=== PATIENT | female | born 1945 | race Caucasian/White ===

== ENCOUNTER → 2018-03-28 | Outpatient (CLI) | payer MEDICARE, OTHER | LOC: CARD 09:56 | PROVIDERS: ATTEND Internal Medicine Interventional Cardiology | DX: I48.91 Unspecified atrial fibrillation (principal); I10 Essential (primary) hypertension; R42 Dizziness and giddiness; R55 Syncope and collapse; E66.9 Obesity, unspecified | CPT/HCPCS: 93225; 93226 ==

== ENCOUNTER 2018-04-26 10:15 | Inpatient (IN) | payer MEDICARE, OTHER ==
[~2018-04-26] VITALS: Ht 160 cm; Wt 87.1 kg
[~2018-04-26 10:15] MED LIST: CITA40TA11; CITA40TA11 PO; DILT240C PO; DILT240C53; LOSA1TAB20; LOSA1TAB20 PO; MAGN400T39 PO; METO-333 PO; METO100T12; METO100T12 PO; NITR100C PO; OMEP20CA12; OMEP20CA12 PO; WARF-47; WARF-47 PO
[2018-04-26 10:30] VITALS: BP 158/79
--- NOTE | 2018-04-26 11:41 | Physical Therapy Evaluation ---
PT Evaluation-General Medical Diagnosis Admission Date Apr 26, 2018 at 10:15 Medical Diagnosis: Closed left bimalleolar fx Onset Date: Apr 23, 2018 Therapy Diagnosis Therapy Diagnosis: weakness; abn gait Height/Weight Height (Feet): 5 Height (Inches): 3.00 Weight (Pounds): 192 Weight (Ounces): 0.6 Precautions Precautions/Isolations: Contact Isolation (EBSL uring) Weight Bear Status Right Lower Extremity: Right Full Weight Bearing Left Lower Extremity: Left Touch Toe Bearing CAM boot on the left Referral Physician: Joe Reason for Referral: Evaluation/Treatment Medical History Pertinent Medical History: Atrial Fib, HTN Additional Medical History Right ankle fx in 2010; repaired with hardware. Current History Pt reports she had a syncopal episode on 04/23/18 in which caused her to fall. She sustained a left ankle fracture. It has been repaired with an ORIF on . She is currently also reporting right ankle pain, but X Rays taken today are (-). Reviewed History: Yes Social History Home: Apartment (level entry and elevator) Current Living Status: Alone (family nearby) Entry Into Home: Elevator, Level Entry Prior/Core FIM Prior Level of Function Functional [place] Measure 0=Not Assessed/NA 4=Minimal Assistance 1=Total Assistance 5=Supervision or Setup 2=Maximal Assistance 6=Modified [place] 3=Moderate Assistance 7=Complete [place] Bed Mobility: 7 Transfers (B,C,W/C) (FIM): 7 Gait: 7 INdep with ADL"s, drives, ambulates in the community. Reports she has an "insufficient ACL" on the R, therefore stairs are hard for her. She reports she has to have assist to go up/down steps. PT Evaluation-Current Subjective Agrees to PT. Reports her limiting factor today is R ankle pain with WB activity. Pain Numeric Pain Scale: 5-Moderate Pain Location: Right Location Body Site: Ankle Comment: "hurts" with WB activity Pt/Family Goals Her goal is to return home at a mod indep level. Objective Patient Orientation: Person, Place, Time, Situation Problem Solving: Good ROM/Strength ROM Lower Extremities WNL except left ankle NT Strenght Lower Extremities Her gross B LE strength is 4-/5 functional weakness noted. Integumentary/Posture Integumentary Refer to nursing notes. Bowel Incontinence: No Bladder Incontinence: Yes (stress or urgency related) Posture normal and symmetrical Neuromuscular (Tone, Coordination, Reflexes) Intact and functional Sensory Vision: Wears Glasses Hearing: Functional Hand Dominance: Right Sensation Right Lower Extremit: Intact Sensation Left Lower Extremity: Intact Transfers Functional [place] Measure 0=Not Assessed/NA 4=Minimal Assistance 1=Total Assistance 5=Supervision or Setup 2=Maximal Assistance 6=Modified [place] 3=Moderate Assistance 7=Complete IndependenceIRFPAI Quality Coding Scale 6 Independent with activity with or without an assistive device 5 Patient requires set up or clean up by helper. Patient completes activity by themselves 4 Supervision or touching assist (CGA). [place] provide cues , steadying assist 3 The helper provides less than half the effort to complete the activity 2 The helper provides more than half the effort to complete the activity 1 Dependent. The helper does all the effort to complete an activity 7 Patient refused to complete or attempt activity 9 The patient did not perform the activity before the current illness or injury 88 Not attempted due to Medical conditions or safety concerns Transfers (B, C, W/C) (FIM): 3 Scootin Rollin Roll Left to Right (QC): 5 Supine to/from Sit: 4 (assist with left LE) Sit to/from Stand: 3 (mod assist from standard chair with skilled cues for sequencing) bed t/f WC(FIM only if WC use): 4 (CGA and takes extra time. ) Sit to Lying (QC): 4 Lying to Sitting/Side of Bed(Q: 4 Sit to Stand (QC): 3 Chair/Wup-ve-Hhnhv Xfer(QC): 4 Car Transfer (QC): 3 In general her transfers are at a min assist level; due to left LE being "heavy " and TTWB Gait Does the Patient Walk?: No and Walking Goal IS indicated Mode of Locomotion: Both Anticipated Mode of Locomotion: Both Gait (FIM): 0 (unable at this time. ) Distance (FIM): 0=does not occure Walk 10 feet (QC): 88 Walk 50 ft with 2 Turns(QC): 88 Walk 150 ft (QC): 88 Walking 10ft/uneven surface-QC: 88 Gait Assistive Device: FWW Comments/Gait Description TTWB left; unable to hop/walk at this time. Wheelchair Training Does the Pt Use a Wheelchair?: Yes Wheelchair (FIM): 4 Wheelchair Distance (FIM): 3=150 ft Distance: 150 ft Wheelchair Level of Assist: 4 (occas assist with turning) Wheel 50 ft with 2 turns (QC): 4 Wheel 150 ft (QC): 4 Type of Wheelchair: Manual Stairs Stairs (FIM): 0 (unable to effectively hop due to U/LE weakness and TTWB on the left) 1 Step (curb) (QC): 88 4 Steps (QC): 88 12 Steps (QC): 88 If not tested on admit;explain TTWB; unable to effectively or safely attempt to hop; pt currently unable to ambulate Balance Sitting Static: Good Sitting Dynamic: Good Standing Static: Fair Standing Dynamic: Fair Picking up an Object (QC): 88 (unsafe to attempt) Treatment Bed mobility and transfer training with focus on sequencing and safety. SPT x 3 performed with FWW with min to CGa. Assessment/Needs Pt presents post left ankle fracture and is TTWB due to this. She is also experiencing right ankle pain that is limiting her ability to stand to transfer. She has gross LE weakness which impairs bed mobility and transfers. She will benefit from skilled PT intervention to address bed mobility, transfers and gait (as able.) Will also benefit from wheelchair training. Will continue to assess best method of transferring (slide board vs SPT) as well as best method of mobility (WC, hopping and/or knee scooter) Rehab Potential: Good (motivated and high PLOF) PT Short Term Goals Short Term Goals Time Frame: May 03, 2018 Transfers (B,C,W/C) (FIM): 5 Gait (FIM): 2 Distance (FIM): 1=up to 49 ft Gait Assistive Device: FWW Wheelchair (FIM): 6 Wheelchair distance (FIM): 3=150 ft PT Fdc Goals Ux Ui Designer Goals PT Fdc Goals Time Frame: May 13, 2018 Transfers (B,C,W/C) (FIM): 6 Sit to Lying (QC): 6 Lying-Sitting on Side/Bed(QC): 6 Sit to Stand (QC): 6 Roll Left to Right (QC): 6 Chair/Npd-jq-Dxmkn Xfer(QC): 6 Car Transfer (QC): 6 Does the Patient Walk: No and Walking Goal IS indicated Gait (FIM): 5 (household exception) Gait distance (FIM): 6=667-18 ft Walk 10 feet (QC): 6 Walk 10ft-Uneven Surface(QC): 6 Walk 50ft with 2 Turns (QC): 6 Walk 150 ft (QC): 9 Gait Assistive Device: FWW Does the Pt use WC or Scooter?: Yes Wheelchair (FIM): 6 Wheelchair distance (FIM): 3=150 ft Wheel 50 feet with 2 turns (QC: 6 Stairs (FIM): 2 # of Steps: 1 1 Step (curb) (QC): 4 4 Steps (QC): 9 12 Steps (QC): 9 Stairs Level Of Assist: 4 Picking up an Object (QC): 88 Goal is for patient to be at mod indep level with transfers and bed mobility as well as forward mobilty using a walker, wc or knee scooter PT Plan Problem List Problem List: Activity Tolerance, Functional Strength, Safety, Balance, Gait, Transfer, Bed Mobility Treatment/Plan Treatment Plan: Continue Plan of Care Treatment Plan: Bed Mobility, Education, Functional Activity [place], Functional Strength, Group Therapy, Gait, Safety, Therapeutic Exercise, Transfers Treatment Duration: May 13, 2018 Frequency: At least 5 of 7 days/Wk (IRF) Estimated Hrs Per Day: 1.5 hours per day Patient and/or Family Agrees t: Yes Safety Risks/Education Patient Education: Transfer Techniques, Safety Issues Teaching Recipient: Patient Teaching Methods: Discussion Response to Teaching: Reinforcement Needed Discharge Recommendations Therapy D/C Recommendations: Physical Therapy Home Care Time/GCodes Time In: 1000 Time Out: 1100 Total Billed Treatment Time: 60 Total Billed Treatment visit EVM 20 FA 40 DORIS HERNANDEZ PT Apr 26, 2018 11:41
[2018-04-26] MEDS ORDERED: BISACODYL 10 MG SUPP (DULCOLAX) PR PRN (11:45)
[2018-04-26] MEDS ORDERED: MILK OF MAGNESIA 400 MG/5 ML 30 ML UDC PO PRN (11:45)
[2018-04-26] MEDS ORDERED: ANTACID SUSP 30 ML UDC (MYLANTA) PO PRN (11:45)
[2018-04-26] MEDS: HYDROcodone/APAP 10 MG/325 MG (LORTAB) TAB PO PRN ×3 (12:26→21:03)
[2018-04-26] MEDS ORDERED: METO100T12 PO (12:51)
[2018-04-26] MEDS ORDERED: DILT240C53 PO (12:51)
[2018-04-26] MEDS ORDERED: LOSA1TAB20 PO (12:51)
[2018-04-26] MEDS ORDERED: OMEP20CA12 PO (12:56)
--- NOTE | 2018-04-26 13:10 | HISTORY AND PHYSICAL ---
DATE OF SERVICE: ADMISSION HISTORY AND PHYSICAL CHIEF COMPLAINT: Difficulty with walking. HISTORY OF PRESENT ILLNESS: The patient is a 72-year-old female, who had a syncopal episode at home in her apartment in [place], [place], with a resulting left ankle fracture. She was admitted to [facility] [place] and underwent ORIF on 04/24/2018. She is toe touch weightbearing left lower limb. Therapies were begun and she was felt to be appropriate for inpatient rehabilitation. She has had difficulty with syncope due to orthostasis and she has been followed by cardiology as well as hospitalist service and her diltiazem has been discontinued and her Toprol decreased. Her blood pressure is being allowed to be a bit elevated so as to avoid orthostasis. Currently, she reports stress incontinence, but this is controlled with pad. She has continence of bowel. She is alert and oriented. She had been independent prior to this. She is mod assist for transfers, unable to maintain her toe touch weightbearing for ambulation. She is min assist for wheelchair propulsion. She is modified independent for eating, set up for grooming, min assist for upper body dressing, mod assist for lower body dressing and toileting. PAST MEDICAL HISTORY: Atrial fibrillation and hypertension. PAST SURGICAL HISTORY: Right ankle fracture 2011 repaired with hardware. She has a Cam boot on the left currently. She also has contact precautions due to ESBL in the urine. ALLERGIES: No known medication allergies. FAMILY HISTORY: Noncontributory. SOCIAL HISTORY: As per above. REVIEW OF SYSTEMS: A 10-point review of systems mild pain in ankle and a syncopal episode, not repeated. MEDICATIONS: Coumadin 4 mg on Wednesday, Wednesday, Wednesday alternating with 3 mg the other day, Celexa 40 mg p.o. daily, mag ox 400 mg p.o. daily, Colace 100 mg p.o. b.i.d., MiraLax 17 grams p.o. at bedtime, metoprolol 25 mg p.o. b.i.d., Benadryl 25 mg p.o. at bedtime p.r.n. insomnia, hydrocodone APAP 10 one tablet p.o. q.4 hours p.r.n. moderate pain, Tylenol 650 mg p.o. q.4 hours p.r.n. mild pain or fever. PHYSICAL EXAMINATION: GENERAL: Significant for a pleasant female appearing her stated age, alert and oriented, no acute distress, sitting in chair. VITAL SIGNS: She is afebrile, pulse is 72, respirations 20, blood pressure 158/79 and O2 sat 97% on room air. HEENT: Vision, speech, hearing grossly intact. No oral lesion is noted. NECK: Supple without mass. HEART: Regular rhythm. CHEST: Clear. ABDOMEN: Soft, nontender and bowel sounds present. EXTREMITIES: The patient has a boot on the left leg. No lower leg edema, no calf tenderness on the right. MUSCULOSKELETAL: She has functional active range of motion both upper limbs and right lower limb. NEUROLOGIC: Cognition grossly intact. Sensation is intact to touch. She has functional strength both upper limbs-groosly 4/5. Strength in the lower extremities is 4-5 grossly other than the ankle IMPRESSION: 1. Ambulatory dysfunction secondary to syncopal episode resulting in left ankle fracture status post ORIF 04/24/2018, toe touch weightbearing left lower extremity. 2. Atrial fibrillation, controlled with medication. 3. Hypertension, controlled with medication. 4. Orthostatic hypotension, resolved with adjustment in medications. 5. ESBL in the urine, has contact precautions. 6. Chronic anticoagulation which may may also be used for DVT Prophylaxis PLAN: The patient is admitted for a comprehensive program of inpatient orthopedic rehabilitation with goal of returning home modified independent to supervision for ADLs and mobility skills at the wheelchair level of function due to toe touch weightbearing left lower extremity. The patient will have PT and OT 90 minutes per day each discipline 5 days a week, 90 minutes per day each session. Please see post-admission physician evaluation for details of plan of care and goals as per above. Speech therapy to do cognitive assessment and treat as indicated. Rehabilitation nursing to assist with bowel, bladder, skin, wound care, medication administration and pain management. food services coordinator to assist with discharge planning, community reentry. Follow up with orthopedics and hospitalist service and cardiology as per their schedule. ESTIMATED LENGTH OF STAY: 10 to 14 days. PROGNOSIS: Rehab prognosis appears good for goal of discharging to home with home health care and family, modified independent to supervision for ADLs and mobility skills at the wheelchair level of function due to toe touch weightbearing left lower extremity. DIET: Regular. CODE STATUS: Full code. Job ID: [id number] DocumentID: [id number] Dictated Date: 04/26/2018 12:27:02 Leaf Fat Scraper Date: 04/26/2018 13:09:21 Dictated By: DEDE PEREZ MD MTDD
--- NOTE | 2018-04-26 13:53 | Occupational Therapy Eval ---
OT Evaluation-General/PLF Medical Diagnosis Admission Date Apr 26, 2018 at 10:15 Medical Diagnosis: Closed left bimalleolar fx Onset Date: Apr 23, 2018 Therapy Diagnosis Therapy Diagnosis: decr funct mobility, decr self care, weakness Height/Weight Height (Feet): 5 Height (Inches): 3.00 Weight (Pounds): 192 Weight (Ounces): 0.6 Precautions Precautions/Isolations: Contact Isolation, Fall Prevention Weight Bear Status Weight Bearing Restriction: Touch Toe Bearing Location Restriction: L LE Referral Physician: Joe Referral Reason: Evaluation/Treatment Medical History Pertinent Medical History: Atrial Fib, HTN Additional Medical History Hx R ankle fx Current History Syncopal episode and collapse, L tib/fib fx. Orif on 04-24-18 Reviewed History: Yes Social History Home: Apartment (level entry and elevator) Current Living Status: Alone (family nearby) Entry Into Home: Elevator, Level Entry ADL-Prior Level of Function ADL PLOF Comments Pt reported that she was previously able to manage all of her basic self care needs. She does her own laundry, dishes, cooking but has help twice a month to clean her apartment. 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 She coordinates many of the social activities in her [place] apartment building. DME/Equipment: Grab Bars, Shower (with door), Tall Toilet DME/Equipment Comments She will shower in her aunt's apartment in the same building and it has a roll- in shower. OT Current Status Subjective Pt seen in room, up in w/c, agreeable to OT. pt reported pain R LE when she transfers Appearance Alert, cooperative. Current Glasses/Contacts: Yes Hearing Aids: No Dentures/Partials: No Hand Dominance: Right Upper Extremity ROM Grossly WFL bilat Upper Extremity Sensation No problems per pt report Upper Extremity Strength grossly 4/5 bilat ADL-Treatment ADL-Current She propelled w/c to bathroom and had a little assistance positioning chair at sink. pt educ to lock brakes. She brushed teeth, combed hair, washed face and hands with setup at sink. pt educ transfers from w/c to [facility] over toilet and back , using grab bars, but she did not attempt transfer. She reported that she had a shower yesterday and did not want to do so again until tomorrow when she will have clean clothes here. Functional [place] Measure 0=Not Assessed/NA 4=Minimal Assistance 1=Total Assistance 5=Supervision or Setup 2=Maximal Assistance 6=Modified [place] 3=Moderate Assistance 7=Complete IndependenceIRFPAI Quality Coding Scale 6 Independent with activity with or without an assistive device 5 Patient requires set up or clean up by helper. Patient completes activity by themselves 4 Supervision or touching assist (CGA). [place] provide cues , steadying assist 3 The helper provides less than half the effort to complete the activity 2 The helper provides more than half the effort to complete the activity 1 Dependent. The helper does all the effort to complete an activity 7 Patient refused to complete or attempt activity 9 The patient did not perform the activity before the current illness or injury 88 Not attempted due to Medical conditions or safety concerns Eating (FIM): 7 (Able to feed herself, open packages, cut up food, get a drink. No dentures) Eating (QC): 6 Grooming (FIM): 5 (setup at sink) Oral Hygiene (QC): 5 (setup) Other Treatments Pt propelled w/c to gym. She did 12 minutes bilat UE exercise on arm bike set at 1115W resistance, taking one brief recovery break midway. She also did 10 reps bilat UE ex with 2# weight, working on shoulders, elbows, forearms and wrists. All to strengthen arms to help with transfers and ADLs. Pt propelled w/ c back to room, using UEs, then transferred into bed with mod assist to get up from w/c, then min/CGA to turn to sit EOB. Able to get legs into bed herself. Pillow under legs and ice pack for R knee, per pt request. pt was provided with narrower w/c and arm rests were turned around (from desk arms) so that she would have a good surface to help with transfers. Pt left up in bed, all needs met. Education OT Patient Education: Exercise program, Modified ADL techniques, Purpose of tx/ functional activities, Rehab process, Safety issues, Transfer techniques Teaching Recipient: Patient Teaching Methods: Demonstration, Discussion Response to Teaching: Verbalize Understanding, Return Demonstration, Reinforcement Needed OT Short Term Goals Short Term Goals Time Frame: May 03, 2018 Toilet/Commode Transfer(FIM): 5 1=Demonstrate adherence to instructed precautions during ADL tasks. 2=Patient will verbalize/demonstrate understanding of assistive devices/ modifications for ADL. 3=Patient will improve strength/tolerance for activity to enable patient to perform ADL's. OT Senior Care Goals Senior Care Goals Time Frame: May 13, 2018 Eating (FIM): 7 Eating (QC): 6 Groomin Oral Hygiene (QC): 6 Bathing(FIM): 6 Shower/Bathe Self (QC): 6 Upper Body Dressing(FIM): 6 Upper Body Dressing (QC): 6 Lower Body Dressing(FIM): 6 Lower Body Dressing (QC): 6 On/Off Footwear (QC): 6 Toileting(FIM): 6 Toileting Hygiene (QC): 6 Toilet/Commode Transfer(FIM): 6 Toilet/Commode Transfer (QC): 6 Shower Transfer(FIM): 6 Additional Goals: 1-Demonstrate ADL Tasks, 3-ImproveStrength/[place] 1=Demonstrate adherence to instructed precautions during ADL tasks. 2=Patient will verbalize/demonstrate understanding of assistive devices/ modifications for ADL. 3=Patient will improve strength/tolerance for activity to enable patient to perform ADL's. OT Education/Plan Problem List/Assessment Assessment: Decreased Activ Tolerance, Decreased UE Strength, Dependent Transfers, Impaired Funct Balance, Impaired Self-Care Skills Pt would benefit from skilled OT to increase her independence in basic self care Discharge Recommendations Plan/Recommendations: Continue POC Treatment Plan/Plan of Care Treatment,Training & Education: Yes Patient would benefit from OT for education, treatment and training to promote independence in ADL's, mobility, safety and/or upper extremity function for ADL' s. Plan of Care: ADL Retraining, Functional Mobility, Group Exercise/Act as Ind ( education, exercise, activity tolerance, functional activities, funct mobility) , UE Funct Exercise/Act, UE Neuromus Re-Ed/Coord, W/C Management Training Treatment Duration: May 13, 2018 Frequency: At least 5 of 7 days/Wk (IRF) Estimated Hrs Per Day: 1.5 hours per day Agreement: Yes Rehab Potential: Good (motivated and high PLOF) Time/GCodes Start Time: 11:00 Stop Time: 12:15 Total Time Billed (hr/min): 75 Billed Treatment Time visit, 15 minutes evaluation moderate intensity, 15 minutes ADL, 45 minutes exercise KENDELL SETHI OT Apr 26, 2018 13:53
--- NOTE | 2018-04-26 14:15 | Physical Therapy Daily Note ---
PT Daily Note-Current Subjective Patient reports extreme fatigue but agrees to PT. Pain Numeric Pain Scale: 5-Moderate Pain Location: Left Location Body Site: Ankle Pain Description: Acute Mental Status Patient Orientation: Normal For Age Transfers Functional [place] Measure 0=Not Assessed/NA 4=Minimal Assistance 1=Total Assistance 5=Supervision or Setup 2=Maximal Assistance 6=Modified [place] 3=Moderate Assistance 7=Complete IndependenceIRFPAI Quality Coding Scale 6 Independent with activity with or without an assistive device 5 Patient requires set up or clean up by helper. Patient completes activity by themselves 4 Supervision or touching assist (CGA). [place] provide cues , steadying assist 3 The helper provides less than half the effort to complete the activity 2 The helper provides more than half the effort to complete the activity 1 Dependent. The helper does all the effort to complete an activity 7 Patient refused to complete or attempt activity 9 The patient did not perform the activity before the current illness or injury 88 Not attempted due to Medical conditions or safety concerns Transfers (B, C, W/C) (FIM): 4 Scootin Rollin Roll Left to Right (QC): 5 Supine to/from Sit: 5 Sit to/from Stand: 4 Sit to Lying (QC): 5 Sit to Stand (QC): 4 Chair/Etw-dx-Xmgif Xfer(QC): 4 Bed to/from Chair: 4 sit to dispensing lead parallel bars x 4 sets with left LE standing exercises Weight Bearing Right Lower Extremity: Right Full Weight Bearing Left Lower Extremity: Left Touch Toe Bearing CAM boot on the left Wheelchair Training Does the Pt Use a Wheelchair?: Yes Wheelchair (FIM): 4 Wheelchair Distance: 3=150 ft Distance: 150' x 2 Wheelchair Level of Assist: 4 Wheel 50 ft with 2 turns (QC): 4 Wheel 150 ft (QC): 4 Type of Wheelchair: Manual Exercises Standin way Ex=Flex, Abd, Ext (left LE only AROM) Assessment Patient tolerated treatment well and returned to bed with needs met. Patient will continue to benefit from skilled PT to address goals. PT Short Term Goals Short Term Goals Time Frame: May 03, 2018 Transfers (B,C,W/C) (FIM): 5 Gait (FIM): 2 Distance (FIM): 1=up to 49 ft Gait Assistive Device: FWW Wheelchair (FIM): 6 Wheelchair distance (FIM): 3=150 ft Wheelchair Distance: 150 ft PT Senior Living Goals Senior Living Goals PT Senior Living Goals Time Frame: May 13, 2018 Transfers (B,C,W/C) (FIM): 6 Sit to Lying (QC): 6 Lying-Sitting on Side/Bed(QC): 6 Sit to Stand (QC): 6 Rollin Roll Left to Right (QC): 6 Chair/Xpu-ht-Eoyrw Xfer(QC): 6 Car Transfer (QC): 6 Does the Patient Walk: No and Walking Goal IS indicated Gait (FIM): 5 (household exception) Gait distance (FIM): 2=693-10 ft Walk 10 feet (QC): 6 Walk 10ft-Uneven Surface(QC): 6 Walk 50ft with 2 Turns (QC): 6 Walk 150 ft (QC): 9 Gait Assistive Device: FWW Does the Pt use WC or Scooter?: Yes Wheelchair (FIM): 6 Wheelchair distance (FIM): 3=150 ft Wheel 50 feet with 2 turns (QC: 6 Stairs (FIM): 2 # of Steps: 1 1 Step (curb) (QC): 4 4 Steps (QC): 9 12 Steps (QC): 9 Stairs Level Of Assist: 4 Picking up an Object (QC): 88 PT Plan Treatment/Plan Treatment Plan: Continue Plan of Care Treatment Plan: Bed Mobility, Education, Functional Activity [place], Functional Strength, Group Therapy, Gait, Safety, Therapeutic Exercise, Transfers Treatment Duration: May 13, 2018 Frequency: At least 5 of 7 days/Wk (IRF) Estimated Hrs Per Day: 1.5 hours per day Patient and/or Family Agrees t: Yes Time/GCodes Time In: 1340 Time Out: 1410 Total Billed Treatment Time: 30 Total Billed Treatment 1 visit FA 17 min EX 13 min FATMATA MARIN PT Apr 26, 2018 14:15
--- NOTE | 2018-04-26 15:48 | Occupational Ther Daily Note ---
OT Current Status-Daily Note Subjective Pt seen in room, up in bed, agreeable to OT. Reported she had pain meds and R ankle feels much better. Appearance Alert, cooperative Mental Status/Objective Functional [place] Measure 0=Not Assessed/NA 4=Minimal Assistance 1=Total Assistance 5=Supervision or Setup 2=Maximal Assistance 6=Modified [place] 3=Moderate Assistance 7=Complete [place] ADL-Treatment Functional [place] Measure 0=Not Assessed/NA 4=Minimal Assistance 1=Total Assistance 5=Supervision or Setup 2=Maximal Assistance 6=Modified [place] 3=Moderate Assistance 7=Complete IndependenceIRFPAI Quality Coding Scale 6 Independent with activity with or without an assistive device 5 Patient requires set up or clean up by helper. Patient completes activity by themselves 4 Supervision or touching assist (CGA). [place] provide cues , steadying assist 3 The helper provides less than half the effort to complete the activity 2 The helper provides more than half the effort to complete the activity 1 Dependent. The helper does all the effort to complete an activity 7 Patient refused to complete or attempt activity 9 The patient did not perform the activity before the current illness or injury 88 Not attempted due to Medical conditions or safety concerns Other Treatment Pt educ on 5 different bilat UE exercise with red theraband (medium resistance) , with occasional physical cues to do exercise correctly. She did 12 reps each ex, to strengthen arms to help with transfers. Pt left up in bed, all needs met. Education OT Patient Education: Exercise program, Purpose of tx/functional activities OT Short Term Goals Short Term Goals Time Frame: May 03, 2018 Toilet/Commode Transfer(FIM): 5 1=Demonstrate adherence to instructed precautions during ADL tasks. 2=Patient will verbalize/demonstrate understanding of assistive devices/ modifications for ADL. 3=Patient will improve strength/tolerance for activity to enable patient to perform ADL's. OT Evs Manager Goals Evs Manager Goals Time Frame: May 13, 2018 Eating (FIM): 7 Eating (QC): 6 Groomin Oral Hygiene (QC): 6 Bathing(FIM): 6 Shower/Bathe Self (QC): 6 Upper Body Dressing(FIM): 6 Upper Body Dressing (QC): 6 Lower Body Dressing(FIM): 6 Lower Body Dressing (QC): 6 On/Off Footwear (QC): 6 Toileting(FIM): 6 Toileting Hygiene (QC): 6 Toilet/Commode Transfer(FIM): 6 Toilet/Commode Transfer (QC): 6 Shower Transfer(FIM): 6 Additional Goals: 1-Demonstrate ADL Tasks, 3-ImproveStrength/[place] 1=Demonstrate adherence to instructed precautions during ADL tasks. 2=Patient will verbalize/demonstrate understanding of assistive devices/ modifications for ADL. 3=Patient will improve strength/tolerance for activity to enable patient to perform ADL's. OT Education/Plan Problem List/Assessment Pt would benefit from skilled OT to increase her independence in basic self care Discharge Recommendations Plan/Recommendations: Continue POC Treatment Plan/Plan of Care Patient would benefit from OT for education, treatment and training to promote independence in ADL's, mobility, safety and/or upper extremity function for ADL' s. Plan of Care: ADL Retraining, Functional Mobility, Group Exercise/Act as Ind ( education, exercise, activity tolerance, functional activities, funct mobility) , UE Funct Exercise/Act, UE Neuromus Re-Ed/Coord, W/C Management Training Treatment Duration: May 13, 2018 Frequency: At least 5 of 7 days/Wk (IRF) Estimated Hrs Per Day: 1.5 hours per day Agreement: Yes Rehab Potential: Good (motivated and high PLOF) Time/GCodes Start Time: 14:15 Stop Time: 14:30 Total Time Billed (hr/min): 15 Billed Treatment Time visit, 15 minutes exercise KENDELL SETHI OT Apr 26, 2018 15:48
[2018-04-26] MEDS: warFARin 3 MG (COUMADIN) TAB PO SCH (17:36)
[2018-04-26 17:55] VITALS: BP 151/75
--- NOTE | 2018-04-26 20:06 | PM&R Post Admission Assessment ---
Post Admission Physician Asses Date seen by provider: Apr 26, 2018 Time seen by provider: 13:00 The preadmission screen agrees with the post admission assessment that the patient is a good candidate for inpatient rehabilitation. The patient will have a comprehensive program of inpatient rehabilitation with a goal of maximizing level of functional independence prior to discharge home with family and HHC. The patient will have PT/OT ninety minutes per day, each discipline, five days a week for 14 days for gait, strengthening, conditioning, balance, ADLs, any patient/family/caregiver training as necessary. Speech therapy to do cognitive assessment and treat as indicated. Rehabilitation nursing to assist with bowel, bladder, skin, wound care, medication administration, pain management. Furniture Upholsterer Apprentice to assist with discharge planning, community reentry. Coumadin for DVT prophylaxis. She appears to be well motivated to participate in three hours of therapy a day. She should be able to tolerate three hours of therapy a day from a medical and surgical standpoint. She should benefit from the three hours of therapy a day. She has a reasonable discharge plan, reasonable discharge rehabilitation goals and a supportive family. She has various comorbidities that need to be closely monitored with medications and treatments adjusted on a daily basis as needed. These include: A FIB Chronic anticoagulation HTN Syncope secondary to orthostasis meds adjusted by cardiology Barriers to discharge for this patient who had been independent prior to this are for her to be modified independent to supervision for ADLs and mobility skills at the w/c level of function prior to discharge home with family and HHC , so as to lessen the burden of the caregivers. Risks for this patient include: 1. Fall 2. Fracture 3. DVT 4. Pulmonary embolism 5. Wound infection 6. Skin breakdown 7. Contractures 8. Poorly controlled pain 9. Urinary retention 10. UTI 11. Respiratory infection 12. Aspiration 13. Poorly controlled HTN 14.Recurrent A FIB 15. Recurrent orthostasis 16. Recurrent syncope 17. Sub or supratherapeutic INR Estimated Length of Stay: 14 days Prognosis: Rehab prognosis appears good for goal of discharge home with family and HHC modified independent to supervision for ADLs and mobility skills at the w/c level of function due to TTWB LLE. General: Alert, Oriented X3, Cooperative, No Acute Distress HEENT: Atraumatic, PERRLA, EOMI, Mucous Memb Moist/[place] Neck: Supple, No JVD Lungs: Clear to Auscultation Heart: Regular Rate Abdomen: Normal Bowel Sounds, Soft, No Tenderness Extremities: Other (CAM boot left ankle) Neuro: Normal Speech, Sensation Intact, Other (Strength 4/5 UES and 4-/5 BLES except for left foot in cam boot) DEDE PEREZ MD Apr 26, 2018 20:06
[2018-04-26] MEDS: DOCUSATE SODIUM 100 MG (COLACE) CAP PO SCH (21:03)
[2018-04-26] MEDS: POLYETHYLENE GLYCOL 17 GM (MIRALAX) PACK PO SCH (21:03)
[2018-04-26] MEDS: meTOprolol TARTRATE 25 MG (LOPRESSOR) TABLET PO SCH (21:07)
[2018-04-26] MEDS: diphenhydrAMINE 25 MG TAB (BENADRYL) PO PRN (21:12)
[2018-04-27] MEDS: HYDROcodone/APAP 10 MG/325 MG (LORTAB) TAB PO PRN ×5 (00:39→22:00)
[2018-04-27 05:47] VITALS: BP 138/81
--- NOTE | 2018-04-27 08:48 | Cardiology Progress Note ---
Subjective Date Seen by Provider: Apr 27, 2018 Time Seen by Provider: 08:47 Subjective/Events-last exam Patient is with physical therapy. No new complaints. Denies any dizziness or lightheadedness. Objective-Cardiology Exam Last Set of Vital Signs Vital Signs 04/27/18 05:47 Temp 97.0 Pulse 66 Resp 16 B/P (MAP) 138/81 (100) Pulse Ox 98 O2 Delivery Room Air Capillary Refill : Less Than 3 SecondsLess Than 3 Seconds I&O Intake and Output 04/27/18 00:00 Intake Total 400 ml Balance 400 ml Intake Oral 400 ml # Voids 1 Daily Weight Change No General: Alert, Oriented X3, Cooperative, No Acute Distress HEENT: Atraumatic, PERRLA, EOMI, Mucous Memb Moist/[place] Neck: Supple, No JVD Lungs: Clear to Auscultation Heart: Regular Rate Abdomen: Normal Bowel Sounds, Soft, No Tenderness Extremities: Other (CAM boot left ankle) Neuro: Normal Speech, Sensation Intact, Other (Strength 4/5 UES and 4-/5 BLES except for left foot in cam boot) A/P-Cardiology Admission Diagnosis Syncope Labile hypertension PAF Anemia Assessment/Plan Syncope, labile blood pressure, orthostatic hypotension. Cardizem was discontinued, continue on beta blockers and monitor her tolerance and response, she will need to have compression stocking Labile hypertension, mildly elevated blood pressure today. Continue to monitor , recommend accepting a higher blood pressure reading to avoid orthostatic hypotension and syncope Paroxysmal atrial fibrillation, back in sinus rhythm. No further episodes were reported. Being monitored by Dr. Cohen Anemia, monitor H&H closely Tibia and fibula fracture, status post surgical repair. Recovering slowly, receiving physical therapy Clinical Quality Measures DVT/VTE Risk/Contraindication: Risk Factor Score Per Nursin RFS Level Per Nursing on Admit: 4+=Very High OLU GATES Apr 27, 2018 08:48
--- NOTE | 2018-04-27 09:06 | PM & R (SOAP) Progress Note ---
Subjective This was a face to face visit with the patient. Date Seen by Provider: Apr 27, 2018 Time Seen by Provider: 08:20 Subjective/Events-last exam Patient was seen in her room this AM Adjusting well to unit Discussed case with RN Patient on Treatment for ESBL UTI and has contact precautions-see orders.Patient is mod assist for transfers Review of Systems Musculoskeletal: leg pain Objective Physician Exam Last Set of Vital Signs Vital Signs Date Time Temp Pulse Resp B/P (MAP) Pulse Ox O2 Delivery O2 Flow Rate FiO2 04/27/18 05:47 97.0 66 16 138/81 (100) 98 Room Air Capillary Refill : Less Than 3 SecondsLess Than 3 Seconds I&O Intake and Output 04/27/18 00:00 Intake Total 400 ml Balance 400 ml Intake Oral 400 ml # Voids 1 Daily Weight Change No General: Alert, Oriented X3, Cooperative, No Acute Distress HEENT: Atraumatic, PERRLA, EOMI, Mucous Memb Moist/[place] Neck: Supple, No JVD Lungs: Clear to Auscultation Heart: Regular Rate Abdomen: Normal Bowel Sounds, Soft, No Tenderness Extremities: Other (CAM boot left ankle) Neuro: Normal Speech, Sensation Intact, Other (Strength 4/5 UES and 4-/5 BLES except for left foot in cam boot) Assessment/Plan Assessment and Plan Syncopal episode resulting in left ankle fracture s/p ORIF 04-24-18 TTWB LLE A FIB controlled with med HTN controlled with med Orthostatic Hypotension resolved with adjustment in meds ESBL on ciprop with contact precautions Plan Continue PT/OT and current meds Monitor for any further orthostasis Team Conference later today --see report for full functional update and POC and ELOS Co-Morbidities that are continuing to impact the rehab process: (include details ) DEDE PEREZ MD Apr 27, 2018 09:06
[2018-04-27] MEDS: DOCUSATE SODIUM 100 MG (COLACE) CAP PO SCH ×2 (09:14→20:31)
[2018-04-27] MEDS: CIPROFLOXACIN 500 MG (CIPRO) TABLET PO SCH ×2 (09:14→20:31)
[2018-04-27] MEDS: MAGNESIUM OXIDE (MAG-OX)400 MG TAB PO SCH (09:14)
[2018-04-27] MEDS: meTOprolol TARTRATE 25 MG (LOPRESSOR) TABLET PO SCH ×2 (09:14→20:31)
--- NOTE | 2018-04-27 11:00 | Physical Therapy Daily Note ---
PT Daily Note-Current Subjective Agreeable toPT. Reports she did sleep well last night. Pain Numeric Pain Scale: 4 Location: Right Location Body Site: Ankle Comment: painful with WB and transfer Mental Status Patient Orientation: Person, Place, Time, Situation Transfers Functional [place] Measure 0=Not Assessed/NA 4=Minimal Assistance 1=Total Assistance 5=Supervision or Setup 2=Maximal Assistance 6=Modified [place] 3=Moderate Assistance 7=Complete IndependenceIRFPAI Quality Coding Scale 6 Independent with activity with or without an assistive device 5 Patient requires set up or clean up by helper. Patient completes activity by themselves 4 Supervision or touching assist (CGA). [place] provide cues , steadying assist 3 The helper provides less than half the effort to complete the activity 2 The helper provides more than half the effort to complete the activity 1 Dependent. The helper does all the effort to complete an activity 7 Patient refused to complete or attempt activity 9 The patient did not perform the activity before the current illness or injury 88 Not attempted due to Medical conditions or safety concerns Transfers (B, C, W/C) (FIM): 3 Roll Left to Right (QC): 5 Supine to/from Sit: 5 Sit to/from Stand: 3 (mod assist to stand from standard surfaces) Sit to Stand (QC): 3 Chair/Dbv-xz-Imvmi Xfer(QC): 4 (SPT x 3 with fWW with CGA TTWB on the left.) Weight Bearing Right Lower Extremity: Right Full Weight Bearing Left Lower Extremity: Left Touch Toe Bearing CAM boot on the left Wheelchair Training Does the Pt Use a Wheelchair?: Yes Wheelchair (FIM): 5 Wheelchair Distance: 3=150 ft Distance: 200 ft x 2 Type of Wheelchair: Manual Exercises Supine Ex: Bridging, Ankle pumps, Quad Set, Glut sets, Heel Slides, Short Arc Quads, Hip abd/add Supine Reps: 15 (to increase LE strength for transfer improvemeht) Seated Therapy Exercises: Ankle pumps, Long arc quads, Hip flexion, Hamstring Curls Seated Reps: 15 Assessment Current Status: Good Progress Pt's bed mobility is improved. Still having difficulty with sit to stand due to hip ext and quad weakness. PT Short Term Goals Short Term Goals Time Frame: May 03, 2018 Gait (FIM): 2 Distance (FIM): 1=up to 49 ft Gait Assistive Device: FWW Wheelchair (FIM): 6 Wheelchair distance (FIM): 3=150 ft Wheelchair Distance: 150' x 2 PT Longterm Goals Senior Information Security Consultant Goals PT Longterm Goals Time Frame: May 13, 2018 Transfers (B,C,W/C) (FIM): 6 Sit to Lying (QC): 6 Lying-Sitting on Side/Bed(QC): 6 Sit to Stand (QC): 6 Rollin Roll Left to Right (QC): 6 Chair/Tld-xk-Nnvpw Xfer(QC): 6 Car Transfer (QC): 6 Does the Patient Walk: No and Walking Goal IS indicated Gait (FIM): 5 (household exception) Gait distance (FIM): 4=044-88 ft Walk 10 feet (QC): 6 Walk 10ft-Uneven Surface(QC): 6 Walk 50ft with 2 Turns (QC): 6 Walk 150 ft (QC): 9 Gait Assistive Device: FWW Does the Pt use WC or Scooter?: Yes Wheelchair (FIM): 6 Wheelchair distance (FIM): 3=150 ft Wheel 50 feet with 2 turns (QC: 6 Stairs (FIM): 2 # of Steps: 1 1 Step (curb) (QC): 4 4 Steps (QC): 9 12 Steps (QC): 9 Stairs Level Of Assist: 4 Picking up an Object (QC): 88 PT Plan Problem List Problem List: Activity Tolerance, Functional Strength, Safety, Balance, Gait, Transfer, Bed Mobility Treatment/Plan Treatment Plan: Continue Plan of Care Treatment Plan: Bed Mobility, Education, Functional Activity [place], Functional Strength, Group Therapy, Gait, Safety, Therapeutic Exercise, Transfers Treatment Duration: May 13, 2018 Frequency: At least 5 of 7 days/Wk (IRF) Estimated Hrs Per Day: 1.5 hours per day Patient and/or Family Agrees t: Yes Safety Risks/Education Patient Education: Transfer Techniques, Safety Issues Teaching Recipient: Patient Teaching Methods: Demonstration, Discussion Response to Teaching: Reinforcement Needed Time/GCodes Time In: 900 Time Out: 1000 Total Billed Treatment Time: 60 Total Billed Treatment visit WC 15 FA 15 EX 30 DORIS HERNANDEZ PT Apr 27, 2018 11:00
--- NOTE | 2018-04-27 11:11 | Cardiology Progress Note ---
Subjective Date Seen by Provider: Apr 27, 2018 Time Seen by Provider: 11:10 Subjective/Events-last exam Patient is feeling better, complaining of pain in her right leg due to the fact that she is using most of her weight on the right leg at this time Review of Systems General: No Chills, No Night Sweats, No Fatigue, No Malaise, No Appetite, No Other HEENT: No Head Aches, No Visual Changes, No Eye Pain, No Ear Pain, No Dysphasia , No Sinus Congestion, No Post Nasal Drip, No Sore Throat, No Other Pulmonary: No Dyspnea, No Cough, No Pleuritic Chest Pain, No Other Cardiovascular: No: Chest Pain, Palpitations, Orthopnea, Paroxysmal Noc. Dyspnea, Edema, Lt Headedness, Other Objective-Cardiology Exam Last Set of Vital Signs Vital Signs 04/27/18 04/27/18 05:47 09:00 Temp 97.0 Pulse 66 Resp 16 B/P (MAP) 138/81 (100) Pulse Ox 98 O2 Delivery Room Air Capillary Refill : Less Than 3 SecondsLess Than 3 Seconds I&O Intake and Output 04/27/18 00:00 Intake Total 400 ml Balance 400 ml Intake Oral 400 ml # Voids 1 Daily Weight Change No General: Alert, Oriented X3, Cooperative, No Acute Distress HEENT: Atraumatic, PERRLA, EOMI, Mucous Memb Moist/[place] Neck: Supple, No JVD Lungs: Clear to Auscultation Heart: Regular Rate, Normal S1, Normal S2 Abdomen: Normal Bowel Sounds, Soft, No Tenderness Extremities: No Clubbing, Other (CAM boot left ankle) Skin: No Rashes Neuro: Normal Speech, Sensation Intact, Other (Strength 4/5 UES and 4-/5 BLES except for left foot in cam boot) A/P-Cardiology Admission Diagnosis Syncope Labile hypertension PAF Anemia Assessment/Plan Syncope, labile blood pressure, orthostatic hypotension. Cardizem was discontinued, continue on beta blockers, continue on current medication monitor Labile hypertension, mildly elevated blood pressure today. Continue to monitor , recommend accepting a higher blood pressure reading to avoid orthostatic hypotension and syncope Paroxysmal atrial fibrillation, back in sinus rhythm. No further episodes were reported. Being monitored by Dr. Cohen Anemia, monitor H&H closely Tibia and fibula fracture, status post surgical repair. Recovering slowly, receiving physical therapy Clinical Quality Measures DVT/VTE Risk/Contraindication: Risk Factor Score Per Nursin RFS Level Per Nursing on Admit: 4+=Very High SHANTELLE GEE MD Apr 27, 2018 11:11
--- NOTE | 2018-04-27 12:13 | Occupational Ther Daily Note ---
OT Current Status-Daily Note Subjective Pt seen in room, up in bed, agreeable to OT. No pain mentioned but pt anticipates pain with transfers Appearance Alert, cooperative Mental Status/Objective Functional [place] Measure 0=Not Assessed/NA 4=Minimal Assistance 1=Total Assistance 5=Supervision or Setup 2=Maximal Assistance 6=Modified [place] 3=Moderate Assistance 7=Complete [place] ADL-Treatment She got up to EOB without help other than removing pillow under legs. She got up from bed and transferred to w/c with min assist, FWW. She propelled w/c to bathroom and groomed at sink with setup. She positioned chair for shower transfer with help. She transferred into shower and on/off shower bench with mod assist, with pt educ and help with problem-solving transfer. CAM boot removed once she was on shower bench and lower leg wrapped in plastic. She washed and dried all parts except drying bottom and washing/drying lower leg, which she was able to do with long handled sponge. CAM boot reapplied. She was able to take shirt off and on with setup but needed help getting pants over her feet, standing, pulling pants up over hips, help with slipper sock. She transferred back into bed with min assist FWW and was left up in bed, all needs met. Functional [place] Measure 0=Not Assessed/NA 4=Minimal Assistance 1=Total Assistance 5=Supervision or Setup 2=Maximal Assistance 6=Modified [place] 3=Moderate Assistance 7=Complete IndependenceIRFPAI Quality Coding Scale 6 Independent with activity with or without an assistive device 5 Patient requires set up or clean up by helper. Patient completes activity by themselves 4 Supervision or touching assist (CGA). [place] provide cues , steadying assist 3 The helper provides less than half the effort to complete the activity 2 The helper provides more than half the effort to complete the activity 1 Dependent. The helper does all the effort to complete an activity 7 Patient refused to complete or attempt activity 9 The patient did not perform the activity before the current illness or injury 88 Not attempted due to Medical conditions or safety concerns Grooming (FIM): 5 (w/c) Bathing (FIM): 4 (Help R lower leg, long handled sponge. Dry botom. 77%) Bathing Location: L Arm, R Arm, L Upper Leg, R Upper Leg, R Lower Leg ( including foot), Chest, Abdomen, Perineal Area Shower/Bathe Self (QC): 3 Upper Body (FIM): 5 (setup) Upper Body Dressing (QC): 5 Lower Body Dressing (FIM): 2 (Help getting pants down and up, help getting pants over feet. FWW) Lower Body Dressing (QC): 2 On/Off Footwear (QC): 1 Toileting (FIM): 1 (per nursing. help with pants up and down) Toileting Hygiene (QC): 1 Toilet/Commode Transfer (FIM): 1 (per nursing, to [facility] [place], two person) Toilet Transfer (QC): 1 Shower Transfer(FIM): 3 (In/out of shower, on and off bench) Education OT Patient Education: Modified ADL techniques, Progress toward Goal/Update tx plan, Purpose of tx/functional activities, Safety issues, Transfer techniques, Use of adapted equipment Teaching Recipient: Patient Teaching Methods: Demonstration, Discussion Response to Teaching: Verbalize Understanding, Return Demonstration, Reinforcement Needed OT Short Term Goals Short Term Goals Time Frame: May 03, 2018 Toilet/Commode Transfer(FIM): 5 1=Demonstrate adherence to instructed precautions during ADL tasks. 2=Patient will verbalize/demonstrate understanding of assistive devices/ modifications for ADL. 3=Patient will improve strength/tolerance for activity to enable patient to perform ADL's. OT Filter Tank Tender Helper Goals Senior Care Goals Time Frame: May 13, 2018 Eating (FIM): 7 Eating (QC): 6 Groomin Oral Hygiene (QC): 6 Bathing(FIM): 6 Shower/Bathe Self (QC): 6 Upper Body Dressing(FIM): 6 Upper Body Dressing (QC): 6 Lower Body Dressing(FIM): 6 Lower Body Dressing (QC): 6 On/Off Footwear (QC): 6 Toileting(FIM): 6 Toileting Hygiene (QC): 6 Toilet/Commode Transfer(FIM): 6 Toilet/Commode Transfer (QC): 6 Shower Transfer(FIM): 6 Additional Goals: 1-Demonstrate ADL Tasks, 3-ImproveStrength/[place] 1=Demonstrate adherence to instructed precautions during ADL tasks. 2=Patient will verbalize/demonstrate understanding of assistive devices/ modifications for ADL. 3=Patient will improve strength/tolerance for activity to enable patient to perform ADL's. OT Education/Plan Problem List/Assessment Pt would benefit from skilled OT to increase her independence in basic self care Discharge Recommendations Plan/Recommendations: Continue POC Treatment Plan/Plan of Care Patient would benefit from OT for education, treatment and training to promote independence in ADL's, mobility, safety and/or upper extremity function for ADL' s. Plan of Care: ADL Retraining, Functional Mobility, Group Exercise/Act as Ind ( education, exercise, activity tolerance, functional activities, funct mobility) , UE Funct Exercise/Act, UE Neuromus Re-Ed/Coord, W/C Management Training Treatment Duration: May 13, 2018 Frequency: At least 5 of 7 days/Wk (IRF) Estimated Hrs Per Day: 1.5 hours per day Agreement: Yes Rehab Potential: Good (motivated and high PLOF) Time/GCodes Start Time: 10:30 Stop Time: 11:30 Total Time Billed (hr/min): 60 Billed Treatment Time visit, 60 minutes ADL KENDELL SETHI OT Apr 27, 2018 12:13
--- NOTE | 2018-04-27 14:42 | Therapy Group Daily Note ---
Therapy Daily Group Note Patient Education Topic Fall Prevention, Other List Below (rehab process) Other/Notes Pt was an active participant in OT/PT group. She introduced herself appropriately and shared an event memory. She participated in fall prevention quiz and contributed to education/discussion on fall prevention, sharing her experiences. She took herself back to her room per w/c, all needs met. Start Time: 13:00 Stop Time: 14:15 Total Billed Treatment Time: 75 Total Billed Treatment visit, group 75 minutes KENDELL SETHI OT Apr 27, 2018 14:42
--- NOTE | 2018-04-27 15:38 | ST Cognitive Linguistic Eval ---
Speech Evaluation-General Medical Diagnosis Closed left bimalleolar fx Onset Date: Apr 23, 2018 Therapy Diagnosis Therapy Diagnosis: Cognition Precautions Precautions/Isolations: Fall Prevention, Standard Precautions Referral Referring Physician: Dr. Diaz Medical History Pertinent Medical History: Atrial Fib, HTN Reviewed History: Yes Social History Current Living Status: Alone (family nearby) Speech PLF-Current Status Prior Level of Function to return home Subjective pleasant Pain Numeric Pain Scale: 0-No Pain Language Eval: Auditory Comprehends Simple Yes/No Ques: Functional Follows 1-Step Commands: Functional Follows Complex Directions: Functional Follows General Conversations: Functional Language Eval: Verbal Language Completes Spontaneous Greeting: Functional Produces Auto, Serial Info: Functional Word Finding: Functional Requests Basic Needs: Functional States Basic Personal Info: Functional Expresses Complex Ideas: Functional Objective Cognitive Domain Attention: WNL Memory: WNL Problem Solving: Functional Objective Results The [facility] was administered to assess cognitive linguist functions. Memory 3 word recall immediate, delayed and remote delay were all 3/3. Sequencing was 4/4 correct Problem Solving was 9/10 correct. Speech/language WNL Oral Motor/Speech Production WNL Impression Functional cognitive-linguistic skills. Communication/Social Cognition Comprehension: 7 Expression: 7 Social Interaction: 7 Problem Solvin Memory: 7 Speech Patient Assess Expression of Ideas/Wants: Expression (4) Understanding Verbal Content: Understands (4) Brief Interview-Mental Status: Yes Repetition of Three Words: Three (3) Temporal Orientation: Year: Correct (3) Temporal Orientation: Month: Accurate within 5 days(2) Temporal Orientation: Day: Correct (1) Recall : Wear to say "Sock": Yes, no cue required (2) Recall : Color: Yes, no cue required (2) Recall : Bed: Yes, no cue required (2) Speech-Plan Patient/Family Goals Patient/Family Goals: to return to home Treatment Plan Speech Therapy Treatment Plan: Discontinue ST skilled ST not indicated. Frequency: Modified Program (IRF) (0) Estimated Hrs Per Day: Other (0) Rehab Potential: Good Pt/Family Agrees to Plan: Yes Safety Risks/Education Teaching Recipient: Patient Teaching Methods: Discussion Response to Teaching: Verbalize Understanding Time Speech Therapy Time In: 15:00 Speech Therapy Time Out: 15:10 Total Billed Time: 10 Billed Treatment Time 1, SPSNDCOMP BRENDA Phelps Apr 27, 2018 15:38
[2018-04-27] MEDS: warFARin 2 MG (COUMADIN) TAB PO SCH (17:07)
[2018-04-27 18:04] VITALS: BP 123/67
[2018-04-27] MEDS: POLYETHYLENE GLYCOL 17 GM (MIRALAX) PACK PO SCH (20:32)
[2018-04-27] MEDS: diphenhydrAMINE 25 MG TAB (BENADRYL) PO PRN (22:00)
[2018-04-28 05:45] VITALS: BP 156/80
[2018-04-28] MEDS: HYDROcodone/APAP 10 MG/325 MG (LORTAB) TAB PO PRN (08:34)
[2018-04-28] MEDS: DOCUSATE SODIUM 100 MG (COLACE) CAP PO SCH ×2 (08:34→20:39)
[2018-04-28] MEDS: CIPROFLOXACIN 500 MG (CIPRO) TABLET PO SCH ×2 (08:34→20:49)
[2018-04-28] MEDS: meTOprolol TARTRATE 25 MG (LOPRESSOR) TABLET PO SCH ×2 (08:34→20:49)
[2018-04-28] MEDS: MAGNESIUM OXIDE (MAG-OX)400 MG TAB PO SCH (08:35)
--- NOTE | 2018-04-28 08:59 | PM & R (SOAP) Progress Note ---
Subjective This was a face to face visit with the patient. Date Seen by Provider: Apr 28, 2018 Time Seen by Provider: 08:00 Subjective/Events-last exam Patient was seen in her room this AM Patient min assist for transfers Continues with contact precautions for ESBL and on Cipro Review of Systems Musculoskeletal: leg pain Objective Physician Exam Last Set of Vital Signs Vital Signs Date Time Temp Pulse Resp B/P (MAP) Pulse Ox O2 Delivery O2 Flow Rate FiO2 04/28/18 05:45 97.2 64 18 156/80 (105) 96 Room Air Capillary Refill : Less Than 3 SecondsLess Than 3 Seconds I&O Intake and Output 04/27/18 23:59 Intake Total 1200 ml Balance 1200 ml Intake Oral 1200 ml # Voids 7 # Bowel Movements 1 General: Alert, Oriented X3, Cooperative, No Acute Distress HEENT: Atraumatic, PERRLA, EOMI, Mucous Memb Moist/[place] Neck: Supple, No JVD Lungs: Clear to Auscultation Heart: Regular Rate, Normal S1, Normal S2 Abdomen: Normal Bowel Sounds, Soft, No Tenderness Extremities: No Clubbing, Other (CAM boot left ankle) Skin: No Rashes Neuro: Normal Speech, Sensation Intact, Other (Strength 4/5 UES and 4-/5 BLES except for left foot in cam boot) Assessment/Plan Assessment and Plan Syncopal episode resulting in left ankle fracture s/p orif 04-23-18 TTWB LLE A FIB controlled with med HTN controlled Orthostatic Hypotension resolved with adjustment in meds by cardiology ESBL on cipro with contact precautions Plan Continue PT/OT Team Conference held yesterday-See report for full functional update and POC and ELOS Co-Morbidities that are continuing to impact the rehab process: (include details ) DEDE PEREZ MD Apr 28, 2018 08:59
--- NOTE | 2018-04-28 09:07 | Individualized Plan of Care ---
Individualized Plan of Care Rehab Nursing IPOC Order Admission Date Apr 26, 2018 at 10:15 Current Orders Orders Pt Evaluate/Treat Request (04/26/18 08:15) Request Ot Evaluate & Treat (04/26/18 08:15) Request For Cognitive Services (04/26/18 08:15) Admission Arrival Bed Request (04/26/18 10:15) Ambulate TID (04/26/18 11:02) Sequential Compression Device 08,20 (04/26/18 11:02) Dvt/Vte Risk - Notifiy Physici 08 (04/26/18 11:02) General/Regular (04/26/18 Lunch) Admission Order(Inpt,Obs,Sdc) (04/26/18 11:27) Vital Signs: Routine (Order) 08,16,00 (04/26/18 11:27) Lumber Loader-Inpt Rehab Con (04/26/18 11:27) Rehab Nursing Orders-Ipoc (04/26/18 11:27) Turn And Reposition Q2HR (04/26/18 11:27) Intake & Output 06,14,22 (04/26/18 11:27) Weight Bearing Status (04/26/18 11:27) Precautions (Aru) (04/26/18 11:27) Weekly Weight (Lbs) WEEK (04/26/18 11:27) Initiate Admission Nursing Pro .admission (04/26/18 11:27) Code/Resuscitation (04/26/18 11:32) Sequential Compression Device 08,20 (04/26/18 11:32) General/Regular (04/26/18 Dinner) Diphenhydramine Tablet (Benadryl Tablet) (04/26/18 11:45) Citalopram Tablet (Celexa Tablet) (04/27/18 09:00) Docusate Sodium Capsule (Colace Capsule) (04/26/18 21:00) Bisacodyl Suppository (Dulcolax Supposit (04/26/18 11:45) Hydrocodone/Apap 10/325 Tablet (Lortab 1 (04/26/18 11:45) Magnesium Hydroxide Oral Susp (Mom Oral (04/26/18 11:45) Antacid Suspension (Mylanta Suspension (04/26/18 11:45) Polyethylene Glycol Powder Pkt (Miralax (04/26/18 21:00) Acetaminophen Tablet/Caplet (Tylenol T (04/26/18 11:45) Warfarin Tablet (Coumadin Tablet) (04/27/18 18:00) Consult Cardiology (04/26/18 11:32) Pharmacy Communication (Pharmacy Communi (04/26/18 11:45) Consult Physician (04/26/18 11:44) Warfarin Tablet (Coumadin Tablet) (04/26/18 18:00) Metoprolol Succinate (Xl) Tab (Toprol Xl (04/26/18 21:00) Magnesium Oxide Tablet (Mag Ox Tablet) (04/27/18 09:00) Isolation Central Supply Req (04/26/18 12:51) Metoprolol Tartrate (Ir) Tab (Lopressor (04/26/18 21:00) Patient Visit (04/26/18 ) Pt Eval Moderate Complexity (04/26/18 ) Functional Activities, Ea 15 (04/26/18 ) Patient Visit (04/26/18 ) Exercise Therap, Ea 15 Min (04/26/18 ) Functional Activities, Ea 15 (04/26/18 ) Ciprofloxacin Tablet (Cipro Tablet) (04/27/18 09:00) Patient Visit (04/27/18 ) Wheelchair Mgmt/Propulsn 15min (04/27/18 ) Functional Activities, Ea 15 (04/27/18 ) Exercise Therap, Ea 15 Min (04/27/18 ) Patient Visit (04/27/18 ) Patient Visit (04/27/18 ) Speech Sound Lang Comp (04/27/18 ) Protime With Inr (04/28/18 08:32) Rehab Nursing Orders: Ongoing Assess. of Cognitive Status, Ongoing Assess. of Function Status, Disease Management & Educaiton, DVT Prophylaxis, Fall Prevention, Fluid/Electrolyte/Nutrition Mgmt, Infection Prevention, Medication Management & Education, Management of Risks & Complications, Management of Skin Intergrity, Nutrition Management, Pain Management, Patient/Family Support, Safety Management PT IPOC Problem List: Activity Tolerance, Functional Strength, Safety, Balance, Gait, Transfer, Bed Mobility Treatment Plan: Continue Plan of Care Bed Mobility, Education, Functional Activity [place], Functional Strength, Group Therapy, Gait, Safety, Therapeutic Exercise, Transfers Treatment Duration: May 13, 2018 Frequency: At least 5 of 7 days/Wk (IRF) Estimated Hrs Per Day: 1.5 hours per day OT IPOC Problems: Decreased Activ Tolerance, Decreased UE Strength, Dependent Transfers , Impaired Funct Balance, Impaired Self-Care Skills OT Treatment, Training and Edu: Yes OT Problems Pt would benefit from skilled OT to increase her independence in basic self care Plan of Care: ADL Retraining, Functional Mobility, Group Exercise/Act as Ind ( education, exercise, activity tolerance, functional activities, funct mobility) , UE Funct Exercise/Act, UE Neuromus Re-Ed/Coord, W/C Management Training Treatment Duration: May 13, 2018 Frequency: At least 5 of 7 days/Wk (IRF) Estimated Hrs Per Day: 1.[address] IPOC Speech Therapy Treatment Plan: Discontinue ST Treatment Duration: Apr 28, 2018 Frequency: Modified Program (IRF) Estimated Hrs Per Day: Other Lumber Loader/Case Mgmt Lumber Loader/Case Managemen: Discharge Planning, Patient/Family Counseling Dietitian/Distribution Sales Manager Dietitian/Distribution Sales Manager to monitor nutritional status and make changes and/or recommendations as needed and work with speech pathology on dietary upgrades as the occur. Physician IPOC Medical Issues being managed closely and that require the 24 hour availability of a physician: UTI A FIB HTN Orthostasis [facility] code 08.9 Etiologic DX Fracture shaft of Left TIB/FIB Medical Issues: DVT Prophylaxis, Falls Precautions, Infection Protection, Pain Management, Weight Bearing Precautions, Wound Care, Other (List) (as per above) Brief Synthesis of Preadmission Screen, Post-Admission Evaluation, and Therapy Evaluations: 72 yo female who fell and sustained a fracture of the left ankle now s/p orif and TTWB LLE postop Had been Independent prior to this and living at home Meds adjusted by Cardiology for orthostatic hypotension na dthis has improved.Currently has contact precautions due to treatment for ESBL UTI on cipro Medical Prognosis: Good Anticipated Length of Stay: 05-13-18 Modified Independent for adls and mobility at the w/c level of function Anticipated d/c Destination: Home with family and [facility] DEDE PEREZ MD Apr 28, 2018 09:07
[2018-04-28 09:25] LABS: INR 1.3 (0.8-1.4); PROTHROMBIN TIME PATIENT 15.8 SEC (12.2-14.7)
--- NOTE | 2018-04-28 10:50 | Physical Therapy Daily Note ---
PT Daily Note-Current Subjective Agrees to PT. Pain Numeric Pain Scale: 5-Moderate Pain Location: Right Location Body Site: Foot Pain Description: Ache Comment: with WB; notified physician Mental Status Patient Orientation: Person, Place, Time, Situation Transfers Functional [place] Measure 0=Not Assessed/NA 4=Minimal Assistance 1=Total Assistance 5=Supervision or Setup 2=Maximal Assistance 6=Modified [place] 3=Moderate Assistance 7=Complete IndependenceIRFPAI Quality Coding Scale 6 Independent with activity with or without an assistive device 5 Patient requires set up or clean up by helper. Patient completes activity by themselves 4 Supervision or touching assist (CGA). [place] provide cues , steadying assist 3 The helper provides less than half the effort to complete the activity 2 The helper provides more than half the effort to complete the activity 1 Dependent. The helper does all the effort to complete an activity 7 Patient refused to complete or attempt activity 9 The patient did not perform the activity before the current illness or injury 88 Not attempted due to Medical conditions or safety concerns Transfers (B, C, W/C) (FIM): 4 Supine to/from Sit: 5 Sit to/from Stand: 4 (CGA with occas min assist) Sit to Lying (QC): 5 Sit to Stand (QC): 4 Chair/Omk-jy-Xjmov Xfer(QC): 4 (fWW with CGA) Pt wore shoe today to transfer and this seemed to help; added tape to the sole of her shoe so she could pivot with more ease. Weight Bearing Right Lower Extremity: Right Full Weight Bearing Left Lower Extremity: Left Touch Toe Bearing CAM boot on the left Wheelchair Training Does the Pt Use a Wheelchair?: Yes Wheelchair (FIM): 5 Wheelchair Distance: 3=150 ft Distance: 500 ft total Type of Wheelchair: Manual Exercises Supine Ex: Bridging, Ankle pumps, Quad Set, Glut sets, Heel Slides, Short Arc Quads, Straight leg raise, Hip abd/add Supine Reps: 15 (Increase LE strength for improved transfers. ) Seated Therapy Exercises: Ankle pumps, Long arc quads, Hip flexion, Hamstring Curls Seated Reps: 15 (yellow t band) Assessment Current Status: Good Progress Pt transferred better today with her shoes on. She tends to pivot on her toes; providing a slicker surface on the sole of her shoe was beneficial. PT Short Term Goals Short Term Goals Time Frame: May 03, 2018 Gait (FIM): 2 Distance (FIM): 1=up to 49 ft Gait Assistive Device: FWW Wheelchair (FIM): 6 Wheelchair distance (FIM): 3=150 ft Wheelchair Distance: 200 ft x 2 PT Intermediate Goals Sales And Marketing Director Goals PT Intermediate Goals Time Frame: May 13, 2018 Transfers (B,C,W/C) (FIM): 6 Sit to Lying (QC): 6 Lying-Sitting on Side/Bed(QC): 6 Sit to Stand (QC): 6 Rollin Roll Left to Right (QC): 6 Chair/Kxk-ax-Ujccb Xfer(QC): 6 Car Transfer (QC): 6 Does the Patient Walk: No and Walking Goal IS indicated Gait (FIM): 5 (household exception) Gait distance (FIM): 6=433-72 ft Walk 10 feet (QC): 6 Walk 10ft-Uneven Surface(QC): 6 Walk 50ft with 2 Turns (QC): 6 Walk 150 ft (QC): 9 Gait Assistive Device: FWW Does the Pt use WC or Scooter?: Yes Wheelchair (FIM): 6 Wheelchair distance (FIM): 3=150 ft Wheel 50 feet with 2 turns (QC: 6 Stairs (FIM): 2 # of Steps: 1 1 Step (curb) (QC): 4 4 Steps (QC): 9 12 Steps (QC): 9 Stairs Level Of Assist: 4 Picking up an Object (QC): 88 PT Plan Problem List Problem List: Activity Tolerance, Functional Strength, Safety, Balance, Transfer, Bed Mobility Treatment/Plan Treatment Plan: Continue Plan of Care Treatment Plan: Bed Mobility, Education, Functional Activity [place], Functional Strength, Group Therapy, Gait, Safety, Therapeutic Exercise, Transfers Treatment Duration: May 13, 2018 Frequency: At least 5 of 7 days/Wk (IRF) Estimated Hrs Per Day: 1.5 hours per day Patient and/or Family Agrees t: Yes Safety Risks/Education Patient Education: Transfer Techniques Teaching Recipient: Patient Teaching Methods: Demonstration, Discussion Response to Teaching: Return Demonstration, Reinforcement Needed Time/GCodes Time In: 900 Time Out: 1000 Total Billed Treatment Time: 60 Total Billed Treatment visit FA 15 WC 15 EX 30 DORIS HERNANDEZ PT Apr 28, 2018 10:50
--- NOTE | 2018-04-28 11:55 | Occupational Ther Daily Note ---
OT Current Status-Daily Note Subjective Pt seen in room, up in bed, agreeable to OT. No pain mentioned but pt winces in anticipation of transferring. Appearance Alert, cooperative Mental Status/Objective Functional [place] Measure 0=Not Assessed/NA 4=Minimal Assistance 1=Total Assistance 5=Supervision or Setup 2=Maximal Assistance 6=Modified [place] 3=Moderate Assistance 7=Complete [place] ADL-Treatment Pt transferred from bed to w/c with min assist, FWW, cues for hand placement. She propelled herself to bathroom to brush teeth and hair (declined other ADLs) , with cue to lock breaks on chair. Functional [place] Measure 0=Not Assessed/NA 4=Minimal Assistance 1=Total Assistance 5=Supervision or Setup 2=Maximal Assistance 6=Modified [place] 3=Moderate Assistance 7=Complete IndependenceIRFPAI Quality Coding Scale 6 Independent with activity with or without an assistive device 5 Patient requires set up or clean up by helper. Patient completes activity by themselves 4 Supervision or touching assist (CGA). [place] provide cues , steadying assist 3 The helper provides less than half the effort to complete the activity 2 The helper provides more than half the effort to complete the activity 1 Dependent. The helper does all the effort to complete an activity 7 Patient refused to complete or attempt activity 9 The patient did not perform the activity before the current illness or injury 88 Not attempted due to Medical conditions or safety concerns Grooming (FIM): 6 (brushed teeth and hair at sink, w/c level, extra time. Cue to lock break) Other Treatment Pt propelled herself to gym. She did 12 minutes bilat UE exercise on arm bike set at 20W resistance, taking one brief recovery break. She also did arc activity x 2 sets and nuts/bolts activity, both with 1# weight on each arm. These are to strengthen her arms to help with transfers and ADLs. Pt took herself back to room and transferred to bed with min assist, FWW and pt educ for w/c position for transfers. Pt left up in bed, all needs met. Education OT Patient Education: Exercise program, Progress toward Goal/Update tx plan, Purpose of tx/functional activities, Safety issues, Transfer techniques Teaching Recipient: Patient Teaching Methods: Demonstration, Discussion Response to Teaching: Verbalize Understanding, Return Demonstration, Reinforcement Needed OT Short Term Goals Short Term Goals Time Frame: May 03, 2018 Toilet/Commode Transfer(FIM): 5 1=Demonstrate adherence to instructed precautions during ADL tasks. 2=Patient will verbalize/demonstrate understanding of assistive devices/ modifications for ADL. 3=Patient will improve strength/tolerance for activity to enable patient to perform ADL's. OT Detention Goals Motorcycle Sales Associate Goals Time Frame: May 13, 2018 Eating (FIM): 7 Eating (QC): 6 Groomin Oral Hygiene (QC): 6 Bathing(FIM): 6 Shower/Bathe Self (QC): 6 Upper Body Dressing(FIM): 6 Upper Body Dressing (QC): 6 Lower Body Dressing(FIM): 6 Lower Body Dressing (QC): 6 On/Off Footwear (QC): 6 Toileting(FIM): 6 Toileting Hygiene (QC): 6 Toilet/Commode Transfer(FIM): 6 Toilet/Commode Transfer (QC): 6 Shower Transfer(FIM): 6 Additional Goals: 1-Demonstrate ADL Tasks, 3-ImproveStrength/[place] 1=Demonstrate adherence to instructed precautions during ADL tasks. 2=Patient will verbalize/demonstrate understanding of assistive devices/ modifications for ADL. 3=Patient will improve strength/tolerance for activity to enable patient to perform ADL's. OT Education/Plan Problem List/Assessment Pt would benefit from skilled OT to increase her independence in basic self care Discharge Recommendations Plan/Recommendations: Continue POC Treatment Plan/Plan of Care Patient would benefit from OT for education, treatment and training to promote independence in ADL's, mobility, safety and/or upper extremity function for ADL' s. Plan of Care: ADL Retraining, Functional Mobility, Group Exercise/Act as Ind ( education, exercise, activity tolerance, functional activities, funct mobility) , UE Funct Exercise/Act, UE Neuromus Re-Ed/Coord, W/C Management Training Treatment Duration: May 13, 2018 Frequency: At least 5 of 7 days/Wk (IRF) Estimated Hrs Per Day: 1.5 hours per day Agreement: Yes Rehab Potential: Good (motivated and high PLOF) Time/GCodes Start Time: 10:30 Stop Time: 11:30 Total Time Billed (hr/min): 60 Billed Treatment Time visit, 10 minutes ADL, 50 minutes exercise KENDELL SETHI OT Apr 28, 2018 11:55
--- NOTE | 2018-04-28 14:51 | Therapy Group Daily Note ---
Therapy Daily Group Note Patient Education Topic Other List Below (memory) Exercises LE Seated Exercise, Sit to/from Stand, UE Exercise Other/Notes Pt maneuvered w/c to OT/PT group. Group consisted of introductions (name, place , icebreaker game), socialization, seated UE/LE exercises, education on memory and memory activities. Pt worked on sit to stand while introducing self then rolled large dice to choose introduction question. Pt actively listened to peers introduce them selves. Pt tolerated UE/LE seated exercises. Pt was able to find matches with memory activity. Pt able to remember two of 8 items using visual memory. After therapy, pt lying in bed with call light/phone in reach. All needs met. Start Time: 13:00 Stop Time: 14:20 Total Billed Treatment Time: 80 Total Billed Treatment 1-GRP DORIS ROBB Apr 28, 2018 14:51
--- NOTE | 2018-04-28 16:23 | Cardiology Progress Note ---
Cardiology SOAP Progress Note Subjective: No cardiac complaints. Objective: I&O/Vital Signs 04/29/18 04/29/18 09:03 18:09 Temp 97.7 Pulse 68 Resp 16 B/P (MAP) 199/83 (121) Pulse Ox 95 O2 Delivery Room Air Room Air 04/28/18 23:59 Intake Total 750 ml Balance 750 ml Weight (Pounds): 192 Weight (Ounces): 0.6 Weight (Calculated Kilograms): 87.770382 Constitutional: No appears stated age; AAO x 3; No apparent distress; PERRL; No well-developed, No well-nourished, No other Respiratory: No accessory muscle use, No respiratory distress, No chest tender , No chest expansion is symmetric; chest is bilaterally symmetric; No lungs clear to percussion; lungs clear to auscultation; No crackles, No rhonchi, No rales, No stridor, No wheezing, No pleural rub, No other Cardiovascular: regular rate-rhythm; No irregularly irregular, No extra beats, No parasternal heave is noted, No JVD, No edema, No bradycardia, No tachycardia , No point of maximal impulse, No cardiac thrills are palpable; S1 and S2; No gallop/S3, No gallop/S4, No diastolic murmur, No systolic murmur, No friction rub, No click, No other Extremities: No non-tender, No normal inspection, No pedal edema, No calf tenderness, No normal capillary refill, No pelvis stable, No calf tenderness, No inflammation, No pedal edema, No slow capillary refill, No swelling, No other (Fracture noted.), No abrasion, No clubbing, No cyanosis, No ecchymosis, No laceration, No no lower extremity edema bilateral, No significant edema, No tenderness, No wound Neurologic/Psychiatric: no motor/sensory deficits, alert, normal mood/affect, oriented x 3 Results/Procedures: Labs A/P: Assessment/Dx: Admission Diagnosis Syncope Labile hypertension PAF Anemia Plan: Assessment/Plan Syncope, labile blood pressure, orthostatic hypotension. Cardizem was discontinued, continue on beta blockers, continue on current medication monitor Labile hypertension, mildly elevated blood pressure today. Continue to monitor , recommend accepting a higher blood pressure reading to avoid orthostatic hypotension and syncope Paroxysmal atrial fibrillation, back in sinus rhythm. No further episodes were reported. Anemia, monitor H&H closely Tibia and fibula fracture, status post surgical repair. Recovering slowly, receiving physical therapy Thank you for your consultation. Please call me if you have any questions. Edgard Cohen MD, FACP, FACC, FSCAI, FHRS, CCDS Interventional Cardiology Cardiac Electrophysiology Vascular Medicine and Endovascular Interventions Becki COHEN MD Apr 28, 2018 4:23 pm
[2018-04-28] MEDS: warFARin 3 MG (COUMADIN) TAB PO SCH (17:11)
[2018-04-28 18:40] VITALS: BP 181/83
[2018-04-28] MEDS: POLYETHYLENE GLYCOL 17 GM (MIRALAX) PACK PO SCH (20:39)
[2018-04-28 20:45] VITALS: BP 189/84
[2018-04-28] MEDS: diphenhydrAMINE 25 MG TAB (BENADRYL) PO PRN (21:51)
[2018-04-29] MEDS: HYDROcodone/APAP 10 MG/325 MG (LORTAB) TAB PO PRN ×2 (01:50→22:27)
[2018-04-29 05:40] VITALS: BP 174/88
--- NOTE | 2018-04-29 08:29 | PM & R (SOAP) Progress Note ---
Subjective This was a face to face visit with the patient. Date Seen by Provider: Apr 29, 2018 Time Seen by Provider: 07:50 Subjective/Events-last exam Patient was seen in her room this AM Patient min assist for transfers Objective Physician Exam Last Set of Vital Signs Vital Signs Date Time Temp Pulse Resp B/P (MAP) Pulse Ox O2 Delivery O2 Flow Rate FiO2 04/29/18 05:40 99.5 75 18 174/88 (116) 96 Room Air Capillary Refill : Less Than 3 SecondsLess Than 3 Seconds I&O Intake and Output 04/29/18 00:00 Intake Total 1150 ml Balance 1150 ml Intake Oral 1150 ml # Voids 7 # Bowel Movements 6 General: Alert, Oriented X3, Cooperative, No Acute Distress HEENT: Atraumatic, PERRLA, EOMI, Mucous Memb Moist/[place] Neck: Supple, No JVD Lungs: Clear to Auscultation Heart: Regular Rate, Normal S1, Normal S2 Abdomen: Normal Bowel Sounds, Soft, No Tenderness Extremities: No Clubbing, Other (CAM boot left ankle) Skin: No Rashes Neuro: Normal Speech, Sensation Intact, Other (Strength 4/5 UES and 4-/5 BLES except for left foot in cam boot) Results Lab Data Laboratory Tests 04/28/18 08:55: Prothrombin Time 15.8H, INR Comment 1.3 Assessment/Plan Assessment and Plan Trimalleolar fracture rt ankle s/p ORIF PSI NWB RLE DM control improving Intolerance to ultram Mild hyponatremia HTN controlled GERD DVT Prophylaxis on Lovenox subcut Plan Continue PT/OT Team Conference held 04-27-18-see report for full functional update and POC and ELOS Co-Morbidities that are continuing to impact the rehab process: (include details ) DEDE PEREZ MD Apr 29, 2018 08:29
--- NOTE | 2018-04-29 08:51 | Physical Therapy Daily Note ---
PT Daily Note-Current Subjective Pt agreeable to PT. Mental Status Patient Orientation: Person, Place, Time, Situation Transfers Functional [place] Measure 0=Not Assessed/NA 4=Minimal Assistance 1=Total Assistance 5=Supervision or Setup 2=Maximal Assistance 6=Modified [place] 3=Moderate Assistance 7=Complete IndependenceIRFPAI Quality Coding Scale 6 Independent with activity with or without an assistive device 5 Patient requires set up or clean up by helper. Patient completes activity by themselves 4 Supervision or touching assist (CGA). [place] provide cues , steadying assist 3 The helper provides less than half the effort to complete the activity 2 The helper provides more than half the effort to complete the activity 1 Dependent. The helper does all the effort to complete an activity 7 Patient refused to complete or attempt activity 9 The patient did not perform the activity before the current illness or injury 88 Not attempted due to Medical conditions or safety concerns Transfers (B, C, W/C) (FIM): 4 Supine to/from Sit: 5 Sit to/from Stand: 4 (Min assist to come to a stand from lower/standard surface heights. ) Pt has difficulty initiating stand, once up she is able to SPT with FWW, TTWB L with CGA. Pt performed SPT x 4 reps this visit. Weight Bearing Right Lower Extremity: Right Full Weight Bearing Left Lower Extremity: Left Touch Toe Bearing CAM boot on the left Wheelchair Training Does the Pt Use a Wheelchair?: Yes Wheelchair (FIM): 5 Wheelchair Distance: 3=150 ft Distance: 150 ft x 2 Type of Wheelchair: Manual Exercises Seated Therapy Exercises: Ankle pumps, Long arc quads, Hip flexion, Hamstring Curls Seated Reps: 12 (yellow theraband) NuStep Minutes: 15 (Left foot off to the side due to TTWB status) Assessment Current Status: Good Progress Pt seems tired today and expresses she feels tired but I feel her strength is progressing and she is making progress. PT Short Term Goals Short Term Goals Time Frame: May 03, 2018 Gait (FIM): 2 Distance (FIM): 1=up to 49 ft Gait Assistive Device: FWW Wheelchair (FIM): 6 Wheelchair distance (FIM): 3=150 ft Wheelchair Distance: 500 ft total PT [facility] Goals Ion Implant Machine Operator Goals PT Ion Implant Machine Operator Goals Time Frame: May 13, 2018 Transfers (B,C,W/C) (FIM): 6 Sit to Lying (QC): 6 Lying-Sitting on Side/Bed(QC): 6 Sit to Stand (QC): 6 Rollin Roll Left to Right (QC): 6 Chair/Wkp-qx-Fwmar Xfer(QC): 6 Car Transfer (QC): 6 Does the Patient Walk: No and Walking Goal IS indicated Gait (FIM): 5 (household exception) Gait distance (FIM): 3=892-64 ft Walk 10 feet (QC): 6 Walk 10ft-Uneven Surface(QC): 6 Walk 50ft with 2 Turns (QC): 6 Walk 150 ft (QC): 9 Gait Assistive Device: FWW Does the Pt use WC or Scooter?: Yes Wheelchair (FIM): 6 Wheelchair distance (FIM): 3=150 ft Wheel 50 feet with 2 turns (QC: 6 Stairs (FIM): 2 # of Steps: 1 1 Step (curb) (QC): 4 4 Steps (QC): 9 12 Steps (QC): 9 Stairs Level Of Assist: 4 Picking up an Object (QC): 88 PT Plan Problem List Problem List: Activity Tolerance, Functional Strength, Safety, Balance, Gait, Transfer, Bed Mobility Treatment/Plan Treatment Plan: Continue Plan of Care Treatment Plan: Bed Mobility, Education, Functional Activity [place], Functional Strength, Group Therapy, Gait, Safety, Therapeutic Exercise, Transfers Treatment Duration: May 13, 2018 Frequency: At least 5 of 7 days/Wk (IRF) Estimated Hrs Per Day: 1.5 hours per day Patient and/or Family Agrees t: Yes Safety Risks/Education Patient Education: Transfer Techniques, Safety Issues Teaching Recipient: Patient Teaching Methods: Discussion Response to Teaching: Reinforcement Needed Time/GCodes Time In: 750 Time Out: 850 Total Billed Treatment Time: 60 Total Billed Treatment visit FA 30 EX 30 DORIS HERNANDEZ PT Apr 29, 2018 08:51
[2018-04-29] MEDS: DOCUSATE SODIUM 100 MG (COLACE) CAP PO SCH ×3 (08:55→20:27)
[2018-04-29] MEDS: CIPROFLOXACIN 500 MG (CIPRO) TABLET PO SCH ×2 (08:55→20:28)
[2018-04-29] MEDS: MAGNESIUM OXIDE (MAG-OX)400 MG TAB PO SCH (08:55)
[2018-04-29] MEDS: meTOprolol TARTRATE 25 MG (LOPRESSOR) TABLET PO SCH (08:55)
--- NOTE | 2018-04-29 11:07 | Occupational Ther Daily Note ---
OT Current Status-Daily Note Subjective Pt seen in room, up in w/c, agreeable to OT. Pt anticipating R ankle to hurt. Appearance Alert, cooperative Mental Status/Objective Functional [place] Measure 0=Not Assessed/NA 4=Minimal Assistance 1=Total Assistance 5=Supervision or Setup 2=Maximal Assistance 6=Modified [place] 3=Moderate Assistance 7=Complete [place] ADL-Treatment Pt propelled w/c to bathroom where she transferred min assist to BSC over toilet and back to w/c, SPT. Propelled w/c to shower and transferred min assist to shower bench,using grab bars. CAM removed after transfer and L lower leg covered in plastic. She washed and dried all parts except CGA when standing to dry bottom, using shower bench, grab bar, hand held shower. dressed on bench with setup and help to get pants on L foot. Stood min assist and transferred to w/c, using grab bars. She propelled w/c to sink and brushed teeth, dried hair independently. Functional [place] Measure 0=Not Assessed/NA 4=Minimal Assistance 1=Total Assistance 5=Supervision or Setup 2=Maximal Assistance 6=Modified [place] 3=Moderate Assistance 7=Complete IndependenceIRFPAI Quality Coding Scale 6 Independent with activity with or without an assistive device 5 Patient requires set up or clean up by helper. Patient completes activity by themselves 4 Supervision or touching assist (CGA). [place] provide cues , steadying assist 3 The helper provides less than half the effort to complete the activity 2 The helper provides more than half the effort to complete the activity 1 Dependent. The helper does all the effort to complete an activity 7 Patient refused to complete or attempt activity 9 The patient did not perform the activity before the current illness or injury 88 Not attempted due to Medical conditions or safety concerns Grooming (FIM): 7 (Brushed teeth, dried hair. Washed and dried face and hands in shower. w/c level) Bathing (FIM): 4 (CGA when standing to dry bottom. Shower bench, grab bar, hand held shower, long handled sponge. Washed and dried all parts. ) Upper Body (FIM): 5 (setup for bra and shirt) Lower Body Dressing (FIM): 4 (Help to get pants on over L foot. CGA when standing to pull them up. grab bar) Toileting (FIM): 4 (CGA clothing management. Managed hygiene. BSC over toilet, grab bar, w/c) Toilet/Commode Transfer (FIM): 4 (CGA w/c to BSc and back, grab bar) Shower Transfer(FIM): 4 (CGA, gettiing in and out/ on and off shower, from w/c) Other Treatment Pt completed 15 reps bilat UE exercise with red theraband, recalling most if the exercises with just verbal instructions. To strengthen arms to help with transfers. Pt transferred back into bed with CGA, FWW, and pleased that she was able to do all ADLs faster. Up in bed, all needs met. Education OT Patient Education: Modified ADL techniques, Progress toward Goal/Update tx plan, Purpose of tx/functional activities, Safety issues, Transfer techniques Teaching Recipient: Patient Teaching Methods: Discussion Response to Teaching: Verbalize Understanding, Return Demonstration OT Short Term Goals Short Term Goals Time Frame: May 03, 2018 Toilet/Commode Transfer(FIM): 5 1=Demonstrate adherence to instructed precautions during ADL tasks. 2=Patient will verbalize/demonstrate understanding of assistive devices/ modifications for ADL. 3=Patient will improve strength/tolerance for activity to enable patient to perform ADL's. OT Catastrophe Claims Supervisor Goals Halfway Goals Time Frame: May 13, 2018 Eating (FIM): 7 Eating (QC): 6 Groomin Oral Hygiene (QC): 6 Bathing(FIM): 6 Shower/Bathe Self (QC): 6 Upper Body Dressing(FIM): 6 Upper Body Dressing (QC): 6 Lower Body Dressing(FIM): 6 Lower Body Dressing (QC): 6 On/Off Footwear (QC): 6 Toileting(FIM): 6 Toileting Hygiene (QC): 6 Toilet/Commode Transfer(FIM): 6 Toilet/Commode Transfer (QC): 6 Shower Transfer(FIM): 6 Additional Goals: 1-Demonstrate ADL Tasks, 3-ImproveStrength/[place] 1=Demonstrate adherence to instructed precautions during ADL tasks. 2=Patient will verbalize/demonstrate understanding of assistive devices/ modifications for ADL. 3=Patient will improve strength/tolerance for activity to enable patient to perform ADL's. OT Education/Plan Problem List/Assessment Pt would benefit from skilled OT to increase her independence in basic self care Discharge Recommendations Plan/Recommendations: Continue POC Treatment Plan/Plan of Care Patient would benefit from OT for education, treatment and training to promote independence in ADL's, mobility, safety and/or upper extremity function for ADL' s. Plan of Care: ADL Retraining, Functional Mobility, Group Exercise/Act as Ind ( education, exercise, activity tolerance, functional activities, funct mobility) , UE Funct Exercise/Act, UE Neuromus Re-Ed/Coord, W/C Management Training Treatment Duration: May 13, 2018 Frequency: At least 5 of 7 days/Wk (IRF) Estimated Hrs Per Day: 1.5 hours per day Agreement: Yes Rehab Potential: Good (motivated and high PLOF) Time/GCodes Start Time: 09:00 Stop Time: 10:00 Total Time Billed (hr/min): 60 Billed Treatment Time visit, ADL 50 minutes, exercise 10 minutes KENDELL SETHI OT Apr 29, 2018 11:07
--- NOTE | 2018-04-29 14:03 | Consultation-Hospitalist ---
HPI History of Present Illness: HPI/Chief Complaint Pt is known to me from recent inpatient admission for left tib/fib fracture. She was admitted to IRU for further intensive therapy. She states she is doing well and her only concern is that her right ankle is sore as well from her fall. She has it wrapped in molly bandage. She had XR done prior to DC form inpatient status that were negative for fracture. She otherwise has no complaints and is doing well with therapy. Date Seen 04/29/18 Attending Physician Joey Diaz MD PCP SelfTobi MD Referring Physician Date of Admission Apr 26, 2018 at 10:15 am Home Medications & Allergies Home Medications Reviewed patient Home Medication Reconciliation performed by pharmacy medication reconciliations process controls technician and/or nursing. Patients Allergies have been reviewed. Allergies Allergies Coded Allergies No Known Drug Allergies (Unverified04/23/18) Past Xskaoix-Tdxffa-Fnprcx Hx Past Med/Social Hx: Reviewed Nursing Past Med/Soc Hx Patient Social History Smoking Status: Never a Smoker Recent Foreign Travel: No Contact w/other who traveled: No Recent Hopitalizations: Yes (CARDIOCONVERTED IN SEPTEMBER FOR AFIB) Recent Infectious Disease Expo: No Immunizations Up To Date Date of Pneumonia Vaccine: Sep 06, 2017 Seasonal Allergies Seasonal Allergies: No Past Medical History Surgeries: Adenoidectomy, Appendectomy, Hysterectomy, Orthopedic, Tonsillectomy Cardiac: Atrial Fibrillation, Hypertension : No Musculoskeletal: Fractures Family History Abdominal aortic aneurysm Alzheimer's disease 19 MOTHER Cardiovascular disease 19 MOTHER Diabetes mellitus 19 MOTHER G8 SISTER G8 SISTER Review of Systems Constitutional: No chills, No fever EENTM: No blurred vision, No double vision, No nose congestion, No throat pain Respiratory: No cough, No dyspnea on exertion, No short of breath Cardiovascular: No chest pain, No edema, No palpitations Gastrointestinal: No abdominal pain, No constipation, No diarrhea, No nausea, No vomiting Genitourinary: No dysuria, No frequency Musculoskeletal: joint pain (ankle); No muscle pain Skin: No lesions, No rash Psychiatric/Neurological: Denies Headache, Denies Numbness, Denies Tingling Physical Exam Physical Exam Vital Signs Vital Signs - First Documented 04/26/18 10:30 Temp 97.4 Pulse 72 Resp 20 B/P (MAP) 158/79 (105) Pulse Ox 97 O2 Delivery Room Air Capillary Refill : Less Than 3 SecondsLess Than 3 Seconds Height, Weight, BMI Height: 5'3.00" Weight: 192lbs. 0.6oz. 87.145199iv; 34.0 BMI Method:Stated General Appearance: No Apparent Distress, WD/WN HEENT: PERRL/EOMI, Moist Mucous Membranes Neck: Non Tender, Supple Respiratory: Lungs Clear, No Respiratory Distress Cardiovascular: Regular Rate, Rhythm, No Murmur Gastrointestinal: Normal Bowel Sounds, Non Tender, Soft Extremity: No Calf Tenderness, Other (left ankle in boot, right ankle wrapped in molly bandgae- small amount of posterior bruising and edema) Neurologic/Psychiatric: Alert, Oriented x3, Normal Mood/Affect Skin: Normal Color, Warm/Dry Results Results/Procedures Labs Patient resulted labs reviewed. Assessment/Plan Assessment and Plan Assess & Plan/Chief Complaint Left tib/fib fracture Diagnosis/Problems Diagnosis/Problems (1) Ankle fracture, left Assessment & Plan: Management per Dr Wall Continue PT/OT Qualifiers: Encounter type: subsequent encounter Fracture type: closed Fracture healing: with routine healing Qualified Codes: S82.892D - Other fracture of left lower leg, subsequent encounter for closed fracture with routine healing (2) Essential (primary) hypertension Status: Chronic Assessment & Plan: BP elevated slightly Will trend Has orthostasis with additional antihypertensives so will trend before intensifying therapy (3) Atrial fibrillation Status: Chronic Assessment & Plan: Continue current regimen Management per Dr Cohen INR subtherapeutic still Will recheck in AM Qualifiers: Atrial fibrillation type: paroxysmal Qualified Codes: I48.0 - Paroxysmal atrial fibrillation Clinical Quality Measures DVT/VTE Risk/Contraindication: Risk Factor Score Per Nursin RFS Level Per Nursing on Admit: 4+=Very High YANA AGUIRRE MD Apr 29, 2018 2:03 pm
--- NOTE | 2018-04-29 14:39 | Therapy Group Daily Note ---
Therapy Daily Group Note Patient Education Topic Fall Prevention, Other List Below ([employer] [facility]) Exercises UE Exercise Other/Notes Pt. participated in group PT OT session this date. Pt. came and went via w/c with assist for TRFs. Pts. introduced selves and were social sharing name, city they live in and "what they wanted to be when they grew up". Pt.s played "hot potato" pass off game to music with person left with potato as music ended having the honor of demonstrating and leading an upper body exercise. Pts. also played Adomos with black out goal and safety of all types were discussed. Fall prevention and management was discussed fiona considering being in public and having a fall incident etc. Pt. to room after group, campos at hand Start Time: 13:00 Stop Time: 14:15 Total Billed Treatment Time: 75 Total Billed Treatment 1,GRP NICHOLAS VIDAL NEONATOLOGIST Apr 29, 2018 14:39
[2018-04-29 18:09] VITALS: BP 199/83
[2018-04-29] MEDS: warFARin 2 MG (COUMADIN) TAB PO SCH (18:29)
--- NOTE | 2018-04-29 18:29 | Cardiology Progress Note ---
Cardiology SOAP Progress Note Subjective: No cardiac complaints. Objective: I&O/Vital Signs 04/29/18 04/29/18 09:03 18:09 Temp 97.7 Pulse 68 Resp 16 B/P (MAP) 199/83 (121) Pulse Ox 95 O2 Delivery Room Air Room Air 04/28/18 23:59 Intake Total 750 ml Balance 750 ml Weight (Pounds): 192 Weight (Ounces): 0.6 Weight (Calculated Kilograms): 87.573655 Constitutional: No appears stated age; AAO x 3; No apparent distress; PERRL; No well-developed, No well-nourished, No other Respiratory: No accessory muscle use, No respiratory distress, No chest tender , No chest expansion is symmetric; chest is bilaterally symmetric; No lungs clear to percussion; lungs clear to auscultation; No crackles, No rhonchi, No rales, No stridor, No wheezing, No pleural rub, No other Cardiovascular: regular rate-rhythm; No irregularly irregular, No extra beats, No parasternal heave is noted, No JVD, No edema, No bradycardia, No tachycardia , No point of maximal impulse, No cardiac thrills are palpable; S1 and S2; No gallop/S3, No gallop/S4, No diastolic murmur, No systolic murmur, No friction rub, No click, No other Extremities: No non-tender, No normal inspection, No pedal edema, No calf tenderness, No normal capillary refill, No pelvis stable, No calf tenderness, No inflammation, No pedal edema, No slow capillary refill, No swelling, No other (Fracture noted.), No abrasion, No clubbing, No cyanosis, No ecchymosis, No laceration, No no lower extremity edema bilateral, No significant edema, No tenderness, No wound Neurologic/Psychiatric: no motor/sensory deficits, alert, normal mood/affect, oriented x 3 A/P: Assessment/Dx: Admission Diagnosis Syncope Labile hypertension PAF Anemia Plan: Assessment/Plan Syncope, labile blood pressure, orthostatic hypotension. Cardizem was discontinued, continue on beta blockers, continue on current medication monitor Labile hypertension, mildly elevated blood pressure today. Continue to monitor, Paroxysmal atrial fibrillation, back in sinus rhythm. No further episodes were reported. Anemia, monitor H&H closely Tibia and fibula fracture, status post surgical repair. Recovering slowly, receiving physical therapy Thank you for your consultation. Please call me if you have any questions. Edgard Cohen MD, FACP, FACC, FSCAI, FHRS, CCDS Interventional Cardiology Cardiac Electrophysiology Vascular Medicine and Endovascular Interventions Becki COHEN MD Apr 29, 2018 6:29 pm
[2018-04-29] MEDS ORDERED: amLODIPine 10 MG (NORVASC) TAB PO ONE (18:45)
[2018-04-29] MEDS ORDERED: amLODIPine 10 MG (NORVASC) TAB ONE (18:45)
[2018-04-29 20:17] VITALS: BP 181/82
[2018-04-29] MEDS: POLYETHYLENE GLYCOL 17 GM (MIRALAX) PACK PO SCH (20:27)
[2018-04-29] MEDS: meTOprolol TARTRATE 50 MG (LOPRESSOR) TAB PO SCH (20:27)
[2018-04-29] MEDS: diphenhydrAMINE 25 MG TAB (BENADRYL) PO PRN (22:27)
[2018-04-29 23:47] VITALS: BP 154/71
[2018-04-30 04:18] VITALS: BP 166/78
[2018-04-30 07:11] LABS: INR 1.5 (0.8-1.4); PROTHROMBIN TIME PATIENT 17.8 SEC (12.2-14.7)
--- NOTE | 2018-04-30 07:59 | PM & R (SOAP) Progress Note ---
Subjective This was a face to face visit with the patient. Date Seen by Provider: Apr 30, 2018 Time Seen by Provider: 07:15 Subjective/Events-last exam Patient was seen in her roomthis AM Patient concerned about Elevated Blood pressure last evening Informed her that meds have been adjusted Patient reassured.HTNbetter controlled this AM Discussed case with RN last evening and Medical management contacted for orders Appreciate their orders,Patient min assist for transfers Review of Systems denies any headache or dizziness Objective Physician Exam Last Set of Vital Signs Vital Signs Date Time Temp Pulse Resp B/P (MAP) Pulse Ox O2 Delivery O2 Flow Rate FiO2 04/30/18 04:18 96.9 58 18 166/78 (107) 94 Room Air Capillary Refill : Less Than 3 SecondsLess Than 3 Seconds I&O Intake and Output 04/30/18 00:00 Intake Total 1130 ml Balance 1130 ml Intake Oral 1130 ml # Voids 8 # Bowel Movements 3 General: Alert, Oriented X3, Cooperative, No Acute Distress HEENT: Atraumatic, PERRLA, EOMI, Mucous Memb Moist/[place] Neck: Supple, No JVD Lungs: Clear to Auscultation Heart: Regular Rate, Normal S1, Normal S2 Abdomen: Normal Bowel Sounds, Soft, No Tenderness Extremities: No Clubbing, Other (CAM boot left ankle) Skin: No Rashes Neuro: Normal Speech, Sensation Intact, Other (Strength 4/5 UES and 4-/5 BLES except for left foot in cam boot) Results Lab Data Laboratory Tests 04/28/18 08:55: Prothrombin Time 15.8H, INR Comment 1.3 04/30/18 06:50: Prothrombin Time 17.8H, INR Comment 1.5H Assessment/Plan Assessment and Plan Syncopal episode resulting in fall with left ankle fracture s/p orif 04-23-18 TTWB LLe A FIB controlled with meds poorly controlled HTN meds adjusted with improvement Orhostatis hypotension resolved with adjustment in meds ESBL on cipro with contact precautions Plan Continue PT/OT F/U with Medical service re further adjustment in meds for HTN as needed Team Conference 05-04-18 Co-Morbidities that are continuing to impact the rehab process: (include details ) DEDE PEREZ MD Apr 30, 2018 07:59
[2018-04-30] MEDS: amLODIPine 5 MG (NORVASC) TAB PO SCH (08:27)
[2018-04-30] MEDS: MAGNESIUM OXIDE (MAG-OX)400 MG TAB PO SCH (08:27)
[2018-04-30] MEDS: CIPROFLOXACIN 500 MG (CIPRO) TABLET PO SCH ×2 (08:28→20:58)
[2018-04-30] MEDS: meTOprolol TARTRATE 50 MG (LOPRESSOR) TAB PO SCH ×2 (08:28→20:58)
[2018-04-30] MEDS: DOCUSATE SODIUM 100 MG (COLACE) CAP PO SCH ×2 (08:28→21:06)
--- NOTE | 2018-04-30 10:26 | Physical Therapy Daily Note ---
PT Daily Note-Current Subjective Pt. states she is having more pain in her RLE than her left and this makes it difficult to move well. Agrees to w/c and TRF training, requests [facility] Pain Numeric Pain Scale: 3 Location: Right Location Body Site: Foot Pain Description: Ache Mental Status Patient Orientation: Person, Place, Time, Situation Attachments: Other-See Comments (cast boot) Transfers Functional [place] Measure 0=Not Assessed/NA 4=Minimal Assistance 1=Total Assistance 5=Supervision or Setup 2=Maximal Assistance 6=Modified [place] 3=Moderate Assistance 7=Complete IndependenceIRFPAI Quality Coding Scale 6 Independent with activity with or without an assistive device 5 Patient requires set up or clean up by helper. Patient completes activity by themselves 4 Supervision or touching assist (CGA). [place] provide cues , steadying assist 3 The helper provides less than half the effort to complete the activity 2 The helper provides more than half the effort to complete the activity 1 Dependent. The helper does all the effort to complete an activity 7 Patient refused to complete or attempt activity 9 The patient did not perform the activity before the current illness or injury 88 Not attempted due to Medical conditions or safety concerns Transfers (B, C, W/C) (FIM): 3 Scootin Rollin Supine to/from Sit: 6 Sit to/from Stand: 3 Weight Bearing Right Lower Extremity: Right Full Weight Bearing Left Lower Extremity: Left Touch Toe Bearing CAM boot on the left Wheelchair Training Does the Pt Use a Wheelchair?: Yes Wheelchair (FIM): 5 Wheelchair Distance: 3=150 ft Type of Wheelchair: Manual instructed in leg rest swing in out, leg rest removal etc. Exercises Supine Ex: Straight leg raise, Hip abd/add Supine Reps: 12 Seated Therapy Exercises: Long arc quads, Hip flexion Seated Reps: 15 Assessment Current Status: Good Progress PT Short Term Goals Short Term Goals Time Frame: May 03, 2018 Gait (FIM): 2 Distance (FIM): 1=up to 49 ft Gait Assistive Device: FWW Wheelchair (FIM): 6 Wheelchair distance (FIM): 3=150 ft Wheelchair Distance: 150 ft x 2 PT Ict Teacher Goals Detention Goals PT Detention Goals Time Frame: May 13, 2018 Transfers (B,C,W/C) (FIM): 6 Sit to Lying (QC): 6 Lying-Sitting on Side/Bed(QC): 6 Sit to Stand (QC): 6 Rollin Roll Left to Right (QC): 6 Chair/Cot-up-Btrnb Xfer(QC): 6 Car Transfer (QC): 6 Does the Patient Walk: No and Walking Goal IS indicated Gait (FIM): 5 (household exception) Gait distance (FIM): 6=352-25 ft Walk 10 feet (QC): 6 Walk 10ft-Uneven Surface(QC): 6 Walk 50ft with 2 Turns (QC): 6 Walk 150 ft (QC): 9 Gait Assistive Device: FWW Does the Pt use WC or Scooter?: Yes Wheelchair (FIM): 6 Wheelchair distance (FIM): 3=150 ft Wheel 50 feet with 2 turns (QC: 6 Stairs (FIM): 2 # of Steps: 1 1 Step (curb) (QC): 4 4 Steps (QC): 9 12 Steps (QC): 9 Stairs Level Of Assist: 4 Picking up an Object (QC): 88 PT Plan Treatment/Plan Treatment Plan: Continue Plan of Care Treatment Plan: Bed Mobility, Education, Functional Activity [place], Functional Strength, Group Therapy, Gait, Safety, Therapeutic Exercise, Transfers Treatment Duration: May 13, 2018 Frequency: At least 5 of 7 days/Wk (IRF) Estimated Hrs Per Day: 1.5 hours per day Patient and/or Family Agrees t: Yes Safety Risks/Education Patient Education: Transfer Techniques, Correct Positioning, W/C Management, Safety Issues Teaching Recipient: Patient Teaching Methods: Demonstration, Discussion Response to Teaching: Verbalize Understanding, Return Demonstration, Reinforcement Needed Time/GCodes Time In: 950 Time Out: 1025 Total Billed Treatment Time: 35 Total Billed Treatment 1,FA20m,WC15m G Codes Necessary: No NICHOLAS VIDAL REGIONAL CLINICAL DIRECTOR Apr 30, 2018 10:26
[2018-04-30] MEDS: warFARin 3 MG (COUMADIN) TAB PO SCH (17:10)
--- NOTE | 2018-04-30 17:33 | Progress Note-Cardiology ---
Cardiology SOAP Progress Note Subjective: No cp or palp or syncope or shortness of breath She is worried over bp that is persistently high in the recent past Objective: I&O/Vital Signs 04/30/18 09:00 O2 Delivery Room Air 04/30/18 00:00 Intake Total 780 ml Balance 780 ml Weight (Pounds): 192 Weight (Ounces): 0.6 Weight (Calculated Kilograms): 87.951997 Constitutional: AAO x 3, PERRL, well-developed, well-nourished Respiratory: chest is bilaterally symmetric, lungs clear to auscultation Cardiovascular: regular rate-rhythm, S1 and S2, systolic murmur (soft BÁRBARA at card base) Gastrointestional: No tender; soft; No guarding, No rebound; audible bowel sounds Extremities: No clubbing, No cyanosis, No significant edema Neurologic/Psychiatric: oriented x 3, grossly intact, power is 5/5 both on sides Skin: No rash on exposed areas, No ulcerations on exposed areas Results/Procedures: Labs Laboratory Tests 04/30/18 06:50: Prothrombin Time 17.8H, INR Comment 1.5H A/P: Assessment: Syncope, labile blood pressure, orthostatic hypotension, but bp has recently been markedly elevated Paroxysmal atrial fibrillation, back in sinus rhythm. No further episodes were reported. Anemia, monitor H&H closely Tibia and fibula fracture, status post surgical repair Plan: * Carefully increase bp meds and monitor closely * Advised slow and deliberate posture changed * Continue OAC * Monitor labs BARBARA WARD MD FACP FAC CCDS Apr 30, 2018 17:33
[2018-04-30 17:39] VITALS: BP 101/75
[2018-04-30] MEDS: ACETAMINOPHEN 325 MG TABLET PO PRN (21:05)
[2018-04-30] MEDS: POLYETHYLENE GLYCOL 17 GM (MIRALAX) PACK PO SCH (21:06)
[2018-04-30] MEDS: diphenhydrAMINE 25 MG TAB (BENADRYL) PO PRN (22:10)
[2018-05-01 04:57] VITALS: BP 134/75
[2018-05-01 08:45] VITALS: BP_SYST 134; BP_SYST 155; BP_SYST 159; BP_DIAS 63; BP_DIAS 84; BP_DIAS 89
[2018-05-01] MEDS: CIPROFLOXACIN 500 MG (CIPRO) TABLET PO SCH ×2 (09:05→21:20)
[2018-05-01] MEDS: meTOprolol TARTRATE 50 MG (LOPRESSOR) TAB PO SCH ×2 (09:05→21:23)
[2018-05-01] MEDS: HYDROcodone/APAP 10 MG/325 MG (LORTAB) TAB PO PRN ×2 (09:05→23:08)
[2018-05-01] MEDS: amLODIPine 5 MG (NORVASC) TAB PO SCH (09:05)
[2018-05-01] MEDS: DOCUSATE SODIUM 100 MG (COLACE) CAP PO SCH ×2 (09:05→21:00)
[2018-05-01] MEDS: MAGNESIUM OXIDE (MAG-OX)400 MG TAB PO SCH (09:05)
[2018-05-01] MEDS: warFARin 3 MG (COUMADIN) TAB PO SCH (17:44)
[2018-05-01 18:11] VITALS: BP 153/73
--- NOTE | 2018-05-01 18:56 | Progress Note-Cardiology ---
Cardiology SOAP Progress Note Subjective: No cp or palp or syncope or shortness of breath Objective: I&O/Vital Signs 05/01/18 05/01/18 05/01/18 08:45 08:45 18:11 Temp 97.9 Pulse 69 71 Resp 16 B/P (MAP) 155/89 (111) 153/73 (99) 159/84 (109) 134/63 (86) Pulse Ox 96 O2 Delivery Room Air Room Air 05/01/18 00:00 Intake Total 450 ml Balance 450 ml Weight (Pounds): 192 Weight (Ounces): 0.6 Weight (Calculated Kilograms): 87.578292 Constitutional: AAO x 3, PERRL, well-developed, well-nourished Respiratory: chest is bilaterally symmetric, lungs clear to auscultation Cardiovascular: regular rate-rhythm, S1 and S2, systolic murmur (soft BÁRBARA at card base) Gastrointestional: No tender; soft; No guarding, No rebound; audible bowel sounds Extremities: No clubbing, No cyanosis, No significant edema Neurologic/Psychiatric: oriented x 3, grossly intact, power is 5/5 both on sides Skin: No rash on exposed areas, No ulcerations on exposed areas A/P: Assessment: Syncope, labile blood pressure, orthostatic hypotension, but bp has recently been markedly elevated (now improved after med changes) Paroxysmal atrial fibrillation, back in sinus rhythm. No further episodes were reported. Anemia, monitor H&H closely Tibia and fibula fracture, status post surgical repair Plan: * Continue to carefully monitor bp and bp meds * Advised slow and deliberate posture changed * Continue OAC * Monitor labs BARBARA WARD MD FACP FAC CCDS May 01, 2018 18:56
[2018-05-01] MEDS: ACETAMINOPHEN 325 MG TABLET PO PRN (19:22)
[2018-05-01] MEDS: POLYETHYLENE GLYCOL 17 GM (MIRALAX) PACK PO SCH (21:19)
[2018-05-01] MEDS: diphenhydrAMINE 25 MG TAB (BENADRYL) PO PRN (23:08)
[2018-05-02 05:59] LABS: INR 1.5 (0.8-1.4); PROTHROMBIN TIME PATIENT 17.9 SEC (12.2-14.7)
[2018-05-02 06:25] VITALS: BP 170/80
[2018-05-02] MEDS: amLODIPine 5 MG (NORVASC) TAB PO SCH (08:48)
[2018-05-02] MEDS: HYDROcodone/APAP 10 MG/325 MG (LORTAB) TAB PO PRN ×2 (08:48→16:43)
[2018-05-02] MEDS: meTOprolol TARTRATE 50 MG (LOPRESSOR) TAB PO SCH ×2 (08:48→21:16)
[2018-05-02] MEDS: CIPROFLOXACIN 500 MG (CIPRO) TABLET PO SCH (08:48)
[2018-05-02] MEDS: DOCUSATE SODIUM 100 MG (COLACE) CAP PO SCH ×2 (08:48→21:16)
[2018-05-02] MEDS: MAGNESIUM OXIDE (MAG-OX)400 MG TAB PO SCH (08:48)
--- NOTE | 2018-05-02 08:50 | Physical Therapy Daily Note ---
PT Daily Note-Current Subjective Pt. agrees to rx. Pain Numeric Pain Scale: 3 Location: Right Location Body Site: Foot Pain Description: Ache Comment: right foot pain with weight bearing Mental Status Patient Orientation: Normal For Age Attachments: Other-See Comments (boot RLE) Transfers Functional [place] Measure 0=Not Assessed/NA 4=Minimal Assistance 1=Total Assistance 5=Supervision or Setup 2=Maximal Assistance 6=Modified [place] 3=Moderate Assistance 7=Complete IndependenceIRFPAI Quality Coding Scale 6 Independent with activity with or without an assistive device 5 Patient requires set up or clean up by helper. Patient completes activity by themselves 4 Supervision or touching assist (CGA). [place] provide cues , steadying assist 3 The helper provides less than half the effort to complete the activity 2 The helper provides more than half the effort to complete the activity 1 Dependent. The helper does all the effort to complete an activity 7 Patient refused to complete or attempt activity 9 The patient did not perform the activity before the current illness or injury 88 Not attempted due to Medical conditions or safety concerns Transfers (B, C, W/C) (FIM): 5 Scootin Rollin Supine to/from Sit: 6 Sit to/from Stand: 5 Bed to/from Chair: 5 Weight Bearing Right Lower Extremity: Right Full Weight Bearing Left Lower Extremity: Left Touch Toe Bearing CAM boot on the left Gait Training Does the Patient Walk?: Yes Gait (FIM): 1 Distance (FIM): 1=up to 49 ft (5ftx3) Gait Level of Assist: 4 Gait Persons Needed: 1 Gait Assistive Device: FWW pt. c/o increased pain RLE with gait limiting dist Wheelchair Training Does the Pt Use a Wheelchair?: Yes Wheelchair (FIM): 5 Wheelchair Distance: 3=150 ft (200x4) Wheelchair Level of Assist: 5 Type of Wheelchair: Manual up down ramp forward and back , good control Exercises Supine Ex: Bridging, Ankle pumps, Quad Set, Rolling, Heel Slides, Short Arc Quads, Scooting, Straight leg raise, Hip abd/add Supine Reps: 15 Assessment Current Status: Good Progress limited gait secondary to c/o pain in RLE with wt bearing PT Short Term Goals Short Term Goals Time Frame: May 03, 2018 Gait (FIM): 2 Distance (FIM): 1=up to 49 ft Gait Assistive Device: FWW Wheelchair (FIM): 6 Wheelchair distance (FIM): 3=150 ft Wheelchair Distance: 150 ft x 2 PT Fci Goals Fci Goals PT Fci Goals Time Frame: May 13, 2018 Transfers (B,C,W/C) (FIM): 6 Sit to Lying (QC): 6 Lying-Sitting on Side/Bed(QC): 6 Sit to Stand (QC): 6 Rollin Roll Left to Right (QC): 6 Chair/Mcc-td-Kuwdn Xfer(QC): 6 Car Transfer (QC): 6 Does the Patient Walk: No and Walking Goal IS indicated Gait (FIM): 5 (household exception) Gait distance (FIM): 7=318-21 ft Walk 10 feet (QC): 6 Walk 10ft-Uneven Surface(QC): 6 Walk 50ft with 2 Turns (QC): 6 Walk 150 ft (QC): 9 Gait Assistive Device: FWW Does the Pt use WC or Scooter?: Yes Wheelchair (FIM): 6 Wheelchair distance (FIM): 3=150 ft Wheel 50 feet with 2 turns (QC: 6 Stairs (FIM): 2 # of Steps: 1 1 Step (curb) (QC): 4 4 Steps (QC): 9 12 Steps (QC): 9 Stairs Level Of Assist: 4 Picking up an Object (QC): 88 PT Plan Treatment/Plan Treatment Plan: Continue Plan of Care Treatment Plan: Bed Mobility, Education, Functional Activity [place], Functional Strength, Group Therapy, Gait, Safety, Therapeutic Exercise, Transfers Treatment Duration: May 13, 2018 Frequency: At least 5 of 7 days/Wk (IRF) Estimated Hrs Per Day: 1.5 hours per day Patient and/or Family Agrees t: Yes Safety Risks/Education Patient Education: Gait Training, Transfer Techniques, Correct Positioning, W/ C Management, Disease Process, Safety Issues Teaching Recipient: Patient Teaching Methods: Demonstration, Discussion Response to Teaching: Verbalize Understanding, Return Demonstration, Reinforcement Needed Time/GCodes Time In: 800 Time Out: 845 Total Billed Treatment Time: 45 Total Billed Treatment 1,FA15m,EX15m,WC15m G Codes Necessary: NICHOLAS Mays PAPER REELER May 02, 2018 08:50
--- NOTE | 2018-05-02 12:50 | Occupational Ther Daily Note ---
OT Current Status-Daily Note Subjective Pt seen in room, up in w/c, agreeable to OT. No pain mentioned. Pt reported that she took herself to the bathroom yesterday. Appearance Alert, cooperative Mental Status/Objective Functional [place] Measure 0=Not Assessed/NA 4=Minimal Assistance 1=Total Assistance 5=Supervision or Setup 2=Maximal Assistance 6=Modified [place] 3=Moderate Assistance 7=Complete [place] ADL-Treatment Pt transferred from w/c to shower bench with SBA, using grab bar, CAM boot in place. Help to take boot off, she was able to manage clothing. Foot covered for shower. She turned water on/off and washed/dried all parts without help. Able top get bra, short, pants on and pull pants up with SBA, setup. Transferred back to w/c SBA and dried hair at sink mod I. While in gym, pt encouraged to call for help for transfers, for safety as well as for problem-solving for home. She reported that her sister checked her bathroom and she should be able to get w/c through bathroom door but does not think she can position for safe transfers. Also concerned about getting on/out of bed and referred to PT for recommendations for bed cane. Functional [place] Measure 0=Not Assessed/NA 4=Minimal Assistance 1=Total Assistance 5=Supervision or Setup 2=Maximal Assistance 6=Modified [place] 3=Moderate Assistance 7=Complete IndependenceIRFPAI Quality Coding Scale 6 Independent with activity with or without an assistive device 5 Patient requires set up or clean up by helper. Patient completes activity by themselves 4 Supervision or touching assist (CGA). [place] provide cues , steadying assist 3 The helper provides less than half the effort to complete the activity 2 The helper provides more than half the effort to complete the activity 1 Dependent. The helper does all the effort to complete an activity 7 Patient refused to complete or attempt activity 9 The patient did not perform the activity before the current illness or injury 88 Not attempted due to Medical conditions or safety concerns Grooming (FIM): 6 Bathing (FIM): 5 Upper Body (FIM): 5 Lower Body Dressing (FIM): 5 Shower Transfer(FIM): 5 Other Treatment Pt propelled w/c to gym herself. Completed 15 minutes bilat UE exercise with arm bike set at 15-20W resistance, taking one brief recovery break, to strengthen arms to help with transfers. Pt propelled herself back to her room and transferred to bed with SBA, FWW. Pt left up in bed, all meeds met. Education OT Patient Education: Purpose of tx/functional activities, Safety issues, Transfer techniques Teaching Recipient: Patient Teaching Methods: Discussion Response to Teaching: Verbalize Understanding, Reinforcement Needed OT Short Term Goals Short Term Goals Time Frame: May 03, 2018 Toilet/Commode Transfer(FIM): 5 1=Demonstrate adherence to instructed precautions during ADL tasks. 2=Patient will verbalize/demonstrate understanding of assistive devices/ modifications for ADL. 3=Patient will improve strength/tolerance for activity to enable patient to perform ADL's. OT Instrument Man Goals Skilled Nursing Goals Time Frame: May 13, 2018 Eating (FIM): 7 Eating (QC): 6 Groomin Oral Hygiene (QC): 6 Bathing(FIM): 6 Shower/Bathe Self (QC): 6 Upper Body Dressing(FIM): 6 Upper Body Dressing (QC): 6 Lower Body Dressing(FIM): 6 Lower Body Dressing (QC): 6 On/Off Footwear (QC): 6 Toileting(FIM): 6 Toileting Hygiene (QC): 6 Toilet/Commode Transfer(FIM): 6 Toilet/Commode Transfer (QC): 6 Shower Transfer(FIM): 6 Additional Goals: 1-Demonstrate ADL Tasks, 3-ImproveStrength/[place] 1=Demonstrate adherence to instructed precautions during ADL tasks. 2=Patient will verbalize/demonstrate understanding of assistive devices/ modifications for ADL. 3=Patient will improve strength/tolerance for activity to enable patient to perform ADL's. OT Education/Plan Problem List/Assessment Pt would benefit from skilled OT to increase her independence in basic self care Discharge Recommendations Plan/Recommendations: Continue POC Treatment Plan/Plan of Care Patient would benefit from OT for education, treatment and training to promote independence in ADL's, mobility, safety and/or upper extremity function for ADL' s. Plan of Care: ADL Retraining, Functional Mobility, Group Exercise/Act as Ind ( education, exercise, activity tolerance, functional activities, funct mobility) , UE Funct Exercise/Act, UE Neuromus Re-Ed/Coord, W/C Management Training Treatment Duration: May 13, 2018 Frequency: At least 5 of 7 days/Wk (IRF) Estimated Hrs Per Day: 1.5 hours per day Agreement: Yes Rehab Potential: Good (motivated and high PLOF) Time/GCodes Start Time: 08:45 Stop Time: 09:45 Total Time Billed (hr/min): 60 Billed Treatment Time visit, 35 minutes ADL, 25 minutes exercise KENDELL SETHI OT May 02, 2018 12:50
--- NOTE | 2018-05-02 14:50 | Therapy Group Daily Note ---
Therapy Daily Group Note Patient Education Topic Other List Below (benefits of exercise) Exercises LE Seated Exercise, UE Exercise, Other (core) Other/Notes Pt. utilized w/c to/from PT gym for PT OT group session. Pt. participated well and was very social with others. Pts introduced selves and shared what they were most proud of in their lives. Pts discussed what activity level they had enjoyed most of their lives and the value of exercise now in their life. Pts participated in U&L extremity seated exercise demonstrated on screen with 2 levels of exercise to choose from. Pt. to room after with assist. Pt. expressed that she really enjoyed this exercise program and wanted to obtain this for home use. In bed with campos at hand Start Time: 13:00 Stop Time: 14:20 Total Billed Treatment Time: 80 Total Billed Treatment 1,GRP NICHOLAS VIDAL INCENDIARY POWDER MIXER May 02, 2018 14:50
[2018-05-02] MEDS: warFARin 2 MG (COUMADIN) TAB PO SCH (14:52)
--- NOTE | 2018-05-02 14:57 | Cardiology Progress Note ---
Cardiology SOAP Progress Note Subjective: No cardiac symptoms. Objective: I&O/Vital Signs 05/02/18 06:25 Temp 97.7 Pulse 62 Resp 16 B/P (MAP) 170/80 (110) Pulse Ox 96 O2 Delivery Room Air 05/02/18 00:00 Intake Total 440 ml Balance 440 ml Weight (Pounds): 192 Weight (Ounces): 0.6 Weight (Calculated Kilograms): 87.146436 Constitutional: AAO x 3, PERRL, well-developed, well-nourished Respiratory: chest is bilaterally symmetric, lungs clear to auscultation Cardiovascular: regular rate-rhythm, S1 and S2, systolic murmur (soft BÁRBARA at card base) Gastrointestional: No tender; soft; No guarding, No rebound; audible bowel sounds Extremities: No clubbing, No cyanosis, No significant edema Neurologic/Psychiatric: oriented x 3, grossly intact, power is 5/5 both on sides Skin: No rash on exposed areas, No ulcerations on exposed areas Results/Procedures: Labs Laboratory Tests 05/02/18 05:20: Prothrombin Time 17.9H, INR Comment 1.5H A/P: Assessment/Dx: Admission Diagnosis Syncope Labile hypertension PAF Anemia Plan: Syncope, labile blood pressure, orthostatic hypotension. Syncope very likely due to orthostatic hypotension. However the patient requires antihypertensive therapy due to severe hypertension. For now we will tolerate slightly high blood pressure and gradually increase medications. Labile hypertension, mildly elevated blood pressure today. Continue to monitor, Paroxysmal atrial fibrillation, currently in sinus rhythm. We will start telemetry to rule out bradycardia as a contributory factor. INR 1.5 today. Give coumadin 5mg tonight. Anemia, monitor H&H closely Tibia and fibula fracture, status post surgical repair. Recovering slowly, receiving physical therapy Thank you for your consultation. Please call me if you have any questions. Edgard Cohen MD, FACP, FACC, FSCAI, FHRS, CCDS Interventional Cardiology Cardiac Electrophysiology Vascular Medicine and Endovascular Interventions Becki COHEN MD May 02, 2018 2:57 pm
[2018-05-02 16:30] VITALS: BP 149/74
[2018-05-02] MEDS ORDERED: warFARin 5 MG (COUMADIN) TAB PO NR (18:00)
--- NOTE | 2018-05-02 20:02 | PM & R (SOAP) Progress Note ---
Subjective This was a face to face visit with the patient. Date Seen by Provider: May 02, 2018 Time Seen by Provider: 19:30 Subjective/Events-last exam Patient was seen in her room this AM.Blood pressure meds being adjusted by cardiology Patient SBA for transfers. Review of Systems denies any headache or dizziness Objective Physician Exam Last Set of Vital Signs Vital Signs Date Time Temp Pulse Resp B/P (MAP) Pulse Ox O2 Delivery O2 Flow Rate FiO2 05/02/18 16:30 97.6 65 18 149/74 (99) 98 Room Air Capillary Refill : Less Than 3 SecondsLess Than 3 Seconds I&O Intake and Output 05/02/18 00:00 Intake Total 1040 ml Balance 1040 ml Intake Oral 1040 ml # Voids 7 # Bowel Movements 1 General: Alert, Oriented X3, Cooperative, No Acute Distress HEENT: Atraumatic, PERRLA, EOMI, Mucous Memb Moist/[place] Neck: Supple, No JVD Lungs: Clear to Auscultation Heart: Regular Rate, Normal S1, Normal S2 Abdomen: Normal Bowel Sounds, Soft, No Tenderness Extremities: No Clubbing, Other (CAM boot left ankle) Skin: No Rashes Neuro: Normal Speech, Sensation Intact, Other (Strength 4/5 UES and 4-/5 BLES except for left foot in cam boot) Results Lab Data Laboratory Tests 04/30/18 06:50: Prothrombin Time 17.8H, INR Comment 1.5H 05/02/18 05:20: Prothrombin Time 17.9H, INR Comment 1.5H Assessment/Plan Assessment and Plan Syncopal episode resulting in fall with left ankle fracture s/p ORIF 04-23-18 TTWB LLe A FIB controlled withj med HTN meds being adjusted Orthostatic Hypotension resolved with adjustment in meds ESBL comleted course of cipro Plan Continue PT/OT F/Iu with hospitalist and cardiology service Next Team Conference 05-04-18 Co-Morbidities that are continuing to impact the rehab process: (include details ) DEDE PEREZ MD May 02, 2018 20:02
[2018-05-02 20:40] VITALS: BP 127/73
[2018-05-02] MEDS: POLYETHYLENE GLYCOL 17 GM (MIRALAX) PACK PO SCH (21:16)
[2018-05-02] MEDS: diphenhydrAMINE 25 MG TAB (BENADRYL) PO PRN (21:59)
[2018-05-03 00:21] VITALS: BP 146/75
[2018-05-03 04:00] VITALS: BP 150/73
[2018-05-03 06:08] LABS: INR 1.5 (0.8-1.4); PROTHROMBIN TIME PATIENT 18.1 SEC (12.2-14.7)
--- NOTE | 2018-05-03 07:53 | PM & R (SOAP) Progress Note ---
Subjective This was a face to face visit with the patient. Date Seen by Provider: May 03, 2018 Time Seen by Provider: 07:15 Subjective/Events-last exam Patient was seen in her room this AM Patient SBA for transfers .Patient c/o pressure sore under splint on upper ocol RN confirms quarter size pressure sore Will consult wound care see orders Review of Systems denies any headache or dizziness Objective Physician Exam Last Set of Vital Signs Vital Signs Date Time Temp Pulse Resp B/P (MAP) Pulse Ox O2 Delivery O2 Flow Rate FiO2 05/03/18 04:00 98.3 65 16 150/73 (98) 96 Room Air Capillary Refill : Less Than 3 SecondsLess Than 3 Seconds I&O Intake and Output 05/03/18 00:00 Intake Total 1390 ml Balance 1390 ml Intake Oral 1390 ml # Voids 6 # Bowel Movements 1 General: Alert, Oriented X3, Cooperative, No Acute Distress HEENT: Atraumatic, PERRLA, EOMI, Mucous Memb Moist/[place] Neck: Supple, No JVD Lungs: Clear to Auscultation Heart: Regular Rate, Normal S1, Normal S2 Abdomen: Normal Bowel Sounds, Soft, No Tenderness Extremities: No Clubbing, Other (CAM boot left ankle) Skin: No Rashes, Other (pressure sore as per above) Neuro: Normal Speech, Sensation Intact, Other (Strength 4/5 UES and 4-/5 BLES except for left foot in cam boot) Results Lab Data Laboratory Tests 05/02/18 05:20: Prothrombin Time 17.9H, INR Comment 1.5H 05/03/18 05:35: Prothrombin Time 18.1H, INR Comment 1.5H Assessment/Plan Assessment and Plan Syncopal episode resulting in fall with left ankle fracture resulting s/p ORIF TTWB LLE A FIB controlled Pressure sore Left cool HTN better controlled Orthostatic hypotension resolved with adjustment in meds ESBL treated Plan Continue PT/OT Consult Wound care Team Conference tomorrow F/U with Cardiology and Hospitalist service as per their schedule Co-Morbidities that are continuing to impact the rehab process: (include details ) DEDE PEREZ MD May 03, 2018 07:53
[2018-05-03] MEDS: MAGNESIUM OXIDE (MAG-OX)400 MG TAB PO SCH (08:03)
[2018-05-03] MEDS: meTOprolol TARTRATE 50 MG (LOPRESSOR) TAB PO SCH ×2 (08:03→22:18)
[2018-05-03] MEDS: DOCUSATE SODIUM 100 MG (COLACE) CAP PO SCH ×2 (08:04→22:18)
[2018-05-03] MEDS: amLODIPine 5 MG (NORVASC) TAB PO SCH (08:04)
--- NOTE | 2018-05-03 10:59 | Physical Therapy Daily Note ---
PT Daily Note-Current Subjective Pt sitting up in bed upon arrival. Pt agrees to PT. Pt advises wanting to check with Road Roller Engineer for [facility] [place] Per family after checking pt's apartment, pt will not be able to get W[facility] or FWW into restroom. Pain Numeric Pain Scale: 4 Location: Right Location Body Site: Knee Pain Description: Ache, Tightness Mental Status Patient Orientation: Person, Place, Time, Situation Attachments: Other-See Comments (Boot on LLE) Transfers Functional [place] Measure 0=Not Assessed/NA 4=Minimal Assistance 1=Total Assistance 5=Supervision or Setup 2=Maximal Assistance 6=Modified [place] 3=Moderate Assistance 7=Complete IndependenceIRFPAI Quality Coding Scale 6 Independent with activity with or without an assistive device 5 Patient requires set up or clean up by helper. Patient completes activity by themselves 4 Supervision or touching assist (CGA). [place] provide cues , steadying assist 3 The helper provides less than half the effort to complete the activity 2 The helper provides more than half the effort to complete the activity 1 Dependent. The helper does all the effort to complete an activity 7 Patient refused to complete or attempt activity 9 The patient did not perform the activity before the current illness or injury 88 Not attempted due to Medical conditions or safety concerns Scootin Rollin Supine to/from Sit: 5 Sit to/from Stand: 4 Sit to Lying (QC): 5 Sit to Stand (QC): 4 Weight Bearing Right Lower Extremity: Right Full Weight Bearing Left Lower Extremity: Left Touch Toe Bearing CAM boot on the left Wheelchair Training Does the Pt Use a Wheelchair?: Yes Wheelchair Distance: 3=150 ft Distance: 150' Wheelchair Level of Assist: 5 Wheel 50 ft with 2 turns (QC): 5 Wheel 150 ft (QC): 5 Type of Wheelchair: Manual Exercises Supine Ex: Ankle pumps, Quad Set, Heel Slides, Straight leg raise, Hip abd/add Supine Reps: 20 Treatments Pt completed Supine Ex in bed with a couple short rest breaks. Pt practices transfers from EOB to H and back. Pt fatigues easy and is anxious about transfers and BLE giving out. Pt also works on [facility] mobility since not walking distances yet. Pt is resting in [facility] for OT at end of tx. Pt has all needs met. Assessment Current Status: Fair Progress Pt is still anxious about transfers and discharge that could happen over the next week. PT Short Term Goals Short Term Goals Time Frame: May 03, 2018 Gait (FIM): 2 Distance (FIM): 1=up to 49 ft Gait Assistive Device: FWW Wheelchair (FIM): 6 Wheelchair distance (FIM): 3=150 ft Wheelchair Distance: 150 ft x 2 PT Mcc Goals Structural Draftsman Goals PT Mcc Goals Time Frame: May 13, 2018 Transfers (B,C,W/C) (FIM): 6 Sit to Lying (QC): 6 Lying-Sitting on Side/Bed(QC): 6 Sit to Stand (QC): 6 Rollin Roll Left to Right (QC): 6 Chair/Wqg-zh-Whhwm Xfer(QC): 6 Car Transfer (QC): 6 Does the Patient Walk: No and Walking Goal IS indicated Gait (FIM): 5 (household exception) Gait distance (FIM): 9=157-24 ft Walk 10 feet (QC): 6 Walk 10ft-Uneven Surface(QC): 6 Walk 50ft with 2 Turns (QC): 6 Walk 150 ft (QC): 9 Gait Assistive Device: FWW Does the Pt use WC or Scooter?: Yes Wheelchair (FIM): 6 Wheelchair distance (FIM): 3=150 ft Wheel 50 feet with 2 turns (QC: 6 Stairs (FIM): 2 # of Steps: 1 1 Step (curb) (QC): 4 4 Steps (QC): 9 12 Steps (QC): 9 Stairs Level Of Assist: 4 Picking up an Object (QC): 88 PT Plan Problem List Problem List: Activity Tolerance, Functional Strength, Safety, Balance, Gait, Transfer Treatment/Plan Treatment Plan: Continue Plan of Care Treatment Plan: Bed Mobility, Education, Functional Activity [place], Functional Strength, Group Therapy, Gait, Safety, Therapeutic Exercise, Transfers Treatment Duration: May 13, 2018 Frequency: At least 5 of 7 days/Wk (IRF) Estimated Hrs Per Day: 1.5 hours per day Patient and/or Family Agrees t: Yes Safety Risks/Education Patient Education: Transfer Techniques, Correct Positioning, W/C Management, Safety Issues Teaching Recipient: Patient Teaching Methods: Discussion Response to Teaching: Verbalize Understanding Time/GCodes Time In: 800 Time Out: 845 Total Billed Treatment Time: 45 Total Billed Treatment 1, FA x2 (30m) & Ex (15m) G Codes Necessary: NILSON Romo DATA CENTER TECHNICIAN May 03, 2018 10:59
--- NOTE | 2018-05-03 11:11 | Occupational Ther Daily Note ---
OT Current Status-Daily Note Subjective Pt seen in room, up in w/c, agreeable to OT. No pain mentioned. Appearance Alert, cooperative Mental Status/Objective Functional [place] Measure 0=Not Assessed/NA 4=Minimal Assistance 1=Total Assistance 5=Supervision or Setup 2=Maximal Assistance 6=Modified [place] 3=Moderate Assistance 7=Complete [place] ADL-Treatment Functional [place] Measure 0=Not Assessed/NA 4=Minimal Assistance 1=Total Assistance 5=Supervision or Setup 2=Maximal Assistance 6=Modified [place] 3=Moderate Assistance 7=Complete IndependenceIRFPAI Quality Coding Scale 6 Independent with activity with or without an assistive device 5 Patient requires set up or clean up by helper. Patient completes activity by themselves 4 Supervision or touching assist (CGA). [place] provide cues , steadying assist 3 The helper provides less than half the effort to complete the activity 2 The helper provides more than half the effort to complete the activity 1 Dependent. The helper does all the effort to complete an activity 7 Patient refused to complete or attempt activity 9 The patient did not perform the activity before the current illness or injury 88 Not attempted due to Medical conditions or safety concerns Other Treatment Pt propelled w/c to gym and completed bilat UE activities to strengthen arms to help with transfers, including 15 minutes arm bike set at 25W resistance ( increased resistance), graded clothespins and nuts/bolts, both with 1# weight on each arm. While she was working, discussed need for BSC for her apartment. Even if w/c could get through the bathroom door, she would not be able to position it for transferring on/off toilet. After tx, she propelled w/c back to room and transferred into bed without physical assistance, using FWW and locking brakes appropriately. Pt left up in bed, all needs met. Education OT Patient Education: Exercise program, Progress toward Goal/Update tx plan, Purpose of tx/functional activities, Transfer techniques, Use of adapted equipment Teaching Recipient: Patient Teaching Methods: Discussion Response to Teaching: Verbalize Understanding, Return Demonstration OT Short Term Goals Short Term Goals Time Frame: May 03, 2018 Toilet/Commode Transfer(FIM): 5 1=Demonstrate adherence to instructed precautions during ADL tasks. 2=Patient will verbalize/demonstrate understanding of assistive devices/ modifications for ADL. 3=Patient will improve strength/tolerance for activity to enable patient to perform ADL's. OT Senior Firewall Engineer Goals Senior Firewall Engineer Goals Time Frame: May 13, 2018 Eating (FIM): 7 Eating (QC): 6 Groomin Oral Hygiene (QC): 6 Bathing(FIM): 6 Shower/Bathe Self (QC): 6 Upper Body Dressing(FIM): 6 Upper Body Dressing (QC): 6 Lower Body Dressing(FIM): 6 Lower Body Dressing (QC): 6 On/Off Footwear (QC): 6 Toileting(FIM): 6 Toileting Hygiene (QC): 6 Toilet/Commode Transfer(FIM): 6 Toilet/Commode Transfer (QC): 6 Shower Transfer(FIM): 6 Additional Goals: 1-Demonstrate ADL Tasks, 3-ImproveStrength/[place] 1=Demonstrate adherence to instructed precautions during ADL tasks. 2=Patient will verbalize/demonstrate understanding of assistive devices/ modifications for ADL. 3=Patient will improve strength/tolerance for activity to enable patient to perform ADL's. OT Education/Plan Problem List/Assessment Pt would benefit from skilled OT to increase her independence in basic self care Discharge Recommendations Plan/Recommendations: Continue POC Treatment Plan/Plan of Care Patient would benefit from OT for education, treatment and training to promote independence in ADL's, mobility, safety and/or upper extremity function for ADL' s. Plan of Care: ADL Retraining, Functional Mobility, Group Exercise/Act as Ind ( education, exercise, activity tolerance, functional activities, funct mobility) , UE Funct Exercise/Act, UE Neuromus Re-Ed/Coord, W/C Management Training Treatment Duration: May 13, 2018 Frequency: At least 5 of 7 days/Wk (IRF) Estimated Hrs Per Day: 1.5 hours per day Agreement: Yes Rehab Potential: Good (motivated and high PLOF) Time/GCodes Start Time: 08:45 Stop Time: 09:50 Total Time Billed (hr/min): 65 Billed Treatment Time VISIT, 65 minutes exercise KENDELL SETHI OT May 03, 2018 11:11
[2018-05-03 12:00] VITALS: BP 135/76
--- NOTE | 2018-05-03 13:03 | Cardiology Progress Note ---
Cardiology SOAP Progress Note Subjective: No cardiac complaints. Objective: I&O/Vital Signs 05/03/18 05/03/18 04:00 07:00 Temp 98.3 Pulse 65 76 Resp 16 B/P (MAP) 150/73 (98) Pulse Ox 96 O2 Delivery Room Air 05/03/18 00:00 Intake Total 940 ml Balance 940 ml Weight (Pounds): 192 Weight (Ounces): 0.6 Weight (Calculated Kilograms): 87.628233 Constitutional: AAO x 3, PERRL, well-developed, well-nourished Respiratory: chest is bilaterally symmetric, lungs clear to auscultation Cardiovascular: regular rate-rhythm, S1 and S2, systolic murmur (soft BÁRBARA at card base) Gastrointestional: No tender; soft; No guarding, No rebound; audible bowel sounds Extremities: No clubbing, No cyanosis, No significant edema Neurologic/Psychiatric: oriented x 3, grossly intact, power is 5/5 both on sides Skin: No rash on exposed areas, No ulcerations on exposed areas Results/Procedures: Labs Laboratory Tests 05/03/18 05:35: Prothrombin Time 18.1H, INR Comment 1.5H A/P: Assessment/Dx: Admission Diagnosis Syncope Labile hypertension PAF Anemia Plan: Syncope, labile blood pressure, orthostatic hypotension. Syncope very likely due to orthostatic hypotension. However the patient requires antihypertensive therapy due to severe hypertension. For now we will tolerate slightly high blood pressure and gradually increase medications. Labile hypertension, mildly elevated blood pressure today. Continue to monitor, Paroxysmal atrial fibrillation, currently in sinus rhythm. We will start telemetry to rule out bradycardia as a contributory factor. INR 1.5 today. Give coumadin 5mg tonight. Anemia, monitor H&H closely Tibia and fibula fracture, status post surgical repair. Recovering slowly, receiving physical therapy Thank you for your consultation. Please call me if you have any questions. dEgard Cohen MD, FACP, FACC, FSCAI, FHRS, CCDS Interventional Cardiology Cardiac Electrophysiology Vascular Medicine and Endovascular Interventions Becki COHEN MD May 03, 2018 1:03 pm
--- NOTE | 2018-05-03 14:14 | Occupational Ther Daily Note ---
OT Current Status-Daily Note Subjective Pt seen in room, up in bed , agreeable to OT. No pain mentioned. Appearance Alert, cooperative Mental Status/Objective Functional [place] Measure 0=Not Assessed/NA 4=Minimal Assistance 1=Total Assistance 5=Supervision or Setup 2=Maximal Assistance 6=Modified [place] 3=Moderate Assistance 7=Complete [place] ADL-Treatment She was able to fasten upper three straps on CAM boot but not lower two straps over foot. Tried alternate positioning of foot on w/c but it did not help enough. Pt educ on use of sliding board and she transferred with min assist from bed to w/c. Will practice again getting back into bed with PT. She demonstrated several different bilat UE exercises with red theraband with no cues, to be able to do these as HEP. Also discussed potential discharge dates. Her [place] family will be out of town and she would like family wiht her for a few days when she returns home. Also recommend home health OT for ADLs. Pt left up in w/ for PT, all needs met. Functional [place] Measure 0=Not Assessed/NA 4=Minimal Assistance 1=Total Assistance 5=Supervision or Setup 2=Maximal Assistance 6=Modified [place] 3=Moderate Assistance 7=Complete IndependenceIRFPAI Quality Coding Scale 6 Independent with activity with or without an assistive device 5 Patient requires set up or clean up by helper. Patient completes activity by themselves 4 Supervision or touching assist (CGA). [place] provide cues , steadying assist 3 The helper provides less than half the effort to complete the activity 2 The helper provides more than half the effort to complete the activity 1 Dependent. The helper does all the effort to complete an activity 7 Patient refused to complete or attempt activity 9 The patient did not perform the activity before the current illness or injury 88 Not attempted due to Medical conditions or safety concerns Education OT Patient Education: Home exercise program, Modified ADL techniques, Purpose of tx/functional activities, Transfer techniques, Use of adapted equipment Teaching Recipient: Patient Teaching Methods: Discussion Response to Teaching: Return Demonstration OT Short Term Goals Short Term Goals Time Frame: May 03, 2018 Toilet/Commode Transfer(FIM): 5 1=Demonstrate adherence to instructed precautions during ADL tasks. 2=Patient will verbalize/demonstrate understanding of assistive devices/ modifications for ADL. 3=Patient will improve strength/tolerance for activity to enable patient to perform ADL's. OT Usp Goals Usp Goals Time Frame: May 13, 2018 Eating (FIM): 7 Eating (QC): 6 Groomin Oral Hygiene (QC): 6 Bathing(FIM): 6 Shower/Bathe Self (QC): 6 Upper Body Dressing(FIM): 6 Upper Body Dressing (QC): 6 Lower Body Dressing(FIM): 6 Lower Body Dressing (QC): 6 On/Off Footwear (QC): 6 Toileting(FIM): 6 Toileting Hygiene (QC): 6 Toilet/Commode Transfer(FIM): 6 Toilet/Commode Transfer (QC): 6 Shower Transfer(FIM): 6 Additional Goals: 1-Demonstrate ADL Tasks, 3-ImproveStrength/[place] 1=Demonstrate adherence to instructed precautions during ADL tasks. 2=Patient will verbalize/demonstrate understanding of assistive devices/ modifications for ADL. 3=Patient will improve strength/tolerance for activity to enable patient to perform ADL's. OT Education/Plan Problem List/Assessment Pt would benefit from skilled OT to increase her independence in basic self care Discharge Recommendations Plan/Recommendations: Continue POC Treatment Plan/Plan of Care Patient would benefit from OT for education, treatment and training to promote independence in ADL's, mobility, safety and/or upper extremity function for ADL' s. Plan of Care: ADL Retraining, Functional Mobility, Group Exercise/Act as Ind ( education, exercise, activity tolerance, functional activities, funct mobility) , UE Funct Exercise/Act, UE Neuromus Re-Ed/Coord, W/C Management Training Treatment Duration: May 13, 2018 Frequency: At least 5 of 7 days/Wk (IRF) Estimated Hrs Per Day: 1.5 hours per day Agreement: Yes Rehab Potential: Good (motivated and high PLOF) Time/GCodes Start Time: 13:05 Stop Time: 13:30 Total Time Billed (hr/min): 25 Billed Treatment Time visit, 15 minutes functional activity, 10 minutes exercise KENDELL SETHI OT May 03, 2018 14:14
--- NOTE | 2018-05-03 14:19 | Physical Therapy Daily Note ---
PT Daily Note-Current Subjective Pt sitting in [facility] in room upon arrival. Pt agrees to PT. Pain Location: No Pain Reported Mental Status Patient Orientation: Person, Place, Time, Situation Attachments: Other-See Comments (Boot on LLE) Transfers Functional [place] Measure 0=Not Assessed/NA 4=Minimal Assistance 1=Total Assistance 5=Supervision or Setup 2=Maximal Assistance 6=Modified [place] 3=Moderate Assistance 7=Complete IndependenceIRFPAI Quality Coding Scale 6 Independent with activity with or without an assistive device 5 Patient requires set up or clean up by helper. Patient completes activity by themselves 4 Supervision or touching assist (CGA). [place] provide cues , steadying assist 3 The helper provides less than half the effort to complete the activity 2 The helper provides more than half the effort to complete the activity 1 Dependent. The helper does all the effort to complete an activity 7 Patient refused to complete or attempt activity 9 The patient did not perform the activity before the current illness or injury 88 Not attempted due to Medical conditions or safety concerns Scootin Sit to/from Stand: 5 Sit to Stand (QC): 5 Weight Bearing Right Lower Extremity: Right Full Weight Bearing Left Lower Extremity: Left Touch Toe Bearing CAM boot on the left Wheelchair Training Does the Pt Use a Wheelchair?: Yes Wheelchair Distance: 3=150 ft Distance: 150' Wheelchair Level of Assist: 5 Wheel 50 ft with 2 turns (QC): 5 Wheel 150 ft (QC): 5 Type of Wheelchair: Manual Exercises NuStep Minutes: 10 NuStep Workload: 4 Treatments Pt propels self through hallway and [facility]. Pt uses NuStep for 10m at [facility] 4. Pt completes Seated Ex in [facility] before propelling back to room. Pt completes Slide Board transfer at [facility]. EDI SPECIALIST notified Top Lift Cutter that pt is wanting to get [facility], [facility], Slide Board & for assistance with bandage dressing changes at home. Pt is resting at EOB at end of tx. with all needs met. Assessment Current Status: Good Progress Pt is improving with strength and independence/safety of tasks. PT Short Term Goals Short Term Goals Time Frame: May 03, 2018 Gait (FIM): 2 Distance (FIM): 1=up to 49 ft Gait Assistive Device: FWW Wheelchair (FIM): 6 Wheelchair distance (FIM): 3=150 ft Wheelchair Distance: 150 ft x 2 PT Senior Living Goals Homicide Squad Commanding Officer Goals PT Senior Living Goals Time Frame: May 13, 2018 Transfers (B,C,W/C) (FIM): 6 Sit to Lying (QC): 6 Lying-Sitting on Side/Bed(QC): 6 Sit to Stand (QC): 6 Rollin Roll Left to Right (QC): 6 Chair/Kvw-rx-Omejh Xfer(QC): 6 Car Transfer (QC): 6 Does the Patient Walk: No and Walking Goal IS indicated Gait (FIM): 5 (household exception) Gait distance (FIM): 9=135-48 ft Walk 10 feet (QC): 6 Walk 10ft-Uneven Surface(QC): 6 Walk 50ft with 2 Turns (QC): 6 Walk 150 ft (QC): 9 Gait Assistive Device: FWW Does the Pt use WC or Scooter?: Yes Wheelchair (FIM): 6 Wheelchair distance (FIM): 3=150 ft Wheel 50 feet with 2 turns (QC: 6 Stairs (FIM): 2 # of Steps: 1 1 Step (curb) (QC): 4 4 Steps (QC): 9 12 Steps (QC): 9 Stairs Level Of Assist: 4 Picking up an Object (QC): 88 PT Plan Problem List Problem List: Activity Tolerance, Functional Strength, Gait Treatment/Plan Treatment Plan: Continue Plan of Care Treatment Plan: Bed Mobility, Education, Functional Activity [place], Functional Strength, Group Therapy, Gait, Safety, Therapeutic Exercise, Transfers Treatment Duration: May 13, 2018 Frequency: At least 5 of 7 days/Wk (IRF) Estimated Hrs Per Day: 1.5 hours per day Patient and/or Family Agrees t: Yes Safety Risks/Education Patient Education: Transfer Techniques, Correct Positioning, W/C Management, Safety Issues Teaching Recipient: Patient Teaching Methods: Discussion Response to Teaching: Verbalize Understanding Time/GCodes Time In: 1330 Time Out: 1415 Total Billed Treatment Time: 45 Total Billed Treatment 1, WCH (15m), EX (20m) & FA (10m) G Codes Necessary: NILSON Romo EDI SPECIALIST May 03, 2018 14:19
--- NOTE | 2018-05-03 16:12 | Wound Care Assessment ---
Wound Care Assessment Date Seen by Provider: May 03, 2018 Time Seen by Provider: 16:05 Chief Complaint Ulcer L ankle. HPI The patient is a 72 year old female with a pressure ulcer, present on admission , L anterior ankle from splint to stabilize repair of L ankle fracture. The patient has anterior and a lateral L ankle incisions, which are intact, moderate fracture bruising and edema, and a Stage 2 pressure ulcer just lateral to the anterior surgical incision. The patient lives in [facility], and would prefer to follow-up at the [facility] in [facility] after discharge. Past Medical History: Admits Heart Disease (Atrial fibrillation.) Hypertension. Smoking Status: Never a Smoker Review of Systems Pulmonary: No Dyspnea Cardiovascular: No: Chest Pain Exam Vital Signs Date Time Temp Pulse Resp B/P (MAP) Pulse Ox O2 Delivery O2 Flow Rate FiO2 05/03/18 13:00 72 05/03/18 12:00 97.8 18 135/76 (95) 96 Room Air Capillary Refill : Less Than 3 SecondsLess Than 3 Seconds General Appearance: WD/WN Respiratory: no respiratory distress Skin: other (L anterior ankle -- 2.8 x 2.8 x 0.2 cm, base 100 % slough, mod. s.s. drainage.) Results Laboratory Tests 05/03/18 05:35: Prothrombin Time 18.1H, INR Comment 1.5H Assessment/Plan/Dx 1. Stage 2 pressure ulcer, L anterior ankle. 2. Recent fracture of L ankle, s/p ORIF, with CAM walker protection. Plan: We will protect wounded area with Xeroform and ABD's. Minimize use of CAM walker. JOHNNA GOTTI MD May 03, 2018 16:12
[2018-05-03 16:35] VITALS: BP 168/74
[2018-05-03] MEDS: warFARin 3 MG (COUMADIN) TAB PO SCH (17:13)
[2018-05-03 20:07] VITALS: BP 147/70
[2018-05-03] MEDS: HYDROcodone/APAP 10 MG/325 MG (LORTAB) TAB PO PRN (22:18)
[2018-05-03] MEDS: diphenhydrAMINE 25 MG TAB (BENADRYL) PO PRN (22:18)
[2018-05-03] MEDS: POLYETHYLENE GLYCOL 17 GM (MIRALAX) PACK PO SCH (22:19)
[2018-05-03 23:09] VITALS: BP 150/81
[2018-05-04 04:00] VITALS: BP 147/76
[2018-05-04 04:44] LABS: INR 1.4 (0.8-1.4); PROTHROMBIN TIME PATIENT 17.4 SEC (12.2-14.7)
[2018-05-04 08:00] VITALS: BP 131/68
[2018-05-04] MEDS: amLODIPine 5 MG (NORVASC) TAB PO SCH (08:45)
[2018-05-04] MEDS: MAGNESIUM OXIDE (MAG-OX)400 MG TAB PO SCH (08:46)
[2018-05-04] MEDS: meTOprolol TARTRATE 50 MG (LOPRESSOR) TAB PO SCH ×2 (08:46→20:29)
[2018-05-04] MEDS: DOCUSATE SODIUM 100 MG (COLACE) CAP PO SCH ×2 (08:46→20:30)
--- NOTE | 2018-05-04 09:11 | PM & R (SOAP) Progress Note ---
Subjective This was a face to face visit with the patient. Date Seen by Provider: May 04, 2018 Time Seen by Provider: 08:00 Subjective/Events-last exam Patient was seen in her room this AM Pleased with Wound care assessment.Appreciate DR Coles note Discussed case with him.Patient SBA for transfers Review of Systems denies any headache or dizziness Objective Physician Exam Last Set of Vital Signs Vital Signs Date Time Temp Pulse Resp B/P (MAP) Pulse Ox O2 Delivery O2 Flow Rate FiO2 05/04/18 08:00 96.8 61 18 131/68 (89) 98 Room Air Capillary Refill : Less Than 3 SecondsLess Than 3 Seconds I&O Intake and Output 05/04/18 00:00 Intake Total 1160 ml Balance 1160 ml Intake Oral 1160 ml # Voids 5 General: Alert, Oriented X3, Cooperative, No Acute Distress HEENT: Atraumatic, PERRLA, EOMI, Mucous Memb Moist/[place] Neck: Supple, No JVD Lungs: Clear to Auscultation Heart: Regular Rate, Normal S1, Normal S2 Abdomen: Normal Bowel Sounds, Soft, No Tenderness Extremities: No Clubbing, Other (CAM boot left ankle) Skin: No Rashes, Other (Stage 2 pressure sore left anteriorankle) Neuro: Normal Speech, Sensation Intact, Other (Strength 4/5 UES and 4-/5 BLES except for left foot in cam boot) Results Lab Data Laboratory Tests 05/02/18 05:20: Prothrombin Time 17.9H, INR Comment 1.5H 05/03/18 05:35: Prothrombin Time 18.1H, INR Comment 1.5H 05/04/18 04:23: Prothrombin Time 17.4H, INR Comment 1.4 Assessment/Plan Assessment and Plan Syncopal episode resulting in fall with left ankle fracture resulting s/p ORIF TTWB LLE A FIB controlled Stage 2 pressure sore left anterior ankle HTN better controlled Orthostatic hypotension resolved ESBL treated Plan Continue PT/OT/wound care Team Conference later today-See report for full functional update and POC and ELOS F/U with DR Schaefer and cardiology prn Co-Morbidities that are continuing to impact the rehab process: (include details ) DEDE PEREZ MD May 04, 2018 09:11
--- NOTE | 2018-05-04 11:06 | Physical Therapy Daily Note ---
PT Daily Note-Current Subjective Pt sitting at EOB upon arrival. Pt agrees to work with PT for transfer training w/slide board & [facility] mobility. Pain Numeric Pain Scale: 3 Location: Right, Left Location Body Site: Ankle Pain Description: Ache Comment: Pt's L ankle/leg has discomfort from blister rubbing & R ankle from overuse Mental Status Patient Orientation: Place, Time, Situation Attachments: Other-See Comments (Boot for LLE) Transfers Functional [place] Measure 0=Not Assessed/NA 4=Minimal Assistance 1=Total Assistance 5=Supervision or Setup 2=Maximal Assistance 6=Modified [place] 3=Moderate Assistance 7=Complete IndependenceIRFPAI Quality Coding Scale 6 Independent with activity with or without an assistive device 5 Patient requires set up or clean up by helper. Patient completes activity by themselves 4 Supervision or touching assist (CGA). [place] provide cues , steadying assist 3 The helper provides less than half the effort to complete the activity 2 The helper provides more than half the effort to complete the activity 1 Dependent. The helper does all the effort to complete an activity 7 Patient refused to complete or attempt activity 9 The patient did not perform the activity before the current illness or injury 88 Not attempted due to Medical conditions or safety concerns Scootin Sit to/from Stand: 5 Sit to Stand (QC): 5 Chair/Fqg-xs-[place] Xfer(QC): 5 Bed to/from Chair: 5 Weight Bearing Right Lower Extremity: Right Full Weight Bearing Left Lower Extremity: Left Touch Toe Bearing CAM boot on the left Gait Training Does the Patient Walk?: No and Walking Goal NOT indicated (Boot for LLE) Wheelchair Training Does the Pt Use a Wheelchair?: Yes Wheelchair Distance: 3=150 ft Distance: 200' Wheelchair Level of Assist: 6 Wheel 50 ft with 2 turns (QC): 6 Type of Wheelchair: Manual Exercises Seated Therapy Exercises: Ankle pumps, Long arc quads, Hip flexion, Kicking activity, Hip abd/add NuStep Minutes: 10 Treatments Pt transfers from [facility] to bed and back practicing transfers using slide board. Pt propels [facility] in hallway and to Therapy Gym. Pt uses NuStep for 10m at [facility] 4. Pt then completes Seated Ex in [facility] before returning to room to use restroom. Pt resting in bed at end of tx with all needs met. Assessment Current Status: Good Progress Pt continues to make improves with strength and transfers. PT Short Term Goals Short Term Goals Time Frame: May 03, 2018 Gait (FIM): 2 Distance (FIM): 1=up to 49 ft Gait Assistive Device: FWW Wheelchair (FIM): 6 Wheelchair distance (FIM): 3=150 ft Wheelchair Distance: 150' PT Senior Firmware Engineer Goals Group Home Goals PT Group Home Goals Time Frame: May 13, 2018 Transfers (B,C,W/C) (FIM): 6 Sit to Lying (QC): 6 Lying-Sitting on Side/Bed(QC): 6 Sit to Stand (QC): 6 Rollin Roll Left to Right (QC): 6 Chair/Uxf-pl-Rfmzy Xfer(QC): 6 Car Transfer (QC): 6 Does the Patient Walk: No and Walking Goal IS indicated Gait (FIM): 5 (household exception) Gait distance (FIM): 2=158-75 ft Walk 10 feet (QC): 6 Walk 10ft-Uneven Surface(QC): 6 Walk 50ft with 2 Turns (QC): 6 Walk 150 ft (QC): 9 Gait Assistive Device: FWW Does the Pt use WC or Scooter?: Yes Wheelchair (FIM): 6 Wheelchair distance (FIM): 3=150 ft Wheel 50 feet with 2 turns (QC: 6 Stairs (FIM): 2 # of Steps: 1 1 Step (curb) (QC): 4 4 Steps (QC): 9 12 Steps (QC): 9 Stairs Level Of Assist: 4 Picking up an Object (QC): 88 PT Plan Problem List Problem List: Activity Tolerance, Functional Strength, Gait Treatment/Plan Treatment Plan: Continue Plan of Care Treatment Plan: Bed Mobility, Education, Functional Activity [place], Functional Strength, Group Therapy, Gait, Safety, Therapeutic Exercise, Transfers Treatment Duration: May 13, 2018 Frequency: At least 5 of 7 days/Wk (IRF) Estimated Hrs Per Day: 1.5 hours per day Patient and/or Family Agrees t: Yes Safety Risks/Education Patient Education: Transfer Techniques, Correct Positioning, W/C Management, Safety Issues Teaching Recipient: Patient Teaching Methods: Discussion Response to Teaching: Verbalize Understanding Time/GCodes Time In: 945 Time Out: 1045 Total Billed Treatment Time: 60 Total Billed Treatment 1, WCH (15m), EX x2 (30m) & FA (15m) G Codes Necessary: NILSON Romo DIET SUPERVISOR May 04, 2018 11:06
--- NOTE | 2018-05-04 11:39 | Progress Note-Hospitalist ---
MARLEN WRIGHT MEDICAL STUDENT 05/04/18 1139: Subjective HPI/CC On Admission Date Seen by Provider: May 04, 2018 Time Seen by Provider: 10:45 Pt is known to me from recent inpatient admission for left tib/fib fracture. She was admitted to IRU for further intensive therapy. She states she is doing well and her only concern is that her right ankle is sore as well from her fall. She has it wrapped in molly bandage. She had XR done prior to DC form inpatient status that were negative for fracture. She otherwise has no complaints and is doing well with therapy. Subjective/Events-last exam Rosa is doing well in rehab with no acute events overnight. has a blister on her foot causing pain and her right leg is also causing pain, though her left fractured leg is not. She is having regular BMS and is currently toe- bearing, but not walking yet. Review of Systems Musculoskeletal: leg pain Focused Exam Respiratory: Lungs Clear, Normal Breath Sounds Cardiovascular: Regular Rate, Rhythm, No Gallop, No Murmur Skin: normal color, warm/dry Objective Exam Vital Signs Vital Signs Date Time Temp Pulse Resp B/P (MAP) Pulse Ox O2 Delivery O2 Flow Rate FiO2 05/04/18 09:00 Room Air 05/04/18 08:00 96.8 61 18 131/68 (89) 98 Capillary Refill : Less Than 3 SecondsLess Than 3 Seconds General Appearance: No Apparent Distress Results/Procedures Lab Patient resulted labs reviewed. Assessment/Plan Assessment and Plan Assess & Plan/Chief Complaint 72 year old female recovering well from left tib-fib fracture. 1. Continue inpatient rehab stay 2. Discontinue telemetry Clinical Quality Measures DVT/VTE Risk/Contraindication: Risk Factor Score Per Nursin RFS Level Per Nursing on Admit: 4+=Very High PENELOPE MARROQUIN DO 05/04/18 1250: Subjective Subjective/Events-last exam Patient feels ok otherwise Will DC Tely since Cardiology evaluated her to be without concerns BM+ Review of Systems General: Malaise Musculoskeletal: foot pain Objective Exam General Appearance: No Apparent Distress, WD/WN, Chronically ill, Obese Neck: Full Range of Motion, Normal Inspection, Non Tender, Supple, Carotid Bruit Respiratory: Chest Non Tender, Lungs Clear, Normal Breath Sounds, No Accessory Muscle Use, No Respiratory Distress Cardiovascular: No Edema, No Gallop, No JVD, No Murmur, Normal Peripheral Pulses, Irregularly Irregular Neurologic/Psychiatric: Alert, Oriented x3, No Motor/Sensory Deficits, Normal Mood/Affect Assessment/Plan Assessment and Plan Assess & Plan/Chief Complaint DC Kapil Diagnosis/Problems Diagnosis/Problems (1) Ankle fracture, left Status: Resolved Qualifiers: Encounter type: subsequent encounter Fracture type: closed Fracture healing: with routine healing Qualified Codes: S82.892D - Other fracture of left lower leg, subsequent encounter for closed fracture with routine healing (2) Essential (primary) hypertension Status: Chronic (3) Atrial fibrillation Status: Chronic Qualifiers: Atrial fibrillation type: paroxysmal Qualified Codes: I48.0 - Paroxysmal atrial fibrillation MARLEN WRIGHT MEDICAL STUDENT May 04, 2018 11:39 PENELOPE MARROQUIN DO May 04, 2018 12:50
[2018-05-04 12:00] VITALS: BP 129/63
--- NOTE | 2018-05-04 12:15 | Occupational Ther Daily Note ---
OT Current Status-Daily Note Subjective Pt seen in room, up in w/c, agreeable to OT. Wants to shower Appearance Alert, cooperative Mental Status/Objective Functional [place] Measure 0=Not Assessed/NA 4=Minimal Assistance 1=Total Assistance 5=Supervision or Setup 2=Maximal Assistance 6=Modified [place] 3=Moderate Assistance 7=Complete [place] ADL-Treatment Pt propelled w/c to bathroom. Transferred on/off BSC over toilet using FWW since she will need to use BSC at home. Managed clothing SBA, FWW. propelled w/ c to shower and transferred SBA into shower and out, on/off shower bench, using grab bars. Also used long handled sponge and hand held shower. Washed and dried all parts, with SBA when standing to dry bottom. IV site and l foot covered with plastic for shower. She dressed upper body with setup and lower body with SBA. Can almost get CAM boot on. Brushed teeth and dried hair indep at sink, w/ c level. Would like to go home early next week because family out of town and she lives alone. pt left up in w/c, all needs met. Functional [place] Measure 0=Not Assessed/NA 4=Minimal Assistance 1=Total Assistance 5=Supervision or Setup 2=Maximal Assistance 6=Modified [place] 3=Moderate Assistance 7=Complete IndependenceIRFPAI Quality Coding Scale 6 Independent with activity with or without an assistive device 5 Patient requires set up or clean up by helper. Patient completes activity by themselves 4 Supervision or touching assist (CGA). [place] provide cues , steadying assist 3 The helper provides less than half the effort to complete the activity 2 The helper provides more than half the effort to complete the activity 1 Dependent. The helper does all the effort to complete an activity 7 Patient refused to complete or attempt activity 9 The patient did not perform the activity before the current illness or injury 88 Not attempted due to Medical conditions or safety concerns Grooming (FIM): 7 (Brushed teeth, dried hair at sink, w/c level. normal amount of time) Bathing (FIM): 5 (Washed and dried all aprts in shower, on shower bench, using grab bar, hand held shower, long handled sponge. SBA to stand to dry bottom. Turned water on and off and retrieved towel) Upper Body (FIM): 5 (Donned clothing with setup, including bra) Lower Body Dressing (FIM): 5 (SBA standing to pull pants up and down, using grab bar. help to completely fasten CAM boot. ) Toileting (FIM): 5 (Managed clothing and hygiene, using BSc over toilet, FWW, SBA. practiced without grab bar since she won't have one at home. ) Toilet/Commode Transfer (FIM): 5 (SBA getting on and off BSc ovr toilet, with FWW, w/c) Education OT Patient Education: Modified ADL techniques, Progress toward Goal/Update tx plan, Purpose of tx/functional activities, Safety issues, Transfer techniques Teaching Recipient: Patient Teaching Methods: Discussion Response to Teaching: Verbalize Understanding, Return Demonstration OT Short Term Goals Short Term Goals Time Frame: May 03, 2018 Toilet/Commode Transfer(FIM): 5 1=Demonstrate adherence to instructed precautions during ADL tasks. 2=Patient will verbalize/demonstrate understanding of assistive devices/ modifications for ADL. 3=Patient will improve strength/tolerance for activity to enable patient to perform ADL's. OT Skilled Nursing Goals Hydraulic Modeling Engineer Goals Time Frame: May 13, 2018 Eating (FIM): 7 Eating (QC): 6 Groomin Oral Hygiene (QC): 6 Bathing(FIM): 6 Shower/Bathe Self (QC): 6 Upper Body Dressing(FIM): 6 Upper Body Dressing (QC): 6 Lower Body Dressing(FIM): 6 Lower Body Dressing (QC): 6 On/Off Footwear (QC): 6 Toileting(FIM): 6 Toileting Hygiene (QC): 6 Toilet/Commode Transfer(FIM): 6 Toilet/Commode Transfer (QC): 6 Shower Transfer(FIM): 6 Additional Goals: 1-Demonstrate ADL Tasks, 3-ImproveStrength/[place] 1=Demonstrate adherence to instructed precautions during ADL tasks. 2=Patient will verbalize/demonstrate understanding of assistive devices/ modifications for ADL. 3=Patient will improve strength/tolerance for activity to enable patient to perform ADL's. OT Education/Plan Problem List/Assessment Pt would benefit from skilled OT to increase her independence in basic self care Discharge Recommendations Plan/Recommendations: Continue POC Treatment Plan/Plan of Care Patient would benefit from OT for education, treatment and training to promote independence in ADL's, mobility, safety and/or upper extremity function for ADL' s. Plan of Care: ADL Retraining, Functional Mobility, Group Exercise/Act as Ind ( education, exercise, activity tolerance, functional activities, funct mobility) , UE Funct Exercise/Act, UE Neuromus Re-Ed/Coord, W/C Management Training Treatment Duration: May 13, 2018 Frequency: At least 5 of 7 days/Wk (IRF) Estimated Hrs Per Day: 1.5 hours per day Agreement: Yes Rehab Potential: Good Time/GCodes Start Time: 08:45 Stop Time: 09:45 Total Time Billed (hr/min): 60 Billed Treatment Time visit, 60 minutes ADL KENDELL SETHI OT May 04, 2018 12:15
--- NOTE | 2018-05-04 14:07 | Cardiology Progress Note ---
Cardiology SOAP Progress Note Subjective: No cardiac complaints. Objective: I&O/Vital Signs 05/04/18 05/04/18 05/04/18 05/04/18 04:00 07:00 08:00 09:00 Temp 97.3 96.8 Pulse 56 51 61 Resp 16 18 B/P (MAP) 147/76 (99) 131/68 (89) Pulse Ox 96 98 O2 Delivery Room Air Room Air Room Air 05/04/18 12:00 Temp 96.0 Pulse 63 Resp 16 B/P (MAP) 129/63 (85) Pulse Ox 96 O2 Delivery Room Air 05/04/18 00:00 Intake Total 720 ml Balance 720 ml Weight (Pounds): 192 Weight (Ounces): 0.6 Weight (Calculated Kilograms): 87.705200 Constitutional: AAO x 3, PERRL, well-developed, well-nourished Respiratory: chest is bilaterally symmetric, lungs clear to auscultation Cardiovascular: regular rate-rhythm, S1 and S2, systolic murmur (soft BÁRBARA at card base) Gastrointestional: No tender; soft; No guarding, No rebound; audible bowel sounds Extremities: No clubbing, No cyanosis, No significant edema Neurologic/Psychiatric: oriented x 3, grossly intact, power is 5/5 both on sides Skin: normal color, warm/dry Results/Procedures: Labs Laboratory Tests 05/04/18 04:23: Prothrombin Time 17.4H, INR Comment 1.4 A/P: Assessment/Dx: Admission Diagnosis Syncope Labile hypertension PAF Anemia Plan: Syncope, labile blood pressure, orthostatic hypotension. Syncope very likely due to orthostatic hypotension. However the patient requires antihypertensive therapy due to severe hypertension. For now we will tolerate slightly high blood pressure and gradually increase medications. Labile hypertension, mildly elevated blood pressure today. Continue to monitor, Paroxysmal atrial fibrillation, currently in sinus rhythm. We will start telemetry to rule out bradycardia as a contributory factor. INR 1.4 today. Give coumadin 10mg tonight. INR tomorrow. Anemia, monitor H&H closely Tibia and fibula fracture, status post surgical repair. Recovering slowly, receiving physical therapy Thank you for your consultation. Please call me if you have any questions. Edgard Cohen MD, FACP, FACC, FSCAI, FHRS, CCDS Interventional Cardiology Cardiac Electrophysiology Vascular Medicine and Endovascular Interventions Becki COHEN MD May 04, 2018 2:07 pm
--- NOTE | 2018-05-04 14:43 | Occupational Ther Daily Note ---
OT Current Status-Daily Note Subjective Pt seen in room, up in bed, agreeable to OT. No pain mentioned except R ankle this afternoon. Not rated Appearance Alert, cooperative Mental Status/Objective Functional [place] Measure 0=Not Assessed/NA 4=Minimal Assistance 1=Total Assistance 5=Supervision or Setup 2=Maximal Assistance 6=Modified [place] 3=Moderate Assistance 7=Complete [place] ADL-Treatment Pt was able to move L leg to OB and sit edge of bed. Able to put CAM boot on and buckle top three straps but unable to fasten lower ones herself. Offered pt transfer to w/c with sliding board or with stand pivot transfer. Stood with min assist getting up off bed, with cues for hand placement. Once up, she was able to turn to sit in chair with CONCHIS BERMAN. Said her R ankle was weaker as the day went on. She was able to put legrest on chair and manage locks. She propelled herself to gym and did 15 minutes bilat UE exercise on arm bike set at 25-30W resistance, taking one brief recovery break. To strengthen arms to help with transfers and ADLs. Care transferred to PT. Functional [place] Measure 0=Not Assessed/NA 4=Minimal Assistance 1=Total Assistance 5=Supervision or Setup 2=Maximal Assistance 6=Modified [place] 3=Moderate Assistance 7=Complete IndependenceIRFPAI Quality Coding Scale 6 Independent with activity with or without an assistive device 5 Patient requires set up or clean up by helper. Patient completes activity by themselves 4 Supervision or touching assist (CGA). Carmen provide cues , steadying assist 3 The helper provides less than half the effort to complete the activity 2 The helper provides more than half the effort to complete the activity 1 Dependent. The helper does all the effort to complete an activity 7 Patient refused to complete or attempt activity 9 The patient did not perform the activity before the current illness or injury 88 Not attempted due to Medical conditions or safety concerns Education OT Patient Education: Progress toward Goal/Update tx plan, Purpose of tx/ functional activities, Transfer techniques Teaching Recipient: Patient Teaching Methods: Discussion Response to Teaching: Verbalize Understanding, Return Demonstration, Reinforcement Needed OT Short Term Goals Short Term Goals Time Frame: May 03, 2018 Toilet/Commode Transfer(FIM): 5 1=Demonstrate adherence to instructed precautions during ADL tasks. 2=Patient will verbalize/demonstrate understanding of assistive devices/ modifications for ADL. 3=Patient will improve strength/tolerance for activity to enable patient to perform ADL's. OT Retirement Goals Retirement Goals Time Frame: May 13, 2018 Eating (FIM): 7 Eating (QC): 6 Groomin Oral Hygiene (QC): 6 Bathing(FIM): 6 Shower/Bathe Self (QC): 6 Upper Body Dressing(FIM): 6 Upper Body Dressing (QC): 6 Lower Body Dressing(FIM): 6 Lower Body Dressing (QC): 6 On/Off Footwear (QC): 6 Toileting(FIM): 6 Toileting Hygiene (QC): 6 Toilet/Commode Transfer(FIM): 6 Toilet/Commode Transfer (QC): 6 Shower Transfer(FIM): 6 Additional Goals: 1-Demonstrate ADL Tasks, 3-ImproveStrength/[place] 1=Demonstrate adherence to instructed precautions during ADL tasks. 2=Patient will verbalize/demonstrate understanding of assistive devices/ modifications for ADL. 3=Patient will improve strength/tolerance for activity to enable patient to perform ADL's. OT Education/Plan Problem List/Assessment Pt would benefit from skilled OT to increase her independence in basic self care Discharge Recommendations Plan/Recommendations: Continue POC Treatment Plan/Plan of Care Patient would benefit from OT for education, treatment and training to promote independence in ADL's, mobility, safety and/or upper extremity function for ADL' s. Plan of Care: ADL Retraining, Functional Mobility, Group Exercise/Act as Ind ( education, exercise, activity tolerance, functional activities, funct mobility) , UE Funct Exercise/Act, UE Neuromus Re-Ed/Coord, W/C Management Training Treatment Duration: May 13, 2018 Frequency: At least 5 of 7 days/Wk (IRF) Estimated Hrs Per Day: 1.5 hours per day Agreement: Yes Rehab Potential: Good Time/GCodes Start Time: 13:00 Stop Time: 13:30 Total Time Billed (hr/min): 30 Billed Treatment Time visit, 10 minutes functional activity, 20 minutes exercise KENDELL SETHI OT May 04, 2018 14:43
--- NOTE | 2018-05-04 15:13 | Physical Therapy Daily Note ---
PT Daily Note-Current Subjective Pt sitting in [facility] in room upon arrival. Pt agrees to PT. Pain Numeric Pain Scale: 3 Location: Right, Left Location Body Site: Ankle Pain Description: Ache Mental Status Patient Orientation: Person, Place, Time, Situation Attachments: Other-See Comments (Boot for LLE) Transfers Functional [place] Measure 0=Not Assessed/NA 4=Minimal Assistance 1=Total Assistance 5=Supervision or Setup 2=Maximal Assistance 6=Modified [place] 3=Moderate Assistance 7=Complete IndependenceIRFPAI Quality Coding Scale 6 Independent with activity with or without an assistive device 5 Patient requires set up or clean up by helper. Patient completes activity by themselves 4 Supervision or touching assist (CGA). [place] provide cues , steadying assist 3 The helper provides less than half the effort to complete the activity 2 The helper provides more than half the effort to complete the activity 1 Dependent. The helper does all the effort to complete an activity 7 Patient refused to complete or attempt activity 9 The patient did not perform the activity before the current illness or injury 88 Not attempted due to Medical conditions or safety concerns Weight Bearing Right Lower Extremity: Right Full Weight Bearing Left Lower Extremity: Left Touch Toe Bearing CAM boot on the left Wheelchair Training Does the Pt Use a Wheelchair?: Yes Wheelchair Distance: 3=150 ft Distance: 150' Wheelchair Level of Assist: 6 Wheel 50 ft with 2 turns (QC): 6 Wheel 150 ft (QC): 6 Type of Wheelchair: Manual Exercises Seated Therapy Exercises: Ankle pumps, Long arc quads, Hip flexion, Kicking activity, Hip abd/add Treatments Pt propels [facility] in Therapy Commons then completes Seated Ex in Therapy Gym before returning to room. Pt needs to use restroom but advises LICENSED NURSE PRACTITIONER that pt will pull call light cord after finished so Nurse was notified that pt is in restroom. Assessment Current Status: Good Progress Pt is continuing to get stronger and more independent with activities especially transfers. PT Short Term Goals Short Term Goals Time Frame: May 03, 2018 Gait (FIM): 2 Distance (FIM): 1=up to 49 ft Gait Assistive Device: FWW Wheelchair (FIM): 6 Wheelchair distance (FIM): 3=150 ft Wheelchair Distance: 200' PT Care Home Goals Encoding Clerk Goals PT Care Home Goals Time Frame: May 13, 2018 Transfers (B,C,W/C) (FIM): 6 Sit to Lying (QC): 6 Lying-Sitting on Side/Bed(QC): 6 Sit to Stand (QC): 6 Rollin Roll Left to Right (QC): 6 Chair/Opc-zq-Ekfup Xfer(QC): 6 Car Transfer (QC): 6 Does the Patient Walk: No and Walking Goal IS indicated Gait (FIM): 5 (household exception) Gait distance (FIM): 1=715-23 ft Walk 10 feet (QC): 6 Walk 10ft-Uneven Surface(QC): 6 Walk 50ft with 2 Turns (QC): 6 Walk 150 ft (QC): 9 Gait Assistive Device: FWW Does the Pt use WC or Scooter?: Yes Wheelchair (FIM): 6 Wheelchair distance (FIM): 3=150 ft Wheel 50 feet with 2 turns (QC: 6 Stairs (FIM): 2 # of Steps: 1 1 Step (curb) (QC): 4 4 Steps (QC): 9 12 Steps (QC): 9 Stairs Level Of Assist: 4 Picking up an Object (QC): 88 PT Plan Problem List Problem List: Activity Tolerance, Functional Strength, Safety, Gait Treatment/Plan Treatment Plan: Continue Plan of Care Treatment Plan: Bed Mobility, Education, Functional Activity [place], Functional Strength, Group Therapy, Gait, Safety, Therapeutic Exercise, Transfers Treatment Duration: May 13, 2018 Frequency: At least 5 of 7 days/Wk (IRF) Estimated Hrs Per Day: 1.5 hours per day Patient and/or Family Agrees t: Yes Safety Risks/Education Patient Education: Correct Positioning, W/C Management, Safety Issues Teaching Recipient: Patient Teaching Methods: Discussion Response to Teaching: Verbalize Understanding Time/GCodes Time In: 1400 Time Out: 1430 Total Billed Treatment 1, [facility] (15m) & FA (15m) G Codes Necessary: No NILSON LEGER LICENSED NURSE PRACTITIONER May 04, 2018 15:13
[2018-05-04 18:15] VITALS: BP 132/70
[2018-05-04] MEDS: warFARin 2 MG (COUMADIN) TAB PO SCH (18:31)
[2018-05-04] MEDS ORDERED: warFARin 10 MG (COUMADIN) TAB PO NR (20:15)
[2018-05-04] MEDS: POLYETHYLENE GLYCOL 17 GM (MIRALAX) PACK PO SCH (20:30)
[2018-05-04 20:39] VITALS: BP 155/76
[2018-05-04] MEDS: diphenhydrAMINE 25 MG TAB (BENADRYL) PO PRN (22:07)
[2018-05-04] MEDS: HYDROcodone/APAP 10 MG/325 MG (LORTAB) TAB PO PRN (23:04)
[2018-05-05] VITALS: BP 147/70
[2018-05-05 04:00] VITALS: BP 157/77
[2018-05-05 06:01] LABS: INR 1.6 (0.8-1.4); PROTHROMBIN TIME PATIENT 18.6 SEC (12.2-14.7)
--- NOTE | 2018-05-05 07:40 | PM & R (SOAP) Progress Note ---
Subjective This was a face to face visit with the patient. Date Seen by Provider: May 05, 2018 Time Seen by Provider: 07:15 Subjective/Events-last exam Patient was seen in her room this AM Patient SBA for transfers Review of Systems denies any headache or dizziness Objective Physician Exam Last Set of Vital Signs Vital Signs Date Time Temp Pulse Resp B/P (MAP) Pulse Ox O2 Delivery O2 Flow Rate FiO2 05/05/18 04:00 97.8 65 18 157/77 (103) 96 Room Air Capillary Refill : Less Than 3 SecondsLess Than 3 Seconds I&O Intake and Output 05/05/18 00:00 Intake Total 1260 ml Balance 1260 ml Intake Oral 1260 ml # Voids 7 # Bowel Movements 2 General: Alert, Oriented X3, Cooperative, No Acute Distress HEENT: Atraumatic, PERRLA, EOMI, Mucous Memb Moist/[place] Neck: Supple, No JVD Lungs: Clear to Auscultation Heart: Regular Rate, Normal S1, Normal S2 Abdomen: Normal Bowel Sounds, Soft, No Tenderness Extremities: No Clubbing, Other (CAM boot left ankle) Skin: No Rashes, Other (Stage 2 pressure sore left anteriorankle) Neuro: Normal Speech, Sensation Intact, Other (Strength 4/5 UES and 4-/5 BLES except for left foot in cam boot) Results Lab Data Laboratory Tests 05/03/18 05:35: Prothrombin Time 18.1H, INR Comment 1.5H 05/04/18 04:23: Prothrombin Time 17.4H, INR Comment 1.4 05/05/18 05:40: Prothrombin Time 18.6H, INR Comment 1.6H Assessment/Plan Assessment and Plan Syncopla episode resulting in fall with left ankle fracture resulting s/p ORIF TTWB LLE A FIB controlled Chronic anticoagulation Stage 2 pressure sore Left anterior ankle HTN better controlled Orthostatic Hypotension resolved ESBL treated Plan Continue PT/OT/Wound care Team Conference held yesterday-See report for full functional update and POC and ELOS Monitor INR and adjusted Coumadin as needed Co-Morbidities that are continuing to impact the rehab process: (include details ) DEDE PEREZ MD May 05, 2018 07:40
[2018-05-05] MEDS: DOCUSATE SODIUM 100 MG (COLACE) CAP PO SCH ×2 (10:00→20:34)
[2018-05-05] MEDS: MAGNESIUM OXIDE (MAG-OX)400 MG TAB PO SCH (10:00)
[2018-05-05] MEDS: amLODIPine 5 MG (NORVASC) TAB PO SCH (10:01)
[2018-05-05] MEDS: meTOprolol TARTRATE 50 MG (LOPRESSOR) TAB PO SCH ×2 (10:01→20:34)
--- NOTE | 2018-05-05 10:58 | Occupational Ther Daily Note ---
OT Current Status-Daily Note Subjective Pt seen in room, up in bed, agreeable to OT. Reported that she will go with discharge next Wednesday when her cousin with stay with her for a few days. Appearance Alert, cooperative Mental Status/Objective Functional [place] Measure 0=Not Assessed/NA 4=Minimal Assistance 1=Total Assistance 5=Supervision or Setup 2=Maximal Assistance 6=Modified [place] 3=Moderate Assistance 7=Complete [place] ADL-Treatment Pt reported that she got up twice during the night and transferred to w/c using sliding board. She also toileted/toilet transfer using FWW and BSC but not using grab bars, SBA nursing. She was very pleased at how well things went. This morning she was able to put CAM boot on and fasted upper straps but not ones over foot. She got leg in/out of bed and transferred to w/c with a little help positioning chair and using sliding board. She propelled w/c to bathroom sink and brushed teeth and hair without help, w/c level. She also completed sponge bath, standing at sink with SBA and help to position w/c. Discussed that she may need to do sponge bath at home at kitchen sink since her w/c will not go through bathroom door. Also talked about weight shifting and balance standing at sink versus standing with FWW and she may feel more secure at sink. She was able to change clothing with just SBA when pulling pants up. Setup for CAM boot. Pt propelled w/c to gym and did 16 minutes bilat UE exercise with arm bike set at 20-25W resistance, with one brief recovery break (increased time so decreased resistance). To strengthen arms to help with transfers and standing during ADLs. She returned to room and decided to stay up in w/c, all needs met. Functional [place] Measure 0=Not Assessed/NA 4=Minimal Assistance 1=Total Assistance 5=Supervision or Setup 2=Maximal Assistance 6=Modified [place] 3=Moderate Assistance 7=Complete IndependenceIRFPAI Quality Coding Scale 6 Independent with activity with or without an assistive device 5 Patient requires set up or clean up by helper. Patient completes activity by themselves 4 Supervision or touching assist (CGA). [place] provide cues , steadying assist 3 The helper provides less than half the effort to complete the activity 2 The helper provides more than half the effort to complete the activity 1 Dependent. The helper does all the effort to complete an activity 7 Patient refused to complete or attempt activity 9 The patient did not perform the activity before the current illness or injury 88 Not attempted due to Medical conditions or safety concerns Grooming (FIM): 7 (Brushed teeth, washed face and hands, indep. w/c level) Bathing (FIM): 5 (SBA when standing to wash bottom, sponge bath at sink) Upper Body (FIM): 5 (setup) Lower Body Dressing (FIM): 5 (SBA when standing to pull pants up/down, FWW. Setup for CAM boot. ) Transfers (B, C, W/C) (FIM): 5 (SBA, sliding board from bed to w/c. Help to position w/c but she is able to manage brakes and leg rest) Education OT Patient Education: Modified ADL techniques, Progress toward Goal/Update tx plan, Purpose of tx/functional activities, Safety issues, Transfer techniques Teaching Recipient: Patient Teaching Methods: Discussion Response to Teaching: Verbalize Understanding OT Short Term Goals Short Term Goals Time Frame: May 03, 2018 Toilet/Commode Transfer(FIM): 5 1=Demonstrate adherence to instructed precautions during ADL tasks. 2=Patient will verbalize/demonstrate understanding of assistive devices/ modifications for ADL. 3=Patient will improve strength/tolerance for activity to enable patient to perform ADL's. OT Skilled Nursing Goals Skilled Nursing Goals Time Frame: May 13, 2018 Eating (FIM): 7 Eating (QC): 6 Groomin Oral Hygiene (QC): 6 Bathing(FIM): 6 Shower/Bathe Self (QC): 6 Upper Body Dressing(FIM): 6 Upper Body Dressing (QC): 6 Lower Body Dressing(FIM): 6 Lower Body Dressing (QC): 6 On/Off Footwear (QC): 6 Toileting(FIM): 6 Toileting Hygiene (QC): 6 Toilet/Commode Transfer(FIM): 6 Toilet/Commode Transfer (QC): 6 Shower Transfer(FIM): 6 Additional Goals: 1-Demonstrate ADL Tasks, 3-ImproveStrength/[place] 1=Demonstrate adherence to instructed precautions during ADL tasks. 2=Patient will verbalize/demonstrate understanding of assistive devices/ modifications for ADL. 3=Patient will improve strength/tolerance for activity to enable patient to perform ADL's. OT Education/Plan Problem List/Assessment Pt would benefit from skilled OT to increase her independence in basic self care Discharge Recommendations Plan/Recommendations: Continue POC Treatment Plan/Plan of Care Patient would benefit from OT for education, treatment and training to promote independence in ADL's, mobility, safety and/or upper extremity function for ADL' s. Plan of Care: ADL Retraining, Functional Mobility, Group Exercise/Act as Ind ( education, exercise, activity tolerance, functional activities, funct mobility) , UE Funct Exercise/Act, UE Neuromus Re-Ed/Coord, W/C Management Training Treatment Duration: May 13, 2018 Frequency: At least 5 of 7 days/Wk (IRF) Estimated Hrs Per Day: 1.5 hours per day Agreement: Yes Rehab Potential: Good Time/GCodes Start Time: 08:45 Stop Time: 09:50 Total Time Billed (hr/min): 65 Billed Treatment Time visit, 45 minutes ADL, 20 minutes exercise KENDELL SETHI OT May 05, 2018 10:58
[2018-05-05] MEDS: HYDROcodone/APAP 10 MG/325 MG (LORTAB) TAB PO PRN ×2 (11:11→22:27)
[2018-05-05 11:13] VITALS: BP 148/70
--- NOTE | 2018-05-05 12:14 | Physical Therapy Daily Note ---
PT Daily Note-Current Subjective Pt sitting in [facility] in room upon arrival. Pt agrees to PT. Pain Numeric Pain Scale: 3 Location: Right Location Body Site: Ankle Pain Description: Ache Comment: Pt's R ankle discomfort from overuse. Mental Status Patient Orientation: Person, Place, Time, Situation Attachments: Other-See Comments (Boot for LLE) Transfers Functional [place] Measure 0=Not Assessed/NA 4=Minimal Assistance 1=Total Assistance 5=Supervision or Setup 2=Maximal Assistance 6=Modified [place] 3=Moderate Assistance 7=Complete IndependenceIRFPAI Quality Coding Scale 6 Independent with activity with or without an assistive device 5 Patient requires set up or clean up by helper. Patient completes activity by themselves 4 Supervision or touching assist (CGA). [place] provide cues , steadying assist 3 The helper provides less than half the effort to complete the activity 2 The helper provides more than half the effort to complete the activity 1 Dependent. The helper does all the effort to complete an activity 7 Patient refused to complete or attempt activity 9 The patient did not perform the activity before the current illness or injury 88 Not attempted due to Medical conditions or safety concerns Scootin Rollin Roll Left to Right (QC): 6 Supine to/from Sit: 6 Sit to/from Stand: 5 Sit to Lying (QC): 5 Sit to Stand (QC): 6 Weight Bearing Right Lower Extremity: Right Full Weight Bearing Left Lower Extremity: Left Touch Toe Bearing CAM boot on the left Gait Training Does the Patient Walk?: No and Walking Goal NOT indicated Wheelchair Training Does the Pt Use a Wheelchair?: Yes Wheelchair Distance: 3=150 ft Distance: 200' Wheelchair Level of Assist: 6 Wheel 50 ft with 2 turns (QC): 6 Wheel 150 ft (QC): 6 Type of Wheelchair: Manual Exercises Seated Therapy Exercises: Ankle pumps, Long arc quads, Hip flexion, Kicking activity, Hip abd/add Seated Reps: 20 NuStep Minutes: 10 NuStep Workload: 4 Treatments Pt propels WC in Therapy Commons and to Therapy Gym. Pt uses NuStep for 10m at WL 4 then completes Seated Ex in chair. Pt focuses/practices on transfers using Slide Board and propels WC back to room. Pt resting in recliner with all needs met, including call light in hand. Assessment Current Status: Good Progress Pt is gaining strength and independence with transfers and [facility] mobility. PT Short Term Goals Short Term Goals Time Frame: May 03, 2018 Gait (FIM): 2 Distance (FIM): 1=up to 49 ft Gait Assistive Device: FWW Wheelchair (FIM): 6 Wheelchair distance (FIM): 3=150 ft Wheelchair Distance: 150' PT Penitentiary Goals Photograph Editor Goals PT Penitentiary Goals Time Frame: May 13, 2018 Transfers (B,C,W/C) (FIM): 6 Sit to Lying (QC): 6 Lying-Sitting on Side/Bed(QC): 6 Sit to Stand (QC): 6 Rollin Roll Left to Right (QC): 6 Chair/Xsr-uc-Cxqsm Xfer(QC): 6 Car Transfer (QC): 6 Does the Patient Walk: No and Walking Goal IS indicated Gait (FIM): 5 (household exception) Gait distance (FIM): 2=594-51 ft Walk 10 feet (QC): 6 Walk 10ft-Uneven Surface(QC): 6 Walk 50ft with 2 Turns (QC): 6 Walk 150 ft (QC): 9 Gait Assistive Device: FWW Does the Pt use WC or Scooter?: Yes Wheelchair (FIM): 6 Wheelchair distance (FIM): 3=150 ft Wheel 50 feet with 2 turns (QC: 6 Stairs (FIM): 2 # of Steps: 1 1 Step (curb) (QC): 4 4 Steps (QC): 9 12 Steps (QC): 9 Stairs Level Of Assist: 4 Picking up an Object (QC): 88 PT Plan Problem List Problem List: Activity Tolerance, Functional Strength, Balance, Gait Treatment/Plan Treatment Plan: Continue Plan of Care Treatment Plan: Bed Mobility, Education, Functional Activity [place], Functional Strength, Group Therapy, Gait, Safety, Therapeutic Exercise, Transfers Treatment Duration: May 13, 2018 Frequency: At least 5 of 7 days/Wk (IRF) Estimated Hrs Per Day: 1.5 hours per day Patient and/or Family Agrees t: Yes Safety Risks/Education Patient Education: Gait Training, Transfer Techniques, Correct Positioning, Safety Issues Teaching Recipient: Patient Teaching Methods: Discussion Response to Teaching: Verbalize Understanding Time/GCodes Time In: 1015 Time Out: 1115 Total Billed Treatment Time: 60 Total Billed Treatment 1, WCH (20m), EX x2 (30m) & FA (10m) G Codes Necessary: NILSON Romo SOAKER HIDES May 05, 2018 12:14
--- NOTE | 2018-05-05 12:59 | D/C HH Face to Face Order ---
D/C Face to Face Orders Instructions for Patient Patient Instructions/FollowUp: Dr. Mckeon Physician to follow Patient: Dr. Mckeon Discharge Diet for Home: Regular Diet Patient Data-Allergies,Ht & Wt Patient Allergies: Coded Allergies: No Known Drug Allergies (Unverified , 04/23/18) Height (Feet): 5 Height (Inches): 3.00 Weight (Pounds): 192 Weight (Ounces): 0.6 Home Health Need/Face to Face Date of Face to Face: May 10, 2018 Clinical Findings: Generalized weakness and fatigue, Muscle weakness, Non or partial weight bearing, Unsteady gait I have seen Pt offd-ag-hrdw: Yes Discharged To: Home Diagnosis/Conditions: L tib-fib fracture Patient is Homebound due to: [place] fall risk due to instabilty, Muscle weakness , Non-weight bearing (TTWB) Homebound Status Due to the above stated illness, injury or surgical procedure (medical condition or diagnosis) and associated clinical findings, the patient is homebound because of his/her inability to leave home except with aid of a supportive device and/or person AND leaving the home requires a considerable and taxing effort or is medically contraindicated. Pt req the following assistanc: Walker, Wheelchair Home Health Nursing Orders Home Health Services Order: Nursing Services, Internal Controls Specialist-Evaluate & Treat, Physical Therapy-Evaluate & Treat Home Health Infusion Therapy Line Start Date: May 02, 2018 Line Start Time: 1630 Line Type: Saline Lock Site Location: Arm-Upper Therapy Orders Therapy Orders: OT (must have SN or PT order), Physical Therapy Therapy Specific Orders: Eval assistive deivces, Teach enviro modifications/ safety, Gait training, Increase strength/endurance, Restore ROM Certify Stmt I certify that this patient is under my care and that I, a nurse practitioner or a physician; a assistant professor of mathematics working with me, had a face to face encounter that - meets the physician face to face encounter requirements with this patient as dated. I personally scribed for DEDE PEREZ MD ([facility]) on 05/05/18 at 12:59. Electronically submitted by Collette Miller ([id number]). DEDE PEREZ MD May 05, 2018 12:59
--- NOTE | 2018-05-05 14:47 | Occupational Ther Daily Note ---
OT Current Status-Daily Note Subjective Pt seen in room, up in bed, agreeable to OT. Pain not mentioned. Appearance Alert, cooperative Mental Status/Objective Functional [place] Measure 0=Not Assessed/NA 4=Minimal Assistance 1=Total Assistance 5=Supervision or Setup 2=Maximal Assistance 6=Modified [place] 3=Moderate Assistance 7=Complete [place] ADL-Treatment Functional [place] Measure 0=Not Assessed/NA 4=Minimal Assistance 1=Total Assistance 5=Supervision or Setup 2=Maximal Assistance 6=Modified [place] 3=Moderate Assistance 7=Complete IndependenceIRFPAI Quality Coding Scale 6 Independent with activity with or without an assistive device 5 Patient requires set up or clean up by helper. Patient completes activity by themselves 4 Supervision or touching assist (CGA). [place] provide cues , steadying assist 3 The helper provides less than half the effort to complete the activity 2 The helper provides more than half the effort to complete the activity 1 Dependent. The helper does all the effort to complete an activity 7 Patient refused to complete or attempt activity 9 The patient did not perform the activity before the current illness or injury 88 Not attempted due to Medical conditions or safety concerns Other Treatment She was able to position sliding board herself and transfer SBA from be to w/c. She propelled chair to [facility] area and safely locked brakes. She completed bilat UE exercise activity with 1# weight on each hand, completing pippa activity. She also was able to easily learn rules for game she did not play. After tx, she propelled w/c back to room and was left up in w/c, all needs met. Education OT Patient Education: Progress toward Goal/Update tx plan, Purpose of tx/ functional activities Teaching Recipient: Patient Teaching Methods: Discussion Response to Teaching: Verbalize Understanding OT Short Term Goals Short Term Goals Time Frame: May 03, 2018 Toilet/Commode Transfer(FIM): 5 1=Demonstrate adherence to instructed precautions during ADL tasks. 2=Patient will verbalize/demonstrate understanding of assistive devices/ modifications for ADL. 3=Patient will improve strength/tolerance for activity to enable patient to perform ADL's. OT Director Religious Education Goals Director Religious Education Goals Time Frame: May 13, 2018 Eating (FIM): 7 Eating (QC): 6 Groomin Oral Hygiene (QC): 6 Bathing(FIM): 6 Shower/Bathe Self (QC): 6 Upper Body Dressing(FIM): 6 Upper Body Dressing (QC): 6 Lower Body Dressing(FIM): 6 Lower Body Dressing (QC): 6 On/Off Footwear (QC): 6 Toileting(FIM): 6 Toileting Hygiene (QC): 6 Toilet/Commode Transfer(FIM): 6 Toilet/Commode Transfer (QC): 6 Shower Transfer(FIM): 6 Additional Goals: 1-Demonstrate ADL Tasks, 3-ImproveStrength/[place] 1=Demonstrate adherence to instructed precautions during ADL tasks. 2=Patient will verbalize/demonstrate understanding of assistive devices/ modifications for ADL. 3=Patient will improve strength/tolerance for activity to enable patient to perform ADL's. OT Education/Plan Problem List/Assessment Pt would benefit from skilled OT to increase her independence in basic self care Discharge Recommendations Plan/Recommendations: Continue POC Treatment Plan/Plan of Care Patient would benefit from OT for education, treatment and training to promote independence in ADL's, mobility, safety and/or upper extremity function for ADL' s. Plan of Care: ADL Retraining, Functional Mobility, Group Exercise/Act as Ind ( education, exercise, activity tolerance, functional activities, funct mobility) , UE Funct Exercise/Act, UE Neuromus Re-Ed/Coord, W/C Management Training Treatment Duration: May 13, 2018 Frequency: At least 5 of 7 days/Wk (IRF) Estimated Hrs Per Day: 1.5 hours per day Agreement: Yes Rehab Potential: Good Time/GCodes Start Time: 13:35 Stop Time: 14:00 Total Time Billed (hr/min): 25 Billed Treatment Time visit, 25 minutes exercise KENDELL SETHI OT May 05, 2018 14:47
--- NOTE | 2018-05-05 15:32 | Physical Therapy Daily Note ---
PT Daily Note-Current Subjective Pt sitting in [facility] in room upon arrival. Pt agrees to PT. Pain Numeric Pain Scale: 3 Location: Right Location Body Site: Ankle Pain Description: Ache Comment: Pt's R ankle aches from increased use. Mental Status Patient Orientation: Person, Place, Time, Situation Attachments: Other-See Comments (Boot for LLE) Transfers Functional [place] Measure 0=Not Assessed/NA 4=Minimal Assistance 1=Total Assistance 5=Supervision or Setup 2=Maximal Assistance 6=Modified [place] 3=Moderate Assistance 7=Complete IndependenceIRFPAI Quality Coding Scale 6 Independent with activity with or without an assistive device 5 Patient requires set up or clean up by helper. Patient completes activity by themselves 4 Supervision or touching assist (CGA). [place] provide cues , steadying assist 3 The helper provides less than half the effort to complete the activity 2 The helper provides more than half the effort to complete the activity 1 Dependent. The helper does all the effort to complete an activity 7 Patient refused to complete or attempt activity 9 The patient did not perform the activity before the current illness or injury 88 Not attempted due to Medical conditions or safety concerns Scootin Rollin Roll Left to Right (QC): 6 Supine to/from Sit: 6 Sit to/from Stand: 6 Sit to Lying (QC): 6 Sit to Stand (QC): 6 Weight Bearing Right Lower Extremity: Right Full Weight Bearing Left Lower Extremity: Left Touch Toe Bearing CAM boot on the left Wheelchair Training Does the Pt Use a Wheelchair?: Yes Wheelchair Distance: 3=150 ft Distance: 750' Wheelchair Level of Assist: 6 Wheel 50 ft with 2 turns (QC): 6 Wheel 150 ft (QC): 6 Type of Wheelchair: Manual Treatments Pt propels [facility] throughout Therapy Commons and on Main Floor of hospital. Pt focuses on transfers from [facility] to chair with arms on carpet since pt has a lot of carpet throughout house. Pt returns to [facility] to propel back to room then transfers back bed to rest. Pt has all needs met, including call light. Assessment Current Status: Good Progress Pt feels more confident with ability to perform transfers on carpet. PT Short Term Goals Short Term Goals Time Frame: May 03, 2018 Gait (FIM): 2 Distance (FIM): 1=up to 49 ft Gait Assistive Device: FWW Wheelchair (FIM): 6 Wheelchair distance (FIM): 3=150 ft Wheelchair Distance: 200' PT Retirement Goals Retirement Goals PT Telemarketing Sales Representative Goals Time Frame: May 13, 2018 Transfers (B,C,W/C) (FIM): 6 Sit to Lying (QC): 6 Lying-Sitting on Side/Bed(QC): 6 Sit to Stand (QC): 6 Rollin Roll Left to Right (QC): 6 Chair/Rco-qi-Apfki Xfer(QC): 6 Car Transfer (QC): 6 Does the Patient Walk: No and Walking Goal IS indicated Gait (FIM): 5 (household exception) Gait distance (FIM): 8=231-63 ft Walk 10 feet (QC): 6 Walk 10ft-Uneven Surface(QC): 6 Walk 50ft with 2 Turns (QC): 6 Walk 150 ft (QC): 9 Gait Assistive Device: FWW Does the Pt use WC or Scooter?: Yes Wheelchair (FIM): 6 Wheelchair distance (FIM): 3=150 ft Wheel 50 feet with 2 turns (QC: 6 Stairs (FIM): 2 # of Steps: 1 1 Step (curb) (QC): 4 4 Steps (QC): 9 12 Steps (QC): 9 Stairs Level Of Assist: 4 Picking up an Object (QC): 88 PT Plan Problem List Problem List: Activity Tolerance, Functional Strength, Gait Treatment/Plan Treatment Plan: Continue Plan of Care Treatment Plan: Bed Mobility, Education, Functional Activity [place], Functional Strength, Group Therapy, Gait, Safety, Therapeutic Exercise, Transfers Treatment Duration: May 13, 2018 Frequency: At least 5 of 7 days/Wk (IRF) Estimated Hrs Per Day: 1.5 hours per day Patient and/or Family Agrees t: Yes Safety Risks/Education Patient Education: Gait Training, Transfer Techniques, Correct Positioning, Safety Issues Teaching Recipient: Patient Teaching Methods: Discussion Response to Teaching: Verbalize Understanding Time/GCodes Time In: 1430 Time Out: 1500 Total Billed Treatment Time: 30 Total Billed Treatment 1, WCH (15m) & FA (15m) G Codes Necessary: NILSON Romo PROGRAMMABLE LOGIC CONTROLLER ASSEMBLER May 05, 2018 15:32
[2018-05-05 17:36] VITALS: BP 138/78
[2018-05-05] MEDS ORDERED: warFARin 5 MG (COUMADIN) TAB PO ONE (18:30)
[2018-05-05] MEDS: warFARin 3 MG (COUMADIN) TAB PO SCH (18:31)
[2018-05-05] MEDS: POLYETHYLENE GLYCOL 17 GM (MIRALAX) PACK PO SCH (20:34)
[2018-05-05 20:39] VITALS: BP 153/79
[2018-05-05] MEDS: diphenhydrAMINE 25 MG TAB (BENADRYL) PO PRN (22:27)
[2018-05-06 00:35] VITALS: BP 129/65
[2018-05-06 04:25] VITALS: BP 123/67
[2018-05-06 06:20] LABS: INR 1.7 (0.8-1.4); PROTHROMBIN TIME PATIENT 20.4 SEC (12.2-14.7)
[2018-05-06] MEDS: amLODIPine 5 MG (NORVASC) TAB PO SCH (08:30)
[2018-05-06] MEDS: DOCUSATE SODIUM 100 MG (COLACE) CAP PO SCH ×2 (08:30→20:55)
[2018-05-06] MEDS: MAGNESIUM OXIDE (MAG-OX)400 MG TAB PO SCH (08:30)
[2018-05-06] MEDS: meTOprolol TARTRATE 50 MG (LOPRESSOR) TAB PO SCH ×2 (08:30→20:55)
--- NOTE | 2018-05-06 08:32 | PM & R (SOAP) Progress Note ---
Subjective This was a face to face visit with the patient. Date Seen by Provider: May 06, 2018 Time Seen by Provider: 07:45 Subjective/Events-last exam Patient was seen in her room this AM Patient Modified Independent for transfers Review of Systems denies any headache or dizziness Objective Physician Exam Last Set of Vital Signs Vital Signs Date Time Temp Pulse Resp B/P (MAP) Pulse Ox O2 Delivery O2 Flow Rate FiO2 05/06/18 04:25 98.5 63 18 123/67 (85) 97 Room Air Capillary Refill : Less Than 3 SecondsLess Than 3 Seconds I&O Intake and Output 05/06/18 00:00 Intake Total 1060 ml Balance 1060 ml Intake Oral 1060 ml # Voids 7 # Bowel Movements 1 General: Alert, Oriented X3, Cooperative, No Acute Distress HEENT: Atraumatic, PERRLA, EOMI, Mucous Memb Moist/[place] Neck: Supple, No JVD Lungs: Clear to Auscultation Heart: Regular Rate, Normal S1, Normal S2 Abdomen: Normal Bowel Sounds, Soft, No Tenderness Extremities: No Clubbing, Other (CAM boot left ankle) Skin: No Rashes, Other (Stage 2 pressure sore left anteriorankle) Neuro: Normal Speech, Sensation Intact, Other (Strength 4/5 UES and 4-/5 BLES except for left foot in cam boot) Results Lab Data Laboratory Tests 05/04/18 04:23: Prothrombin Time 17.4H, INR Comment 1.4 05/05/18 05:40: Prothrombin Time 18.6H, INR Comment 1.6H 05/06/18 05:45: Prothrombin Time 20.4H, INR Comment 1.7H Assessment/Plan Assessment and Plan Syncopal episode resulting in fall with left ankle fractureresulting s/p ORIF TTWB LLE A FIB controlled Chronic anticoagulation Stage 2 pressure sore left anterior ankle HTN better controlled Orthostatic hypotension resolved ESBL treated Plan Continue PT/OT Discharge set for next Wednesday05-10-18 to home Co-Morbidities that are continuing to impact the rehab process: (include details ) DEDE PEREZ MD May 06, 2018 08:32
--- NOTE | 2018-05-06 10:15 | Cardiology Progress Note ---
Cardiology SOAP Progress Note Subjective: No cardiac complaints. Objective: I&O/Vital Signs 05/06/18 05/06/18 00:35 04:25 Temp 97.9 98.5 Pulse 61 63 Resp 18 18 B/P (MAP) 129/65 (86) 123/67 (85) Pulse Ox 98 97 O2 Delivery Room Air Room Air 05/06/18 00:00 Intake Total 760 ml Balance 760 ml Weight (Pounds): 192 Weight (Ounces): 0.6 Weight (Calculated Kilograms): 87.797035 Constitutional: AAO x 3, PERRL, well-developed, well-nourished Respiratory: chest is bilaterally symmetric, lungs clear to auscultation Cardiovascular: regular rate-rhythm, S1 and S2, systolic murmur (soft BÁRBARA at card base) Gastrointestional: No tender; soft; No guarding, No rebound; audible bowel sounds Extremities: No clubbing, No cyanosis, No significant edema Neurologic/Psychiatric: oriented x 3, grossly intact, power is 5/5 both on sides Skin: normal color, warm/dry Results/Procedures: Labs Laboratory Tests 05/06/18 05:45: Prothrombin Time 20.4H, INR Comment 1.7H A/P: Assessment/Dx: Admission Diagnosis Syncope Labile hypertension PAF Anemia Plan: Syncope, labile blood pressure, orthostatic hypotension. Syncope very likely due to orthostatic hypotension. However the patient requires antihypertensive therapy due to severe hypertension. For now we will tolerate slightly high blood pressure and gradually increase medications. Labile hypertension, mildly elevated blood pressure today. Continue to monitor, Paroxysmal atrial fibrillation, currently in sinus rhythm. We will start telemetry to rule out bradycardia as a contributory factor. INR 1.7 today. Give coumadin 5mg tonight. INR tomorrow. Anemia, monitor H&H closely Tibia and fibula fracture, status post surgical repair. Recovering slowly, receiving physical therapy Thank you for your consultation. Please call me if you have any questions. Edgard Cohen MD, FACP, FACC, FSCAI, FHRS, CCDS Interventional Cardiology Cardiac Electrophysiology Vascular Medicine and Endovascular Interventions Becki COHEN MD May 06, 2018 10:15 am
--- NOTE | 2018-05-06 10:45 | Occupational Ther Daily Note ---
OT Current Status-Daily Note Subjective Pt seen in room, up in bed, agreeable to OT. No pain reported. Appearance Alert, cooperative Mental Status/Objective Functional [place] Measure 0=Not Assessed/NA 4=Minimal Assistance 1=Total Assistance 5=Supervision or Setup 2=Maximal Assistance 6=Modified [place] 3=Moderate Assistance 7=Complete Sun ADL-Treatment She put her CAM boot on herself and transferred mod I to w/c using sliding board. She propelled w/c to bathroom and transferred SBA from w/c to shower bench, using grab bars and maintaining WB status. she took boot off herself and OT covered dressing on L lower leg. She showered mod I, including turning water on and off and retrieving towel from bar. She got clean clothes out of the closet and dressed in shower stall mod I, including putting CAM boot back on. She transferred SBA to w/c and completed grooming independently at sink, w/c level. Functional [place] Measure 0=Not Assessed/NA 4=Minimal Assistance 1=Total Assistance 5=Supervision or Setup 2=Maximal Assistance 6=Modified [place] 3=Moderate Assistance 7=Complete IndependenceIRFPAI Quality Coding Scale 6 Independent with activity with or without an assistive device 5 Patient requires set up or clean up by helper. Patient completes activity by themselves 4 Supervision or touching assist (CGA). [place] provide cues , steadying assist 3 The helper provides less than half the effort to complete the activity 2 The helper provides more than half the effort to complete the activity 1 Dependent. The helper does all the effort to complete an activity 7 Patient refused to complete or attempt activity 9 The patient did not perform the activity before the current illness or injury 88 Not attempted due to Medical conditions or safety concerns Grooming (FIM): 7 Bathing (FIM): 6 (Shower bench, grab bar, hand held shower, long handled sponge ) Upper Body (FIM): 6 Lower Body Dressing (FIM): 6 Shower Transfer(FIM): 5 Other Treatment Pt gathered up soiled laundry and transported it to laundry room but due to environmental limitations, was not able to put clothes in washer or turn it on. She propelled herself to gym and completed 16 minutes bilat UE exercise with arm bike set at 25-30W resistance (increased resistance), to strengthen arms to help with transfers. Pt stated, "I can tell this has really made a difference. I couldn't get up before because my arms were too weak." pt propelled herself back to room and transferred into bed mod I with sliding board. Pt left up in bed, all needs met. Education OT Patient Education: Exercise program, Progress toward Goal/Update tx plan, Purpose of tx/functional activities, Transfer techniques Teaching Recipient: Patient Teaching Methods: Discussion Response to Teaching: Verbalize Understanding OT Short Term Goals Short Term Goals Time Frame: May 03, 2018 Toilet/Commode Transfer(FIM): 5 1=Demonstrate adherence to instructed precautions during ADL tasks. 2=Patient will verbalize/demonstrate understanding of assistive devices/ modifications for ADL. 3=Patient will improve strength/tolerance for activity to enable patient to perform ADL's. OT Greeter Guest Services Goals [facility] Goals Time Frame: May 13, 2018 Eating (FIM): 7 Eating (QC): 6 Groomin Oral Hygiene (QC): 6 Bathing(FIM): 6 Shower/Bathe Self (QC): 6 Upper Body Dressing(FIM): 6 Upper Body Dressing (QC): 6 Lower Body Dressing(FIM): 6 Lower Body Dressing (QC): 6 On/Off Footwear (QC): 6 Toileting(FIM): 6 Toileting Hygiene (QC): 6 Toilet/Commode Transfer(FIM): 6 Toilet/Commode Transfer (QC): 6 Shower Transfer(FIM): 6 Additional Goals: 1-Demonstrate ADL Tasks, 3-ImproveStrength/[facility] 1=Demonstrate adherence to instructed precautions during ADL tasks. 2=Patient will verbalize/demonstrate understanding of assistive devices/ modifications for ADL. 3=Patient will improve strength/tolerance for activity to enable patient to perform ADL's. OT Education/Plan Problem List/Assessment Pt would benefit from skilled OT to increase her independence in basic self care Discharge Recommendations Plan/Recommendations: Continue POC Treatment Plan/Plan of Care Patient would benefit from OT for education, treatment and training to promote independence in ADL's, mobility, safety and/or upper extremity function for ADL' s. Plan of Care: ADL Retraining, Functional Mobility, Group Exercise/Act as Ind ( education, exercise, activity tolerance, functional activities, funct mobility) , UE Funct Exercise/Act, UE Neuromus Re-Ed/Coord, W/C Management Training Treatment Duration: May 13, 2018 Frequency: At least 5 of 7 days/Wk (IRF) Estimated Hrs Per Day: 1.5 hours per day Agreement: Yes Rehab Potential: Good Time/GCodes Start Time: 08:30 Stop Time: 09:35 Total Time Billed (hr/min): 65 Billed Treatment Time visit, 45 minutes ADL, 20 minutes exercise KENDELL SETHI OT May 06, 2018 10:45
[2018-05-06 13:00] VITALS: BP 129/73
--- NOTE | 2018-05-06 14:27 | Physical Therapy Daily Note ---
PT Daily Note-Current Subjective Pt. states she feels very safe using the slide board for all her TRFs . Still fearful she could fall if she were to be on her feet very long secondary to syncopy Pain Numeric Pain Scale: 0-No Pain Mental Status Patient Orientation: Normal For Age Attachments: Other-See Comments (cast) Transfers Functional [place] Measure 0=Not Assessed/NA 4=Minimal Assistance 1=Total Assistance 5=Supervision or Setup 2=Maximal Assistance 6=Modified [place] 3=Moderate Assistance 7=Complete IndependenceIRFPAI Quality Coding Scale 6 Independent with activity with or without an assistive device 5 Patient requires set up or clean up by helper. Patient completes activity by themselves 4 Supervision or touching assist (CGA). [place] provide cues , steadying assist 3 The helper provides less than half the effort to complete the activity 2 The helper provides more than half the effort to complete the activity 1 Dependent. The helper does all the effort to complete an activity 7 Patient refused to complete or attempt activity 9 The patient did not perform the activity before the current illness or injury 88 Not attempted due to Medical conditions or safety concerns Transfers (B, C, W/C) (FIM): 6 Scootin Rollin Roll Left to Right (QC): 6 Supine to/from Sit: 6 Sit to/from Stand: 6 Sit to Lying (QC): 6 Sit to Stand (QC): 6 Chair/Xka-nj-Fakjf Xfer(QC): 6 Bed to/from Chair: 6 Car Transfer (QC): 6 6 slide brd TRFs with SBA to Ivana Weight Bearing Right Lower Extremity: Right Full Weight Bearing Left Lower Extremity: Left Touch Toe Bearing CAM boot on the left Gait Training Does the Patient Walk?: No and Walking Goal NOT indicated SPTs with FWW only occas Wheelchair Training Does the Pt Use a Wheelchair?: Yes Wheelchair (FIM): 6 Wheelchair Distance: 3=150 ft (3) Wheelchair Level of Assist: 6 Wheel 50 ft with 2 turns (QC): 6 Wheel 150 ft (QC): 6 Type of Wheelchair: Manual Stair Training Stairs (FIM): 88 cannot doo steps, unsafe , unable Exercises Supine Ex: Bridging, Ankle pumps, Quad Set, Rolling, Glut sets, Heel Slides, Short Arc Quads, Scooting, Straight leg raise, Hip abd/add Supine Reps: 15 NuStep Minutes: 10 NuStep Workload: 4 Assessment Current Status: Good Progress slide brd TRFs patent, bed mob and w/c patent PT Short Term Goals Short Term Goals Time Frame: May 03, 2018 Gait (FIM): 2 Distance (FIM): 1=up to 49 ft Gait Assistive Device: FWW Wheelchair (FIM): 6 Wheelchair distance (FIM): 3=150 ft Wheelchair Distance: 750' PT Penitentiary Goals Penitentiary Goals PT Sr. Pricing Analyst Goals Time Frame: May 13, 2018 Transfers (B,C,W/C) (FIM): 6 Sit to Lying (QC): 6 Lying-Sitting on Side/Bed(QC): 6 Sit to Stand (QC): 6 Rollin Roll Left to Right (QC): 6 Chair/Mkq-hs-Bgotn Xfer(QC): 6 Car Transfer (QC): 6 Does the Patient Walk: No and Walking Goal IS indicated Gait (FIM): 5 (household exception) Gait distance (FIM): 7=159-22 ft Walk 10 feet (QC): 6 Walk 10ft-Uneven Surface(QC): 6 Walk 50ft with 2 Turns (QC): 6 Walk 150 ft (QC): 9 Gait Assistive Device: FWW Does the Pt use WC or Scooter?: Yes Wheelchair (FIM): 6 Wheelchair distance (FIM): 3=150 ft Wheel 50 feet with 2 turns (QC: 6 Stairs (FIM): 2 # of Steps: 1 1 Step (curb) (QC): 4 4 Steps (QC): 9 12 Steps (QC): 9 Stairs Level Of Assist: 4 Picking up an Object (QC): 88 PT Plan Treatment/Plan Treatment Plan: Continue Plan of Care Treatment Plan: Bed Mobility, Education, Functional Activity Sinai, Functional Strength, Group Therapy, Gait, Safety, Therapeutic Exercise, Transfers Treatment Duration: May 13, 2018 Frequency: At least 5 of 7 days/Wk (IRF) Estimated Hrs Per Day: 1.5 hours per day Patient and/or Family Agrees t: Yes Safety Risks/Education Patient Education: Transfer Techniques, Correct Positioning, W/C Management, Disease Process, Safety Issues Teaching Recipient: Patient Teaching Methods: Demonstration, Discussion Response to Teaching: Verbalize Understanding, Return Demonstration, Reinforcement Needed Time/GCodes Time In: 1100 Time Out: 1200 Total Billed Treatment Time: 60 Total Billed Treatment 1,EX 25m, WC 20m,FA15m G Codes Necessary: NICHOLAS Mays ENVIRONMENTAL ANALYST May 06, 2018 14:27
--- NOTE | 2018-05-06 15:00 | Therapy Group Daily Note ---
Therapy Daily Group Note Patient Education Topic Other List Below (wellness , nutrition and exercise) Exercises LE Seated Exercise, UE Exercise Other/Notes Pt. participated in group PT OT session . Pt. came and went via w/c SBA. Pts. very much enjoyed the introduction and socialization portion of group and engaged conversation well; all pertinent to the education topics. Pts. participated in seated U&L extremity exercises. Game using hand paddles for question and answer options for wellness was played which started much conversation and sharing. Pt. required SB assist to room after as well as to bed . Call campos at hand Start Time: 13:00 Stop Time: 14:15 Total Billed Treatment Time: 75 Total Billed Treatment 1,GRP NICHOLAS VIDAL ELECTRICAL PLUMBING SUPERVISOR May 06, 2018 15:00
[2018-05-06 15:33] VITALS: BP 161/74
[2018-05-06] MEDS: warFARin 2 MG (COUMADIN) TAB PO SCH (16:54)
[2018-05-06] MEDS: POLYETHYLENE GLYCOL 17 GM (MIRALAX) PACK PO SCH (19:22)
[2018-05-06 20:00] VITALS: BP 163/80
[2018-05-06] MEDS: HYDROcodone/APAP 10 MG/325 MG (LORTAB) TAB PO PRN (20:55)
[2018-05-06] MEDS: diphenhydrAMINE 25 MG TAB (BENADRYL) PO PRN (20:55)
[2018-05-06 23:55] VITALS: BP 134/74
[2018-05-07 04:45] VITALS: BP 137/76
[2018-05-07 07:25] LABS: PROTHROMBIN TIME PATIENT 22.9 SEC (12.2-14.7)
--- NOTE | 2018-05-07 07:27 | PM & R (SOAP) Progress Note ---
Subjective This was a face to face visit with the patient. Date Seen by Provider: May 07, 2018 Time Seen by Provider: 07:10 Subjective/Events-last exam Patient was seen in her room this AM Patient Modified Independent for transfers.Blood pressure better controlled INR therapeutic.Patient looking forward to discharge this coming 05-10-18 Review of Systems denies any headache or dizziness Objective Physician Exam Last Set of Vital Signs Vital Signs Date Time Temp Pulse Resp B/P (MAP) Pulse Ox O2 Delivery O2 Flow Rate FiO2 05/07/18 04:45 96.5 53 18 137/76 (96) 97 Room Air Capillary Refill : Less Than 3 SecondsLess Than 3 Seconds I&O Intake and Output 05/07/18 00:00 Intake Total 1280 ml Balance 1280 ml Intake Oral 1280 ml # Voids 7 General: Alert, Oriented X3, Cooperative, No Acute Distress HEENT: Atraumatic, PERRLA, EOMI, Mucous Memb Moist/[place] Neck: Supple, No JVD Lungs: Clear to Auscultation Heart: Regular Rate, Normal S1, Normal S2 Abdomen: Normal Bowel Sounds, Soft, No Tenderness Extremities: No Clubbing, Other (CAM boot left ankle) Skin: No Rashes, Other (Stage 2 pressure sore left anteriorankle) Neuro: Normal Speech, Sensation Intact, Other (Strength 4/5 UES and 4-/5 BLES except for left foot in cam boot) Results Lab Data Laboratory Tests 05/05/18 05:40: Prothrombin Time 18.6H, INR Comment 1.6H 05/06/18 05:45: Prothrombin Time 20.4H, INR Comment 1.7H 05/07/18 06:46: Assessment/Plan Assessment and Plan Syncopal episode resulting in fall with left ankle fracture resulting s/p ORIF TTWB LLE A FIB controlled Stage 2 pressure sore left anterior ankle -pressure relief and topical care HTN better controlled Orthostatic Hypotension resolved ESBL treated Plan Continue PT/OT Wound care Discharge remains set for next Wednesday05-10-18 to home F/U with Hospitalist service and wound care PRN Co-Morbidities that are continuing to impact the rehab process: (include details ) DEDE PEREZ MD May 07, 2018 07:27
[2018-05-07 08:00] VITALS: BP 120/71
[2018-05-07] MEDS: amLODIPine 5 MG (NORVASC) TAB PO SCH (08:29)
[2018-05-07] MEDS: meTOprolol TARTRATE 50 MG (LOPRESSOR) TAB PO SCH ×2 (08:29→20:14)
[2018-05-07] MEDS: MAGNESIUM OXIDE (MAG-OX)400 MG TAB PO SCH (08:29)
[2018-05-07] MEDS: DOCUSATE SODIUM 100 MG (COLACE) CAP PO SCH ×3 (08:29→20:16)
--- NOTE | 2018-05-07 11:10 | Physical Therapy Daily Note ---
PT Daily Note-Current Subjective Pt is agreeable to performing bed exercises. She reported that she was planning on getting up to the chair later in the morning. Mental Status Patient Orientation: Person, Place, Time, Situation Transfers Functional [place] Measure 0=Not Assessed/NA 4=Minimal Assistance 1=Total Assistance 5=Supervision or Setup 2=Maximal Assistance 6=Modified [place] 3=Moderate Assistance 7=Complete IndependenceIRFPAI Quality Coding Scale 6 Independent with activity with or without an assistive device 5 Patient requires set up or clean up by helper. Patient completes activity by themselves 4 Supervision or touching assist (CGA). [place] provide cues , steadying assist 3 The helper provides less than half the effort to complete the activity 2 The helper provides more than half the effort to complete the activity 1 Dependent. The helper does all the effort to complete an activity 7 Patient refused to complete or attempt activity 9 The patient did not perform the activity before the current illness or injury 88 Not attempted due to Medical conditions or safety concerns Weight Bearing Right Lower Extremity: Right Full Weight Bearing Left Lower Extremity: Left Touch Toe Bearing CAM boot on the left Gait Training Does the Patient Walk?: No and Walking Goal IS indicated Exercises Supine Ex: LE Protocol, Quad Set, Glut sets, Lower trunk rotation, Short Arc Quads Supine Reps: 20 Assessment Pt is able to perform the LE exercises without physical assistance. PT Short Term Goals Short Term Goals Time Frame: May 03, 2018 Gait (FIM): 2 Distance (FIM): 1=up to 49 ft Gait Assistive Device: FWW Wheelchair (FIM): 6 Wheelchair distance (FIM): 3=150 ft Wheelchair Distance: 750' PT Bioinformaticist Goals Halfway Goals PT Halfway Goals Time Frame: May 13, 2018 Transfers (B,C,W/C) (FIM): 6 Sit to Lying (QC): 6 Lying-Sitting on Side/Bed(QC): 6 Sit to Stand (QC): 6 Rollin Roll Left to Right (QC): 6 Chair/Sjr-od-Npckd Xfer(QC): 6 Car Transfer (QC): 6 Does the Patient Walk: No and Walking Goal IS indicated Gait (FIM): 5 (household exception) Gait distance (FIM): 6=017-70 ft Walk 10 feet (QC): 6 Walk 10ft-Uneven Surface(QC): 6 Walk 50ft with 2 Turns (QC): 6 Walk 150 ft (QC): 9 Gait Assistive Device: FWW Does the Pt use WC or Scooter?: Yes Wheelchair (FIM): 6 Wheelchair distance (FIM): 3=150 ft Wheel 50 feet with 2 turns (QC: 6 Stairs (FIM): 2 # of Steps: 1 1 Step (curb) (QC): 4 4 Steps (QC): 9 12 Steps (QC): 9 Stairs Level Of Assist: 4 Picking up an Object (QC): 88 PT Plan Treatment/Plan Treatment Plan: Continue Plan of Care Treatment Plan: Bed Mobility, Education, Functional Activity [facility], Functional Strength, Group Therapy, Gait, Safety, Therapeutic Exercise, Transfers Treatment Duration: May 13, 2018 Frequency: At least 5 of 7 days/Wk (IRF) Estimated Hrs Per Day: 1.5 hours per day Patient and/or Family Agrees t: Yes Time/GCodes Time In: 09 Time Out: 09 Total Billed Treatment Time: 15 Total Billed Treatment 1, ex 15 JOAN CARRERO PT May 07, 2018 11:10
[2018-05-07 12:19] VITALS: BP 144/81
[2018-05-07 15:41] VITALS: BP 134/73
[2018-05-07] MEDS: warFARin 3 MG (COUMADIN) TAB PO SCH (17:06)
[2018-05-07] MEDS: POLYETHYLENE GLYCOL 17 GM (MIRALAX) PACK PO SCH (19:35)
[2018-05-07 20:35] VITALS: BP 160/75
[2018-05-07] MEDS: HYDROcodone/APAP 10 MG/325 MG (LORTAB) TAB PO PRN (22:16)
[2018-05-07] MEDS: diphenhydrAMINE 25 MG TAB (BENADRYL) PO PRN (22:16)
[2018-05-07 23:31] VITALS: BP 130/78
[2018-05-08 04:16] VITALS: BP 117/66
[2018-05-08 07:28] LABS: INR 2.1 (0.8-1.4)
[2018-05-08 08:09] VITALS: BP 132/65
[2018-05-08] MEDS: amLODIPine 5 MG (NORVASC) TAB PO SCH (08:12)
[2018-05-08] MEDS: meTOprolol TARTRATE 50 MG (LOPRESSOR) TAB PO SCH ×2 (08:12→20:22)
[2018-05-08] MEDS: MAGNESIUM OXIDE (MAG-OX)400 MG TAB PO SCH (08:12)
[2018-05-08] MEDS: DOCUSATE SODIUM 100 MG (COLACE) CAP PO SCH ×2 (08:13→20:21)
[2018-05-08 11:29] VITALS: BP 126/80
[2018-05-08 16:34] VITALS: BP 155/65
[2018-05-08] MEDS: warFARin 3 MG (COUMADIN) TAB PO SCH (17:07)
[2018-05-08] MEDS: HYDROcodone/APAP 10 MG/325 MG (LORTAB) TAB PO PRN (18:11)
[2018-05-08 20:00] VITALS: BP 160/79
[2018-05-08] MEDS: POLYETHYLENE GLYCOL 17 GM (MIRALAX) PACK PO SCH (20:22)
[2018-05-08] MEDS: diphenhydrAMINE 25 MG TAB (BENADRYL) PO PRN (22:18)
[2018-05-08 23:55] VITALS: BP 138/75
[2018-05-09 04:42] VITALS: BP 123/77
[2018-05-09 07:48] LABS: INR 1.9 (0.8-1.4)
[2018-05-09 08:00] VITALS: BP 137/73
--- NOTE | 2018-05-09 08:56 | Physical Therapy Daily Note ---
PT Daily Note-Current Subjective Pt. feels confident she will do well at home. States she has good family support and neighbors are also very supportive. Pain Numeric Pain Scale: 0-No Pain Mental Status Patient Orientation: Normal For Age Attachments: Other-See Comments (boot LLE) marcy gama indep Transfers Functional [place] Measure 0=Not Assessed/NA 4=Minimal Assistance 1=Total Assistance 5=Supervision or Setup 2=Maximal Assistance 6=Modified [place] 3=Moderate Assistance 7=Complete IndependenceIRFPAI Quality Coding Scale 6 Independent with activity with or without an assistive device 5 Patient requires set up or clean up by helper. Patient completes activity by themselves 4 Supervision or touching assist (CGA). [place] provide cues , steadying assist 3 The helper provides less than half the effort to complete the activity 2 The helper provides more than half the effort to complete the activity 1 Dependent. The helper does all the effort to complete an activity 7 Patient refused to complete or attempt activity 9 The patient did not perform the activity before the current illness or injury 88 Not attempted due to Medical conditions or safety concerns Transfers (B, C, W/C) (FIM): 6 Scootin Rollin Roll Left to Right (QC): 5 Supine to/from Sit: 6 Sit to/from Stand: 6 Sit to Lying (QC): 5 Sit to Stand (QC): 5 Chair/Pyh-gw-Dlrmf Xfer(QC): 5 Bed to/from Chair: 6 Car Transfer (QC): 5 Pt. utilizes slide board for chair to bed and chair to bed and chair to toilet. car to chair with FWW SBA Weight Bearing Right Lower Extremity: Right Full Weight Bearing Left Lower Extremity: Left Touch Toe Bearing CAM boot on the left Gait Training Does the Patient Walk?: No and Walking Goal NOT indicated Gait (FIM): 1 Distance (FIM): 1=up to 49 ft (5ftx2) Gait Assistive Device: FWW for TRFs only Wheelchair Training Does the Pt Use a Wheelchair?: Yes Wheelchair (FIM): 6 Wheelchair Distance: 3=150 ft (250x2) Wheelchair Level of Assist: 6 Wheel 50 ft with 2 turns (QC): 5 Wheel 150 ft (QC): 5 Type of Wheelchair: Manual up down ramp for and back Exercises Supine Ex: Bridging, Ankle pumps, Rolling, Heel Slides, Short Arc Quads, Straight leg raise, Hip abd/add Supine Reps: 15 Seated Therapy Exercises: Ankle pumps, Long arc quads, Hip flexion Seated Reps: 15 Assessment Current Status: Excellent Progress Pt. hopes to get her BP situation resolved after fracture heals so that she can safely be on her feet again without threat of syncopy and falls PT Short Term Goals Short Term Goals Time Frame: May 03, 2018 Gait (FIM): 2 Distance (FIM): 1=up to 49 ft Gait Assistive Device: FWW Wheelchair (FIM): 6 Wheelchair distance (FIM): 3=150 ft Wheelchair Distance: 750' PT Usp Goals Rehabilitation Clerk Goals PT Rehabilitation Clerk Goals Time Frame: May 13, 2018 Transfers (B,C,W/C) (FIM): 6 Sit to Lying (QC): 6 Lying-Sitting on Side/Bed(QC): 6 Sit to Stand (QC): 6 Rollin Roll Left to Right (QC): 6 Chair/Gug-hk-Etrok Xfer(QC): 6 Car Transfer (QC): 6 Does the Patient Walk: No and Walking Goal IS indicated Gait (FIM): 5 (household exception) Gait distance (FIM): 5=560-84 ft Walk 10 feet (QC): 6 Walk 10ft-Uneven Surface(QC): 6 Walk 50ft with 2 Turns (QC): 6 Walk 150 ft (QC): 9 Gait Assistive Device: FWW Does the Pt use WC or Scooter?: Yes Wheelchair (FIM): 6 Wheelchair distance (FIM): 3=150 ft Wheel 50 feet with 2 turns (QC: 6 Stairs (FIM): 2 # of Steps: 1 1 Step (curb) (QC): 4 4 Steps (QC): 9 12 Steps (QC): 9 Stairs Level Of Assist: 4 Picking up an Object (QC): 88 PT Plan Treatment/Plan Treatment Plan: Continue Plan of Care Treatment Plan: Bed Mobility, Education, Functional Activity [place], Functional Strength, Group Therapy, Gait, Safety, Therapeutic Exercise, Transfers Treatment Duration: May 13, 2018 Frequency: At least 5 of 7 days/Wk (IRF) Estimated Hrs Per Day: 1.5 hours per day Patient and/or Family Agrees t: Yes Safety Risks/Education Patient Education: Gait Training, Transfer Techniques, Correct Positioning, W/ C Management, Disease Process, Safety Issues Teaching Recipient: Patient Teaching Methods: Demonstration, Discussion Response to Teaching: Verbalize Understanding, Return Demonstration, Reinforcement Needed Time/GCodes Time In: 800 Time Out: 900 Total Billed Treatment Time: 60 Total Billed Treatment 1,FA30m,EX15m,WC15m G Codes Necessary: NICHOLAS Mays PROGRAMMER OPERATOR NUMERICAL CONTROL May 09, 2018 08:56
[2018-05-09] MEDS: meTOprolol TARTRATE 50 MG (LOPRESSOR) TAB PO SCH ×2 (09:59→20:35)
[2018-05-09] MEDS: amLODIPine 5 MG (NORVASC) TAB PO SCH (09:59)
[2018-05-09] MEDS: DOCUSATE SODIUM 100 MG (COLACE) CAP PO SCH ×2 (09:59→20:35)
[2018-05-09] MEDS: MAGNESIUM OXIDE (MAG-OX)400 MG TAB PO SCH (09:59)
[2018-05-09 11:45] VITALS: BP 137/80
--- NOTE | 2018-05-09 12:53 | Occupational Ther Daily Note ---
OT Current Status-Daily Note Subjective Pt seen in room, up in w/c, agreeable to OT. No pain mentioned. Appearance Alert, cooperative Mental Status/Objective Functional [place] Measure 0=Not Assessed/NA 4=Minimal Assistance 1=Total Assistance 5=Supervision or Setup 2=Maximal Assistance 6=Modified [place] 3=Moderate Assistance 7=Complete [place] ADL-Treatment She has no problems ordering food, opening packages, feeding herself, getting a drink. She toileting mod I, using BSC over toilet, FWW, able to manage clothing and hygiene, transfer mod I. She transferred mod I in/out of shower and on/off shower bench. Bathed mod I, retrieving towel from bar and turning water on/off. She retrieved clean clothes and dressed mod I, including putting on CAM boot. Groomed indep at sink. She can place a sliding board for transfers and is able to manage brakes and leg rests on w/c. Functional [place] Measure 0=Not Assessed/NA 4=Minimal Assistance 1=Total Assistance 5=Supervision or Setup 2=Maximal Assistance 6=Modified [place] 3=Moderate Assistance 7=Complete IndependenceIRFPAI Quality Coding Scale 6 Independent with activity with or without an assistive device 5 Patient requires set up or clean up by helper. Patient completes activity by themselves 4 Supervision or touching assist (CGA). [place] provide cues , steadying assist 3 The helper provides less than half the effort to complete the activity 2 The helper provides more than half the effort to complete the activity 1 Dependent. The helper does all the effort to complete an activity 7 Patient refused to complete or attempt activity 9 The patient did not perform the activity before the current illness or injury 88 Not attempted due to Medical conditions or safety concerns Eating (FIM): 7 (Opens packages, cuts food, able to feed herselt and get a drink. No dentures) Eating (QC): 6 Grooming (FIM): 7 (Brushed teeth, dried hair, washed face and hands indep at sink, w/c level) Oral Hygiene (QC): 6 Bathing (FIM): 6 (Turned water on and off, retrieved towels. Washed and dried all parts. help to cover L lower leg dressing with plastic. Hand held shower, shower bench, grab bars, long handled sponge) Shower/Bathe Self (QC): 6 Upper Body (FIM): 6 (Doffed and donned clothing without help. Retrieved clean clothes) Upper Body Dressing (QC): 6 Lower Body Dressing (FIM): 6 (Doffed and donned clothing, including shoes. Able to doff/don CAM boot. FWW) Lower Body Dressing (QC): 6 On/Off Footwear (QC): 6 Toileting (FIM): 6 (Managed clothing and hygiene. BSC over toilet, FWW) Toileting Hygiene (QC): 6 Toilet/Commode Transfer (FIM): 6 (On/off BSC over toilet, FWW) Toilet Transfer (QC): 6 Shower Transfer(FIM): 6 (In/out of shower and on/off shower bench, using grab bar) Other Treatment Pt propelled w/c to gym and completed 16 minutes bilat UE exercise on arm bike set at 25-30W resistance, to strengthen arms to help with transfers (increase resistance). To strengthen arms to help with transfers and ADLs. "This is the first time my neck hasn't hurt across the back. This has really helped." Pt took herself back to her room, all needs met. Education OT Patient Education: Progress toward Goal/Update tx plan, Purpose of tx/ functional activities Teaching Recipient: Patient Teaching Methods: Discussion Response to Teaching: Verbalize Understanding OT Short Term Goals Short Term Goals Time Frame: May 03, 2018 Toilet/Commode Transfer(FIM): 5 1=Demonstrate adherence to instructed precautions during ADL tasks. 2=Patient will verbalize/demonstrate understanding of assistive devices/ modifications for ADL. 3=Patient will improve strength/tolerance for activity to enable patient to perform ADL's. OT Reconciliation Coordinator Goals Residential Goals Time Frame: May 13, 2018 Eating (FIM): 7 (met 9-3-18) Eating (QC): 6 (met 9-3-18) Groomin (met 9-3-18) Oral Hygiene (QC): 6 (met 9-3-18) Bathing(FIM): 6 (met 9-3-18) Shower/Bathe Self (QC): 6 (met 9-3-18) Upper Body Dressing(FIM): 6 (met 9-3-18) Upper Body Dressing (QC): 6 (met 9-3-18) Lower Body Dressing(FIM): 6 (met 9-3-18) Lower Body Dressing (QC): 6 (met 9-3-18) On/Off Footwear (QC): 6 (met 9-3-18) Toileting(FIM): 6 (met 9-3-18) Toileting Hygiene (QC): 6 (met 9-3-18) Toilet/Commode Transfer(FIM): 6 (met 9-3-18) Toilet/Commode Transfer (QC): 6 (met 9-3-18) Shower Transfer(FIM): 6 (met 9-3-18) Additional Goals: 1-Demonstrate ADL Tasks, 2-Verbalize Understanding, 3- ImproveStrength/[place] 1=Demonstrate adherence to instructed precautions during ADL tasks. 2=Patient will verbalize/demonstrate understanding of assistive devices/ modifications for ADL. 3=Patient will improve strength/tolerance for activity to enable patient to perform ADL's. OT Education/Plan Problem List/Assessment Pt would benefit from skilled OT to increase her independence in basic self care Discharge Recommendations Plan/Recommendations: Continue POC (anticipate DC tomorrow) Treatment Plan/Plan of Care Patient would benefit from OT for education, treatment and training to promote independence in ADL's, mobility, safety and/or upper extremity function for ADL' s. Plan of Care: ADL Retraining, Functional Mobility, Group Exercise/Act as Ind ( education, exercise, activity tolerance, functional activities, funct mobility) , UE Funct Exercise/Act, UE Neuromus Re-Ed/Coord, W/C Management Training Treatment Duration: May 13, 2018 Frequency: At least 5 of 7 days/Wk (IRF) Estimated Hrs Per Day: 1.5 hours per day Agreement: Yes Rehab Potential: Good Time/GCodes Start Time: 10:00 Stop Time: 11:00 Total Time Billed (hr/min): 60 Billed Treatment Time visit, 40 minutes ADL, 20 minutes exercise KENDELL SETHI OT May 09, 2018 12:52
[2018-05-09] MEDS ORDERED: HYDR-3820 PO (13:02)
[2018-05-09] MEDS ORDERED: AMLO5TAB7 PO (13:02)
[2018-05-09] MEDS ORDERED: METO50TA15 PO (13:02)
[2018-05-09] MEDS: HYDROcodone/APAP 10 MG/325 MG (LORTAB) TAB PO PRN (14:08)
--- NOTE | 2018-05-09 14:24 | Therapy Group Daily Note ---
Therapy Daily Group Note Patient Education Topic Home Safety, Fall Prevention Exercises LE Seated Exercise, UE Exercise Other/Notes Pt was an active participant on OT/PT group. She introduced herself by sharing a holiday memory. She contributed to group education/discussion on home safety and fall prevention and, at the end of the group, was able to identify one way that she will change her apartment to increase safety. She also did seated UE and LE exercises to help with transfers. She brought herself to group and took herself back to her room, all needs met. Start Time: 13:00 Stop Time: 14:10 Total Billed Treatment Time: 70 Total Billed Treatment visit, 70 minutes group KENDELL SETHI OT May 09, 2018 14:24
[2018-05-09 16:29] VITALS: BP 152/78
[2018-05-09] MEDS: warFARin 2 MG (COUMADIN) TAB PO SCH (18:17)
[2018-05-09 20:30] VITALS: BP 146/76
[2018-05-09] MEDS: POLYETHYLENE GLYCOL 17 GM (MIRALAX) PACK PO SCH (20:35)
--- NOTE | 2018-05-09 21:58 | PM & R (SOAP) Progress Note ---
Subjective This was a face to face visit with the patient. Date Seen by Provider: May 09, 2018 Time Seen by Provider: 21:40 Subjective/Events-last exam Patient was seen in her room this AM Greer came out today .Patient BDA to MOD Independent for transfers Current meds reviewed INR noted Review of Systems denies any headache or dizziness Objective Physician Exam Last Set of Vital Signs Vital Signs Date Time Temp Pulse Resp B/P (MAP) Pulse Ox O2 Delivery O2 Flow Rate FiO2 05/09/18 20:30 97.2 60 18 146/76 (99) 96 Room Air Capillary Refill : Less Than 3 SecondsLess Than 3 Seconds I&O Intake and Output 05/09/18 00:00 Intake Total 1355 ml Balance 1355 ml Intake Oral 1355 ml # Voids 7 # Bowel Movements 1 General: Alert, Oriented X3, Cooperative, No Acute Distress HEENT: Atraumatic, PERRLA, EOMI, Mucous Memb Moist/[place] Neck: Supple, No JVD Lungs: Clear to Auscultation Heart: Regular Rate, Normal S1, Normal S2 Abdomen: Normal Bowel Sounds, Soft, No Tenderness Extremities: No Clubbing, Other (CAM boot left ankle) Skin: No Rashes, Other (Stage 2 pressure sore left anteriorankle) Neuro: Normal Speech, Sensation Intact, Other (Strength 4/5 UES and 4-/5 BLES except for left foot in cam boot) Results Lab Data Laboratory Tests 05/07/18 06:46: Prothrombin Time 22.9H, INR Comment 2.0H 05/08/18 06:58: Prothrombin Time 24.0H, INR Comment 2.1H 05/09/18 07:22: Prothrombin Time 22.0H, INR Comment 1.9H Assessment/Plan Assessment and Plan Syncopal episode resulting in fall with left ankle fracture resulting s/p ORIF TTWB LLE A FIB controlled Stage 2 pressure sore left anterior ankle rxed with pressure relief and topical care HTN controlled Chronic anticoagulation with therapeutic INR Orthostatic Hypotension resolved ESBL treated Plan Discharge tomorrow to home with [facility] Sister to provide transportation F/U with PCP and Ortho See orders Co-Morbidities that are continuing to impact the rehab process: (include details ) DEDE PEREZ MD May 09, 2018 21:58
[2018-05-10 00:30] VITALS: BP 128/74
[2018-05-10 04:17] VITALS: BP 146/91
--- NOTE | 2018-05-10 07:16 | PM & R (SOAP) Progress Note ---
Subjective This was a face to face visit with the patient. Date Seen by Provider: May 10, 2018 Time Seen by Provider: 07:00 Subjective/Events-last exam Patient was seen in her room this AM Has progressed well Current meds reviewed Patient indicates that DR Henning PCP follows INR and Coumadin dose Review of Systems denies any headache or dizziness Objective Physician Exam Last Set of Vital Signs Vital Signs Date Time Temp Pulse Resp B/P (MAP) Pulse Ox O2 Delivery O2 Flow Rate FiO2 05/10/18 04:17 97.7 59 18 146/91 (109) 95 Room Air Capillary Refill : Less Than 3 SecondsLess Than 3 Seconds I&O Intake and Output 05/10/18 00:00 Intake Total 2030 ml Balance 2030 ml Intake Oral 2030 ml # Voids 8 General: Alert, Oriented X3, Cooperative, No Acute Distress HEENT: Atraumatic, PERRLA, EOMI, Mucous Memb Moist/[place] Neck: Supple, No JVD Lungs: Clear to Auscultation Heart: Regular Rate, Normal S1, Normal S2 Abdomen: Normal Bowel Sounds, Soft, No Tenderness Extremities: No Clubbing, Other (CAM boot left ankle) Skin: No Rashes, Other (Stage 2 pressure sore left anteriorankle) Neuro: Normal Speech, Sensation Intact, Other (Strength 4/5 UES and 4-/5 BLES except for left foot in cam boot) Results Lab Data Laboratory Tests 05/08/18 06:58: Prothrombin Time 24.0H, INR Comment 2.1H 05/09/18 07:22: Prothrombin Time 22.0H, INR Comment 1.9H Assessment/Plan Assessment and Plan Home today [place] family and C F/U with PCP and Ortho See orders Co-Morbidities that are continuing to impact the rehab process: (include details ) DEDE PEREZ MD May 10, 2018 07:15
[2018-05-10] MEDS: amLODIPine 5 MG (NORVASC) TAB PO SCH (07:54)
[2018-05-10] MEDS: MAGNESIUM OXIDE (MAG-OX)400 MG TAB PO SCH (07:54)
[2018-05-10] MEDS: HYDROcodone/APAP 10 MG/325 MG (LORTAB) TAB PO PRN (07:55)
[2018-05-10] MEDS: DOCUSATE SODIUM 100 MG (COLACE) CAP PO SCH (07:55)
[2018-05-10 07:57] LABS: INR 1.8 (0.8-1.4); PROTHROMBIN TIME PATIENT 21.1 SEC (12.2-14.7)
[2018-05-10] MEDS: meTOprolol TARTRATE 50 MG (LOPRESSOR) TAB PO SCH (07:57)
[2018-05-10 08:00] VITALS: BP 113/55
[2018-05-10] MEDS ORDERED: warFARin 5 MG (COUMADIN) TAB PO NR (09:25)
[2018-05-10 10:24] VITALS: BP 113/55
--- NOTE | 2018-05-10 11:16 | Therapy Team Discharge Summary ---
Therapy Discharge Summary Discharge Recommendations Date of Discharge May 10, 2018 at 10:30 Therapy D/C Recommendations: Physical Therapy Home Care Physical Therapy Patient came to rehab with a bimalleolar fx. Upon evaluation patient performed bed mobility with SBA, transfers with min assist, car transfer with min assist, unable to ambulate, can propel a manual wheelchair 150' with min assist, and was unable to perform stairs. Patient has been performing bed mobility and transfer training, balance and endurance training, functional strengthening, and gait training. Patient has made fair progress but did not meet her ambulation or stair termite exterminator goals. Now, patient performs bed mobility and transfers with mod I using a sliding board, car transfers mod I using a sliding board, no ambulation other than just a few feet during transfers, can propel a manual wheelchair 250' with mod I, and cannot perform stairs. Patient has been discharged from this facility today and will be discharged from PT at this time. Occupational Therapy Decreased Activ Tolerance, Decreased UE Strength, Dependent Transfers, Impaired Funct Balance, Impaired Self-Care Skills PT Wool Buyer Goals [facility] Goals PT [facility] Goals Time Frame: May 13, 2018 Transfers (B,C,W/C) (FIM): 6 Roll Left to Right (QC): 6 Sit to Lying (QC): 6 Lying-Sitting on Side/Bed(QC): 6 Sit to Stand (QC): 6 Chair/[id number]-tc-Xxksf Xfer(QC): 6 Car Transfer (QC): 6 Does the Patient Walk: No and Walking Goal IS indicated Gait (FIM): 5 (household exception) Gait distance (FIM): 6=012-71 ft Walk 10 feet (QC): 6 Walk 10ft-Uneven Surface(QC): 6 Walk 50ft with 2 Turns (QC): 6 Walk 150 ft (QC): 9 Gait Assistive Device: FWW Does the Pt use WC or Scooter?: Yes Wheelchair (FIM): 6 Wheelchair distance (FIM): 3=150 ft Wheel 50 feet with 2 turns (QC: 6 Stairs (FIM): 2 # of Steps: 1 1 Step (curb) (QC): 4 4 Steps (QC): 9 12 Steps (QC): 9 Stairs Level Of Assist: 4 Picking up an Object (QC): 88 OT Wool Buyer Goals Wool Buyer Goals Time Frame: May 13, 2018 Eating (FIM): 7 (met 9--18) Eating (QC): 6 (met 9-3-18) Oral Hygiene (QC): 6 (met 9--18) Grooming(FIM): 6 (met 9--18) Bathing(FIM): 6 (met 9--18) Shower/Bathe Self (QC): 6 (met 9--18) Upper Body Dressing(FIM): 6 (met 9--18) Upper Body Dressing (QC): 6 (met 9-18) Lower Body Dressing(FIM): 6 (met 9-18) Lower Body Dressing (QC): 6 (met -18) On/Off Footwear (QC): 6 (met -18) Toileting(FIM): 6 (met -18) Toileting Hygiene (QC): 6 (met 9-18) Toilet/Commode Transfer(FIM): 6 (met -18) Toilet/Commode Transfer (QC): 6 (met -18) Shower Transfer(FIM): 6 (met -18) Additional Goals: 1-Demonstrate ADL Tasks, 2-Verbalize Understanding, 3- ImproveStrength/[place] 1=Demonstrate adherence to instructed precautions during ADL tasks. 2=Patient will verbalize/demonstrate understanding of assistive devices/ modifications for ADL. 3=Patient will improve strength/tolerance for activity to enable patient to perform ADL's. GENA BLAKE PT May 10, 2018 11:16
--- NOTE | 2018-05-10 14:16 | Therapy Team Discharge Summary ---
Therapy Discharge Summary Discharge Recommendations Date of Discharge May 10, 2018 at 10:30 Therapy D/C Recommendations: Physical Therapy Home Care Occupational Therapy Pt was seen for skilled ot to increase her independence in basic self care to allow her to return home after a fall with resultant L tib/fib fx and limited weightbearing. Her mobility was complicated by old R ankle fx and pain. On admission she was independent with eating, setup for grooming and upper body dressing, min assist bathing, mod assist shower transfers, max assist lower body dressing and dependant with toileting/toilet transfers. By discharge she was independent with eating and grooming and modified independent with all other basic ADLs, including doffing/donning CAM boot and transfers using sliding board, w/c, dairy department manager, dressing stick and FWW. Home health OT is recommended, as well as a bath aid because she will need to use her aunt's walkin shower. See tx plan for goals met. DC OT. Decreased Activ Tolerance, Decreased UE Strength, Dependent Transfers, Impaired Funct Balance, Impaired Self-Care Skills PT Jail Goals Field Supervisor Goals PT Jail Goals Time Frame: May 13, 2018 Transfers (B,C,W/C) (FIM): 6 Roll Left to Right (QC): 6 Sit to Lying (QC): 6 Lying-Sitting on Side/Bed(QC): 6 Sit to Stand (QC): 6 Chair/Mld-ut-Nyiqv Xfer(QC): 6 Car Transfer (QC): 6 Does the Patient Walk: No and Walking Goal IS indicated Gait (FIM): 5 (household exception) Gait distance (FIM): 6=919-88 ft Walk 10 feet (QC): 6 Walk 10ft-Uneven Surface(QC): 6 Walk 50ft with 2 Turns (QC): 6 Walk 150 ft (QC): 9 Gait Assistive Device: FWW Does the Pt use WC or Scooter?: Yes Wheelchair (FIM): 6 Wheelchair distance (FIM): 3=150 ft Wheel 50 feet with 2 turns (QC: 6 Stairs (FIM): 2 # of Steps: 1 1 Step (curb) (QC): 4 4 Steps (QC): 9 12 Steps (QC): 9 Stairs Level Of Assist: 4 Picking up an Object (QC): 88 OT Jail Goals Field Supervisor Goals Time Frame: May 13, 2018 Eating (FIM): 7 (met 9--18) Eating (QC): 6 (met 9--18) Oral Hygiene (QC): 6 (met 9--18) Grooming(FIM): 6 (met 9--18) Bathing(FIM): 6 (met 9--18) Shower/Bathe Self (QC): 6 (met 9--18) Upper Body Dressing(FIM): 6 (met 9--18) Upper Body Dressing (QC): 6 (met 9-18) Lower Body Dressing(FIM): 6 (met 9-18) Lower Body Dressing (QC): 6 (met -18) On/Off Footwear (QC): 6 (met -18) Toileting(FIM): 6 (met 9-18) Toileting Hygiene (QC): 6 (met 9--18) Toilet/Commode Transfer(FIM): 6 (met -18) Toilet/Commode Transfer (QC): 6 (met -18) Shower Transfer(FIM): 6 (met 9-18) Additional Goals: 1-Demonstrate ADL Tasks, 2-Verbalize Understanding, 3- ImproveStrength/[place] 1=Demonstrate adherence to instructed precautions during ADL tasks. 2=Patient will verbalize/demonstrate understanding of assistive devices/ modifications for ADL. 3=Patient will improve strength/tolerance for activity to enable patient to perform ADL's. KENDELL SETHI OT May 10, 2018 14:16
--- NOTE | 2018-05-25 01:28 | DISCHARGE SUMMARY ---
DATE OF SERVICE:05-10-18 HISTORY OF PRESENT ILLNESS: The patient is a 72-year-old female who had a syncopal episode at home in her apartment in [place], [place], with resulting left ankle fracture. She was admitted to [facility] and underwent ORIF on 04/24/2018. She was made toe-touch weightbearing left lower limb. Therapies were begun and she was felt to be appropriate for inpatient rehabilitation unit. She has had difficulty with syncope due to orthostasis and she has been followed by cardiology as well as hospitalist service, and her medications have been adjusted. She has a history of stress incontinence and this was controlled with pad. She is continence of bowel. PAST MEDICAL HISTORY: Atrial fibrillation, hypertension, stress incontinence, right ankle fracture in 2010 repaired with hardware. She has a Cam boot on the left currently. She also has contact precautions due to ESBL in her urine. MEDICAL COURSE: The patient was followed by Dr. Diaz and hospitalist service and cardiology. Medications were further adjusted due to hypotension and bradycardia with improvement. On 05/10/2018, her pulse was 69, respirations 16, blood pressure 113/55, O2 sat 96% on room air. She was afebrile during her stay. She is chronically anticoagulated. Her INR on 05/10/2018 is 1.8. She had a stage II pressure sore of the left anterior ankle, seen by Dr. Schaefer and wounded area was provided with Xeroform and abdominal pad and minimize use of Cam walker. REHABILITATION COURSE: She was assessed by speech therapy upon admission and found to be cognitively intact and they signed off. PT notes upon admission, the patient was standby assist with bed mobility, min assist with car transfers and transfers in general, unable to ambulate. She can propel on a manual wheelchair 150 feet with min assist and was unable to perform stairs. Upon discharge, she is modified independent for bed mobility and transfers and modified independent using a sliding board for car transfers, modified independent for propelling a manual wheelchair 250 feet, no functional ambulation due to limited weightbearing status at this time. OT notes upon admission, she was independent with eating, set up for grooming and upper body dressing, min assist for bathing, mod assist for shower and transfers, max assist for lower body dressing and dependent with toileting and toilet transfers. By discharge, she was independent with eating and grooming and modified independent with all other basic ADLs including donning and doffing Cam boot and transferred using sliding board to wheelchair.Utilized a dressing stick and front wheel walker as well. Home health care was recommended. DISCHARGE INSTRUCTIONS: Discharged to home with home health care. Follow up with PCP and orthopedics and cardiology as per their schedule. Continue current limited weightbearing status and diet. DISCHARGE MEDICATIONS: Amlodipine 10 mg p.o. daily, hydrocodone/APAP 10/325 one tablet p.o. q.4 hours p.r.n. moderate pain, metoprolol 50 mg p.o. b.i.d., citalopram 40 mg p.o. daily, magnesium 400 mg p.o. daily, omeprazole 20 mg p.o. daily, Coumadin 4 mg p.o. on Wednesday, Wednesday, Wednesday and 3 mg on Wednesday, Wednesday, and Wednesday. DISCHARGE DIAGNOSES: 1. Rehabilitation left tibia fracture status post ORIF, left fibula fracture status post ORIF. 2. Paroxysmal atrial fibrillation, controlled with medication. 2. Hypertension, controlled with medication. 3. Orthostatic hypotension, resolved. 4. Bradycardia, resolved. 5. Urinary tract infection, treated. 6. ESBL. 7. Anemia. 8. Long-term use of anticoagulant. 9. Status post fall at apartment. 10. Pressure ulcer, left ankle stage II. CONDITION AT DISCHARGE: Improved and stable. PROGNOSIS: Rehab prognosis appears good for continued improvement at home and return to independent living once her weightbearing status was advanced to weightbearing as tolerated by Dr. Mckeon, orthopedics, on an outpatient basis. Job ID: [id number] DocumentID: [id number] Dictated Date: 05/24/2018 10:22:15 Menagerie Superintendent Date: 05/25/2018 01:28:10 Dictated By: DEDE DIAZ MD [facility]
== END 2018-05-10 10:30 | disposition home health service (06) | DRG 560 ==
PROVIDERS: ADMIT Physical Medicine & Rehabilitation; ATTEND Physical Medicine & Rehabilitation
DX: S82.392D Other fracture of lower end of left tibia, subsequent encounter for closed fracture with routine healing (principal); S82.832D Other fracture of upper and lower end of left fibula, subsequent encounter for closed fracture with routine healing; I48.0 Paroxysmal atrial fibrillation; I10 Essential (primary) hypertension; I95.1 Orthostatic hypotension; N39.0 Urinary tract infection, site not specified; Z16.12 Extended spectrum beta lactamase (ESBL) resistance; D64.9 Anemia, unspecified; L89.522 Pressure ulcer of left ankle, stage 2; Z79.01 Long term (current) use of anticoagulants; W19.XXXD Unspecified fall, subsequent encounter; Y92.039 Unspecified place in apartment as the place of occurrence of the external cause
CPT/HCPCS: 36415; 85610

== ENCOUNTER → 2018-11-14 | Outpatient (CLI) | payer MEDICARE, OTHER ==
[~2018-11-14] MED LIST changes: +AMLO5TAB9 PO; +DILT240C53 PO; +HYDR-3820 PO; +METO50TA15 PO
--- NOTE | 2018-11-14 13:59 | Diagnostic Imaging Report ---
PROCEDURE: CT abdomen and pelvis without contrast. TECHNIQUE: Multiple contiguous axial images were obtained through the abdomen and pelvis without the use of intravenous contrast. INDICATION: Chronic kidney disease stage III. COMPARISON: No prior studies are available for comparison. FINDINGS: There is some minimal atelectasis or scarring in the lingula and right lower lobe. The liver and spleen contain calcified granulomas. No noncalcified mass is seen. The gallbladder is unremarkable. No biliary ductal dilatation is seen. The pancreas and adrenal glands are unremarkable. No renal calculi or hydronephrosis is identified. The aorta is calcified but nonaneurysmal. The small and large bowel loops are normal in caliber. There is diverticulosis of the sigmoid colon but no evidence of acute diverticulitis. There is no ascites. No abdominal or pelvic lymphadenopathy is seen. Bladder is decompressed. Postsurgical changes to left hip are noted. Bony structures are nonacute. IMPRESSION: Essentially unremarkable noncontrast CT of the abdomen and pelvis apart from uncomplicated sigmoid diverticulosis. No acute feature is detected. Dictated by: Dictated on workstation # [id number]
== END ==
LOC: RAD 12:10
PROVIDERS: ATTEND Internal Medicine Nephrology
DX: N18.3 Chronic kidney disease, stage 3 (moderate) (principal); K57.30 Diverticulosis of large intestine without perforation or abscess without bleeding
CPT/HCPCS: 74176

== ENCOUNTER 2018-12-05 16:17 | Emergency (ER) | payer MEDICARE, OTHER ==
[~2018-12-05] VITALS: Ht 160 cm; Wt 79.4 kg
[2018-12-05] MEDS ORDERED: LIDOCAINE/EPI 2% 1:100,00 (XYLOCAINE) 20 ML VIAL ONE (16:27)
[2018-12-05] MEDS ORDERED: TETANUS,DIPTH,PERTUSS P/F (BOOSTRIX) 0.5 ML VIAL IM ONE (16:30)
[2018-12-05] MEDS ORDERED: LIDOCAINE/EPI 2% 1:100,00 (XYLOCAINE) 20 ML VIAL INJ ONE (16:30)
--- NOTE | 2018-12-05 16:34 | ED Upper Extremity ---
General Stated Complaint: LT ARM LAC Source: patient Exam Limitations: no limitations History of Present Illness Date Seen by Provider: Dec 05, 2018 Time Seen by Provider: 16:17 Initial Comments Here with laceration to left forearm. 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 She states that she bled quite a bit initially but bleeding controlled currently. Denies other injury. Unsure of tetanus status. Onset: just prior to arrival (approximately 30 minutes ago) Severity: mild Pain/Injury Location: left forearm Method of Injury: incised Modifying Factors: Worse With Movement; Improves With Rest Allergies and Home Medications Allergies Coded Allergies: No Known Drug Allergies (Unverified , 04/23/18) Home Medications Amlodipine Besylate 5 Mg Tablet, 10 MG PO DAILY Prescribed by: DEDE PEREZ on 05/09/18 1302 Citalopram Hydrobromide 40 Mg Tablet, 40 MG PO DAILY, (Reported) Hydrocodone/Acetaminophen 1 Each Tablet, 1 EA PO Q4H PRN for PAIN-MODERATE Prescribed by: DEDE PEREZ on 05/09/18 1302 Magnesium Oxide 400 Mg Tablet, 400 MG PO DAILY, (Reported) Metoprolol Tartrate 50 Mg Tablet, 50 MG PO BID Prescribed by: DEDE PEREZ on 05/09/18 1302 Omeprazole 20 Mg Capsule.dr, 20 MG PO DAILY, (Reported) Warfarin Sodium 2 Mg Tablet, 4 MG PO MoWeFr, (Reported) Warfarin Sodium 2 Mg Tablet, 3 MG PO SuTuThSa, (Reported) Patient Home Medication List Home Medication List Reviewed: Yes Review of Systems Constitutional: see HPI; No chills, No fever Respiratory: no symptoms reported Cardiovascular: no symptoms reported Musculoskeletal: no symptoms reported Skin: see HPI, lesions (3 cm laceration) Psychiatric/Neurological: No Symptoms Reported Past Lplircy-Zfvgtj-Uoluwf Hx Past Med/Social Hx: Reviewed Nursing Past Med/Soc Hx Patient Social History Alcohol Use: Occasionally Uses Recreational Drug Use: No Smoking Status: Never a Smoker Recent Foreign Travel: No Contact w/Someone Who Travel: No Recent Hopitalizations: Yes (CARDIOCONVERTED IN SEPTEMBER FOR AFIB) Immunizations Up To Date Date of Pneumonia Vaccine: Sep 06, 2017 Seasonal Allergies Seasonal Allergies: No Past Medical History Surgeries: Yes (Left THR) Adenoidectomy, Appendectomy, Hysterectomy, Orthopedic, Tonsillectomy Respiratory: No Cardiac: Yes Atrial Fibrillation, Hypertension Neurological: No Genitourinary: Yes (UTI) Gastrointestinal: No Musculoskeletal: Yes (HX OF FALLS R/T SYNCOPE) Fractures Endocrine: No HEENT: No Cancer: No Psychosocial: No Integumentary: No Family Medical History Reviewed Nursing Family Hx Abdominal aortic aneurysm Alzheimer's disease 19 MOTHER Cardiovascular disease 19 MOTHER Diabetes mellitus 19 MOTHER G8 SISTER G8 SISTER Physical Exam Vital Signs Capillary Refill : Height, Weight, BMI Height: 5'3.00" Weight: 192lbs. 0.6oz. 87.583938fz; 34.0 BMI Method:Stated General Appearance: WD/WN, no apparent distress Cardiovascular: regular rate, rhythm, no murmur Respiratory: lungs clear, normal breath sounds Elbow/Forearm: normal ROM, soft tissue tenderness (3.5 cm vertically oriented laceration to mid/distal forearm on the palmar side) Wrist: Yes no evidence of injury, Yes normal ROM Hand: no evidence of injury, normal ROM Neurologic/Psychiatric: alert, oriented x 3 Skin: normal color, warm/dry Procedures/Interventions Wound Location: Upper Extremities Other Wound Location Left forearm volar surface Wound Length (cm): 3.5 Wound's Depth, Shape: superficial, linear Wound Explored: contaminated Irrigated w/ Saline (ccs): 200 Betadine Prep?: Yes Anesthesia: Lidocaine w/ Epi Volume Anesthetic (ccs): 5 Wound Debrided: minimal Suture: Ethlion Suture Size: 4-0 Number of Sutures: 7 Layer Closure?: 1 Number Deep Layer Sutures: 10 Sterile Dressing Applied?: Yes Progress Cleaned with Betasept and saline. Anesthetized. Flushed with copious normal saline. Closed with simple interrupted sutures. Good closure with bleeding controlled. Good approximation of wound. Covered with antibiotic ointment and dressing. Tolerated procedure well with no complications. Progress/Results/Core Measures Results/Orders My Orders Orders - MARIA C NAJERA MD Lidocaine/Epi 2% 1:100,000 (Xylocaine/Ep (12/05/18 16:30) Tdap (Boostrix) Im (12/05/18 16:30) Progress Progress Note : Progress Note Seen and evaluated. Tetanus updated. Wound closure by me. Discharged home with return precautions. Patient verbalize understanding instructions and agreement with plan. Departure Impression Primary Impression: Laceration of left forearm without complication Qualified Codes: S51.812A - Laceration without foreign body of left forearm, initial encounter Disposition: 01 HOME, SELF-CARE Condition: Improved Departure-Patient Inst. Decision time for Depature: 17:01 Referrals: SELFSTEFANY MD (PCP/Family) Primary Care Physician Patient Instructions: Laceration Repair With Stitches (DC) Add. Discharge Instructions: Keep wound clean. You may use antibiotic ointment over the wound twice daily for the next 5 days or so and then as needed. Keep wound covered to protect wound. Initially with antibiotic and Band-Aid and then with just dry dressing as needed. Do not swim or soak in any body of water. You may shower. You may gently cleanse wound and then pat dry. Sutures out in 10-14 days. You may return here for suture removal. MARIA C NAJERA MD Dec 05, 2018 16:34
[2018-12-05 17:18] VITALS: BP 130/66
== END 2018-12-05 17:22 | disposition home or self-care (01) ==
LOC: EDUNIT# 16:17 → ER FS 16:18
DX: S51.812A Laceration without foreign body of left forearm, initial encounter (principal); I48.91 Unspecified atrial fibrillation; I10 Essential (primary) hypertension; Z23 Encounter for immunization; Z82.49 Family history of ischemic heart disease and other diseases of the circulatory system; Z91.81 History of falling; Z87.440 Personal history of urinary (tract) infections; Z79.01 Long term (current) use of anticoagulants; Z90.49 Acquired absence of other specified parts of digestive tract; Z90.89 Acquired absence of other organs; Z98.890 Other specified postprocedural states; Z96.642 Presence of left artificial hip joint; Z90.710 Acquired absence of both cervix and uterus; W27.8XXA Contact with other nonpowered hand tool, initial encounter
CPT/HCPCS: 12002; 90471; 90715

== ENCOUNTER 2019-03-15 09:57 | Emergency (ER) | payer MEDICARE, OTHER ==
[~2019-03-15] VITALS: Ht 160 cm; Wt 83.0 kg
[2019-03-15 10:29] VITALS: BP 168/84
--- NOTE | 2019-03-15 10:29 | ED Cardiac General ---
History of Present Illness General Chief Complaint: Cardiac/General Problems Stated Complaint: HIGH BP Nursing Triage Note: Patient c/o high blood pressures. States that where she lives at the [facility] someone periodically comes to check blood pressure and hers was reportedly 220/112. She denies any symptoms assoicated with high blood pressure. Source: patient Exam Limitations: no limitations History of Present Illness Date Seen by Provider: Mar 15, 2019 Time Seen by Provider: 10:24 Initial Comments Patient is a 73-year-old female with history of labile hypertension who presents with asymptomatic hypertension. Patient states she routinely checks her blood pressure 3 times daily. This morning, the patient's blood pressure is 220/112. Patient took a higher dose of her blood pressure medication and then rechecked her blood pressure 3 hours later which remained elevated. Patient denies headache, change in vision, palpitations, chest pain, shortness of breath, decreased urinary put or increased leg swelling. Patient states that she did have company over the weekend and drank alcohol the past 3 days which is different than her normal routine, which she believes may have contributed to the rise in blood pressure. Patient was advised to come to the emergency department by some home health nurses who were doing routine screening at this facility where the patient lives. Timing/Duration: 1-3 hours Severity: mild Activities at Onset: none Allergies and Home Medications Allergies Coded Allergies: No Known Drug Allergies (Unverified , 04/23/18) Home Medications Amlodipine Besylate 5 Mg Tablet, 10 MG PO DAILY Prescribed by: DEDE PEREZ on 05/09/18 1302 Citalopram Hydrobromide 40 Mg Tablet, 40 MG PO DAILY, (Reported) Hydrocodone/Acetaminophen 1 Each Tablet, 1 EA PO Q4H PRN for PAIN-MODERATE Prescribed by: DEDE PEREZ on 05/09/18 1302 Magnesium Oxide 400 Mg Tablet, 400 MG PO DAILY, (Reported) Metoprolol Tartrate 50 Mg Tablet, 50 MG PO BID Prescribed by: DEDE PEREZ on 05/09/18 1302 Omeprazole 20 Mg Capsule.dr, 20 MG PO DAILY, (Reported) Warfarin Sodium 2 Mg Tablet, 4 MG PO MoWeFr, (Reported) Warfarin Sodium 2 Mg Tablet, 3 MG PO SuTuThSa, (Reported) Patient Home Medication List Home Medication List Reviewed: Yes Review of Systems Review of Systems Constitutional: no symptoms reported EENTM: No Symptoms Reported Respiratory: No Symptoms Reported Cardiovascular: No Symptoms Reported Gastrointestinal: No Symptoms Reported Genitourinary: No Symptoms Reported Musculoskeletal: no symptoms reported Skin: no symptoms reported Psychiatric/Neurological: No Symptoms Reported Endocrine: No Symptoms Reported Hematologic/Lymphatic: No Symptoms Reported Past Zxazccu-Vdemwi-Cmfodj Hx Past Med/Social Hx: Reviewed Nursing Past Med/Soc Hx Patient Social History Alcohol Use: Occasionally Uses Recreational Drug Use: No 2nd Hand Smoke Exposure: No Recent Foreign Travel: No Contact w/Someone Who Travel: No Recent Infectious Disease Expo: No Recent Hopitalizations: Yes (CARDIOCONVERTED IN SEPTEMBER FOR AFIB) Physical Abuse: No Sexual Abuse: No Mistreated: No Fear: No Immunizations Up To Date Tetanus Booster (TDap): Unknown Date of Pneumonia Vaccine: Sep 06, 2017 Seasonal Allergies Seasonal Allergies: No Past Medical History Surgeries: Yes (Left THR) Adenoidectomy, Appendectomy, Hysterectomy, Orthopedic, Tonsillectomy Respiratory: No Cardiac: Yes Atrial Fibrillation, Hypertension 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 0.6oz. 83.213776ou; 34.0 BMI Method:Stated General Appearance: No Apparent Distress, WD/WN, Anxious HEENT: PERRL/EOMI, Normal ENT Inspection, Pharynx Normal Neck: Full Range of Motion, Normal Inspection Respiratory: Lungs Clear, Normal Breath Sounds, No Accessory Muscle Use, No Respiratory Distress Cardiovascular: Regular Rate, Rhythm Gastrointestinal: Soft Extremity: Non Tender, No Pedal Edema Neurologic/Psychiatric: Alert, Oriented x3, No Motor/Sensory Deficits, Normal Mood/Affect, senior care manager II-XII Norm as Tested Skin: Normal Color Focused Exam Sepsis Stage: Ruled Out Procedures/Interventions Suture Size: 4-0 Progress/Results/Core Measures Results/Orders Vital Signs/I&O 03/15/19 10:02 Temp 97.9 Pulse 68 Resp 18 B/P (MAP) 196/85 (122) Pulse Ox 95 O2 Delivery Room Air Blood Pressure Mean: 122 Departure Communication (Admissions) Asymptomatic hypertension. I discussed the patient's concern of potential overtreating blood pressure which could result in low blood pressure, fall and injury. Patient did take an extra dose of blood pressure medication this morning. She has had previous fall with injury from low blood pressure is comfortable with the decision to forego additional treatment and workup at this time. Recommend continue monitor with PCP follow-up. Return precautions reviewed. Impression Primary Impression: Labile hypertension Disposition: HOME, SELF-CARE Condition: Improved Departure-Patient Inst. Decision time for Depature: 10:30 Patient Instructions: High Blood Pressure in Adults Add. Discharge Instructions: Please continue to take home blood pressure medications as directed. You may temporarily increase metoprolol to 50mg twice daily i fyour blood pressure remains high. Follow up with your PCP in 1 week if blood pressure remains elevated. Return to the ED if new or worsening symptoms. All discharge instructions reviewed with patient and/or family. Voiced understanding. JOAN PANDYA DO Mar 15, 2019 10:29
--- OUTSIDE RECORDS SUMMARY | 2019-03-15 10:37 | XMS REPORT ---
Author Author ROSCOE STEFANYWAYNE Argueta [facility] Address [address] [place] [address] Care Team Providers Care Tire Installer Name Role Phone SELFSURYSTEFANY Unavailable PROBLEMS Type Condition ICD9-CM Code [id number] Code Onset Dates Condition Status SNOMED Code Problem Atrial fibrillation with slow ventricular response I48.91 Sep, Active 71449518 Problem Acute systolic heart failure, first episode I50.21 Sep, Active 528513299 Problem Symptomatic bradycardia R00.1 Nov, Active 25320708 Problem Basal cell carcinoma of skin of face C44.310 January, Active 616457125 Problem Hypotension due to drugs I95.2 Nov, Active 899530501 Problem Impaired fasting glucose R73.01 Oct, Active 448540176 Problem Gastroesophageal reflux disease without esophagitis K21.9 Apr, Active 321537602 Problem CKD (chronic kidney disease) stage 3, GFR 30-59 ml/min N18.3 Sep, Active 372527470 Problem Obesity E66.9 Apr, Active 737337473 Problem Hyperlipemia E78.5 Apr, Active 24909386 Problem Essential hypertension I10 Active 20625116 Problem Dupuytren's contracture of right hand M72.0 Active 84629000102573628 Problem Hyperglycemia R73.9 Oct, Active 45048068 Problem 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 Apr, Active 36284007 Problem Do not resuscitate Z66 Active 586474931 Problem Atrial fibrillation with rapid ventricular response I48.91 Sep, Active 908059280320469 Problem Orthostasis I95.1 Nov, Active 64379964 Problem Renal insufficiency N28.9 Sep, Active 856780605 Problem alf (current) use of anticoagulants Z79.01 Active 569240590 Problem OAB (overactive bladder) N32.81 Active 757967211 Problem Dupuytren contracture M72.0 Active 855189402 ALLERGIES No Information ENCOUNTERS Encounter Location Date Diagnosis [facility] [address] [address] Feb, Dupuytren's contracture of right hand M72.0 ; Atrial fibrillation with rapid ventricular response I48.91 and Hematoma T14.8XXA [address] [address] January, Contusion of right upper extremity, subsequent encounter S40.021D and Atrial fibrillation with rapid ventricular response I48.[address] [address] January, Atrial fibrillation with rapid ventricular response I48.91 [facility] [address] [place] [address] January, Hematoma T14.8XXA [facility] [address] [facility] [id number] [address] January, [facility] [address] [address] Dec, [address] [address] Dec, [address] [address] Dec, Atrial fibrillation with rapid ventricular response I48.[address] [address] Dec, Atrial fibrillation with rapid ventricular response I48.[address] [address] Dec, DNR (do not resuscitate) Z66 ; 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 treater helper (current) use of anticoagulants Z79.01 ; Dupuytren contracture M72.0 and OAB (overactive bladder) N32.81 [facility] [address] [place] [address] Dec, [address] [address] Nov, termite treater helper (current) use of anticoagulants Z79.[address] [address] Nov, termite treater helper (current) use of anticoagulants Z79.01 [facility] [address] [address] 14 Oct, 2018 termite treater helper (current) use of anticoagulants Z79.01 [facility] [address] [address] 14 Oct, 2018 alf (current) use of anticoagulants Z79.01 [facility] [id number] [address] Sep, [facility] [id number] [address] Aug, [facility] [id number] [address] Aug, [facility] [address] [address] Aug, [facility] [id number] [address] Aug, [facility] [id number] [address] Jul, [facility] [id number] [address] Jul, [facility] [address] [address] Jun, [facility] [id number] [address] May, [facility] [address] [address] May, IMMUNIZATIONS No Known Immunizations SOCIAL HISTORY Never Assessed REASON FOR VISIT Lab (walk-in) PLAN OF CARE VITAL SIGNS MEDICATIONS Unknown Medications RESULTS Name Result Date Reference Range INR (IN HOUSE) INR 2.7 1.10 - 3.30 PREVIOUS INR 3.2 CURRENT COUMADIN DOSE NEW COUMADIN DOSE Lot # [id number] Exp date 01/2020 PROCEDURES Procedure Date Ordered Result Body Site PROTHROMBIN TIME November 18, 2018 INSTRUCTIONS MEDICATIONS ADMINISTERED No Known Medications MEDICAL (GENERAL) HISTORY Type Description Date Medical History Hyperlipemia Medical History Obesity Medical History Hyperglycemia Medical History Atrial fibrillation with rapid ventricular response Medical History Gastroesophageal reflux disease without esophagitis Medical History CKD (chronic kidney disease) stage 3, GFR 30-59 ml/min Medical History Reactive depression (situational) Medical History Symptomatic bradycardia Medical History Renal insufficiency Medical History Atrial fibrillation with slow ventricular response Medical History Acute systolic heart failure, first episode Medical History alf (current) use of anticoagulants Medical History Hypotension due to drugs Medical History Do not resuscitate Surgical History ankle surgery Surgical History appendectomy Surgical History tonsillectomy and adenoidectomy Surgical History hysterectomy Hospitalization History see surgeries
--- OUTSIDE RECORDS SUMMARY | 2019-03-15 10:37 | XMS REPORT ---
Author Author ROSCOE STEFANYWAYNE Argueta [facility] Address [address] [place] [address] Care Team Providers Care Formula Clerk Name Role Phone SELFSURYSTEFANY Unavailable PROBLEMS Type Condition ICD9-CM Code [id number] Code Onset Dates Condition Status SNOMED Code Problem Atrial fibrillation with slow ventricular response I48.91 Sep, Active 25451067 Problem Acute systolic heart failure, first episode I50.21 Sep, Active 616232594 Problem Symptomatic bradycardia R00.1 Nov, Active 15274189 Problem Basal cell carcinoma of skin of face C44.310 January, Active 970850362 Problem Hypotension due to drugs I95.2 Nov, Active 664006355 Problem Impaired fasting glucose R73.01 Oct, Active 135602068 Problem Gastroesophageal reflux disease without esophagitis K21.9 Apr, Active 910052738 Problem CKD (chronic kidney disease) stage 3, GFR 30-59 ml/min N18.3 Sep, Active 839407351 Problem Obesity E66.9 Apr, Active 475998931 Problem Hyperlipemia E78.5 Apr, Active 12052757 Problem Essential hypertension I10 Active 90236206 Problem Dupuytren's contracture of right hand M72.0 Active 39842136345976538 Problem Hyperglycemia R73.9 Oct, Active 80696520 Problem 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 Apr, Active 72470686 Problem Do not resuscitate Z66 Active 321548408 Problem Atrial fibrillation with rapid ventricular response I48.91 Sep, Active 814232952041558 Problem Orthostasis I95.1 Nov, Active 92989569 Problem Renal insufficiency N28.9 Sep, Active 286253825 Problem care home (current) use of anticoagulants Z79.01 Active 976740868 Problem OAB (overactive bladder) N32.81 Active 813822804 Problem Dupuytren contracture M72.0 Active 972799134 ALLERGIES No Information ENCOUNTERS Encounter Location Date Diagnosis [facility] [address] [address] Feb, Dupuytren's contracture of right hand M72.0 ; Atrial fibrillation with rapid ventricular response I48.91 and Hematoma T14.8XXA [address] [address] January, Contusion of right upper extremity, subsequent encounter S40.021D and Atrial fibrillation with rapid ventricular response I48.[address] [address] January, Atrial fibrillation with rapid ventricular response I48.91 [facility] [address] [place] [address] January, Hematoma T14.8XXA [facility] [place] [address] [facility] [id number] [address] January, [facility] [address] [address] Dec, [address] [address] Dec, [address] [address] Dec, Atrial fibrillation with rapid ventricular response I48.[address] [address] Dec, Atrial fibrillation with rapid ventricular response I48.[address] [address] Dec, DNR (do not resuscitate) Z66 ; manager long term care (current) use of anticoagulants Z79.01 ; Dupuytren contracture M72.0 and OAB (overactive bladder) N32.81 [facility] [address] [place] [address] Dec, [address] [address] Nov, manager long term care (current) use of anticoagulants Z79.[address] [address] Nov, manager long term care (current) use of anticoagulants Z79.01 [facility] JOSE MANUEL [address] [address] 14 Oct, 2018 manager long term care (current) use of anticoagulants Z79.[address] [address] 14 Oct, 2018 care home (current) use of anticoagulants Z79.01 [facility] [place] [address] [address] Sep, [facility] [place] [address] [address] Aug, [facility] [place] [address] [address] Aug, [facility] [place] [id number] [address] Aug, [facility] [place] [address] [address] Aug, [facility] [place] [id number] [address] Jul, [facility] [place] [address] [address] Jul, [facility] [place] [address] [address] Jun, [facility] [place] [address] [address] May, [facility] [place] [id number] [place] [address] May, IMMUNIZATIONS No Known Immunizations SOCIAL HISTORY Never Assessed REASON FOR VISIT protime order PLAN OF CARE VITAL SIGNS MEDICATIONS Unknown Medications RESULTS No Results PROCEDURES No Known procedures INSTRUCTIONS MEDICATIONS ADMINISTERED No Known Medications MEDICAL [...] systolic heart failure, first episode Medical History manager long term care (current) use of anticoagulants Medical History Hypotension due to drugs Medical History Do not resuscitate Surgical History ankle surgery Surgical History appendectomy Surgical History tonsillectomy and adenoidectomy Surgical History hysterectomy Hospitalization History see surgeries
--- OUTSIDE RECORDS SUMMARY | 2019-03-15 10:37 | XMS REPORT | Continuity of Care Document ---
Author Organization Unknown Address Unknown Allergies Active Description Code Type Severity Reaction Onset Reported/Identified Relationship to Patient Clinical Status Yes No Known Drug Allergies [id number] Drug Allergy Unknown N/A 04/23/2018 Medications There is no data. Problems Date Dx Coded Attending Type Code Diagnosis Diagnosed By 03/28/2018 Becki HARRISON MD, Ot I48.91 UNSPECIFIED ATRIAL FIBRILLATION 03/28/2018 Becki HARRISON MD, Ot I48.91 UNSPECIFIED ATRIAL FIBRILLATION 03/29/2018 Becki HARRISON MD, Ot I48.91 UNSPECIFIED ATRIAL FIBRILLATION 03/29/2018 Becki HARRISON MD Ot I48.91 UNSPECIFIED ATRIAL FIBRILLATION 03/29/2018 Becki HARRISON MD Ot E66.9 OBESITY, UNSPECIFIED 03/29/2018 Becki HARRISON MD Ot I10 ESSENTIAL (PRIMARY) HYPERTENSION 03/29/2018 Becki HARRISON MD Ot I48.91 UNSPECIFIED ATRIAL FIBRILLATION 03/29/2018 Becki HARRISON MD Ot R42 DIZZINESS AND GIDDINESS 03/29/2018 Becki HARRISON MD Ot R55 SYNCOPE AND COLLAPSE 04/26/2018 VINH TALBERT MD Ot D64.9 ANEMIA, UNSPECIFIED 04/26/2018 VINH TALBERT MD Ot I10 ESSENTIAL (PRIMARY) HYPERTENSION 04/26/2018 VINH TALBERT MD Ot I48.0 PAROXYSMAL ATRIAL FIBRILLATION 04/26/2018 VINH TALBERT MD Ot I95.1 ORTHOSTATIC HYPOTENSION 04/26/2018 VINH TALBERT MD Ot N39.0 URINARY TRACT INFECTION, SITE NOT SPECIF 04/26/2018 VINH TALBERT MD Ot 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.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 04/26/2018 VINH TALBERT MD Ot S82.62XA DISP FX OF LATERAL MALLEOLUS OF LEFT FIB 04/26/2018 VINH TALBERT MD Ot W19.XXXA UNSPECIFIED FALL, INITIAL ENCOUNTER 04/26/2018 NITISH LARSON, VINH Coello Ot Y92.[address] APARTMENT PLACE 04/26/2018 VINH TALBERT MD Ot 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 05/03/2018 DEDE PEREZ MD Ot D64.9 ANEMIA, UNSPECIFIED 05/03/2018 DEDE PEREZ MD Ot I10 ESSENTIAL (PRIMARY) HYPERTENSION 05/03/2018 DEDE PEREZ MD Ot I48.0 PAROXYSMAL ATRIAL FIBRILLATION 05/03/2018 DEDE PEREZ MD E Ot I95.1 ORTHOSTATIC HYPOTENSION 05/03/2018 DEDE PEREZ MD Ot N39.0 URINARY TRACT INFECTION, SITE NOT SPECIF 05/03/2018 DEDE PEREZ MD Ot S82.392D OTH FX LOWER END OF L TIBIA, SUBS FOR CL 05/03/2018 DEDE PEREZ MD Ot S82.832D OTH FX UPR LOW END L FIBULA, SUBS FOR 05/03/2018 DEDE PEREZ MD Ot W19.XXXD UNSPECIFIED FALL, SUBSEQUENT ENCOUNTER 05/03/2018 DEDE PEREZ MD Ot Y92.[address] IN APARTMENT PLACE 05/03/2018 DEDE PEREZ MD Ot Z16.12 EXTENDED SPECTRUM BETA LACTAMASE (ESBL) 05/03/2018 DEDE PEREZ MD Ot Z79.01 FPC (CURRENT) USE OF ANTICOAGULANT 05/10/2018 DEDE PEREZ MD Ot D64.9 ANEMIA, UNSPECIFIED 05/10/2018 DEDE PEREZ MD Ot I10 ESSENTIAL (PRIMARY) HYPERTENSION 05/10/2018 DEDE PEREZ MD Ot I48.0 PAROXYSMAL ATRIAL FIBRILLATION 05/10/2018 DEDE PEREZ MD E Ot I95.1 ORTHOSTATIC HYPOTENSION 05/10/2018 DEDE PEREZ MD E Ot L89.522 PRESSURE ULCER OF LEFT ANKLE, STAGE 2 05/10/2018 DEDE PEREZ MD E Ot N39.0 URINARY TRACT INFECTION, SITE NOT SPECIF 05/10/2018 DEDE PEREZ MD Ot S82.392D OTH FX LOWER END OF L TIBIA, SUBS FOR CL 05/10/2018 DEDE PEREZ MD Ot S82.832D OTH FX UPR LOW END L FIBULA, SUBS FOR 05/10/2018 DEDE PEREZ MD Ot W19.XXXD UNSPECIFIED FALL, SUBSEQUENT ENCOUNTER 05/10/2018 DEDE PEREZ MD Ot Y92.[address] IN APARTMENT PLACE 05/10/2018 DEDE PEREZ MD, Ot Z16.12 EXTENDED SPECTRUM BETA LACTAMASE (ESBL) 05/10/2018 DEDE PEREZ MD, Ot 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 11/21/2018 HAYDEN HARRISON MD, Ot K57.30 DVRTCLOS OF LG INT W/O PERFORATION OR AB 11/21/2018 HAYDEN HARRISON MD, Ot N18.3 CHRONIC KIDNEY DISEASE, STAGE 3 (MODERAT 12/05/2018 MARIA C NAJERA MD, Ot I10 ESSENTIAL (PRIMARY) HYPERTENSION 12/05/2018 MARIA C NAJERA MD, Ot I48.91 UNSPECIFIED ATRIAL FIBRILLATION 12/05/2018 MARIA C NAJERA MD, Ot S51.812A LACERATION WITHOUT FOREIGN BODY OF LEFT 12/05/2018 MARIA C NAJERA MD, Ot W27.8XXA CONTACT WITH OTHER NONPOWERED HAND TOOL, 12/05/2018 MARIA C NAJERA MD, Ot Z23 ENCOUNTER FOR IMMUNIZATION 12/05/2018 MARIA C NAJERA MD, Ot Z79.01 FPC (CURRENT) USE OF ANTICOAGULANT 12/05/2018 MARIA C NAJERA MD Ot Z82.49 FAMILY HX OF ISCHEM HEART DIS AND OTH DI 12/05/2018 MARIA C NAJERA MD, Ot Z87.440 PERSONAL HISTORY OF URINARY (TRACT) INFE 12/05/2018 MARIA C NAJERA MD Ot Z90.49 ACQUIRED ABSENCE OF OTHER SPECIFIED PART 12/05/2018 MARIA C NAJERA MD, Ot Z90.710 ACQUIRED ABSENCE OF BOTH CERVIX AND UTER 12/05/2018 MARIA C NAJERA MD, Ot Z90.89 ACQUIRED ABSENCE OF OTHER ORGANS 12/05/2018 MARIA C NAJERA MD, Ot Z91.81 HISTORY OF FALLING 12/05/2018 MARIA C NAJERA MD Ot Z96.642 PRESENCE OF LEFT ARTIFICIAL HIP JOINT 12/05/2018 MARIA C NAJERA MD Ot Z98.890 OTHER SPECIFIED POSTPROCEDURAL STATES 12/06/2018 HAYDEN HARRISON MD, Ot K57.30 DVRTCLOS OF LG INT W/O PERFORATION OR AB 12/06/2018 HAYDEN HARRISON MD, Ot N18.3 CHRONIC KIDNEY DISEASE, STAGE 3 (MODERAT 12/09/2018 MARIA C NAJERA MD, Ot I10 ESSENTIAL (PRIMARY) HYPERTENSION 12/09/2018 MARIA C NAJERA MD, Ot I48.91 UNSPECIFIED ATRIAL FIBRILLATION 12/09/2018 MARIA C NAJERA MD, Ot S51.812A LACERATION WITHOUT FOREIGN BODY OF LEFT 12/09/2018 MARIA C NAJERA MD, Ot W27.8XXA CONTACT WITH OTHER NONPOWERED HAND TOOL, 12/09/2018 MARIA C NAJERA MD, Ot Z23 ENCOUNTER FOR IMMUNIZATION 12/09/2018 MARIA C NAJERA MD, Ot Z79.01 FPC (CURRENT) USE OF ANTICOAGULANT 12/09/2018 MARIA C NAJERA MD, Ot Z82.49 FAMILY HX OF ISCHEM HEART DIS AND OTH DI 12/09/2018 MARIA C NAJERA MD, Ot Z87.440 PERSONAL HISTORY OF URINARY (TRACT) INFE 12/09/2018 MARIA C NAJERA MD, Ot Z90.49 ACQUIRED ABSENCE OF OTHER SPECIFIED PART 12/09/2018 MARIA C NAJERA MD, Ot Z90.710 ACQUIRED ABSENCE OF BOTH CERVIX AND UTER 12/09/2018 MARIA C NAJERA MD, Ot Z90.89 ACQUIRED ABSENCE OF OTHER ORGANS 12/09/2018 MARIA C NAJERA MD, Ot Z91.81 HISTORY OF FALLING 12/09/2018 MARIA C NAJERA MD, Ot Z96.642 PRESENCE OF LEFT ARTIFICIAL HIP JOINT 12/09/2018 MARIA C NAJERA MD, Ot Z98.890 OTHER SPECIFIED POSTPROCEDURAL STATES Procedures Code Description Performed By Performed On [id number] REPOSITION LEFT TIBIA WITH INT FIX, OPEN 04/24/2018 [id number] REPOSITION LEFT FIBULA WITH INT FIX, OPE 04/24/2018 Results Test Result Range PT panel in platelet poor plasma by coagulation assay - 04/30/18 06:50 Prothrombin time (PT) in platelet poor plasma by coagulation assay 17.8 s 12.2-14.7 INR in platelet poor plasma or blood by coagulation assay 1.5 0.8-1.4 PT panel in platelet poor plasma by coagulation assay - 05/02/18 05:20 Prothrombin time (PT) in platelet poor plasma by coagulation assay 17.9 s 12.2-14.7 INR in platelet poor plasma or blood by coagulation assay 1.5 0.8-1.4 PT panel in platelet poor plasma by coagulation assay - 05/03/18 05:35 Prothrombin time (PT) in platelet poor plasma by coagulation assay 18.1 s 12.2-14.7 INR in platelet poor plasma or blood by coagulation assay 1.5 0.8-1.4 PT panel in platelet poor plasma by coagulation assay - 05/05/18 05:40 Prothrombin time (PT) in platelet poor plasma by coagulation assay 18.6 s 12.2-14.7 INR in platelet poor plasma or blood by coagulation assay 1.6 0.8-1.4 PT panel in platelet poor plasma by coagulation assay - 05/06/18 05:45 Prothrombin time (PT) in platelet poor plasma by coagulation assay 20.4 s 12.2-14.7 INR in platelet poor plasma or blood by coagulation assay 1.7 0.8-1.4 PT panel in platelet poor plasma by coagulation assay - 05/07/18 06:46 Prothrombin time (PT) in platelet poor plasma by coagulation assay 22.9 s 12.2-14.7 INR in platelet poor plasma or blood by coagulation assay 2.0 0.8-1.4 PT panel in platelet poor plasma by coagulation assay - 05/08/18 06:58 Prothrombin time (PT) in platelet poor plasma by coagulation assay 24.0 s 12.2-14.7 INR in platelet poor plasma or blood by coagulation assay 2.1 0.8-1.4 PT panel in platelet poor plasma by coagulation assay - 05/09/18 07:22 Prothrombin time (PT) in platelet poor plasma by coagulation assay 22.0 s 12.2-14.7 INR in platelet poor plasma or blood by coagulation assay 1.9 0.8-1.4 PT panel in platelet poor plasma by coagulation assay - 05/10/18 07:35 Prothrombin time (PT) in platelet poor plasma by coagulation assay 21.1 s 12.2-14.7 INR in platelet poor plasma or blood by coagulation assay 1.8 0.8-1.4 ALDOSTERONE, LC/MS/MS - 10/31/18 09:30 ALDOSTERONE, LC/MS/MS 6 ng/dL NR METANEPHRINES FREE, PLASMA - 10/31/18 09:30 METANEPHRINE, FREE 31 pg/mL <=57 NORMETANEPHRINE, FREE 132 pg/mL <=148 TOTAL, FREE (MN+NMN) 163 pg/mL <=205 COPY RECEIVED FROM: - 10/31/18 09:30 COPY RECEIVED FROM: NRG Encounters ACCT No. Visit Date/Time Discharge Status Pt. Type Provider Facility Loc./Unit Complaint [id number] 02/14/2019 10:00:00 02/14/2019 23:59:59 C[id number] 10/31/2018 09:30:00 Document Registration [id number] 12/05/2018 16:18:00 12/05/2018 17:22:00 DIS Emergency REINALDO LARSON, MARIA C Coello [facility] ER FS LT ARM LAC [id number] 11/14/2018 12:10:00 11/14/2018 23:59:59 CLS Outpatient CHRISTY LARSON, HAYDEN Monreal [facility] RAD CHRONIC KIDNEY DISEASE STAGE 3 [id number] 04/26/2018 10:15:00 05/10/2018 10:30:00 DIS Inpatient CHRIS LARSON, DEDE Coats [facility] IRF LEFT TIB-FIB FRACTURE [id number] 04/23/2018 19:20:00 04/26/2018 10:28:00 DIS Inpatient NITISH LARSON, VINH Coello [facility] 4TH SYNCOPE COLLAPSE,L TIB FIB FX [id number] 03/28/2018 09:56:00 03/28/2018 23:59:59 CLS Outpatient CHRISTY LARSON, Becki SALGADO [facility] CARD ATRIAL FIBRILLATION,DIZZINESS,HTN [id number] 04/23/2018 18:04:00 Document Registration
[2019-03-15] MEDS ORDERED: METO50TA15 PO (13:07)
[2019-03-15] MEDS ORDERED: FURO40TA4 PO (13:10)
[2019-03-15] MEDS ORDERED: TOLTA4 PO (13:10)
[2019-03-15] MEDS ORDERED: LOSA100T57 PO (13:10)
== END 2019-03-15 10:29 | disposition home or self-care (01) ==
LOC: EDUNIT# 09:57 → ER FS 09:58
DX: I10 Essential (primary) hypertension (principal); I48.91 Unspecified atrial fibrillation; Z87.81 Personal history of (healed) traumatic fracture; Z79.01 Long term (current) use of anticoagulants; Z90.49 Acquired absence of other specified parts of digestive tract; Z90.710 Acquired absence of both cervix and uterus; Z90.89 Acquired absence of other organs; Z82.49 Family history of ischemic heart disease and other diseases of the circulatory system
CPT/HCPCS: 99283

== ENCOUNTER 2019-08-14 15:20 | Emergency (ER) | payer MEDICARE, OTHER ==
[~2019-08-14] VITALS: Ht 160 cm; Wt 85.2 kg
[~2019-08-14 15:20] MED LIST changes: +FURO40TA4 PO; +LOSA100T57 PO; -OMEP20CA12; -OMEP20CA12 PO; +OMEP20CA13; +OMEP20CA13 PO; +TOLTA4 PO
--- NOTE | 2019-08-14 15:40 | ED Hip Pain/Injury ---
General Chief Complaint: Hip/Pelvic Problems Stated Complaint: POST FALL PAIN IN HIP Source: patient Exam Limitations: no limitations History of Present Illness Date Seen by Provider: Aug 14, 2019 Time Seen by Provider: 15:25 Initial Comments The patient is a pleasant 74-year-old female presents for evaluation of right buttock pain. She states that she fell 3 weeks ago onto her buttocks and has been having pain in the right hip and buttock since that time. She is able to drive herself to the emergency Department and ambulate into the emergency Department without assistance. She states that every day she wakes up thinking it will be better but it is not. She denies any other injuries from the fall or any other complaints at this time. Timing/Duration: constant Severity: moderate Location: hip (R) Method of Injury: fell Modifying Factors: Improves With Movement (makes it slightly worse) Associated Symptoms: denies symptoms Allergies and Home Medications Allergies Coded Allergies: No Known Drug Allergies (Unverified , 04/23/18) Home Medications Citalopram Hydrobromide 40 Mg Tablet, 40 MG PO DAILY, (Reported) Furosemide 40 Mg Tablet, 40 MG PO NEEDED, (Reported) Losartan Potassium 100 Mg Tablet, 100 MG PO DAILY, (Reported) Magnesium Oxide 400 Mg Tablet, 400 MG PO DAILY, (Reported) Metoprolol Tartrate 50 Mg Tablet, 25 MG PO BID, (Reported) Omeprazole 20 Mg Capsule.dr, 20 MG PO DAILY, (Reported) Tolterodine Tartrate 4 Mg Cap, 4 MG PO DAILY, (Reported) Warfarin Sodium 2 Mg Tablet, 4 MG PO Mo,Fr, (Reported) Warfarin Sodium 2 Mg Tablet, 3 MG PO SuTuWeThSa, (Reported) Patient Home Medication List Home Medication List Reviewed: Yes Review of Systems Constitutional: no symptoms reported EENTM: no symptoms reported Respiratory: no symptoms reported Cardiovascular: no symptoms reported Gastrointestinal: no symptoms reported Genitourinary: no symptoms reported Musculoskeletal: no symptoms reported Skin: no symptoms reported Psychiatric/Neurological: No Symptoms Reported All Other Systems Reviewed Negative Unless Noted: Yes Past Oxgmkxh-Akbubp-Eoupbj Hx Past Med/Social Hx: Reviewed Nursing Past Med/Soc Hx Patient Social History 2nd Hand Smoke Exposure: No Recent Foreign Travel: No Contact w/Someone Who Travel: No Recent Hopitalizations: Yes (CARDIOCONVERTED IN SEPTEMBER FOR AFIB) Immunizations Up To Date Tetanus Booster (TDap): Unknown Date of Pneumonia Vaccine: Sep 06, 2017 Seasonal Allergies Seasonal Allergies: No Past Medical History Surgeries: Yes (Left THR) Adenoidectomy, Appendectomy, Hysterectomy, Orthopedic, Tonsillectomy Respiratory: No Cardiac: Yes Atrial Fibrillation, Hypertension 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 0.6oz. 83.869696lo; 34.0 BMI Method:Stated General Appearance: No Apparent Distress, WD/WN HEENT: PERRL/EOMI Neck: Full Range of Motion, Non Tender, Supple Cardiovascular: Regular Rate, Rhythm, No Edema Respiratory: Chest Non Tender, Lungs Clear, Normal Breath Sounds, No Accessory Muscle Use, No Respiratory Distress Gastrointestinal: Normal Bowel Sounds, Non Tender, Soft Back: Normal Inspection, No CVA Tenderness, No Vertebral Tenderness Extremity: Normal Capillary Refill, No Calf Tenderness, Other (mild right lateral/posterior right hip/pelvis ttp, pelvis stable, FROM right hip, CMS intact distally) Neurologic/Psychiatric: Alert, Oriented x3, No Motor/Sensory Deficits, Normal 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 The patient is stable for discharge at this time. Advised follow-up with her PCP in the next 1-2 days and return to the emergency Department immediately for new or worsening symptoms. The patient expresses verbal understanding and agreement with the plan and is stable for discharge. Diagnostic Imaging Diagonstic Imaging: Xray Comments [facility] POS [place] POS NAME: CARLA HARRIS REC#: [id number] PT STATUS: REG ER : 1945 PHYSICIAN: KHALIDA KAY DO ADMIT DATE: 08/14/19/ER FS Draft POSDate of Exam:08/14/19 PELVIS WITH RIGHT HIP 2-3 VIEW INDICATION: Fall. Pain. COMPARISON: None. FINDINGS: AP view of the pelvis and two dedicated radiographic views of the right hip were obtained. Expected postsurgical changes of previous total left hip replacement are noted. There is no fracture, dislocation, bone destruction, or radiopaque foreign body. The visualized pelvic osseous structures and the SI joints demonstrate no acute fracture or dislocation. There is no bone destruction or radiopaque foreign body. The surrounding soft tissue structures are unremarkable. IMPRESSION: 1. No acute fracture or dislocation in the pelvis or right hip. Dictated on workstation # [id number] Dict: 08/14/19 1605 Trans: 08/14/19 1608 [id number] Interpreted by: KRISS BROWN MD Electronically signed by: Departure Impression Primary Impression: Contusion of hip Disposition: 01 HOME, SELF-CARE Condition: Stable Departure-Patient Inst. Decision time for Depature: 16:19 Referrals: STEFANY MALHOTRA MD (PCP/Family) Primary Care Physician Patient Instructions: Contusion (DC), Preventing Falls in the Older Adult Add. Discharge Instructions: Take the prescribed medicine as directed. Follow-up with your doctor in the next 1-2 days. Return to the emergency Department immediately for new or worsening symptoms. Scripts Hydrocodone/Acetaminophen ([place] 5-325 Tablet) 1 Each Tablet 1 TAB PO Q4-6HR for Pain MDD 10 TABS for 5 Days, #15 TAB Prov: KHALIDA AKY DO 08/14/19 KHALIDA KAY DO Aug 14, 2019 15:40 POS
--- NOTE | 2019-08-14 16:08 | Diagnostic Imaging Report ---
INDICATION: Fall. Pain. COMPARISON: None. FINDINGS: AP view of the pelvis and two dedicated radiographic views of the right hip were obtained. Expected postsurgical changes of previous total left hip replacement are noted. There is no fracture, dislocation, bone destruction, or radiopaque foreign body. The visualized pelvic osseous structures and the SI joints demonstrate no acute fracture or dislocation. There is no bone destruction or radiopaque foreign body. The surrounding soft tissue structures are unremarkable. IMPRESSION: 1. No acute fracture or dislocation in the pelvis or right hip. Dictated by: Dictated on workstation # [id number]
[2019-08-14] MEDS ORDERED: HYDR-4226 PO (16:21)
[2019-08-14 16:30] VITALS: BP 135/79
== END 2019-08-14 16:30 | disposition home or self-care (01) ==
LOC: EDUNIT# 15:20 → ER FS 15:22
DX: S70.01XA Contusion of right hip, initial encounter (principal); I10 Essential (primary) hypertension; I48.91 Unspecified atrial fibrillation; Z79.01 Long term (current) use of anticoagulants; Z90.89 Acquired absence of other organs; Z90.49 Acquired absence of other specified parts of digestive tract; Z90.710 Acquired absence of both cervix and uterus; Z87.440 Personal history of urinary (tract) infections; Z96.642 Presence of left artificial hip joint; Z82.49 Family history of ischemic heart disease and other diseases of the circulatory system; W19.XXXA Unspecified fall, initial encounter
CPT/HCPCS: 73502

== ENCOUNTER 2019-12-14 00:55 | Emergency (ER) | payer MEDICARE, OTHER ==
[~2019-12-14] VITALS: Ht 152.6 cm; Wt 83.8 kg
[~2019-12-14 00:55] MED LIST changes: +ACHYD1T PO; -DILT240C PO; +DILT240C91 PO; -HYDR-3820 PO; +HYDR-4226 PO; -OMEP20CA13; -OMEP20CA13 PO; +OMEP20CA18; +OMEP20CA18 PO
--- OUTSIDE RECORDS SUMMARY | 2019-12-14 01:03 | XMS REPORT | Continuity of Care Document ---
Author Organization Unknown Address Unknown Phone Unavailable Allergies Active Description Code Type Severity Reaction Onset Reported/Identified Relationship to Patient Clinical Status Yes No Known Drug Allergies [id number] Drug Allergy Unknown N/A 04/23/2018 Medications There is no data. Problems Date Dx Coded Attending Type Code Diagnosis Diagnosed By 03/28/2018 Becki HARRISON MD Ot I48.91 UNSPECIFIED ATRIAL FIBRILLATION 03/28/2018 Becki HARRISON MD Ot I48.91 UNSPECIFIED ATRIAL FIBRILLATION 03/29/2018 Becki HARRISON MD Ot I48.91 UNSPECIFIED ATRIAL FIBRILLATION 03/29/2018 Becki HARRISON MD Ot I48.91 UNSPECIFIED ATRIAL FIBRILLATION 03/29/2018 Becki HARRISON MD Ot E66 .9 OBESITY, UNSPECIFIED 03/29/2018 Becki HARRISON MD Ot I10 ESSENTIAL (PRIMARY) HYPERTENSION 03/29/2018 Becki HARRISON MD Ot I48.91 UNSPECIFIED ATRIAL FIBRILLATION 03/29/2018 Becki HARRISON MD Ot R42 DIZZINESS AND GIDDINESS 03/29/2018 Becki HARRISON MD Ot R55 SYNCOPE AND COLLAPSE 04/26/2018 VINH TALBERT MD Ot D64. 9 ANEMIA, UNSPECIFIED 04/26/2018 VINH TALBERT MD Ot I10 ESSENTIAL (PRIMARY) HYPERTENSION 04/26/2018 VINH TALBERT MD Ot I48. 0 PAROXYSMAL ATRIAL FIBRILLATION 04/26/2018 VINH TALBERT MD Ot I95. 1 ORTHOSTATIC HYPOTENSION 04/26/2018 VINH TALBERT MD Ot N39. 0 URINARY TRACT INFECTION, SITE NOT SPECIF 04/26/2018 VINH TALBERT MD Ot S82.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 04/26/2018 VINH TALBERT MD Ot S82.62XA DISP FX OF LATERAL MALLEOLUS OF LEFT FIB 04/26/2018 VINH TALBERT MD Ot W19.XXXA UNSPECIFIED FALL, INITIAL ENCOUNTER 04/26/2018 VINH TALBERT MD Ot Y92.[address] IN APARTMENT PLACE 04/26/2018 VINH TALBERT MD Ot Z79. 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 05/10/2018 DEDE PEREZ MD Ot D64.9 ANEMIA, UNSPECIFIED 05/10/2018 DEDE PEREZ MD E Ot I10 ESSENTIAL (PRIMARY) HYPERTENSION 05/10/2018 DEDE PEREZ MD E Ot I48.0 PAROXYSMAL ATRIAL FIBRILLATION 05/10/2018 DEDE PEREZ MD E Ot I95.1 ORTHOSTATIC HYPOTENSION 05/10/2018 DEDE PEREZ MD E Ot L89.5 22 PRESSURE ULCER OF LEFT ANKLE, STAGE 2 05/10/2018 DEDE PEREZ MD E Ot N39.0 URINARY TRACT INFECTION, SITE NOT SPECIF 05/10/2018 DEDE PEREZ MD Ot S82.392D OTH FX LOWER END OF L TIBIA, SUBS FOR CL 05/10/2018 DEDE PEREZ MD E Ot S82.832D OTH FX UPR LOW END L FIBULA, SUBS FOR 05/10/2018 DEDE PEREZ MD, Ot W19.XXXD UNSPECIFIED FALL, SUBSEQUENT ENCOUNTER 05/10/2018 DEDE PEREZ MD, Ot Y92.[address] IN APARTMENT PLACE 05/10/2018 DEDE PEREZ MD, Ot Z16.1 2 EXTENDED SPECTRUM BETA LACTAMASE (ESBL) 05/10/2018 DEDE PEREZ MD, Ot Z79.0 1 ASSISTED (CURRENT) USE OF ANTICOAGULANT 11/21/2018 HAYDEN HARRISON MD, Ot K57.30 DVRTCLOS OF LG INT W/O PERFORATION OR AB 11/21/2018 HAYDEN HARRISON MD, Ot N18 .3 CHRONIC KIDNEY DISEASE, STAGE 3 (MODERAT 12/05/2018 [...] 12/05/2018 MARIA C NAJERA MD, Ot 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 12/05/2018 MARIA C NAJERA MD, Ot Z82.49 FAMILY HX OF ISCHEM HEART DIS AND OTH DI 12/05/2018 MARIA C NAJERA MD, Ot Z87.440 PERSONAL HISTORY OF URINARY (TRACT) INFE 12/05/2018 MARIA C NAJERA MD, Ot Z90.49 ACQUIRED ABSENCE OF OTHER SPECIFIED PART 12/05/2018 MARIA C NAJERA MD, Ot Z90.710 ACQUIRED ABSENCE OF BOTH CERVIX AND UTER 12/05/2018 MARIA C NAJERA MD, Ot Z90.89 ACQUIRED ABSENCE OF OTHER ORGANS 12/05/2018 MARIA C NAJERA MD, Ot Z91.81 HISTORY OF FALLING 12/05/2018 MARIA C NAJERA MD, Ot Z96.642 PRESENCE OF LEFT ARTIFICIAL HIP JOINT 12/05/2018 REINALDO MD, MARIA C D Ot Z98.890 OTHER SPECIFIED POSTPROCEDURAL STATES 12/06/2018 HAYDEN HARRISON MD, Ot K57.30 DVRTCLOS OF LG INT W/O PERFORATION OR AB 12/06/2018 HAYDEN HARRISON MD, Ot N18 .3 CHRONIC KIDNEY DISEASE, STAGE 3 (MODERAT 12/09/2018 [...] 12/09/2018 MARIA C NAJERA MD, Ot Z79.01 ASSISTED (CURRENT) USE OF ANTICOAGULANT 12/09/2018 MARIA C NAJERA MD, Ot Z82.49 FAMILY HX OF ISCHEM HEART DIS AND OTH DI 12/09/2018 MARIA C NAJERA MD, Ot Z87.440 PERSONAL HISTORY OF URINARY (TRACT) INFE 12/09/2018 MARIA C NAJERA MD, Ot Z90.49 ACQUIRED ABSENCE OF OTHER SPECIFIED PART 12/09/2018 MARIA C NAJERA MD Ot Z90.710 ACQUIRED ABSENCE OF BOTH CERVIX AND UTER 12/09/2018 MARIA C NAJERA MD Ot Z90.89 ACQUIRED ABSENCE OF OTHER ORGANS 12/09/2018 MARIA C NAJERA MD Ot Z91.81 HISTORY OF FALLING 12/09/2018 MARIA C NAJERA MD Ot Z96.642 PRESENCE OF LEFT ARTIFICIAL HIP JOINT 12/09/2018 MARIA C NAJERA MD Ot Z98.890 OTHER SPECIFIED POSTPROCEDURAL STATES 03/15/2019 JOAN PANDYA DO, Ot I10 ESSENTIAL (PRIMARY) HYPERTENSION 03/15/2019 JOAN PANDYA DO, Ot I48.91 UNSPECIFIED ATRIAL FIBRILLATION 03/15/2019 JOAN PANDYA DO, Ot Z79.01 ASSISTED (CURRENT) USE OF ANTICOAGULANT 03/15/2019 JOAN PANDYA DO, Ot Z82.49 FAMILY HX OF ISCHEM HEART DIS AND OTH DI 03/15/2019 JOAN PANDYA DO, Ot Z87.81 PERSONAL HISTORY OF (HEALED) TRAUMATIC F 03/15/2019 JOAN PANDYA DO Ot Z90.49 ACQUIRED ABSENCE OF OTHER SPECIFIED PART 03/15/2019 JOAN PANDYA DO Ot Z90.710 ACQUIRED ABSENCE OF BOTH CERVIX AND UTER 03/15/2019 JOAN PANDYA DO Ot Z90.89 ACQUIRED ABSENCE OF OTHER ORGANS 03/21/2019 JOAN PANDYA DO Ot I10 ESSENTIAL (PRIMARY) HYPERTENSION 03/21/2019 JOAN PANDYA DO Ot I48.91 UNSPECIFIED ATRIAL FIBRILLATION 03/21/2019 JOAN PANDYA DO Ot Z79.01 ASSISTED (CURRENT) USE OF ANTICOAGULANT 03/21/2019 JOAN PANDYA DO Ot Z82.49 FAMILY HX OF ISCHEM HEART DIS AND OTH DI 03/21/2019 JOAN PANDYA DO Ot Z87.81 PERSONAL HISTORY OF (HEALED) TRAUMATIC F 03/21/2019 JOAN PANDYA DO Ot Z90.49 ACQUIRED ABSENCE OF OTHER SPECIFIED PART 03/21/2019 JOAN PANDYA DO Ot Z90.710 ACQUIRED ABSENCE OF BOTH CERVIX AND UTER 03/21/2019 JOAN PANDYA DO Ot Z90.89 ACQUIRED ABSENCE OF OTHER ORGANS 08/14/2019 RAHUL GAXIOLA DO Ot I10 ESSENTIAL (PRIMARY) HYPERTENSION 08/14/2019 RAHUL GAXIOLA DO Ot I48. 91 UNSPECIFIED ATRIAL FIBRILLATION 08/14/2019 RAHUL GAXIOLA DO Ot M25.551 PAIN IN RIGHT HIP 08/14/2019 RAHUL GAXIOLA DO Ot S70.01XA CONTUSION OF RIGHT HIP, INITIAL ENCOUNTE 08/14/2019 RAHUL GAXIOLA DO Ot W19.XXXA UNSPECIFIED FALL, INITIAL ENCOUNTER 08/14/2019 RAHUL GAXIOLA DO Ot Z79. 01 ASSISTED (CURRENT) USE OF ANTICOAGULANT 08/14/2019 RAHUL GAXIOLA DO Ot Z82. 49 FAMILY HX OF ISCHEM HEART DIS AND OTH DI 08/14/2019 RAHUL GAXIOLA DO Ot Z87.440 PERSONAL HISTORY OF URINARY (TRACT) INFE 08/14/2019 RAHUL GAXIOLA DO Ot Z90. 49 ACQUIRED ABSENCE OF OTHER SPECIFIED PART 08/14/2019 RAHUL GAXIOLA DO Ot Z90.710 ACQUIRED ABSENCE OF BOTH CERVIX AND UTER 08/14/2019 RAHUL GAXIOLA DO Ot Z90. 89 ACQUIRED ABSENCE OF OTHER ORGANS 08/14/2019 RAHUL GAXIOLA DO Ot Z96.642 PRESENCE OF LEFT ARTIFICIAL HIP JOINT 08/17/2019 RAHUL GAXIOLA DO Ot I10 ESSENTIAL (PRIMARY) HYPERTENSION 08/17/2019 RAHUL GAXIOLA DO Ot I48. 91 UNSPECIFIED ATRIAL FIBRILLATION 08/17/2019 RAHUL GAXIOLA DO Ot M25.551 PAIN IN RIGHT HIP 08/17/2019 RAHUL GAXIOLA DO Ot S70.01XA CONTUSION OF RIGHT HIP, INITIAL ENCOUNTE 08/17/2019 RAHUL GAXIOLA DO Ot W19.XXXA UNSPECIFIED FALL, INITIAL ENCOUNTER 08/17/2019 RAHUL GAXIOLA DO Ot Z79. 01 ASSISTED (CURRENT) USE OF ANTICOAGULANT 08/17/2019 RAHUL GAXIOLA DO Ot Z82. 49 FAMILY HX OF ISCHEM HEART DIS AND OTH DI 08/17/2019 RAHUL GAXIOLA DO Ot Z87.440 PERSONAL HISTORY OF URINARY (TRACT) INFE 08/17/2019 RAHUL GAXIOLA DO Ot Z90. 49 ACQUIRED ABSENCE OF OTHER SPECIFIED PART 08/17/2019 RAHUL GAXIOLA DO Ot Z90.710 ACQUIRED ABSENCE OF BOTH CERVIX AND UTER 08/17/2019 RAHUL GAXIOLA DO Ot Z90. 89 ACQUIRED ABSENCE OF OTHER ORGANS 08/17/2019 RAHUL GAXIOLA DO Ot Z96.642 PRESENCE OF LEFT ARTIFICIAL HIP JOINT Procedures Code Description Performed By Per formed On [id number] RE POSITION LEFT TIBIA WITH INT FIX, OPEN 04/24/2018 [id number] RE POSITION LEFT FIBULA WITH INT FIX, OPE 04/24/2018 Results Test Result Range PT panel in platelet poor plasma by coag ulation assay - 04/30/18 06:50 Prothrombin time (PT) in platelet poor plasma by coagu lation assay 17.8 s 12.2-14.7 INR in platelet poor plasma or blood by coagulation as say 1.5 0.8-1.4 PT panel in platelet poor plasma by coag ulation assay - 05/02/18 05:20 Prothrombin time (PT) in platelet poor plasma by coagu lation assay 17.9 s 12.2-14.7 INR in platelet poor plasma or blood by coagulation as say 1.5 0.8-1.4 PT panel in platelet poor plasma by coag ulation assay - 05/03/18 05:35 Prothrombin time (PT) in platelet poor plasma by coagu lation assay 18.1 s 12.2-14.7 INR in platelet poor plasma or blood by coagulation as say 1.5 0.8-1.4 PT panel in platelet poor plasma by coag ulation assay - 05/05/18 05:40 Prothrombin time (PT) in platelet poor plasma by coagu lation assay 18.6 s 12.2-14.7 INR in platelet poor plasma or blood by coagulation as say 1.6 0.8-1.4 PT panel in platelet poor plasma by coag ulation assay - 05/06/18 05:45 Prothrombin time (PT) in platelet poor plasma by coagu lation assay 20.4 s 12.2-14.7 INR in platelet poor plasma or blood by coagulation as say 1.7 0.8-1.4 PT panel in platelet poor plasma by coag ulation assay - 05/07/18 06:46 Prothrombin time (PT) in platelet poor plasma by coagu lation assay 22.9 s 12.2-14.7 INR in platelet poor plasma or blood by coagulation as say 2.0 0.8-1.4 PT panel in platelet poor plasma by coag ulation assay - 05/08/18 06:58 Prothrombin time (PT) in platelet poor plasma by coagu lation assay 24.0 s 12.2-14.7 INR in platelet poor plasma or blood by coagulation as say 2.1 0.8-1.4 PT panel in platelet poor plasma by coag ulation assay - 05/09/18 07:22 Prothrombin time (PT) in platelet poor plasma by coagu lation assay 22.0 s 12.2-14.7 INR in platelet poor plasma or blood by coagulation as say 1.9 0.8-1.4 PT panel in platelet poor plasma by coag ulation assay - 05/10/18 07:35 Prothrombin time (PT) in platelet poor plasma by coagu lation assay 21.1 s 12.2-14.7 INR in platelet poor plasma or blood by coagulation as say 1.8 0.8-1.4 ALDOSTERONE, LC/MS/MS - 10/31/18 09:30 ALDOSTERONE, LC/MS/MS 6 ng/dL NRG METANEPHRINES FREE, PLASMA - 10/31/18 09 :30 METANEPHRINE, FREE 31 pg/mL <=57 NORMETANEPHRINE, FREE 132 pg/mL <=148 TOTAL, FREE (MN+NMN) 163 pg/mL <=205 COPY RECEIVED FROM: - 10/31/18 09:30 COPY RECEIVED FROM: [facility] LIPID PANEL - 06/01/19 09:20 CHOLESTEROL, TOTAL TNP mg/dL NRG HDL CHOLESTEROL TNP mg/dL NRG TRIGLYCERIDES TNP mg/dL NRG LDL-CHOLESTEROL TNP mg/dL (calc) NRG CHOL/HDLC RATIO TNP (calc) NRG NON HDL CHOLESTEROL TNP mg/dL (calc) NRG MAGNESIUM SERUM - 06/01/19 09:20 MAGNESIUM TNP mg/dL NRG URIC ACID, SERUM - 06/01/19 09:20 URIC ACID TNP mg/dL NRG VITAMIN D, 25-H - 06/01/19 09:20 VITAMIN D,25-OH,TOTAL,IA TNP ng/mL NRG CBC w/MANUAL DIFF - 06/01/19 10:22 WHITE BLOOD CELL COUNT 5.9 Thousand/uL 3 .8-10.8 RED BLOOD CELL COUNT 3.52 Million/uL 3.8 0-5.10 HEMOGLOBIN 12.0 g/dL 11.7-15.5 HEMATOCRIT 35.4 % 35.0-45.0 MCV 100.6 fL 80.0-100.0 MCH 34.1 pg 27.0-33.0 MCHC 33.9 g/dL 32.0-36.0 RDW 13.8 % 11.0-15.0 PLATELET COUNT 243 Thousand/uL 140-400 MPV 10.5 fL 7.5-12.5 ABSOLUTE NEUTROPHILS 3068 cells/uL 1500- 7800 ABSOLUTE MONOCYTES 590 cells/uL 200-950 ABSOLUTE EOSINOPHILS 354 cells/uL 15-500 ABSOLUTE BASOPHILS 0 cells/uL 0-200 NEUTROPHILS 52.0 % NRG LYMPHOCYTES 30.0 % NRG MONOCYTES 10.0 % NRG EOSINOPHILS 6.0 % NRG BASOPHILS 0 % NRG ABSOLUTE BAND NEUTROPHILS 118 cells/uL 0 -750 ABSOLUTE LYMPHOCYTES 1770 cells/uL 850-3 900 BAND NEUTROPHILS 2.0 % NRG PLATELET ESTIMATION ADEQUATE ADEQUATE CBC MORPHOLOGY NORMAL COMMENT(S) NRG VITAMIN D, 25-H - 06/01/19 10:22 VITAMIN D,25-OH,TOTAL,IA 31 ng/mL 30-10 0 CMP - 06/13/19 15:26 GLUCOSE 124 mg/dL 65-99 UREA NITROGEN (BUN) 20 mg/dL 7-25 CREATININE 1.38 mg/dL 0.60-0.93 eGFR NON-AFR. BRAZILIAN 38 mL/min/1.73m2 > OR = 60 eGFR 44 mL/min/1.73m2 > OR = 60 BUN/CREATININE RATIO 14 (calc) 6-22 SODIUM 138 mmol/L 135-146 POTASSIUM 3.7 mmol/L 3.5-5.3 CHLORIDE 101 mmol/L 98-110 CARBON DIOXIDE 27 mmol/L 20-32 CALCIUM 9.0 mg/dL 8.6-10.4 PROTEIN, TOTAL 7.3 g/dL 6.1-8.1 ALBUMIN 4.2 g/dL 3.6-5.1 GLOBULIN 3.1 g/dL (calc) 1.9-3.7 ALBUMIN/GLOBULIN RATIO 1.4 (calc) 1.0-2. 5 BILIRUBIN, TOTAL 0.6 mg/dL 0.2-1.2 ALKALINE PHOSPHATASE 109 U/L 33-130 AST 23 U/L 10-35 ALT 16 U/L 6-29 CBC - 12/08/19 08:37 WHITE BLOOD CELL COUNT 7.7 Thousand/uL 3 .8-10.8 RED BLOOD CELL COUNT 3.55 Million/uL 3.8 0-5.10 HEMOGLOBIN 12.1 g/dL 11.7-15.5 HEMATOCRIT 36.2 % 35.0-45.0 MCV 102.0 fL 80.0-100.0 MCH 34.1 pg 27.0-33.0 MCHC 33.4 g/dL 32.0-36.0 RDW 12.6 % 11.0-15.0 PLATELET COUNT 239 Thousand/uL 140-400 MPV 11.2 fL 7.5-12.5 ABSOLUTE NEUTROPHILS 4897 cells/uL 1500- 7800 ABSOLUTE LYMPHOCYTES 2141 cells/uL 850-3 900 ABSOLUTE MONOCYTES 570 cells/uL 200-950 ABSOLUTE EOSINOPHILS 69 cells/uL 15-500 ABSOLUTE BASOPHILS 23 cells/uL 0-200 NEUTROPHILS 63.6 % NRG LYMPHOCYTES 27.8 % NRG MONOCYTES 7.4 % NRG EOSINOPHILS 0.9 % NRG BASOPHILS 0.3 % NRG BNP - 12/08/19 08:37 B TYPE NATRIURETIC PEPTIDE (BNP) 187 pg/mL <100 CULTURE, URINE - 04/03/20 12:40 CULTURE, URINE, ROUTINE SEE NOTE NRG Encounters ACCT No. Visit Date/Time Discharge Status Pt. Type Provider Facility Loc./Unit Complaint [id number] 07/11/2019 13:30:00 07/11/2019 23:59: 59 CLS Outpatient ROSCOE, STEFANY Rm [facility] [id number] 12/08/2019 08:30:00 Document Registration [id number] 06/13/2019 16:00:00 Document Registration [id number] 06/01/2019 09:20:00 Document Registration [id number] 06/01/2019 09:15:00 Document Registration [id number] 10/31/2018 09:30:00 Document Registration [id number] 08/14/2019 15:22:00 16:30:00 DIS Emergency RAHUL GAXIOLA DO Via [facility] ER FS POST FALL PAIN IN HIP [id number] 03/15/2019 09:58:00 10:29:00 DIS Emergency JOAN PANDYA DO [facility] ER FS HIGH BP [id number] 12/05/2018 16:18:00 019 17:22:00 DIS Emergency MARIA C NAJERA MD [facility] ER FS LT ARM LAC [id number] 11/14/2018 12:10:00 019 23:59:59 CLS Outpatient HAYDEN HARRISON MD [facility] RAD CHRONIC KIDNEY DISEASE STAGE 3 [id number] 04/26/2018 10:15:00 018 10:30:00 DIS Inpatient DEDE PEREZ MD Via [facility] IRF LEFT TIB-FIB FRACTURE [id number] 04/23/2018 19:20:00 018 10:28:00 DIS Inpatient NITISH LARSON, VINH Coello [facility] 4TH SYNCOPE COLLAPSE,L TI B FIB FX [id number] 03/28/2018 09:56:00 23:59:59 CLS Outpatient CHRISTY LARSON, Becki SALGADO [facility] CARD ATRIAL FIBRILLATION,DIZ ZINESS,HTN [id number] 04/23/2018 18:04:00 Document Registration
--- NOTE | 2019-12-14 01:08 | ED Upper Extremity ---
General Chief Complaint: Upper Extremity Stated Complaint: GENERAL PROBLEMS Source: patient History of Present Illness Date Seen by Provider: Dec 14, 2019 Time Seen by Provider: 01:03 Initial Comments fall w injury to left wrist. Pain and swelling. States her BP has been low for weeks, stopped all BP meds 3 wks ago and still having low BP and lightheadedness episodes. 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 States commonly (systolic) below 100 and often in 80's. Hx of A.fib. Allergies and Home Medications Allergies Coded Allergies: No Known Drug Allergies (Unverified , 04/23/18) Home Medications Citalopram Hydrobromide 40 Mg Tablet, 40 MG PO DAILY, (Reported) Furosemide 40 Mg Tablet, 40 MG PO NEEDED, (Reported) Hydrocodone/Acetaminophen 1 Each Tablet, 1 TAB PO Q4-6HR Prescribed by: KHALIDA KAY on 08/14/19 1621 Losartan Potassium 100 Mg Tablet, 100 MG PO DAILY, (Reported) Magnesium Oxide 400 Mg Tablet, 400 MG PO DAILY, (Reported) Metoprolol Tartrate 50 Mg Tablet, 25 MG PO BID, (Reported) Omeprazole 20 Mg Capsule.dr, 20 MG PO DAILY, (Reported) Tolterodine Tartrate 4 Mg Cap, 4 MG PO DAILY, (Reported) Warfarin Sodium 2 Mg Tablet, 4 MG PO Mo,Fr, (Reported) Warfarin Sodium 2 Mg Tablet, 3 MG PO SuTuWeThSa, (Reported) Patient Home Medication List Home Medication List Reviewed: Yes Review of Systems Constitutional: see HPI, dizziness; No malaise, No weakness Cardiovascular: see HPI; No chest pain, No edema, No palpitations; syncope; No vascular heart diseas Gastrointestinal: No abdominal pain, No nausea, No vomiting Musculoskeletal: see HPI; No back pain; joint pain (left wrist) Psychiatric/Neurological: Denies Anxiety, Denies Depressed, Denies Headache, Denies Numbness, Denies Paresthesia, Denies Pre-Existing Deficit, Denies Tremors, Denies Weakness Past Pzolpqm-Icyncb-Xmduxp Hx Past Med/Social Hx: Reviewed Nursing Past Med/Soc Hx Patient Social History 2nd Hand Smoke Exposure: No Recent Foreign Travel: No Contact w/Someone Who Travel: No Recent Hopitalizations: Yes (CARDIOVERTED IN SEPTEMBER FOR AFIB) Immunizations Up To Date Tetanus Booster (TDap): Unknown Date of Pneumonia Vaccine: Sep 06, 2017 Seasonal Allergies Seasonal Allergies: No Past Medical History Surgeries: Yes (Left THR) Adenoidectomy, Appendectomy, Hysterectomy, Orthopedic, Tonsillectomy Respiratory: No Cardiac: Yes Atrial Fibrillation, Hypertension 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 0.6oz. 83.501296zs; 33.00 BMI Method:Stated General Appearance: WD/WN, no apparent distress Neck: non-tender, supple Cardiovascular: regular rate, rhythm, no edema, no gallop, no JVD, no murmur Respiratory: chest non-tender, lungs clear, normal breath sounds Back: normal inspection, no CVA tenderness, no vertebral tenderness Wrist: Yes bone tenderness (distal radius w swelling ); No ecchymosis; Yes limited ROM, Yes pain, Yes soft tissue tenderness, Yes swelling Hand: non-tender, no evidence of injury, normal ROM Neurologic/Tendon: normal sensation, normal motor functions, normal tendon functions Neurologic/Psychiatric: alert, normal mood/affect, oriented x 3 Procedures/Interventions Suture Size: 4-0 Progress/Results/Core Measures Results/Orders My Orders Orders - JEREMI CASTRO DO Wrist 3 View Left (12/14/19 01:01) Vital Signs/I&O 12/14/19 01:02 Temp 37.0 Pulse 97 Resp 18 B/P (MAP) 106/39 (61) Pulse Ox 100 O2 Delivery Room Air Departure Impression Primary Impression: Distal radial fracture Qualified Codes: S52.502A - Unspecified fracture of the lower end of left ra dius, initial encounter for closed fracture Disposition: HOME, SELF-CARE Condition: Improved Departure-Patient Inst. Decision time for Depature: 01:20 Referrals: STEFANY HENNING MD (PCP/Family) Primary Care Physician Patient Instructions: Radius Fracture Add. Discharge Instructions: See your PCP, Dr Henning in 1 week regarding your wrist fracture and recurring low blood pressure. All discharge instructions reviewed with patient and/or family. Voiced understanding. JEREMI CASTRO DO Dec 14, 2019 01:08
[2019-12-14 01:35] VITALS: BP 150/66
--- NOTE | 2019-12-14 07:26 | Diagnostic Imaging Report ---
INDICATION: Left wrist injury from a fall 3 views of the left wrist show an impacted fracture of the distal radius. This is transversely oriented but does extend to the articular surface near the distal radioulnar joint. IMPRESSION: Nondisplaced, non angulated impacted fracture of the distal left radius. Dictated by: Dictated on workstation # [id number]
== END 2019-12-14 01:35 | disposition home or self-care (01) ==
LOC: EDUNIT# 00:55 → ER FS 00:58
DX: S52.502A Unspecified fracture of the lower end of left radius, initial encounter for closed fracture (principal); I48.91 Unspecified atrial fibrillation; I10 Essential (primary) hypertension; Z79.01 Long term (current) use of anticoagulants; Z82.49 Family history of ischemic heart disease and other diseases of the circulatory system; W19.XXXA Unspecified fall, initial encounter
CPT/HCPCS: 73110

== ENCOUNTER 2019-12-25 19:47 | Emergency (ER) | payer MEDICARE, OTHER ==
[~2019-12-25] VITALS: Ht 160 cm; Wt 83.9 kg
[2019-12-25 20:00] VITALS: BP_SYST 127; BP_SYST 164; BP_SYST 95; BP_DIAS 59; BP_DIAS 74
--- NOTE | 2019-12-25 20:07 | ED Syncope ---
General Chief Complaint: Trauma-Non Activation Stated Complaint: FELL;ARM PAIN Nursing Triage Note: PT STATES SHE BECAME DIZZY AND FELL. C/O RIGHT WRIST PAIN. Source of Information: Patient Exam Limitations: No Limitations History of Present Illness Date Seen by Provider: Dec 25, 2019 Time Seen by Provider: 19:48 Initial Comments The patient presents to ER by private conveyance with her family and chief complaint that about 30-45 minutes prior to arrival she had a syncopal episode where she was walking to the kitchen and blacked out and fell to the floor. She said she does not recall if she struck her head but she's not having any pain anywhere except for her right wrist. She had a fall a few weeks ago which resulted in a left wrist fracture which is now casted. She follows with Dr. Wiley, cardiology in [place] and Dr. Henning locally. She says she has very labile blood pressure which previously was very high and she was on several medications. She takes her blood pressure 3 times a day and today her blood pressures have been 130 to 150 systolic. A few weeks ago when she had her last syncopal episode and fall she was taken off all of her blood pressure medicines because her blood pressure was very low. She says she does not become symptomatic until her blood pressure goes below 120 systolic. She is on Xarelto with a history of atrial fibrillation. She's not having any chest pain shortness of breath cough fever chills dysuria nausea vomiting or abdominal pain. No pain in her back or elsewhere. Allergies and Home Medications Allergies Coded Allergies: No Known Drug Allergies (Unverified , 04/23/18) Home Medications Citalopram Hydrobromide 40 Mg Tablet, 40 MG PO DAILY, (Reported) Furosemide 40 Mg Tablet, 40 MG PO NEEDED, (Reported) Hydrocodone/Acetaminophen 1 Each Tablet, 1 TAB PO Q4-6HR Prescribed by: KHALIDA KAY on 08/14/19 1621 Hydrocodone/Acetaminophen 1 Each Tablet, 1 EACH PO Q6H PRN for PAIN-BREAKTHROUGH Prescribed by: ARA SCALES on 12/25/192046 Losartan Potassium 100 Mg Tablet, 100 MG PO DAILY, (Reported) Magnesium Oxide 400 Mg Tablet, 400 MG PO DAILY, (Reported) Metoprolol Tartrate 50 Mg Tablet, 25 MG PO BID, (Reported) Omeprazole 20 Mg Capsule.dr, 20 MG PO DAILY, (Reported) Tolterodine Tartrate 4 Mg Cap, 4 MG PO DAILY, (Reported) Warfarin Sodium 2 Mg Tablet, 4 MG PO Mo,Fr, (Reported) Warfarin Sodium 2 Mg Tablet, 3 MG PO SuTuWeThSa, (Reported) Patient Home Medication List Home Medication List Reviewed: Yes Review of Systems Constitutional: No chills, No diaphoresis, No fever, No malaise EENTM: No ear discharge, No ear pain Respiratory: No cough Cardiovascular: No chest pain, No palpitations Gastrointestinal: No abdominal pain, No constipation, No diarrhea Genitourinary: No discharge, No dysuria, No frequency, No hematuria Musculoskeletal: see HPI; No back pain; joint pain (right wrist) Skin: No pruritus, No rash All Other Systems Reviewed Negative Unless Noted: Yes Past Roxysyq-Opcrhv-Ffxaye Hx Patient Social History Alcohol Use: Rarely Uses Recreational Drug Use: No Smoking Status: Never a Smoker 2nd Hand Smoke Exposure: No Recent Foreign Travel: No Contact w/Someone Who Travel: No Recent Hopitalizations: Yes (CARDIOVERTED IN SEPTEMBER FOR AFIB) Physical Abuse: No Sexual Abuse: No Mistreated: No Fear: No Immunizations Up To Date Tetanus Booster (TDap): Unknown Date of Pneumonia Vaccine: Sep 06, 2017 Seasonal Allergies Seasonal Allergies: No Past Medical History Surgeries: Yes (Left THR) Adenoidectomy, Appendectomy, Hysterectomy, Orthopedic, Tonsillectomy Respiratory: No Cardiac: Yes Atrial Fibrillation, Hypertension Neurological: No SPECIALIST ICU History: Hysterectomy Genitourinary: Yes (UTI) Gastrointestinal: No Musculoskeletal: Yes (HX OF FALLS R/T SYNCOPE) Fractures Endocrine: No HEENT: No Cancer: No Psychosocial: No Integumentary: No Blood Disorders: No Family Medical History Abdominal aortic aneurysm Alzheimer's disease 19 MOTHER Cardiovascular disease 19 MOTHER Diabetes mellitus 19 MOTHER G8 SISTER G8 SISTER Physical Exam Vital Signs Vital Signs - First Documented 12/25/19 19:55 Temp 36.8 Pulse 97 Resp 18 B/P (MAP) 164/74 (104) O2 Delivery Room Air Capillary Refill : Height, Weight, BMI Height: 5'3.00" Weight: 183lbs. 0.6oz. 83.272192vh; 35.00 BMI Method:Stated General Appearance: WD/WN, Mild Distress HEENT: PERRL/EOMI, Pharynx Normal, Moist Mucous Membranes Neck: Full Range of Motion, Normal Inspection, Non Tender Cardiovascular: Regular Rate, Rhythm, No Edema, Normal Peripheral Pulses Respiratory: Chest Non Tender, Lungs Clear, Normal Breath Sounds, No Accessory Muscle Use, No Respiratory Distress Gastrointestinal: Normal Bowel Sounds, No Pulsatile Mass, Non Tender, Soft Extremities: Normal Capillary Refill, Normal Inspection, Other (tender palpation over the distal right wrist and proximal carpals without significant swelling or ecchymoses. Mild range of motion limitation secondary to pain.) Neurologic/Psychiatric: Alert, Oriented x3, No Motor/Sensory Deficits Cranial Nerves: Normal Hearing, Normal Speech Motor/Sensory: No Motor Deficit, No Sensory Deficit Skin: Normal Color, Warm/Dry Procedures/Interventions Suture Size: 4-0 Progress/Results/Core Measures Results/Orders Lab Results Laboratory Tests Test 12/25/19 20:08 12/25/19 20:44 Range/Units White Blood Count 8.3 4.3-11.0 10^3/uL Red Blood Count 3.26 L 4.35-5.85 10^6/uL Hemoglobin 11.2 L 11.5-16.0 G/DL Hematocrit 33 L 35-52 % Mean Corpuscular Volume 101 H 80-99 FL Mean Corpuscular Hemoglobin 34 25-34 PG Mean Corpuscular Hemoglobin Concent 34 32-36 G/DL Red Cell Distribution Width 12.7 10.0-14.5 % Platelet Count 227 130-400 10^3/uL Mean Platelet Volume 10.2 7.4-10.4 FL Neutrophils (%) (Auto) 62 42-75 % Lymphocytes (%) (Auto) 28 12-44 % Monocytes (%) (Auto) 9 0-12 % Eosinophils (%) (Auto) 1 0-10 % Basophils (%) (Auto) 0 0-10 % Neutrophils # (Auto) 5.1 1.8-7.8 X 10^3 Lymphocytes # (Auto) 2.3 1.0-4.0 X 10^3 Monocytes # (Auto) 0.8 0.0-1.0 X 10^3 Eosinophils # (Auto) 0.1 0.0-0.3 10^3/uL Basophils # (Auto) 0.0 0.0-0.1 10^3/uL Sodium Level 137 135-145 MMOL/L Potassium Level 3.8 3.6-5.0 MMOL/L Chloride Level 99 98-107 MMOL/L Carbon Dioxide Level 23 21-32 MMOL/L Anion Gap 15 H 5-14 MMOL/L Blood Urea Nitrogen 14 7-18 MG/DL Creatinine 1.36 H 0.60-1.30 MG/DL Estimat Glomerular Filtration Rate 38 BUN/Creatinine Ratio 10 Glucose Level 129 H 70-105 MG/DL Calcium Level 9.9 8.5-10.1 MG/DL Corrected Calcium 9.8 8.5-10.1 MG/DL Total Bilirubin 0.2 0.1-1.0 MG/DL Aspartate Amino Transf (AST/SGOT) 21 5-34 U/L Alanine Aminotransferase (ALT/SGPT) 13 0-55 U/L Alkaline Phosphatase 119 40-136 U/L Troponin I < 0.30 <0.30 NG/ML C-Reactive Protein 0.29 <0.50 MG/DL Pro-B-Type Natriuretic Peptide 1383.0 H <75.0 PG/ML Total Protein 7.2 6.4-8.2 GM/DL Albumin 4.1 3.2-4.5 GM/DL Urine Color PALE YELLOW Urine Clarity CLEAR Urine pH 6.0 5-9 Urine Specific Maxbass <=1.005 1.016-1.022 Urine Protein NEGATIVE NEGATIVE Urine Glucose (UA) NEGATIVE NEGATIVE Urine Ketones NEGATIVE NEGATIVE Urine Nitrite NEGATIVE NEGATIVE Urine Bilirubin NEGATIVE NEGATIVE Urine Urobilinogen 0.2 < = 1.0 MG/DL Urine Leukocyte Esterase TRACE H NEGATIVE Urine RBC (Auto) NEGATIVE NEGATIVE Urine RBC NONE /HPF Urine WBC 5-10 H /HPF Urine Squamous Epithelial Cells 10-25 H /HPF Urine Crystals NONE /LPF Urine Bacteria NEGATIVE /HPF Urine Casts NONE /LPF Urine Mucus NEGATIVE /LPF Urine Culture Indicated YES My Orders Orders - ARA SCALES Ed Iv/Invasive Line Start (12/25/19 19:59) Ct Head/Cervical Spine Wo (12/25/19 19:59) Chest 1 View Ap/Pa Only (12/25/19 19:59) Wrist 3 View Right (12/25/19 19:59) Cbc With Automated Diff (12/25/19 19:59) Comprehensive Metabolic Panel (12/25/19 19:59) Crp Fs (12/25/19 19:59) Ua Culture If Indicated (12/25/19 19:59) Troponin I Fs (12/25/19 19:59) Probnp Fs (12/25/19 19:59) Continuous Ekg Monitoring (12/25/19 19:59) Ekg Tracing (12/25/19 19:59) Ed Iv/Invasive Line Start (12/25/19 20:29) Ns Iv 1000 Ml (Sodium Chloride 0.9%) (12/25/19 20:29) Orthostatic Vital Signs (Adult (12/25/19 20:29) Ns Iv 1000 Ml (Sodium Chloride 0.9%) (12/25/19 20:24) Urine Culture (12/25/19 20:44) Hydrocodone/Apap 5/325 Tablet (Lortab 5 (12/25/19 21:00) Medications Given in ED Current Medications Medications Dose Ordered Sig/Kaitlynn Route Start Time Stop Time Status Last Admin Dose Admin Acetaminophen/ Hydrocodone Bitart 1 tab ONCE ONCE PO 12/25/19 21:00 12/25/19 21:01 DC 12/25/19 21:12 1 TAB Vital Signs/I&O 12/25/19 12/25/19 19:55 20:00 Temp 36.8 Pulse 97 97 93 91 Resp 18 B/P (MAP) 164/74 (104) 164/74 (104) 127/59 (81) 95/74 (81) O2 Delivery Room Air Progress Progress Note #1: Time: 20:06 Progress Note Syncopal episodes from blood pressure? At present she has a blood pressure of 150-170 systolic. We'll start an IV obtain labs urine including a troponin and BNP. We'll get an EKG. Plan a chest x-ray as well as 3 views of the right wrist and CT without IV contrast of the head and C-spine. Occult infection? Other remote possibilities could be seizures. We will look for mass effect or tumor on CT of the head. Orthostatics are positive with a dramatic drop in systolic blood pressure down to 93 on standing. Really give her a liter fluids but I suspect that dehydration is not the case as this is been going on for years and she does not clinically appear to be dry. She has not been using her Lasix which is prescribed when necessary for edema in the past several weeks. Her presentation today is not new. On previous visit for leg fracture in 2018 she had a cardiac consultation by local cardiologists noting syncope with labile blood pressure, orthostatic hypotension which likely lead to syncope. They put her on a more permissive schedule of high blood pressure medicines. Today she's not on any blood pressure medicines. Has a history of mild anemia. Previous recommendations were for aggressive hydration, permissive hypertension and compressive stockings. Progress Note #2: Time: 20:56 Progress Note sugar tong splint. We will provide hydrocodone for her pain. She says she has 3 tablets at home and so we'll give her a prescription for some more. We discussed going home and she says she has lots of people and family who again after her and can help her with feeding bathing etc. She lives in a independent living facility. She would prefer to go home tonight. We discussed compression stockings and she said she just pick some up yesterday but she was not wearing them today. We highly encouraged her use of these. She has about 500 cc of her fluid in. We don't have any previous BMPs to compare to. She is not having any shortness of breath, crackles or evidence of congestion on her chest x-ray. Her anemia is stable. The rest of her labs are stable. Her urine has quite a few squamous cells in it per high-power field most likely due to contamination. She is asymptomatic so we will just follow the culture and not elect to treat at this time. Initial ECG Impression Date: Dec 25, 2019 Initial ECG Impression Time: 20:04 Initial ECG Rate: 88 Initial ECG Rhythm: Normal Sinus Initial ECG Intervals: QT (467) Initial ECG Impression: Normal Initial ECG Comparisson: Unchanged Comment Normal sinus rhythm without clinically relevant ST changes. Diagnostic Imaging Diagonstic Imaging: Xray Plain Films/CT/US/NM/MRI: chest (1v) Comments No acute cardiopulmonary processes noted on one view chest x-ray. [facility] [place], [place] NAME: CARLA HARRIS [facility] REC#: [id number] PT STATUS: REG ER : 1945 PHYSICIAN: ARA SCALES MD ADMIT DATE: 12/25/19/ER FS Draft Date of Exam:12/25/19 CHEST 1 VIEW AP/PA ONLY INDICATION: Wrist pain post fall. TECHNIQUE: Single view chest 8:16 PM. CORRELATION STUDY: 04/23/2018 FINDINGS: The heart size, mediastinal configuration and pulmonary vascularity are within normal limits. Calcification of the aortic arch. The lungs are clear with no consolidating infiltrate. There is no significant effusion or pneumothorax. IMPRESSION: 1. Negative for acute abnormality of the chest. Dictated on workstation # [id number] Dict: 12/25/192041 Trans: 12/25/192041 DO Interpreted by: ENRIQUE BERNARD DO Electronically signed by: Reviewed: Reviewed by Ri Diagonstic Imaging: Xray Plain Films/CT/US/NM/MRI: forearm (right wrist 3 view) Comments Closed, nondisplaced fracture of the distal head of the right radius. NAME: CARLA HARRIS [facility] REC#: [id number] PT STATUS: REG ER : 1945 PHYSICIAN: ARA SCALES MD ADMIT DATE: 12/25/19/ER FS Draft Date of Exam:12/25/19 WRIST 3 VIEW RIGHT INDICATION: Pain post fall TECHNIQUE: 3 views of the right wrist CORRELATION STUDY: None FINDINGS: There is relatively nondisplaced comminuted fracture involving the articular surface of the distal right radius. Alignment is relatively anatomic. Distal ulna appears intact. Carpal bones intact. Soft tissue edema at the level of the wrist. IMPRESSION: 1. Nondisplaced comminuted intra-articular distal right radius fracture. Dictated on workstation # [id number] Dict: 12/25/192041 Trans: 12/25/192045 DAVEY [id number] Interpreted by: ENRIQUE BERNARD DO Electronically signed by: Reviewed: Reviewed by Ri Diagonstic Imaging: CT Plain Films/CT/US/NM/MRI: c-spine, head Comments No acute intracranial hemorrhage, mass effect, midline shift or calvarial fracture. No C-spine malalignment or fracture. NAME: CARLA HARRIS [facility] REC#: [id number] PT STATUS: REG ER : 1945 PHYSICIAN: ARA SCALES MD ADMIT DATE: 12/25/19/ER FS Draft Date of Exam:12/25/19 CT HEAD/CERVICAL SPINE WO PROCEDURE: CT head and CT cervical spine without contrast. TECHNIQUE: Multiple contiguous axial images were obtained through the brain and cervical spine without the use of intravenous contrast. Sagittal and coronal reformations through the cervical spine were then performed. Auto Exposure Controls were utilized during the CT exam to meet ALARA standards for radiation dose reduction. INDICATION: Multiple recent falls. Wrist fracture. CORRELATION STUDY: 04/23/2018 FINDINGS: CT HEAD: Generalized atrophic changes with prominence of the ventricles and sulci. No acute intracranial hemorrhage or abnormal extra-axial fluid collection. Basal cisterns are maintained. No abnormal areas of decreased attenuation to suggest edema. Bony calvarium is intact. Paranasal sinuses and mastoid air cells are clear. CT CERVICAL SPINE: There is some straightening of normal cervical lordosis. Alignment otherwise anatomic. Vertebral body heights maintained. Mild disc space narrowing at C5-C6 and C6-C7 levels. Odontoid intact, lateral masses at C1-C2 aligned. Occipital condyles maintained. Posterior elements are intact. No high degree osseous narrowing and/or encroachment upon the neural foramina and/or spinal canal. Paraspinal soft tissues appearing unremarkable with visualized lung apices unremarkable. A few small shotty subcentimeter cervical lymph nodes. Prominent calcification at the carotid bifurcations. IMPRESSION: CT HEAD: 1. Negative for acute traumatic intracranial abnormality. CT CERVICAL SPINE: 1. Negative for acute fracture or traumatic subluxation. 2. Mild multilevel cervical spine degenerative changes are present. Dictated on workstation # [id number] Dict: 12/25/192046 Trans: 12/25/192104 [facility] [id number] Interpreted by: ENRIQUE BERNARD DO Electronically signed by: Reviewed: Reviewed by Me Departure Impression Primary Impression: Syncope and collapse Additional Impressions: Labile blood pressure Closed fracture of right distal radius Qualified Codes: S52.531A - Colles' fracture of right radius, initial encounter for closed fracture Disposition: 01 HOME, SELF-CARE Condition: Stable Departure-Patient Inst. Decision time for Depature: 21:20 Referrals: ZENA BOWSER MD,STEFANY LARSON (PCP/Family) Primary Care Physician Patient Instructions: Syncope (Fainting) (DC), Radius Fracture Add. Discharge Instructions: Hydrocodone one tablet every 6 hours as needed for breakthrough pain that is not treated with Tylenol or ice. Tylenol 650 mg every 8 hours as needed for pain. Ice pack applied for 20 minutes every 1-2 hours as needed for swelling or pain. Keep the splint on and the arm in a sling until you follow up with your orthopedist. Elevate the arm above the level of your heart for increased swelling or pain. Follow-up with your previous orthopedic surgeon to manage the fracture or he may follow-up with Dr. Bowser if you choose. Call for an appointment tomorrow in about 7-10 days. Follow-up with your special education professional to discuss appropriate measures to manage your labile blood pressure and syncopal episodes within the next 2 weeks please. All discharge instructions reviewed with patient and/or family. Voiced understanding. Scripts Hydrocodone/Acetaminophen (Hydrocodone-Acetamin 5-325 mg) 1 Each Tablet 1 EACH PO Q6H PRN for PAIN-BREAKTHROUGH, #14 TAB 0 Refills Prov: ARA SCALES 12/25/19 ARA SCALES Dec 25, 2019 20:07
[2019-12-25 20:18] LABS: BASOPHILS % (AUTO) 0 % (0-10); EOSINOPHILS % (AUTO) 1 % (0-10); HEMATOCRIT 33 % (35-52); HEMOGLOBIN 11.2 G/DL (11.5-16.0); LYMPHOCYTES % (AUTO) 28 % (12-44); MEAN CORPUSCULAR HEMOGLOBIN 34 PG (25-34); MEAN CORPUSCULAR HGB CONC 34 G/DL (32-36); MEAN CORPUSCULAR VOLUME 101 FL (80-99); MEAN PLATELET VOLUME 10.2 FL (7.4-10.4); MONOCYTES % (AUTO) 9 % (0-12); PLATELET COUNT 227 10^3/uL (130-400); RED CELL DISTRIBUTION WIDTH 12.7 % (10.0-14.5); WHITE BLOOD COUNT 8.3 10^3/uL (4.3-11.0)
[2019-12-25 20:19] LABS: EOSINOPHILS # (AUTO) 0.1 10^3/uL (0.0-0.3); LYMPHOCYTES # (AUTO) 2.3 X 10^3 (1.0-4.0); MONOCYTES # (AUTO) 0.8 X 10^3 (0.0-1.0); NEUTROPHILS # (AUTO) 5.1 X 10^3 (1.8-7.8); NEUTROPHILS % (AUTO) 62 % (42-75)
[2019-12-25] MEDS ORDERED: NS IV 1000 ML 1,000 ML ONE (20:24)
[2019-12-25] MEDS ORDERED: NS IV 1000 ML 1,000 ML IV SCH (20:29)
--- NOTE | 2019-12-25 20:42 | Diagnostic Imaging Report ---
INDICATION: Wrist pain post fall. TECHNIQUE: Single view chest 8:16 PM. CORRELATION STUDY: 04/23/2018 FINDINGS: The heart size, mediastinal configuration and pulmonary vascularity are within normal limits. Calcification of the aortic arch. The lungs are clear with no consolidating infiltrate. There is no significant effusion or pneumothorax. IMPRESSION: 1. Negative for acute abnormality of the chest. Dictated by: Dictated on workstation # [id number]
[2019-12-25] MEDS ORDERED: HYDR-83 PO (20:47)
--- NOTE | 2019-12-25 20:47 | Diagnostic Imaging Report ---
INDICATION: Pain post fall TECHNIQUE: 3 views of the right wrist CORRELATION STUDY: None FINDINGS: There is relatively nondisplaced comminuted fracture involving the articular surface of the distal right radius. Alignment is relatively anatomic. Distal ulna appears intact. Carpal bones intact. Soft tissue edema at the level of the wrist. IMPRESSION: 1. Nondisplaced comminuted intra-articular distal right radius fracture. Dictated by: Dictated on workstation # [id number]
[2019-12-25 20:48] LABS: CARBON DIOXIDE 23 MMOL/L (21-32); CHLORIDE 99 MMOL/L (98-107); POTASSIUM 3.8 MMOL/L (3.6-5.0); SODIUM 137 MMOL/L (135-145)
[2019-12-25 20:49] LABS: ALANINE AMINOTRANSFERASE 13 U/L (0-55); ALBUMIN 4.1 GM/DL (3.2-4.5); ALKALINE PHOSPHATASE 119 U/L (40-136); BILIRUBIN,TOTAL 0.2 MG/DL (0.1-1.0); BUN/CREATININE RATIO 10; CALCIUM 9.9 MG/DL (8.5-10.1); CREATININE SERUM 1.36 MG/DL (0.60-1.30); GFR ESTIMATED 38; GLUCOSE 129 MG/DL (70-105); TOTAL PROTEIN 7.2 GM/DL (6.4-8.2)
[2019-12-25 20:50] LABS: CLARITY,URINE CLEAR; COLOR,URINE PALE YELLOW
[2019-12-25 20:54] LABS: BACTERIA,URINE NEGATIVE /HPF; BILIRUBIN,URINE NEGATIVE (NEGATIVE); GLUCOSE, URINE (UA) NEGATIVE (NEGATIVE); KETONES,URINE NEGATIVE (NEGATIVE); LEUKOCYTE ESTERASE ,URINE TRACE (NEGATIVE); NITRITE,URINE NEGATIVE (NEGATIVE); PROTEIN,URINE NEGATIVE (NEGATIVE)
[2019-12-25] MEDS ORDERED: HYDROcodone/APAP 5 MG/325 MG (LORTAB) TAB PO ONE (21:00)
--- NOTE | 2019-12-25 21:06 | Diagnostic Imaging Report ---
PROCEDURE: CT head and CT cervical spine without contrast. TECHNIQUE: Multiple contiguous axial images were obtained through the brain and cervical spine without the use of intravenous contrast. Sagittal and coronal reformations through the cervical spine were then performed. Auto Exposure Controls were utilized during the CT exam to meet ALARA standards for radiation dose reduction. INDICATION: Multiple recent falls. Wrist fracture. CORRELATION STUDY: 04/23/2018 FINDINGS: CT HEAD: Generalized atrophic changes with prominence of the ventricles and sulci. No acute intracranial hemorrhage or abnormal extra-axial fluid collection. Basal cisterns are maintained. No abnormal areas of decreased attenuation to suggest edema. Bony calvarium is intact. Paranasal sinuses and mastoid air cells are clear. CT CERVICAL SPINE: There is some straightening of normal cervical lordosis. Alignment otherwise anatomic. Vertebral body heights maintained. Mild disc space narrowing at C5-C6 and C6-C7 levels. Odontoid intact, lateral masses at C1-C2 aligned. Occipital condyles maintained. Posterior elements are intact. No high degree osseous narrowing and/or encroachment upon the neural foramina and/or spinal canal. Paraspinal soft tissues appearing unremarkable with visualized lung apices unremarkable. A few small shotty subcentimeter cervical lymph nodes. Prominent calcification at the carotid bifurcations. IMPRESSION: CT HEAD: 1. Negative for acute traumatic intracranial abnormality. CT CERVICAL SPINE: 1. Negative for acute fracture or traumatic subluxation. 2. Mild multilevel cervical spine degenerative changes are present. Dictated by: Dictated on workstation # [id number]
[2019-12-25 21:33] VITALS: BP 159/79
--- OUTSIDE RECORDS SUMMARY | 2019-12-26 10:31 | XMS REPORT | Continuity of Care Document ---
Author Organization Unknown Address Unknown Phone Unavailable Allergies Active Description Code Type Severity Reaction Onset Reported/Identified Relationship to Patient Clinical Status Yes No Known Drug Allergies [id number] Drug Allergy Unknown N/A 04/23/2018 Medications There [...] 04/26/2018 VINH TALBERT MD Ot Z79. 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89 ACQUIRED ABSENCE OF OTHER [...] FIBRILLATION 03/15/2019 JOAN PANDYA DO, Ot Z79.01 FPC (CURRENT) USE OF ANTICOAGULANT 03/15/2019 JOAN PANDYA [...] Z90.89 ACQUIRED ABSENCE OF OTHER ORGANS 03/21/2019 OJAN PANDYA DO Ot I10 ESSENTIAL (PRIMARY) HYPERTENSION 03/21/2019 JOAN PANDYA DO Ot I48.91 UNSPECIFIED ATRIAL FIBRILLATION 03/21/2019 JOAN PANDYA DO Ot Z79.01 FPC (CURRENT) USE OF ANTICOAGULANT 03/21/2019 JOAN PANDYA [...] 08/14/2019 RAHUL GAXIOLA DO Ot Z79. 01 FPC (CURRENT) USE OF ANTICOAGULANT 08/14/2019 RAHUL GAXIOLA [...] 08/17/2019 RAHUL GAXIOLA DO Ot Z79. 01 FPC (CURRENT) USE OF ANTICOAGULANT 08/17/2019 RAHUL GAXIOLA [...] Z96.642 PRESENCE OF LEFT ARTIFICIAL HIP JOINT 12/14/2019 ROVENSTINE DOJEERMI Ot I10 ESSENTIAL (PRIMARY) HYPERTENSION 12/14/2019 ROVENSTINE DOJEREMI Ot I48.91 UNSPECIFIED ATRIAL FIBRILLATION 12/14/2019 ROVENSTINE DOJEREMI Ot M25.532 PAIN IN LEFT WRIST 12/14/2019 ROVENSTINE DOJEREMI Ot S52.502A UNSP FRACTURE OF THE LOWER END OF LEFT R 12/14/2019 ROVENSTINE DOJEREMI Ot W19.XXXA UNSPECIFIED FALL, INITIAL ENCOUNTER 12/14/2019 ROVENSTINE JEREMI FRAIRE Ot Z79.01 FPC (CURRENT) USE OF ANTICOAGULANT 12/14/2019 ROVENSTINE DO, JEREMI L Ot Z82.49 FAMILY HX OF ISCHEM HEART DIS AND OTH DI 12/18/2019 ROVENSTINE DOJOSEEN L Ot I10 ESSENTIAL (PRIMARY) HYPERTENSION 12/18/2019 ROVENSTINE DO, JEREMI L Ot I48.91 UNSPECIFIED ATRIAL FIBRILLATION 12/18/2019 ROVENSTINE DO JEREMI Socorro Ot M25.532 PAIN IN LEFT WRIST 12/18/2019 ROVENSTINE DO JEREMI Socorro Ot S52.502A UNSP FRACTURE OF THE LOWER END OF LEFT R 12/18/2019 ROVENSTINE DO JEREMI Socorro Ot W19.XXXA UNSPECIFIED FALL, INITIAL ENCOUNTER 12/18/2019 ROVENSTINE JOSE FRAIREEN Socorro Ot 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 [place] 38 mL/min/1.73m2 > OR = 60 eGFR [...] (BNP) 187 pg/mL <100 CULTURE, URINE - 12/08/19 12:40 CULTURE, URINE, ROUTINE SEE NOTE NRG Complete blood count (CBC) with automate d white blood cell (WBC) differential - 12/25/19 20:08 Blood leukocytes automated count (number/volume) 8.3 10*3/uL 4.3-11.0 Blood erythrocytes automated count (number/volume) 3.26 10*6/uL 4.35-5.85 Venous blood hemoglobin measurement (mass/volume) 11.2 g/dL 11.5-16.0 Blood hematocrit (volume fraction) 33 % 35-52 Automated erythrocyte mean corpuscular volume 101 [foz_us] 80-99 Automated erythrocyte mean corpuscular h emoglobin (mass per erythrocyte) 34 pg 25-34 Automated erythrocyte mean corpuscular h emoglobin concentration measurement (mass/volume) 34 g/dL 32-36 Automated erythrocyte distribution width ratio 12. 7 % 10.0- 14.5 Automated blood platelet count (count/volume) 227 10*3/uL 130-400 Automated blood platelet mean volume measurement 10.2 [foz_us] 7.4-10.4 Automated blood neutrophils/100 leukocytes 62 % 42-75 Automated blood lymphocytes/100 leukocytes 28 % 12-44 Blood monocytes/100 leukocytes 9 % 0-12 Automated blood eosinophils/100 leukocytes 1 % 0-10 Automated blood basophils/100 leukocytes 0 % 0-10 Blood neutrophils automated count (number/volume) 5.1 10*3 1.8-7.8 Blood lymphocytes automated count (number/volume) 2.3 10*3 1.0-4.0 Blood monocytes automated count (number/volume) 0. 8 10*3 0.0-1.0 Automated eosinophil count 0.1 10*3/uL 0 .0-0.3 Automated blood basophil count (count/volume) 0.0 10*3/uL 0.0-0.1 Comprehensive metabolic panel - 12/25/19 20:08 Serum or plasma sodium measurement (moles/volume) 137 mmol/L 135-145 Serum or plasma potassium measurement (moles/volume) 3.8 mmol/L 3.6-5.0 Serum or plasma chloride measurement (moles/volume) 99 mmol/L 98-107 Carbon dioxide 23 mmol/L 21-32 Serum or plasma anion gap determination (moles/volume) 15 mmol/L 5-14 Serum or plasma urea nitrogen measurement (mass/volume ) 14 mg/dL 7-18 Serum or plasma creatinine measurement (mass/volume) 1.36 mg/dL 0.60-1.30 Serum or plasma urea nitrogen/creatinine mass ratio 10 NRG Serum or plasma creatinine measurement w ith calculation of estimated glomerular filtration rate 38 NRG Serum or plasma glucose measurement (mass/volume) 129 mg/dL 70-105 Serum or plasma calcium measurement (mass/volume) 9.9 mg/dL 8.5-10.1 Serum or plasma total bilirubin measurement (mass/volu me) 0.2 mg/dL 0.1-1.0 Serum or plasma alkaline phosphatase juan miguel surement (enzymatic activity/volume) 119 U/L 40-136 Serum or plasma aspartate aminotransfera se measurement (enzymatic activity/volume) 21 U/L 5-34 Serum or plasma alanine aminotransferase measurement (enzymatic activity/volume) 13 U/L 0-55 Serum or plasma protein measurement (mass/volume) 7.2 g/dL 6.4-8.2 Serum or plasma albumin measurement (mass/volume) 4.1 g/dL 3.2-4.5 CALCIUM CORRECTED 9.8 mg/dL 8.5-10.1 TROPONIN I FS - 12/25/19 20:08 TROPONIN I FS < 0.30 <0.30 PROBNP FS - 12/25/19 20:08 PROBNP FS 1383.0 pg/mL <75.0 CRP FS - 12/25/19 20:08 CRP FS 0.29 mg/dL <0.50 Complete urinalysis with reflex to cultu re - 12/25/19 20:44 Urine color determination PALE YELLOW N RG Urine clarity determination CLEAR NR G Urine pH measurement by test strip 6.0 5-9 Specific gravity of urine by test strip <= 1.016-1.022 Urine protein assay by test strip, semi-quantitative NEGATIVE NEGATIVE Urine glucose detection by automated test strip NE GATIVE NEGATIVE Erythrocytes detection in urine sediment by light micr oscopy NEGATIVE NEGATIVE Urine ketones detection by automated test strip NE GATIVE NEGATIVE Urine nitrite detection by test strip NEGATIVE NEGATIVE Urine total bilirubin detection by test strip NEGA TIVE NEGATIVE Urine urobilinogen measurement by automated test strip (mass/volume) 0.2 mg/dL < = 1.0 Urine leukocyte esterase detection by dipstick TRA CE NEGATIVE Automated urine sediment erythrocyte cou nt by microscopy (number/high power field) NONE NRG Automated urine sediment leukocyte count by microscopy (number/high power field) [HPF] NRG Bacteria detection in urine sediment by light microsco py NEGATIVE NRG Squamous epithelial cells detection in u rine sediment by light microscopy 10-25 NRG Crystals detection in urine sediment by light microsco py NONE NRG Casts detection in urine sediment by light microscopy NONE NRG Mucus detection in urine sediment by light microscopy NEGATIVE NRG Complete urinalysis with reflex to culture YES NRG Encounters ACCT No. Visit Date/Time Discharge Status Pt. Type Provider Facility Loc./Unit Complaint [id number] 07/11/2019 13:30:00 07/11/2019 23:59: 59 CLS Outpatient ROSCOE, STEFANY CURTIS [id number] 12/08/2019 08:30:00 Document Registration [id number] 06/13/2019 16:00:00 Document Registration [id number] 06/01/2019 09:20:00 Document Registration [id number] 06/01/2019 09:15:00 Document Registration [id number] 10/31/2018 09:30:00 Document Registration [id number] 12/25/2019 19:49:00 21:33:00 DIS Emergency LOYDA LARSON, ARA Garcia [facility] ER FS FELL;ARM PAIN [id number] 12/14/2019 00:58:00 020 01:35:00 DIS Emergency JENNIFERVENSTJEREMI SANCHEZ DO [facility] ER FS GENERAL PROBLEM S,FALL, RIGHT WRIST PAIN [id number] 08/14/2019 15:22:00 019 16:30:00 DIS Emergency RAHUL GAXIOLA DO [facility] ER FS POST FALL PAIN IN HIP [id number] 03/15/2019 09:58:00 10:29:00 DIS Emergency JOAN PANDYA DO [facility] ER FS HIGH BP [id number] 12/05/2018 16:18:00 019 17:22:00 DIS Emergency MARIA C NAJERA MD [facility] ER FS LT ARM LAC [id number] 11/14/2018 12:10:00 019 23:59:59 CLS Outpatient CHRISTY LARSON, HAYDEN Monreal [facility] RAD CHRONIC KIDNEY DISEASE STAGE 3 [id number] 04/26/2018 10:15:00 018 10:30:00 DIS Inpatient CHRIS LARSON, DEDE Coats [facility] IRF LEFT TIB-FIB FRACTURE [id number] 04/23/2018 19:20:00 018 10:28:00 DIS Inpatient NITISH LARSON, VINH Coello [facility] 4TH SYNCOPE COLLAPSE,L TI B FIB FX [id number] 03/28/2018 09:56:00 018 23:59:59 CLS Outpatient CHRISTY LARSON, Becki SALGADO [facility] CARD ATRIAL FIBRILLATION,HEIDI ERWIN,HTN [id number] 04/23/2018 18:04:00 Document Registration
== END 2019-12-25 21:33 | disposition home or self-care (01) ==
LOC: EDUNIT# 19:47 → ER FS 19:49
DX: S52.571A Other intraarticular fracture of lower end of right radius, initial encounter for closed fracture (principal); R55 Syncope and collapse; R03.0 Elevated blood-pressure reading, without diagnosis of hypertension; I48.91 Unspecified atrial fibrillation; I10 Essential (primary) hypertension; Z79.01 Long term (current) use of anticoagulants; Z82.49 Family history of ischemic heart disease and other diseases of the circulatory system; W18.39XA Other fall on same level, initial encounter
CPT/HCPCS: 36415; 70450; 71045; 72125; 73110; 80053; 81000; 83880; 84484; 85025; 86141; 87088; 93005

== ENCOUNTER → 2020-01-02 | Outpatient (CLI) | payer MEDICARE, OTHER ==
[~2020-01-02] MED LIST changes: +HYDR-83 PO
--- NOTE | 2020-01-02 12:00 | Diagnostic Imaging Report ---
INDICATION: Follow-up bilateral wrist fracture. COMPARISON: Right wrist radiographs of 12/24/2018 and left wrist radiograph from 12/14/2019. TECHNIQUE: Three views of each wrist were obtained for total of six views. FINDINGS: Right wrist: The mildly impacted simple transverse fracture involving the distal radial metaphysis maintained stable alignment and position. There is no incongruency of the distal articular surface. No dorsal angulation of the distal radial articular surface. No periosteal callus has developed. Chronic-appearing ulnar styloid deformity is unchanged. No new abnormality. Stable degenerative changes at the right thumb base. Left wrist: Fiberglass cast in place which limits assessment of fine osseous detail. The mildly impacted distal radial metaphyseal fracture has similar alignment and position. There is no dorsal angulation of the radial articular surface. No new fracture is appreciated allowing for cast. IMPRESSION: 1. Bilateral distal radial fractures have not substantially changed in alignment or position since prior examinations. Dictated by: Dictated on workstation # [id number]
== END ==
LOC: RAD FS 09:47
PROVIDERS: ATTEND Nurse Practitioner
DX: S52.571A Other intraarticular fracture of lower end of right radius, initial encounter for closed fracture (principal); X58.XXXA Exposure to other specified factors, initial encounter

== ENCOUNTER → 2020-01-11 | Outpatient (CLI) | payer MEDICARE, OTHER ==
--- NOTE | 2020-01-11 11:41 | Diagnostic Imaging Report ---
Bilateral wrists at 11:11. Indication: Followup fracture. AP and lateral views of both wrists were obtained. The prior exam of 01/02/2020 noted impacted healing fractures of each distal radius. In the interval since the prior exam the fiberglass cast about the left forearm, wrist and hand has been removed. The healing calcification about the fracture site seen previously is again evident, does not appear to have changed significantly. The overall appearance of the left wrist itself is otherwise stable. In the interval since the prior exam, a fiberglass cast has been applied to the right forearm, wrist and hand. The impacted fracture of the distal radial metaphysis seen previously is again evident and seems quite similar. There is healing calcification present. There is no acute bony abnormality noted. Impression: 1. There are healing essentially nondisplaced fractures of the distal radial metaphyses bilaterally. There is no acute abnormality identified. 2. The fiberglass cast involving the left wrist seen previously has been removed. There is now a new fiberglass cast about the right wrist. Dictated by: Dictated on workstation # [id number]
== END ==
LOC: RAD FS 11:03
PROVIDERS: ATTEND Nurse Practitioner
DX: S52.591D Other fractures of lower end of right radius, subsequent encounter for closed fracture with routine healing (principal); S52.592D Other fractures of lower end of left radius, subsequent encounter for closed fracture with routine healing; X58.XXXD Exposure to other specified factors, subsequent encounter

== ENCOUNTER → 2020-01-25 | Outpatient (CLI) | payer MEDICARE, OTHER ==
--- NOTE | 2020-01-25 12:23 | Diagnostic Imaging Report ---
INDICATION: Follow-up fractures. COMPARISON: 01/11/2020 FINDINGS: Multiple radiographic views of bilateral wrists were obtained. Radiopaque cast material has since been removed on the right. There has been interval progression of callus formation involving the transverse oriented fracture of the distal radius. Fracture fragments are in stable alignment. No new acute osseous abnormality is seen. Transverse oriented linear sclerosis is also identified involving the distal left radial shaft and is consistent with partially healed fracture. No new acute osseous abnormality is seen on either side. Joint spaces are maintained. No unexpected radiopaque foreign bodies are identified. IMPRESSION: 1. Partially healed fractures of the bilateral distal radii as described above. Dictated by: Dictated on workstation # [id number]
== END ==
LOC: RAD FS 10:04
PROVIDERS: ATTEND Nurse Practitioner
DX: S52.592D Other fractures of lower end of left radius, subsequent encounter for closed fracture with routine healing (principal); S52.571D Other intraarticular fracture of lower end of right radius, subsequent encounter for closed fracture with routine healing

== ENCOUNTER → 2020-02-08 | Outpatient (CLI) | payer MEDICARE, OTHER ==
--- NOTE | 2020-02-08 10:49 | Diagnostic Imaging Report ---
INDICATION: Right wrist fracture AP and lateral views of the right wrist reveal increasing sclerosis about the distal right radial metaphyseal fracture line. There has been partial bridging with callus although the fracture line remains visible. Degenerative findings in the carpal joints have not significantly changed. No new abnormality seen. IMPRESSION: Further healing of nondisplaced distal radial metaphyseal fracture although fracture line remains visible. Dictated by: Dictated on workstation # [id number]
== END ==
LOC: RAD FS 10:26
PROVIDERS: ATTEND Nurse Practitioner
DX: S52.571D Other intraarticular fracture of lower end of right radius, subsequent encounter for closed fracture with routine healing (principal)
CPT/HCPCS: 73100

== ENCOUNTER 2020-02-22 03:13 | Emergency (ER) | payer MEDICARE, OTHER ==
[~2020-02-22] VITALS: Ht 160 cm; Wt 83.9 kg
--- OUTSIDE RECORDS SUMMARY | 2020-02-22 03:19 | XMS REPORT | Continuity of Care Document ---
Author Organization Unknown Address Unknown Phone Unavailable Allergies Active Description Code Type Severity Reaction Onset Reported/Identified Relationship to Patient Clinical Status Yes No Known Drug Allergies [id number] Drug Allergy Unknown N/A 04/23/2018 Medications There [...] 04/26/2018 VINH TALBERT MD Ot Z79. 01 PENITENTIARY (CURRENT) USE OF ANTICOAGULANT 05/03/2018 DEDE PEREZ [...] DEDE PEREZ MD E Ot Z79.0 1 PENITENTIARY (CURRENT) USE OF ANTICOAGULANT 05/10/2018 DEDE PEREZ [...] 05/10/2018 DEDE PEREZ MD, Ot Z79.0 1 ARTS AND SCIENCES DEAN (CURRENT) USE OF ANTICOAGULANT 11/21/2018 HAYDEN HARRISON [...] 12/05/2018 MARIA C NAJERA MD, Ot Z79.01 PENITENTIARY (CURRENT) USE OF ANTICOAGULANT 12/05/2018 MARIA C [...] 12/09/2018 MARIA C NAJERA MD, Ot Z79.01 PENITENTIARY (CURRENT) USE OF ANTICOAGULANT 12/09/2018 MARIA C [...] FIBRILLATION 03/15/2019 JOAN PANDYA DO, Ot Z79.01 PENITENTIARY (CURRENT) USE OF ANTICOAGULANT 03/15/2019 JOAN PANDYA [...] FIBRILLATION 03/21/2019 JOAN PANDYA DO Ot Z79.01 ARTS AND SCIENCES DEAN (CURRENT) USE OF ANTICOAGULANT 03/21/2019 JOAN PANDYA [...] 08/14/2019 RAHUL GAXIOLA DO Ot Z79. 01 ARTS AND SCIENCES DEAN (CURRENT) USE OF ANTICOAGULANT 08/14/2019 RAHUL GAXIOLA [...] 08/17/2019 RAHUL GAXIOLA DO Ot Z79. 01 PENITENTIARY (CURRENT) USE OF ANTICOAGULANT 08/17/2019 RAHUL GAXIOLA [...] OF LEFT ARTIFICIAL HIP JOINT 12/14/2019 ROVENSTINE DOJEREMI Ot I10 ESSENTIAL (PRIMARY) HYPERTENSION 12/14/2019 ROVENSTINE DOJEREMI Ot I48.91 UNSPECIFIED ATRIAL FIBRILLATION 12/14/2019 ROVENSTINE DOJEREMI Ot M25.532 PAIN IN LEFT WRIST 12/14/2019 ROVENSTINE DOJEREMI Ot S52.502A UNSP FRACTURE OF THE LOWER END OF LEFT R 12/14/2019 ROVENSTINE DOJEREMI Ot W19.XXXA UNSPECIFIED FALL, INITIAL ENCOUNTER 12/14/2019 ROVENSTINE JEREMI FRAIRE Ot Z79.01 PENITENTIARY (CURRENT) USE OF ANTICOAGULANT 12/14/2019 ROVENSTINE DO, JEREMI L Ot Z82.49 FAMILY HX OF ISCHEM HEART DIS AND OTH DI 12/18/2019 ROVENSTINE DOJOSEEN L Ot I10 ESSENTIAL (PRIMARY) HYPERTENSION 12/18/2019 ROVENSTINE DO, JEREMI L Ot I48.91 UNSPECIFIED ATRIAL FIBRILLATION 12/18/2019 ROVENSTINE DO, JEREMI Socorro Ot M25.532 PAIN IN LEFT WRIST 12/18/2019 ROVENSTINE DO, JEREMI L Ot S52.502A UNSP FRACTURE OF THE LOWER END OF LEFT R 12/18/2019 ROVENSTINE DO, JEREMI Quintanilla Ot W19.XXXA UNSPECIFIED FALL, INITIAL ENCOUNTER 12/18/2019 ROVENSTINE DO, JEREMI Socorro Ot Z79.01 ARTS AND SCIENCES DEAN (CURRENT) USE OF ANTICOAGULANT 12/18/2019 ROVENSTINE DO, JEREMI Quintanilla Ot Z82.49 FAMILY HX OF ISCHEM HEART DIS AND OTH DI 12/25/2019 ARA SCALES MD Ot I10 ESSENTIAL (PRIMARY) HYPERTENSION 12/25/2019 ARA SCALES MD Ot I48. 91 UNSPECIFIED ATRIAL FIBRILLATION 12/25/2019 ARA SCALES MD Ot M79.601 PAIN IN RIGHT ARM 12/25/2019 ARA SCALES MD Ot R03. 0 ELEVATED BLOOD-PRESSURE READING, W/O MARK 12/25/2019 ARA SCALES MD Ot R55 SYNCOPE AND COLLAPSE 12/25/2019 ARA SCALES MD Ot S52.571A OTH INTARTIC FRACTURE OF LOWER END OF RI 12/25/2019 ARA SCALES MD Ot W18.39XA OTHER FALL ON SAME LEVEL, INITIAL ENCOUN 12/25/2019 ARA SCALES MD Ot Z79. 01 PENITENTIARY (CURRENT) USE OF ANTICOAGULANT 12/25/2019 ARA SCALES MD Ot Z82. 49 FAMILY HX OF ISCHEM HEART DIS AND OTH DI 12/31/2019 ARA SCALES MD Ot I10 ESSENTIAL (PRIMARY) HYPERTENSION 12/31/2019 ARA SCALES MD Ot I48. 91 UNSPECIFIED ATRIAL FIBRILLATION 12/31/2019 ARA SCALES MD Ot M79.601 PAIN IN RIGHT ARM 12/31/2019 ARA SCALES MD Ot R03. 0 ELEVATED BLOOD-PRESSURE READING, W/O MARK 12/31/2019 ARA SCALES MD Ot R55 SYNCOPE AND COLLAPSE 12/31/2019 ARA SCALES MD Ot S52.571A OTH INTARTIC FRACTURE OF LOWER END OF RI 12/31/2019 ARA SCALES MD Ot W18.39XA OTHER FALL ON SAME LEVEL, INITIAL ENCOUN 12/31/2019 ARA SCALES MD Ot Z79. 01 ARTS AND SCIENCES DEAN (CURRENT) USE OF ANTICOAGULANT 12/31/2019 ARA SCALES MD Ot Z82. 49 FAMILY HX OF ISCHEM HEART DIS AND OTH DI 01/03/2020 NATE WHITE Ot S52.571A OTH INTARTIC FRACTURE OF LOWER END OF RI 01/03/2020 NATE WHITE Ot X58.XXXA EXPOSURE TO OTHER SPECIFIED FACTORS, INI 01/12/2020 NATE WHITE Ot S52.591D OTH FX OF LOWER END R RADIUS, SUBS FOR C 01/12/2020 NATE WHITE Ot S52.592D OTH FX OF LOWER END LEFT RAD, SUBS FOR C 01/12/2020 NATE WHITEP Ot X58.XXXD EXPOSURE TO OTHER SPECIFIED FACTORS, SUB 01/23/2020 NATE WHITEP Ot S52.571A OTH INTARTIC FRACTURE OF LOWER END OF RI 01/23/2020 NATE WHITE Ot X58.XXXA EXPOSURE TO OTHER SPECIFIED FACTORS, INI 01/26/2020 NATE WHITEP Ot S52.591D OTH FX OF LOWER END R RADIUS, SUBS FOR C 01/26/2020 NATE WHITE Ot S52.592D OTH FX OF LOWER END LEFT RAD, SUBS FOR C 01/26/2020 NATE WHITE Ot X58.XXXD EXPOSURE TO OTHER SPECIFIED FACTORS, SUB 01/30/2020 NATE WHITE Ot S52.571D OTH INTARTIC FX LOW END R RAD, SUBS FOR 01/30/2020 NATE WHITE Ot S52.592D OTH FX OF LOWER END LEFT RAD, SUBS FOR C 02/14/2020 NATE WHITE Ot S52.571D OTH INTARTIC FX LOW END R RAD, SUBS FOR 02/19/2020 NATE WHITE Ot S52.571D OTH INTARTIC FX LOW END R RAD, SUBS FOR 02/19/2020 NATE WHITE Ot S52.592D OTH FX OF LOWER END LEFT RAD, SUBS FOR C Procedures Code Description Performed By Per formed On [id number] RE POSITION LEFT TIBIA WITH INT FIX, OPEN 04/24/2018 [id number] RE POSITION LEFT FIBULA WITH INT FIX, [...] FROM: - 10/31/18 09:30 COPY RECEIVED FROM: [facility] LIPID PANEL - 06/01/19 09:20 [...] 7-25 CREATININE 1.38 mg/dL 0.60-0.93 eGFR NON-AFR. ANGOLAN 38 mL/min/1.73m2 > OR = 60 eGFR [...] urinalysis with reflex to culture YES NRG Bacterial urine culture - 12/25/19 20:44 Bacterial urine culture 3 OR MORE NRG COLONY COUNT >100,000/ML NRG SUSCEPTIBILITY GRAM POSITIVES, SUGGESTING PROBABLE NRG MRSA SCREEN COLLECTION CONTAMINATION WITH SKIN ADRIAN RA NRG RAPID ID NO SUSCEPTIBILITY PERFORMED N RG CMP - 02/12/20 08:49 GLUCOSE 99 mg/dL 65-99 UREA NITROGEN (BUN) 17 mg/dL 7-25 CREATININE 1.18 mg/dL 0.60-0.93 eGFR NON-AFR. ANGOLAN 45 mL/min/1.73m2 > OR = 60 eGFR 52 mL/min/1.73m2 > OR = 60 BUN/CREATININE RATIO 14 (calc) 6-22 SODIUM 143 mmol/L 135-146 POTASSIUM 4.0 mmol/L 3.5-5.3 CHLORIDE 107 mmol/L 98-110 CARBON DIOXIDE 27 mmol/L 20-32 CALCIUM 9.9 mg/dL 8.6-10.4 PROTEIN, TOTAL 6.7 g/dL 6.1-8.1 ALBUMIN 4.1 g/dL 3.6-5.1 GLOBULIN 2.6 g/dL (calc) 1.9-3.7 ALBUMIN/GLOBULIN RATIO 1.6 (calc) 1.0-2. 5 BILIRUBIN, TOTAL 0.6 mg/dL 0.2-1.2 ALKALINE PHOSPHATASE 81 U/L 37-153 AST 15 U/L 10-35 ALT 12 U/L 6-29 URIC ACID, SERUM - 02/12/20 08:49 URIC ACID 8.6 mg/dL 2.5-7.0 CBC - 02/12/20 08:49 WHITE BLOOD CELL COUNT 6.6 Thousand/uL 3 .8-10.8 RED BLOOD CELL COUNT 3.34 Million/uL 3.8 0-5.10 HEMOGLOBIN 11.2 g/dL 11.7-15.5 HEMATOCRIT 34.1 % 35.0-45.0 MCV 102.1 fL 80.0-100.0 MCH 33.5 pg 27.0-33.0 MCHC 32.8 g/dL 32.0-36.0 RDW 12.8 % 11.0-15.0 PLATELET COUNT 205 Thousand/uL 140-400 MPV 10.6 fL 7.5-12.5 ABSOLUTE NEUTROPHILS 4237 cells/uL 1500- 7800 ABSOLUTE LYMPHOCYTES 1762 cells/uL 850-3 900 ABSOLUTE MONOCYTES 462 cells/uL 200-950 ABSOLUTE EOSINOPHILS 119 cells/uL 15-500 ABSOLUTE BASOPHILS 20 cells/uL 0-200 NEUTROPHILS 64.2 % NRG LYMPHOCYTES 26.7 % NRG MONOCYTES 7.0 % NRG EOSINOPHILS 1.8 % NRG BASOPHILS 0.3 % NRG Encounters ACCT No. Visit Date/Time Discharge Status Pt. Type Provider Facility Loc./Unit Complaint [id number] 02/15/2020 11:00:00 02/15/2020 23:59: 59 CLS Outpatient SELF, STEFANY VILLAGRAN [facility] [id number] 02/12/2020 08:30:00 Document Registration [id number] 12/08/2019 08:30:00 Document Registration [id number] 06/13/2019 16:00:00 Document Registration [id number] 06/01/2019 09:20:00 Document Registration [id number] 06/01/2019 09:15:00 Document Registration [id number] 10/31/2018 09:30:00 Document Registration [id number] 02/08/2020 10:26:00 23:59:59 CLS Outpatient NATE WHITE [facility] RAD FS OTHER INTRAARTICULAR F RACTURE OF LOWER END OF RIGH [id number] 01/25/2020 10:04:00 23:59:59 CLS Outpatient NATE WHITE [facility] RAD FS FX LOWER END OF R RADI US,FX LOWER END OF L RADIUS [id number] 01/11/2020 11:03:00 23:59:59 CLS Outpatient NATE WHITE [facility] RAD FS BILAT WRIST FX [id number] 01/02/2020 09:47:00 23:59:59 CLS Outpatient NATE WHITE [facility] RAD FS S52.571A [id number] [id number] 12/25/2019 19:49:00 21:33:00 DIS Emergency LOYDA LARSON, ARA Garcia [facility] ER FS FELL;ARM PAIN [id number] 12/14/2019 00:58:00 01:35:00 DIS Emergency JEREMI CASTRO DO [facility] ER FS GENERAL PROBLEM S,FALL, RIGHT WRIST PAIN [id number] 08/14/2019 15:22:00 16:30:00 DIS Emergency RAHUL GAXIOLA DO [facility] ER FS POST FALL PAIN IN HIP [id number] 03/15/2019 09:58:00 10:29:00 DIS Emergency JOAN PANDYA DO [facility] ER FS HIGH BP [id number] 12/05/2018 16:18:00 17:22:00 DIS Emergency REINALDO LARSON, MARIA C Coello [facility] ER FS LT ARM LAC [id number] 11/14/2018 12:10:00 019 23:59:59 CLS Outpatient CHRISTY LARSON, HAYDEN Monreal [facility] RAD CHRONIC KIDNEY DISEASE STAGE 3 [id number] 04/26/2018 10:15:00 018 10:30:00 DIS Inpatient CHRIS LARSON, DEDE Coats [facility] IRF LEFT TIB-FIB FRACTURE [id number] 04/23/2018 19:20:00 018 10:28:00 DIS Inpatient NITISH LARSON, VINH Coello [facility] 4TH SYNCOPE COLLAPSE,L TI B FIB FX [id number] 03/28/2018 09:56:00 018 23:59:59 CLS Outpatient CHRISTY LARSON, Becki SALGADO [facility] CARD ATRIAL FIBRILLATION,DIZ ZINESS,HTN [id number] 02/22/2020 03:14:[address] Emergency ZEUS LARSON, LAM Villanueva [facility] ER FS HIGH BLOOD PRESSURE,TIGHTNES S IN CHEST [id number] 04/23/2018 18:04:00 Document Registration [id number] 01/09/2020 14:03:00 0 23:59:59 DIS Outpatient [facility] ASHLEY
[2020-02-22 03:53] LABS: BASOPHILS % (AUTO) 0 % (0-10); EOSINOPHILS # (AUTO) 0.1 10^3/uL (0.0-0.3); EOSINOPHILS % (AUTO) 2 % (0-10); HEMATOCRIT 34 % (35-52); HEMOGLOBIN 11.6 G/DL (11.5-16.0); LYMPHOCYTES # (AUTO) 2.4 X 10^3 (1.0-4.0); LYMPHOCYTES % (AUTO) 32 % (12-44); MEAN CORPUSCULAR HEMOGLOBIN 33 PG (25-34); MEAN CORPUSCULAR HGB CONC 35 G/DL (32-36); MEAN CORPUSCULAR VOLUME 97 FL (80-99); MEAN PLATELET VOLUME 11.1 FL (7.4-10.4); MONOCYTES # (AUTO) 0.6 X 10^3 (0.0-1.0); MONOCYTES % (AUTO) 8 % (0-12); NEUTROPHILS # (AUTO) 4.4 X 10^3 (1.8-7.8); NEUTROPHILS % (AUTO) 58 % (42-75); PLATELET COUNT 219 10^3/uL (130-400); RED CELL DISTRIBUTION WIDTH 13.7 % (10.0-14.5); WHITE BLOOD COUNT 7.6 10^3/uL (4.3-11.0)
[2020-02-22 04:08] LABS: BILIRUBIN,TOTAL 0.4 MG/DL (0.1-1.0); CALCIUM 9.7 MG/DL (8.5-10.1); CREATININE SERUM 1.17 MG/DL (0.60-1.30); MAGNESIUM 1.7 MG/DL (1.6-2.4); POTASSIUM 4.1 MMOL/L (3.6-5.0)
--- NOTE | 2020-02-22 04:45 | ED Cardiac General ---
History of Present Illness General Chief Complaint: Cardiac/General Problems Stated Complaint: HIGH BLOOD PRESSURE,TIGHTNESS IN CHEST Nursing Triage Note: PATIENT STATES 2200 THIS EVENING STATES FELT HEART RACING, AND BP RISING. Source: patient Exam Limitations: no limitations History of Present Illness Date Seen by Provider: Feb 22, 2020 Time Seen by Provider: 03:15 Initial Comments This 74-year-old woman with paroxysmal atrial fibrillation presents to the emergency room with racing heart since 22:00. She denies chest pain, shortness of breath, fever, or cough. Heart rate ranges from 110s to 130s on assessment and rhythm appears atrial fibrillation. She is anticoagulated and takes digoxin. She has Cardizem 30 mg she is to take if blood pressure is greater than 180. Allergies and Home Medications Allergies Coded Allergies: No Known Drug Allergies (Unverified , 04/23/18) Home Medications Citalopram Hydrobromide 40 Mg Tablet, 40 MG PO DAILY, (Reported) Furosemide 40 Mg Tablet, 40 MG PO NEEDED, (Reported) Hydrocodone/Acetaminophen 1 Each Tablet, 1 TAB PO Q4-6HR Prescribed by: KHALIDA KAY on 08/14/19 1621 Hydrocodone/Acetaminophen 1 Each Tablet, 1 EACH PO Q6H PRN for PAIN-BREAKTHROUGH Prescribed by: ARA SCALES on 12/25/192046 Losartan Potassium 100 Mg Tablet, 100 MG PO DAILY, (Reported) Magnesium Oxide 400 Mg Tablet, 400 MG PO DAILY, (Reported) Metoprolol Tartrate 50 Mg Tablet, 25 MG PO BID, (Reported) Omeprazole 20 Mg Capsule.dr, 20 MG PO DAILY, (Reported) Tolterodine Tartrate 4 Mg Cap, 4 MG PO DAILY, (Reported) Warfarin Sodium 2 Mg Tablet, 4 MG PO Mo,Fr, (Reported) Warfarin Sodium 2 Mg Tablet, 3 MG PO SuTuWeThSa, (Reported) Patient Home Medication List Home Medication List Reviewed: Yes Review of Systems Review of Systems Constitutional: no symptoms reported EENTM: No Symptoms Reported Respiratory: No Symptoms Reported Cardiovascular: See HPI Gastrointestinal: No Symptoms Reported Genitourinary: No Symptoms Reported Musculoskeletal: no symptoms reported Skin: no symptoms reported Psychiatric/Neurological: No Symptoms Reported Endocrine: No Symptoms Reported Hematologic/Lymphatic: No Symptoms Reported Past Mricajy-Pifkly-Ngouxp Hx Patient Social History Alcohol Use: Occasionally Uses Alcohol Beverage of Choice: Rum Recreational Drug Use: No Smoking Status: Never a Smoker 2nd Hand Smoke Exposure: No Recent Foreign Travel: No Contact w/Someone Who Travel: No Recent Infectious Disease Expo: No Recent Hopitalizations: Yes (CARDIOVERTED IN SEPTEMBER FOR AFIB) Physical Abuse: No Sexual Abuse: No Mistreated: No Fear: No Immunizations Up To Date Tetanus Booster (TDap): Unknown Date of Pneumonia Vaccine: Sep 06, 2017 Date of Influenza Vaccine: May 07, 2019 Seasonal Allergies Seasonal Allergies: No Past Medical History Surgeries: Yes (Left THR) Adenoidectomy, Appendectomy, Hysterectomy, Orthopedic, Tonsillectomy Respiratory: No Cardiac: Yes Atrial Fibrillation, Hypertension 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 0.6oz. 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 as Tested Skin: Normal Color, Warm/Dry Procedures/Interventions Suture Size: 4-0 Progress/Results/Core Measures Results/Orders Lab Results Laboratory Tests Test 02/22/20 03:25 Range/Units White Blood Count 7.6 4.3-11.0 10^3/uL Red Blood Count 3.48 L 4.35-5.85 10^6/uL Hemoglobin 11.6 11.5-16.0 G/DL Hematocrit 34 L 35-52 % Mean Corpuscular Volume 97 80-99 FL Mean Corpuscular Hemoglobin 33 25-34 PG Mean Corpuscular Hemoglobin Concent 35 32-36 G/DL Red Cell Distribution Width 13.7 10.0-14.5 % Platelet Count 219 130-400 10^3/uL Mean Platelet Volume 11.1 H 7.4-10.4 FL Neutrophils (%) (Auto) 58 42-75 % Lymphocytes (%) (Auto) 32 12-44 % Monocytes (%) (Auto) 8 0-12 % Eosinophils (%) (Auto) 2 0-10 % Basophils (%) (Auto) 0 0-10 % Neutrophils # (Auto) 4.4 1.8-7.8 X 10^3 Lymphocytes # (Auto) 2.4 1.0-4.0 X 10^3 Monocytes # (Auto) 0.6 0.0-1.0 X 10^3 Eosinophils # (Auto) 0.1 0.0-0.3 10^3/uL Basophils # (Auto) 0.0 0.0-0.1 10^3/uL Sodium Level 141 135-145 MMOL/L Potassium Level 4.1 3.6-5.0 MMOL/L Chloride Level 102 98-107 MMOL/L Carbon Dioxide Level 22 21-32 MMOL/L Anion Gap 17 H 5-14 MMOL/L Blood Urea Nitrogen 20 H 7-18 MG/DL Creatinine 1.17 0.60-1.30 MG/DL Estimat Glomerular Filtration Rate 45 BUN/Creatinine Ratio 17 Glucose Level 122 H 70-105 MG/DL Calcium Level 9.7 8.5-10.1 MG/DL Corrected Calcium 9.7 8.5-10.1 MG/DL Magnesium Level 1.7 1.6-2.4 MG/DL Total Bilirubin 0.4 0.1-1.0 MG/DL Aspartate Amino Transf (AST/SGOT) 23 5-34 U/L Alanine Aminotransferase (ALT/SGPT) 14 0-55 U/L Alkaline Phosphatase 85 40-136 U/L Total Protein 7.0 6.4-8.2 GM/DL Albumin 4.0 3.2-4.5 GM/DL My Orders Orders - LAM SCHULZ MD Diltiazem Injection (Cardizem Injection) (02/22/20 03:26) Cbc With Automated Diff (02/22/20 03:28) Comprehensive Metabolic Panel (02/22/20 03:28) Magnesium (02/22/20 03:28) Thyroid Analyzer (02/22/20 03:28) Ua Culture If Indicated (02/22/20 03:28) Diltiazem Injection (Cardizem Injection) (02/22/20 03:30) Ed Iv/Invasive Line Start (02/22/20 03:28) Ekg Tracing (02/22/20 03:28) Monitor-Rhythm Ecg Trace Only (02/22/20 03:28) Medications Given in ED Current Medications Medications Dose Ordered Sig/Kaitlynn Route Start Time Stop Time Status Last Admin Dose Admin Diltiazem HCl 10 mg ONCE ONCE IVP 02/22/20 03:30 02/22/20 03:33 DC 02/22/20 03:34 10 MG Vital Signs/I&O 02/22/20 02/22/20 03:25 04:50 Temp 36.4 Pulse 89 70 Resp 13 16 B/P (MAP) 150/81 (104) 135/55 Pulse Ox 96 95 O2 Delivery Room Air Room Air Blood Pressure Mean: 104 Progress Progress Note : Progress Note Patient was given a Cardizem bolus and promptly converted to sinus rhythm. She had no further atrial fibrillation and was feeling well. Labs were reviewed and she was dismissed home. Thyroid studies were pending at the time of dismissal. Initial ECG Impression Date: Feb 22, 2020 Initial ECG Impression Time: 03:21 Initial ECG Rate: 127 Initial ECG Rhythm: A Fib/Flutter Initial ECG Impression: Atrial Fibrillation w/RVR Comment Atrial fibrillation with RVR with repolarization abnormality. Departure Impression Primary Impression: Atrial fibrillation with RVR Disposition: 01 HOME, SELF-CARE Condition: Improved Departure-Patient Inst. Decision time for Depature: 04:44 Referrals: STEFANY MALHOTRA MD (PCP/Family) Primary Care Physician Patient Instructions: Atrial Fibrillation Add. Discharge Instructions: Continue with your medications as prescribed. Additionally, if you're heart rate is greater than 120, you may take a Cardizem 30 mg tablet. Follow-up with your integrity engineer as soon as possible. Return to care if you have worsening or persistent symptoms. All discharge instructions reviewed with patient and/or family. Voiced understanding. Copy Copies To 1: SELF,LAM PARKER MD, MD Feb 22, 2020 04:45
[2020-02-22 04:50] VITALS: BP 135/55
[2020-02-22 16:06] LABS: TSH (THYROID ANALYZER) 0.92 UIU/ML (0.35-4.94)
== END 2020-02-22 04:50 | disposition home or self-care (01) ==
LOC: EDUNIT# 03:13 → ER FS 03:14
DX: I48.0 Paroxysmal atrial fibrillation (principal); I10 Essential (primary) hypertension; Z96.642 Presence of left artificial hip joint; Z79.01 Long term (current) use of anticoagulants; Z82.49 Family history of ischemic heart disease and other diseases of the circulatory system
CPT/HCPCS: 36415; 80053; 83735; 84443; 85025; 93005; 93041

== ENCOUNTER 2020-06-15 12:59 | Inpatient (IN) | payer MEDICARE, OTHER ==
[~2020-06-15] VITALS: Ht 160 cm; Wt 80.1 kg
[2020-06-15] VITALS (8 sets, daily range): BP systolic 83–137; BP diastolic 53–97
[~2020-06-15 12:59] MED LIST changes: +ACHD5005 PO; -HYDR-83 PO
[2020-06-15] MEDS ORDERED: NS IV 1000 ML 1,000 ML ONE (13:07)
--- NOTE | 2020-06-15 13:08 | ED General ---
General Chief Complaint: Cardiac/General Problems Stated Complaint: LOW BP History of Present Illness Date Seen by Provider: Jun 15, 2020 Time Seen by Provider: 13:07 Initial Comments Patient presenting to emergency department for evaluation of generalized weakness and palpitations and tachycardia. She reportedly said she came out of the shower and felt the fast heartbeat and generalized weakness and felt as if she could not ambulate. She says she feels slight chest pressure and shortness of breath but no nausea vomiting or diaphoresis. She does have a history of paroxysmal atrial fibrillation and is usually not and it but she is on Zaroxolyn Cardizem from what I can see from her medication list. She denies any history of ischemic cardiac disease. 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 She is in no obvious distress with tachycardia noted. Allergies and Home Medications Allergies Coded Allergies: No Known Drug Allergies (Unverified , 04/23/18) Home Medications Bupropion HCl 150 Mg Tab.er.24h, 150 MG PO DAILY, (Reported) Take daily early AM for depression Cholecalciferol (Vitamin D3) 25 Mcg Capsule, 25 MCG PO DAILY, (Reported) Digoxin 125 Mcg Tablet, 125 MG PO DAILY, (Reported) Diltiazem HCl 120 Mg Cap.er.24h, 120 MG PO DAILY, (Reported) Furosemide 20 Mg Tablet, 20 MG PO DAILY PRN for swelling, (Reported) Hydralazine HCl 25 Mg Tablet, 25 MG PO DAILY, (Reported) Losartan Potassium 50 Mg Tablet, 50 MG PO DAILY, (Reported) Magnesium Oxide 400 Mg Tablet, 400 MG PO DAILY, (Reported) Omeprazole 20 Mg Capsule.dr, 20 MG PO DAILY, (Reported) Rivaroxaban 20 Mg Tablet, 20 MG PO DAILY, (Reported) Rosuvastatin Calcium 20 Mg Tablet, 20 MG PO HS, (Reported) Patient Home Medication List Home Medication List Reviewed: Yes Review of Systems Review of Systems Constitutional: dizziness EENTM: no symptoms reported Respiratory: short of breath Cardiovascular: chest pain Gastrointestinal: no symptoms reported Genitourinary: no symptoms reported Musculoskeletal: no symptoms reported Skin: no symptoms reported Psychiatric/Neurological: Weakness All Other Systems Reviewed Negative Unless Noted: Yes Past Qndnoah-Vkyhnk-Ktdiif Hx Patient Social History Alcohol Beverage of Choice: Rum 2nd Hand Smoke Exposure: No Recent Hopitalizations: Yes (CARDIOVERTED IN SEPTEMBER FOR AFIB) Immunizations Up To Date Tetanus Booster (TDap): Unknown Date of Pneumonia Vaccine: Sep 06, 2017 Date of Influenza Vaccine: May 07, 2019 Seasonal Allergies Seasonal Allergies: No Past Medical History Surgeries: Yes (Left THR) Adenoidectomy, Appendectomy, Hysterectomy, Orthopedic, Tonsillectomy Respiratory: No Cardiac: Yes Atrial Fibrillation, Hypertension 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 0.6oz. 83.913165tj; 32.00 BMI Method:Stated General Appearance: No Apparent Distress, WD/WN HEENT: PERRL/EOMI Neck: Supple Respiratory: No Respiratory Distress Cardiovascular: Irregularly Irregular, Tachycardia Gastrointestinal: Non Tender, Soft Back: Normal Inspection Extremity: Normal Capillary Refill Neurologic/Psychiatric: Alert, Oriented x3 Skin: Warm/Dry Procedures/Interventions Suture Size: 4-0 Progress/Results/Core Measures Suspected Sepsis SIRS Temperature: Pulse: Respiratory Rate: Laboratory Tests 06/15/20 13:09: White Blood Count 9.1 Blood Pressure / Mean: Laboratory Tests 06/15/20 13:09: Creatinine 1.63H, INR Comment 1.3, Platelet Count 266, Total Bilirubin 0.6 Results/Orders Lab Results Laboratory Tests Test 06/15/20 13:09 06/15/20 13:51 Range/Units White Blood Count 9.1 4.3-11.0 10^3/uL Red Blood Count 4.27 L 4.35-5.85 10^6/uL Hemoglobin 13.8 11.5-16.0 G/DL Hematocrit 40 35-52 % Mean Corpuscular Volume 94 80-99 FL Mean Corpuscular Hemoglobin 32 25-34 PG Mean Corpuscular Hemoglobin Concent 34 32-36 G/DL Red Cell Distribution Width 12.9 10.0-14.5 % Platelet Count 266 130-400 10^3/uL Mean Platelet Volume 10.6 H 7.4-10.4 FL Immature Granulocyte % (Auto) 0 % Neutrophils (%) (Auto) 64 42-75 % Lymphocytes (%) (Auto) 27 12-44 % Monocytes (%) (Auto) 7 0-12 % Eosinophils (%) (Auto) 2 0-10 % Basophils (%) (Auto) 0 0-10 % Neutrophils # (Auto) 5.8 1.8-7.8 X 10^3 Lymphocytes # (Auto) 2.4 1.0-4.0 X 10^3 Monocytes # (Auto) 0.6 0.0-1.0 X 10^3 Eosinophils # (Auto) 0.2 0.0-0.3 10^3/uL Basophils # (Auto) 0.0 0.0-0.1 10^3/uL Immature Granulocyte # (Auto) 0.0 0.0-0.1 10^3/uL Prothrombin Time 16.3 H 12.2-14.7 SEC INR Comment 1.3 0.8-1.4 Activated Partial Thromboplast Time 31 24-35 SEC Sodium Level 139 135-145 MMOL/L Potassium Level 4.0 3.6-5.0 MMOL/L Chloride Level 100 98-107 MMOL/L Carbon Dioxide Level 24 21-32 MMOL/L Anion Gap 15 H 5-14 MMOL/L Blood Urea Nitrogen 25 H 7-18 MG/DL Creatinine 1.63 H 0.60-1.30 MG/DL Estimat Glomerular Filtration Rate 31 BUN/Creatinine Ratio 15 Glucose Level 132 H 70-105 MG/DL Calcium Level 10.2 H 8.5-10.1 MG/DL Corrected Calcium 8.5-10.1 MG/DL Magnesium Level 1.9 1.6-2.4 MG/DL Total Bilirubin 0.6 0.1-1.0 MG/DL Aspartate Amino Transf (AST/SGOT) 22 5-34 U/L Alanine Aminotransferase (ALT/SGPT) 16 0-55 U/L Alkaline Phosphatase 100 40-136 U/L Troponin I < 0.30 <0.30 NG/ML Pro-B-Type Natriuretic Peptide 1106.0 H <75.0 PG/ML Total Protein 7.9 6.4-8.2 GM/DL Albumin 4.7 H 3.2-4.5 GM/DL Urine Color YELLOW Urine Clarity CLEAR Urine pH 6.0 5-9 Urine Specific Dyer 1.010 L 1.016-1.022 Urine Protein NEGATIVE NEGATIVE Urine Glucose (UA) NEGATIVE NEGATIVE Urine Ketones NEGATIVE NEGATIVE Urine Nitrite NEGATIVE NEGATIVE Urine Bilirubin NEGATIVE NEGATIVE Urine Urobilinogen 0.2 < = 1.0 MG/DL Urine Leukocyte Esterase NEGATIVE NEGATIVE Urine RBC (Auto) NEGATIVE NEGATIVE Urine RBC NONE /HPF Urine WBC 2-5 /HPF Urine Squamous Epithelial Cells 5-10 /HPF Urine Crystals NONE /LPF Urine Bacteria NEGATIVE /HPF Urine Casts PRESENT /LPF Urine Hyaline Casts >50 H /LPF Urine Mucus NEGATIVE /LPF Urine Culture Indicated NO My Orders Orders - FADUMO NOLAND DO Iv/Invasive Line Insertion .IV start (06/15/20 13:10) Cbc With Automated Diff (06/15/20 13:10) Comprehensive Metabolic Panel (06/15/20 13:10) Troponin I Fs (06/15/20 13:10) Ua Culture If Indicated (06/15/20 13:10) Chest 1 View Ap/Pa Only (06/15/20 13:10) Magnesium (06/15/20 13:10) Partial Thromboplastin Time (06/15/20 13:10) Probnp Fs (06/15/20 13:10) Protime With Inr (06/15/20 13:10) Ns Iv 1000 Ml (Sodium Chloride 0.9%) (06/15/20 13:15) Aspirin Chewable Tablet (Baby Aspirin Ch (06/15/20 13:15) Diltiazem Injection (Cardizem Injection) (06/15/20 13:15) Ns Iv 1000 Ml (Sodium Chloride 0.9%) (06/15/20 13:07) Diltiazem Injection (Cardizem Injection) (06/15/20 13:07) Diltiazem Drip Pre-Mix (Cardizem Drip Pr (06/15/20 14:00) Medications Given in ED Current Medications Medications Dose Ordered Sig/Kaitlynn Route Start Time Stop Time Status Last Admin Dose Admin Aspirin 324 mg ONCE ONCE PO 06/15/20 13:15 06/15/20 13:16 DC 06/15/20 13:23 324 MG Diltiazem HCl 15 mg ONCE ONCE IVP 06/15/20 13:15 06/15/20 13:16 DC 06/15/20 13:16 15 MG Vital Signs/I&O 06/15/20 13:09 Temp 36.6 Pulse 142 Resp 18 B/P (MAP) 125/89 (101) Pulse Ox 96 O2 Delivery Room Air Capillary Refill : Progress Note : Progress Note Patient's heart rate improved to around 100 after the bolus dose however the heart rate continued to creep up into the 120-140 range so a drip was started. Patient improved symptomatically and she appears well otherwise and her workup is unremarkable except for mild renal insufficiency and elevated BNP which is not new. Dr. King agreed to accept the patient and Dr. Mccurdy of the cardiology services will consult. Patient transferred to [place] in guarded condition. Departure Impression Primary Impression: Atrial fibrillation with RVR Additional Impressions: Chest pain Renal insufficiency Weakness generalized Disposition: ADMITTED INPATIENT Condition: Improved Transfer Transfer Reason: Exceeds level of care Transfer Facility: [facility] Method of Transfer: EMS Departure-Patient Inst. Referrals: SELF,STEFANY LARSON (PCP/Family) Primary Care Physician FADUMO NOLAND DO Jun 15, 2020 13:08
[2020-06-15] MEDS ORDERED: ASPIRIN 81 MG CHEW (CHILDREN'S ASA) PO ONE (13:15)
[2020-06-15] MEDS ORDERED: NS IV 1000 ML 1,000 ML IV SCH (13:15)
[2020-06-15] MEDS ORDERED: TR1C15 (13:23)
[2020-06-15] MEDS ORDERED: LOSA50TA63 PO (13:23)
[2020-06-15] MEDS ORDERED: DILT120C53 PO (13:23)
[2020-06-15] MEDS ORDERED: FURO20TA4 PO (13:23)
[2020-06-15] MEDS ORDERED: DIGO125T3 PO (13:23)
[2020-06-15] MEDS ORDERED: ROSU20TA32 PO (13:23)
[2020-06-15] MEDS ORDERED: HYDR-3923 PO (13:23)
[2020-06-15] MEDS ORDERED: BUPR150T7 PO (13:23)
[2020-06-15 13:24] LABS: EOSINOPHILS % (AUTO) 2 % (0-10); HEMATOCRIT 40 % (35-52); HEMOGLOBIN 13.8 G/DL (11.5-16.0); LYMPHOCYTES % (AUTO) 27 % (12-44); MEAN CORPUSCULAR HEMOGLOBIN 32 PG (25-34); MEAN CORPUSCULAR HGB CONC 34 G/DL (32-36); MEAN CORPUSCULAR VOLUME 94 FL (80-99); MEAN PLATELET VOLUME 10.6 FL (7.4-10.4); MONOCYTES % (AUTO) 7 % (0-12); NEUTROPHILS % (AUTO) 64 % (42-75); PLATELET COUNT 266 10^3/uL (130-400); WHITE BLOOD COUNT 9.1 10^3/uL (4.3-11.0)
[2020-06-15 13:25] LABS: BASOPHILS % (AUTO) 0 % (0-10); EOSINOPHILS # (AUTO) 0.2 10^3/uL (0.0-0.3); LYMPHOCYTES # (AUTO) 2.4 X 10^3 (1.0-4.0); MONOCYTES # (AUTO) 0.6 X 10^3 (0.0-1.0); NEUTROPHILS # (AUTO) 5.8 X 10^3 (1.8-7.8)
[2020-06-15] MEDS ORDERED: Xarelto (13:27)
[2020-06-15 13:35] LABS: INR 1.3 (0.8-1.4); PROTHROMBIN TIME PATIENT 16.3 SEC (12.2-14.7)
[2020-06-15 13:41] LABS: CHLORIDE 100 MMOL/L (98-107); SODIUM 139 MMOL/L (135-145)
[2020-06-15 13:42] LABS: ALANINE AMINOTRANSFERASE 16 U/L (0-55); ALKALINE PHOSPHATASE 100 U/L (40-136); BILIRUBIN,TOTAL 0.6 MG/DL (0.1-1.0); BUN/CREATININE RATIO 15; CALCIUM 10.2 MG/DL (8.5-10.1); CARBON DIOXIDE 24 MMOL/L (21-32); CREATININE SERUM 1.63 MG/DL (0.60-1.30); GFR ESTIMATED 31; GLUCOSE 132 MG/DL (70-105); MAGNESIUM 1.9 MG/DL (1.6-2.4)
[2020-06-15 13:43] LABS: ALBUMIN 4.7 GM/DL (3.2-4.5); TOTAL PROTEIN 7.9 GM/DL (6.4-8.2)
--- NOTE | 2020-06-15 13:44 | Diagnostic Imaging Report ---
INDICATION: Chest pain COMPARISON: 12/25/2019 TECHNIQUE: Single radiograph of the chest dated 06/15/2020 FINDINGS: The cardiac silhouette is within normal limits in size. No significant pulmonary vascular congestion. Calcifications within the aortic arch. The lungs are clear of focal pulmonary opacity. No pleural effusion. No pneumothorax. No acute osseous normality. IMPRESSION: Stable examination without acute cardiopulmonary abnormality. Dictated by: Dictated on workstation # [id number]
[2020-06-15] MEDS ORDERED: dilTIAZem DRIP PRE-MIX 125 ML IV SCH (14:00)
[2020-06-15 14:03] LABS: BILIRUBIN,URINE NEGATIVE (NEGATIVE); CLARITY,URINE CLEAR; COLOR,URINE YELLOW; GLUCOSE, URINE (UA) NEGATIVE (NEGATIVE); KETONES,URINE NEGATIVE (NEGATIVE); LEUKOCYTE ESTERASE ,URINE NEGATIVE (NEGATIVE); NITRITE,URINE NEGATIVE (NEGATIVE); PROTEIN,URINE NEGATIVE (NEGATIVE)
[2020-06-15 14:04] LABS: BACTERIA,URINE NEGATIVE /HPF; HYALINE CASTS, URINE >50 /LPF
[2020-06-15] MEDS ORDERED: MAGN400T7 PO (14:33)
[2020-06-15] MEDS ORDERED: RIVA20TA PO (14:33)
[2020-06-15] MEDS ORDERED: CHOL10007 PO (14:33)
[2020-06-15] MEDS ORDERED: CATHETER FLUSH 10 ML SYR IV PRN (17:00)
[2020-06-15] MEDS ORDERED: HYDROcodone/APAP 5 MG/325 MG (LORTAB) TAB PO PRN (17:15)
[2020-06-15] MEDS ORDERED: CALCIUM CARBONATE 500 MG (TUMS) TAB.CHEW PO PRN (17:15)
[2020-06-15] MEDS ORDERED: LACTULOSE SYRUP 10GM/15ML (ENULOSE) 30ML UDC PO PRN (17:15)
[2020-06-15] MEDS ORDERED: diphenhydrAMINE 25 MG TAB (BENADRYL) PO PRN (17:15)
[2020-06-15] MEDS ORDERED: ACETAMINOPHEN 500 MG TAB (TYLENOL) PO PRN (17:15)
[2020-06-15] MEDS ORDERED: DOCUSATE SODIUM 100 MG (COLACE) CAP PO PRN (17:15)
[2020-06-15] MEDS ORDERED: LOPERAMIDE 2 MG (IMODIUM) TABLET PO PRN (17:15)
[2020-06-15] MEDS ORDERED: MELATONIN 3 MG TABLET PO PRN (17:15)
[2020-06-15] MEDS ORDERED: ALPRAZolam 0.25 MG (XANAX) TAB PO PRN (17:15)
[2020-06-15] MEDS ORDERED: ONDANSETRON 4 MG/2 ML (SDV) Z0FRAN IVP PRN (17:15)
[2020-06-15] MEDS: dilTIAZem DRIP 125 MG/125 ML DRIP IV SCH (17:50)
[2020-06-15] MEDS ORDERED: RIVAROXABAN 20 MG TABLET (XARELTO) ONE (17:58)
[2020-06-15] MEDS ORDERED: RIVAROXABAN 20 MG TABLET (XARELTO) PO SCH (18:00)
[2020-06-15] MEDS: SENNA W/DOCUSATE (SENOKOT S) TABLET PO SCH (21:52)
[2020-06-15] MEDS: CATHETER FLUSH 10 ML SYR IV SCH (21:52)
[2020-06-16] VITALS (27 sets, daily range): BP systolic 87–142; BP diastolic 48–96
[2020-06-16] MEDS: dilTIAZem DRIP 125 MG/125 ML DRIP IV SCH (02:52)
[2020-06-16 02:53] LABS: BASOPHILS % (AUTO) 0 % (0-10); EOSINOPHILS # (AUTO) 0.2 10^3/uL (0.0-0.3); EOSINOPHILS % (AUTO) 2 % (0-10); HEMATOCRIT 34 % (35-52); HEMOGLOBIN 11.3 g/dL (11.5-16.0); LYMPHOCYTES # (AUTO) 2.4 10^3/uL (1.0-4.0); LYMPHOCYTES % (AUTO) 26 % (12-44); MEAN CORPUSCULAR HEMOGLOBIN 32 pg (25-34); MEAN CORPUSCULAR HGB CONC 33 g/dL (32-36); MEAN CORPUSCULAR VOLUME 97 fL (80-99); MEAN PLATELET VOLUME 10.5 fL (9.0-12.2); MONOCYTES # (AUTO) 0.8 10^3/uL (0.0-1.0); MONOCYTES % (AUTO) 8 % (0-12); NEUTROPHILS % (AUTO) 64 % (42-75); PLATELET COUNT 206 10^3/uL (130-400); WHITE BLOOD COUNT 9.5 10^3/uL (4.3-11.0)
[2020-06-16 03:10] LABS: INR 2.1 (0.8-1.4); PROTHROMBIN TIME PATIENT 24.1 SEC (12.2-14.7)
[2020-06-16 03:18] LABS: POTASSIUM 3.8 MMOL/L (3.6-5.0)
[2020-06-16 03:19] LABS: CALCIUM 9.2 MG/DL (8.5-10.1)
[2020-06-16 03:23] LABS: CREATININE SERUM 1.71 MG/DL (0.60-1.30)
[2020-06-16 03:32] LABS: CREATINE KINASE MB 1.5 NG/ML (<6.6)
[2020-06-16] MEDS: KCL 20 MEQ TAB (K-DUR) PO SCH (04:22)
[2020-06-16] MEDS: POTASSIUM CL 10MEQ/50ML IVPB 50 ML IV SCH (04:22)
[2020-06-16] MEDS: MAGNESIUM 1 GM/100 ML IVPB 100 ML IV SCH (04:49)
[2020-06-16] MEDS: CATHETER FLUSH 10 ML SYR IV SCH ×3 (05:05→21:54)
--- NOTE | 2020-06-16 06:56 | History & Physical-Hospitalist ---
History of Present Illness HPI/Chief Complaint CC: Palpitations HPI: This is a 74yoWF clinic patient of Dr Henning and Dr [facility] in [facility] who presents to the ER with palpitations and chest pain and found to have AF w/RVR and chest pain suspicious for ACS. 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 IV infusions will be maintained to see if she converts if not will need PALAK and cardioversion. Source: RN/MD Exam Limitations: clinical condition (intubated) Date Seen 06/16/20 Time Seen by a Provider: 12:30 Attending Physician Viky King Maxwell MD Referring Physician Date of Admission Jun 15, 2020 at 15:55 Home Medications & Allergies Home Medications Reviewed patient Home Medication Reconciliation performed by pharmacy medication reconciliations vascular ultrasound technician and/or nursing. Patients Allergies have been reviewed. Allergies Allergies Coded Allergies No Known Drug Allergies (Unverified04/23/18) Past Hdnxxoz-Veamop-Neuywm Hx Past Med/Social Hx: Reviewed Nursing Past Med/Soc Hx, Reviewed and Corrections made Patient Social History Marrital Status: Employed/Student: retired Alcohol Use: Occasionally Uses Alcohol Beverage of Choice: Rum Recreational Drug Use: No Smoking Status: Never a Smoker 2nd Hand Smoke Exposure: No Recent Foreign Travel: No Contact w/other who traveled: No Recent Hopitalizations: No Recent Infectious Disease Expo: No Immunizations Up To Date Tetanus Booster (TDap): Unknown Date of Pneumonia Vaccine: Sep 06, 2017 Date of Influenza Vaccine: May 21, 2020 Seasonal Allergies Seasonal Allergies: No Past Medical History Surgeries: Adenoidectomy, Appendectomy, Hysterectomy, Orthopedic, Tonsillectomy Cardiac: Atrial Fibrillation, Hypertension Hysterectomy Musculoskeletal: Fractures History of Blood Disorders: No Family History Abdominal aortic aneurysm Alzheimer's disease 19 MOTHER Cardiovascular disease 19 MOTHER Diabetes mellitus 19 MOTHER G8 SISTER G8 SISTER Review of Systems Constitutional: malaise, weakness Cardiovascular: chest pain, palpitations Physical Exam Physical Exam Vital Signs Vital Signs - First Documented 06/15/20 13:09 Temp 36.6 Pulse 142 Resp 18 B/P (MAP) 125/89 (101) Pulse Ox 96 O2 Delivery Room Air Capillary Refill : Less Than 3 Seconds Height, Weight, BMI Height: 5'3.00" Weight: 183lbs. 0.6oz. 83.887215xs; 31.28 BMI Method:Stated General Appearance: No Apparent Distress, Chronically ill Eyes: Right Eye Normal Inspection, Right Eye PERRL HEENT: PERRL/EOMI, Normal ENT Inspection, Pharynx Normal, Moist Mucous Membranes Neck: Full Range of Motion, Normal Inspection, Non Tender Respiratory: Chest Non Tender, Lungs Clear, Normal Breath Sounds, No Accessory Muscle Use, No Respiratory Distress Cardiovascular: No Edema, No Gallop, No JVD, No Murmur, Normal Peripheral Pulses, Irregularly Irregular, Tachycardia Gastrointestinal: Normal Bowel Sounds, No Organomegaly, No Pulsatile Mass, Non Tender, Soft Back: Normal Inspection, No CVA Tenderness, No Vertebral Tenderness Extremity: Normal Capillary Refill, Normal Inspection, Normal Range of Motion, Non Tender, No Calf Tenderness, No Pedal Edema Neurologic/Psychiatric: Alert, Oriented x3, No Motor/Sensory Deficits, Normal Mood/Affect Skin: Normal Color, Warm/Dry Lymphatic: No Adenopathy Results Results/Procedures Labs Laboratory Tests 06/15/20 13:09 06/16/20 02:35 Patient resulted labs reviewed. Assessment/Plan Admission Diagnosis Assessment: AF w/RVR Chest pain normal cath HTN Plan: ICU Cardiology appreciated Admission Status: Inpatient Order (span 2 midnights) Reason for Inpatient Admission: af w/rvr and suspicion for ACS Diagnosis/Problems Diagnosis/Problems (1) Atrial fibrillation with RVR Status: Acute (2) Chest pain Status: Acute (3) Renal insufficiency Status: Acute (4) Weakness generalized Status: Acute (5) Labile hypertension Status: Acute Clinical Quality Measures DVT/VTE Risk/Contraindication: Risk Factor Score Per Nursin RFS Level Per Nursing on Admit: 3=High VIKY KING DO Jun 16, 2020 06:56
[2020-06-16] MEDS: SENNA W/DOCUSATE (SENOKOT S) TABLET PO SCH ×2 (08:59→19:34)
--- NOTE | 2020-06-16 11:15 | Consultation-Cardiology ---
HPI-Cardiology Cardiology Consultation Date of Consultation 06/16/20 Date of Admission Time Seen by Provider: 11:12 Indication: atrial fibrillation HPI 74 years old lady with history of paroxysmal atrial fibrillation, reporting at least 2 episodes in the past 2 years. Required cardioversion on the initial episode, came into the emergency room with generalized weakness palpitation and tachycardia felt her heart racing and she felt weak. Had slight chest pressure and shortness of breath. Patient was noted to be in atrial fibrillation with rapid ventricular response, started on diltiazem drip. Her troponin was noted to be mildly elevated which persisted. She denied any active chest pain, no previous cardiac workup including cardiac catheterization or stress testing. Her heart rate is better controlled but still in atrial fibrillation. Home Medications & Allergies Allergies: Coded Allergies: No Known Drug Allergies (Unverified , 04/23/18) Home Medication List Reviewed: Yes BDB-Ccejgv-Cdaipd Hx Patient Social History Marital Status: Employed/Student: retired Alcohol Use: Occasionally Uses Recreational Drug Use: No Smoking Status: Never a Smoker 2nd Hand Smoke Exposure: No Recent Foreign Travel: No Recent Infectious Disease Expo: No Recent Hopitalizations: No Immunizations Up To Date Tetanus Booster (TDap): Unknown Date of Pneumonia Vaccine: Sep 06, 2017 Date of Influenza Vaccine: May 21, 2020 Past Medical History Discussed below Family Medical History Family History: Abdominal aortic aneurysm Alzheimer's disease 19 MOTHER Cardiovascular disease 19 MOTHER Diabetes mellitus 19 MOTHER G8 SISTER G8 SISTER Review of Systems-General Review of Systems Constitutional: no symptoms reported, see HPI, dizziness EENTM: see HPI, no symptoms reported Respiratory: see HPI, short of breath Cardiovascular: see HPI, chest pain; No edema, No Hx of Intervention; palpitations; No syncope, No vascular heart diseas, No other Gastrointestinal: no symptoms reported, see HPI Genitourinary: no symptoms reported, see HPI Musculoskeletal: no symptoms reported, see HPI Skin: no symptoms reported, see HPI Psychiatric/Neurological: See HPI, Weakness All Other Systems Reviewed Negative Unless Noted: Yes Reviewed Test Results Reviewed Test Results Lab Laboratory Tests Test 06/15/20 13:09 06/15/20 13:51 06/15/20 16:59 06/15/20 23:05 Range/Units White Blood Count 9.1 4.3-11.0 10^3/uL Red Blood Count 4.27 L 4.35-5.85 10^6/uL Hemoglobin 13.8 11.5-16.0 G/DL Hematocrit 40 35-52 % Mean Corpuscular Volume 94 80-99 FL Mean Corpuscular Hemoglobin 32 25-34 PG Mean Corpuscular Hemoglobin Concent 34 32-36 G/DL Red Cell Distribution Width 12.9 10.0-14.5 % Platelet Count 266 130-400 10^3/uL Mean Platelet Volume 10.6 H 7.4-10.4 FL Immature Granulocyte % (Auto) 0 % Neutrophils (%) (Auto) 64 42-75 % Lymphocytes (%) (Auto) 27 12-44 % Monocytes (%) (Auto) 7 0-12 % Eosinophils (%) (Auto) 2 0-10 % Basophils (%) (Auto) 0 0-10 % Neutrophils # (Auto) 5.8 1.8-7.8 X 10^3 Lymphocytes # (Auto) 2.4 1.0-4.0 X 10^3 Monocytes # (Auto) 0.6 0.0-1.0 X 10^3 Eosinophils # (Auto) 0.2 0.0-0.3 10^3/uL Basophils # (Auto) 0.0 0.0-0.1 10^3/uL Immature Granulocyte # (Auto) 0.0 0.0-0.1 10^3/uL Prothrombin Time 16.3 H 12.2-14.7 SEC INR Comment 1.3 0.8-1.4 Activated Partial Thromboplast Time 31 24-35 SEC Sodium Level 139 135-145 MMOL/L Potassium Level 4.0 3.6-5.0 MMOL/L Chloride Level 100 98-107 MMOL/L Carbon Dioxide Level 24 21-32 MMOL/L Anion Gap 15 H 5-14 MMOL/L Blood Urea Nitrogen 25 H 7-18 MG/DL Creatinine 1.63 H 0.60-1.30 MG/DL Estimat Glomerular Filtration Rate 31 BUN/Creatinine Ratio 15 Glucose Level 132 H 70-105 MG/DL Calcium Level 10.2 H 8.5-10.1 MG/DL Corrected Calcium 8.5-10.1 MG/DL Magnesium Level 1.9 1.6-2.4 MG/DL Total Bilirubin 0.6 0.1-1.0 MG/DL Aspartate Amino Transf (AST/SGOT) 22 5-34 U/L Alanine Aminotransferase (ALT/SGPT) 16 0-55 U/L Alkaline Phosphatase 100 40-136 U/L Troponin I < 0.30 0.122 H 0.235 H <0.028 NG/ML Pro-B-Type Natriuretic Peptide 1106.0 H <75.0 PG/ML Total Protein 7.9 6.4-8.2 GM/DL Albumin 4.7 H 3.2-4.5 GM/DL Urine Color YELLOW Urine Clarity CLEAR Urine pH 6.0 5-9 Urine Specific [place] 1.010 L 1.016-1.022 Urine Protein NEGATIVE NEGATIVE Urine Glucose (UA) NEGATIVE NEGATIVE Urine Ketones NEGATIVE NEGATIVE Urine Nitrite NEGATIVE NEGATIVE Urine Bilirubin NEGATIVE NEGATIVE Urine Urobilinogen 0.2 < = 1.0 MG/DL Urine Leukocyte Esterase NEGATIVE NEGATIVE Urine RBC (Auto) NEGATIVE NEGATIVE Urine RBC NONE /HPF Urine WBC 2-5 /HPF Urine Squamous Epithelial Cells 5-10 /HPF Urine Crystals NONE /LPF Urine Bacteria NEGATIVE /HPF Urine Casts PRESENT /LPF Urine Hyaline Casts >50 H /LPF Urine Mucus NEGATIVE /LPF Urine Culture Indicated NO Test 06/16/20 02:35 06/16/20 03:00 Range/Units White Blood Count 9.5 4.3-11.0 10^3/uL Red Blood Count 3.49 L 3.80-5.11 10^6/uL Hemoglobin 11.3 L 11.5-16.0 g/dL Hematocrit 34 L 35-52 % Mean Corpuscular Volume 97 80-99 fL Mean Corpuscular Hemoglobin 32 25-34 pg Mean Corpuscular Hemoglobin Concent 33 32-36 g/dL Red Cell Distribution Width 13.0 10.0-14.5 % Platelet Count 206 130-400 10^3/uL Mean Platelet Volume 10.5 9.0-12.2 fL Immature Granulocyte % (Auto) 0 % Neutrophils (%) (Auto) 64 42-75 % Lymphocytes (%) (Auto) 26 12-44 % Monocytes (%) (Auto) 8 0-12 % Eosinophils (%) (Auto) 2 0-10 % Basophils (%) (Auto) 0 0-10 % Neutrophils # (Auto) 6.0 1.8-7.8 10^3/uL Lymphocytes # (Auto) 2.4 1.0-4.0 10^3/uL Monocytes # (Auto) 0.8 0.0-1.0 10^3/uL Eosinophils # (Auto) 0.2 0.0-0.3 10^3/uL Basophils # (Auto) 0.0 0.0-0.1 10^3/uL Immature Granulocyte # (Auto) 0.0 0.0-0.1 10^3/uL Prothrombin Time 24.1 H 12.2-14.7 SEC INR Comment 2.1 H 0.8-1.4 Activated Partial Thromboplast Time 37 H 24-35 SEC Sodium Level 139 135-145 MMOL/L Potassium Level 3.8 3.6-5.0 MMOL/L Chloride Level 105 98-107 MMOL/L Carbon Dioxide Level 22 21-32 MMOL/L Anion Gap 12 5-14 MMOL/L Blood Urea Nitrogen 27 H 7-18 MG/DL Creatinine 1.71 H 0.60-1.30 MG/DL Estimat Glomerular Filtration Rate 29 BUN/Creatinine Ratio 16 Glucose Level 120 H 70-105 MG/DL Calcium Level 9.2 8.5-10.1 MG/DL Creatine Kinase MB 1.5 <6.6 NG/ML Troponin I 0.180 H <0.028 NG/ML Magnesium Level 1.9 1.6-2.4 MG/DL Physical Exam Physical Exam Vital Signs Vital Signs - First Documented 06/15/20 13:09 Temp 36.6 Pulse 142 Resp 18 B/P (MAP) 125/89 (101) Pulse Ox 96 O2 Delivery Room Air Capillary Refill : Less Than 3 Seconds Height, Weight, BMI Height: 5'3.00" Weight: 183lbs. 0.6oz. 83.353366rm; 31.28 BMI Method:Stated General Appearance: No Apparent Distress, WD/WN Eyes: Bilateral Eye Normal Inspection, Bilateral Eye PERRL, Bilateral Eye EOMI HEENT: PERRL/EOMI Neck: Supple Respiratory: Lungs Clear, No Respiratory Distress Cardiovascular: No Murmur, Irregularly Irregular, Tachycardia Gastrointestinal: Non Tender, Soft Back: Normal Inspection Extremity: Normal Capillary Refill Neurologic/Psychiatric: Alert, Oriented x3 Skin: Warm/Dry Lymphatic: No Adenopathy A/P-Cardiology Admission Diagnosis Paroxysmal atrial fibrillation Non-ST elevation myocardial infarction Hypertension Hyperlipidemia Assessment/Plan Paroxysmal atrial fibrillation with rapid ventricular response, started on diltiazem drip. Heart rate is better controlled. We'll continue on Cardizem and planning for PALAK and possible electrical cardioversion in the morning. Consideration for antiarrhythmic medication post cardioversion. Coronary artery disease, mild elevation in troponin which could be secondary to tachycardia, cardiac catheterization carried out today showing mild coronary artery disease nonobstructive disease Oral anticoagulation to reduce the risk of stroke. Hypertension, labile blood pressure with episode of hypotension and syncope. Monitor blood pressure closely Hyperlipidemia, monitor lipids Clinical Quality Measures DVT/VTE Risk/Contraindication: Risk Factor Score Per Nursin RFS Level Per Nursing on Admit: 3=High SHANTELLE GEE MD Jun 16, 2020 11:15
--- NOTE | 2020-06-16 11:15 | Cardiac Procedure Note-CS/ASA ---
Pre-Procedure Note Pre-Op Procedure Note H&P Reviewed The H&P was reviewed, patient examined and no changes noted. Date H&P Reviewed: Jun 16, 2020 Time H&P Reviewed: 11:15 Conscious Sedation Pre-Proced Time 11:15 ASA Score 3 For ASA 3 and 4: Consider anesthesia and medical clearance. Also, for patients with a history of failed moderate sedation consider anesthesia. Airway Lungs Heart ASA score ASA 1: a normal healthy patient ASA 2: a patient with a mild systemic disease (mid diabetes, controlled hypertension, obesity x ASA 3: a patient with a severe systemic disease that limits activity (angina, COPD, prior Myocardial infarction) ASA 4: a patient with an incapacitating disease that is a constant threat to life (CHF, renal failure) ASA 5: a moribund patient not expected to survive 24 hrs. (ruptured aneurysm) ASA 6: a declared brain- patient whose organs are being harvested. For emergent operations, add the letter E after the classification Mallampati Classification Grade 3 Sedation Plan Analgesia, Amnesia, Plan communicated to team members, Discussed options with patient/fam, Discussed risks with patient/fam The patient is an appropriate candidate to undergo the planned procedure, sedation, and anesthesia. The patient immediately re-assessed prior to indication. SHANTELLE GEE MD Jun 16, 2020 11:15
[2020-06-16] MEDS ORDERED: NS IV 1000 ML 0 ML ONE (11:24)
[2020-06-16] MEDS ORDERED: LIDOCAINE 1% INJ 20 ML 20 ML VIAL ONE (11:24)
[2020-06-16] MEDS ORDERED: RIVAROXABAN 15 MG TABLET (XARELTO) ONE (11:25)
[2020-06-16] MEDS ORDERED: HEParin (CATH LAB) 2,000 ML IV ONE (11:25)
[2020-06-16] MEDS ORDERED: fentaNYL INJECTION 100 MCG/2 ML AMP ONE (11:27)
[2020-06-16] MEDS ORDERED: MIDAZOLAM 5 MG/5 ML (VERSED) VIAL ONE (11:27)
[2020-06-16] MEDS ORDERED: NS IV 1000 ML 1,000 ML ONE (11:47)
[2020-06-16] MEDS ORDERED: VERAPAMIL 5 MG/2 ML (CALAN) VIAL IV ONE (12:00)
[2020-06-16] MEDS ORDERED: HEParin 1000 UNIT/ML (10ML VIAL) FOR BOLUS ONE (12:01)
[2020-06-16] MEDS ORDERED: NITRO DRIP 25000 MCG/D5W 250 ML IV ONE (12:01)
--- NOTE | 2020-06-16 12:41 | Cardiac Cath Report ---
Cardiac Cath Report Physician (s)/Fudge Candy Maker (s) Physician SHANTELLE GEE MD Pre-Procedure Diagnosis Pre-Procedure Diagnosis: elevated troponin Post-Procedure Note Procedure Start Date: Jun 16, 2020 Name of Procedure: Left heart catheterization Left ventriculogram Aortic arch angiogram Findings/Procedure Note PROCEDURE NOTE: 74-year-old lady with paroxysmal atrial fibrillation, admitted for atrial fibrillation with rapid ventricular response had mild chest pressure and shortness of breath, had elevated troponin level. Decided to proceed with cardiac catheterization which will help in consideration for the type of antiarrhythmic medication to be used for long-term management. After explaining the procedure to the patient, all pros and cons were explained, all questions were answered. The patient signed the consent and then she was placed on the cardiac catheterization laboratory. Groin was prepped SL fashion local anesthesia was used. Sheath placed in the right radial artery, I had difficulty advancing the J-wire, I used a Glidewire and I was able to advance it. Using Aspers catheter I was able to access the left ventricular cavity left ventriculogram was done, pullback LV to aorta was done. Patient appeared to have small aortic arch. With multiple maneuvers I was able to access the left main coronary artery and angiogram was done then turned to the right coronary artery and angiogram was done, And was told to the aortic arch and aortic arch angiogram was done to evaluate the arch due to the difficulty with maneuvering the catheter. At the end of the procedure the sheath was removed. Vascular band was used FINDINGS: Hemodynamics LV 92/6, end-diastolic pressure of 6 Aorta 87/50 mean of 31 ANATOMY: Left Main is free of obstructive disease Left Anterior Descending is slightly tortuous with no obstructive disease Left Circumflex is small nondominant artery with mild disease nonobstructive disease Right Coronory Artery is dominant artery with mild disease nonobstructive disease LV Gram was done showing normal left ventricular size, normal contractibility, estimated ejection fraction 60 percent Aorta evaluation done with aortic arch angiogram which showed small aortic arch, there is no dissection, no abnormality, origin of the vertebrobasilar artery, left subclavian and left carotid artery were normal CONCLUSION: 1. Mild coronary artery disease nonobstructive disease 2. Normal left ventricular size and systolic function estimated ejection fraction 60 percent 3. Normal aortic arch and great vessels of the neck DISCUSSION AND RECOMMENDATION: Elevated troponin is probably due to tachycardia, there is no significant obstructive disease. Planning for possible PALAK and cardioversion in the morning Anesthesia Type: Conscious Sedation Estimated blood loss (mL): 5 ml Contrast Amount: 40 ml Total Radiation Dose: 311 mGy Post-Procedure Diagnosis Post-operative diagnosis: Coronary artery disease Paroxysmal atrial fibrillation Hypertension Hyperlipidemia SHANTELLE GEE MD Jun 16, 2020 12:41
[2020-06-16] MEDS: NS IV 1000 ML 1,000 ML IV SCH ×2 (13:26→21:54)
[2020-06-16] MEDS ORDERED: RIVAROXABAN 15 MG TABLET (XARELTO) PO SCH (17:00)
[2020-06-17] VITALS (18 sets, daily range): BP systolic 99–201; BP diastolic 51–147
[2020-06-17 02:49] LABS: BASOPHILS % (AUTO) 0 % (0-10); EOSINOPHILS # (AUTO) 0.2 10^3/uL (0.0-0.3); EOSINOPHILS % (AUTO) 2 % (0-10); HEMATOCRIT 34 % (35-52); LYMPHOCYTES # (AUTO) 2.1 10^3/uL (1.0-4.0); LYMPHOCYTES % (AUTO) 29 % (12-44); MEAN CORPUSCULAR HEMOGLOBIN 32 pg (25-34); MEAN CORPUSCULAR HGB CONC 32 g/dL (32-36); MEAN CORPUSCULAR VOLUME 98 fL (80-99); MEAN PLATELET VOLUME 10.8 fL (9.0-12.2); MONOCYTES # (AUTO) 0.6 10^3/uL (0.0-1.0); MONOCYTES % (AUTO) 9 % (0-12); NEUTROPHILS # (AUTO) 4.1 10^3/uL (1.8-7.8); NEUTROPHILS % (AUTO) 59 % (42-75); PLATELET COUNT 183 10^3/uL (130-400)
[2020-06-17 02:59] LABS: ALBUMIN 3.7 GM/DL (3.2-4.5); POTASSIUM 4.2 MMOL/L (3.6-5.0)
[2020-06-17 03:00] LABS: CALCIUM 9.1 MG/DL (8.5-10.1)
[2020-06-17 03:01] LABS: TOTAL PROTEIN 6.4 GM/DL (6.4-8.2)
[2020-06-17 03:03] LABS: BILIRUBIN,TOTAL 0.4 MG/DL (0.1-1.0)
[2020-06-17 03:05] LABS: CREATININE SERUM 1.42 MG/DL (0.60-1.30)
[2020-06-17 03:08] LABS: MAGNESIUM 1.9 MG/DL (1.6-2.4)
[2020-06-17] MEDS: POTASSIUM CL 10MEQ/50ML IVPB 50 ML IV SCH (03:15)
[2020-06-17] MEDS: MAGNESIUM 1 GM/100 ML IVPB 100 ML IV SCH (03:15)
[2020-06-17] MEDS: CATHETER FLUSH 10 ML SYR IV SCH ×2 (03:20→14:50)
[2020-06-17] MEDS: KCL 20 MEQ TAB (K-DUR) PO SCH (03:20)
[2020-06-17] MEDS: dilTIAZem DRIP 125 MG/125 ML DRIP IV SCH (04:06)
--- NOTE | 2020-06-17 04:14 | Pulmonary Consultation ---
JOHNNA TILLEY MED STUDENT 06/17/20 0414: History of Present Illness History of Present Illness Date Seen by Provider: Jun 17, 2020 Time Seen by Provider: 04:06 Date of Admission Reason for Visit: atrial fibrillation History of Present Illness Ms. [place] is a 74y/o F presenting with a CC of chest palpitations. They began yesterday while taking a shower. Pt denies any aggravating and associated symptoms. Pt presented to ED and was found to be in Afib with RVR. Catheterization was performed (R radial) but was found normal. Pt has a hx of afib w/ RVR- occurred once prior in 2017, was cardioverted in [place]. Remembers being put on drugs to prevent the need for cardioversion then as well, but medical management was unsuccessful then. Pt admits to hx of difficuly managing her BP, alternating between hypotension and hypertension, and has broken both her ankles and wrists this past December and January (2019) d/t falls associated with hypotension. Allergies and Home Medications Allergies Coded Allergies: No Known Drug Allergies (Unverified , 04/23/18) Home Medications Bupropion HCl 150 Mg Tab.er.24h, 150 MG PO DAILY, (Reported) Take daily early AM for depression Cholecalciferol (Vitamin D3) 25 Mcg Capsule, 25 MCG PO DAILY, (Reported) Digoxin 125 Mcg Tablet, 125 MG PO DAILY, (Reported) Diltiazem HCl 120 Mg Cap.er.24h, 120 MG PO DAILY, (Reported) Furosemide 20 Mg Tablet, 20 MG PO DAILY PRN for swelling, (Reported) Hydralazine HCl 25 Mg Tablet, 25 MG PO DAILY, (Reported) Losartan Potassium 50 Mg Tablet, 50 MG PO DAILY, (Reported) Magnesium Oxide 400 Mg Tablet, 400 MG PO DAILY, (Reported) Omeprazole 20 Mg Capsule.dr, 20 MG PO DAILY, (Reported) Rivaroxaban 20 Mg Tablet, 20 MG PO DAILY, (Reported) Take 20 mg by mouth daily at supper Rosuvastatin Calcium 20 Mg Tablet, 20 MG PO HS, (Reported) Past Mypludu-Jrvbhr-Mqzrbs Hx Past Med/Social Hx: Reviewed Nursing Past Med/Soc Hx, Reviewed and Corrections made Patient Social History Alcohol Use: Occasionally Uses Number of Drinks Today: DD Alcohol Beverage of Choice: Rum Recreational Drug Use: No Smoking Status: Never a Smoker 2nd Hand Smoke Exposure: No Recent Foreign Travel: No Contact w/Someone Who Travel: No Recent Infectious Disease Expo: No Recent Hopitalizations: No Physical Abuse: No Sexual Abuse: No Mistreated: No Fear: No Immunizations Up To Date Tetanus Booster (TDap): Unknown Date of Pneumonia Vaccine: Sep 06, 2017 Date of Influenza Vaccine: May 21, 2020 Seasonal Allergies Seasonal Allergies: No Past Medical History Surgeries: Yes (Left THR) Adenoidectomy, Appendectomy, Hysterectomy (in her 40s), Orthopedic, Tonsillectomy (during childhood) Respiratory: No Cardiac: Yes (Cardioverted Sep 2017 [facility]) Atrial Fibrillation, Hypertension 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 Genitourinary: Yes (UTI) Gastrointestinal: No Musculoskeletal: Yes (HX OF FALLS R/T SYNCOPE) Fractures Endocrine: No HEENT: No Cancer: No Psychosocial: No Integumentary: No Blood Disorders: No Family Medical History Abdominal aortic aneurysm Alzheimer's disease 19 MOTHER Cardiovascular disease 19 MOTHER Diabetes mellitus 19 MOTHER G8 SISTER G8 SISTER Hypertension Review of Systems Time Seen by Provider: 04:16 Constitutional: No: Fever, Chills Respiratory: Wheezing Cardiovascular: Palpitations; No: Chest Pain Neurological: Other (Dizziness) Sepsis Event Evaluation Height, Weight, BMI Height: 5'3.00" Weight: 183lbs. 0.6oz. 83.727274hm; 31.28 BMI Method:Stated Exam Exam Vital Signs Date Time Temp Pulse Resp B/P (MAP) Pulse Ox O2 Delivery O2 Flow Rate FiO2 06/17/20 00:00 86 20 113/74 (87) 96 Room Air 06/17/20 00:00 Room Air 06/16/20 23:00 81 22 137/95 (109) 94 Room Air 06/16/20 22:00 81 22 139/90 (106) 96 Room Air 06/16/20 21:00 100 115/82 (93) 94 Room Air 06/16/20 20:15 66 15 138/88 (105) 96 Room Air 06/16/20 19:30 37.2 Room Air 06/16/20 19:30 Room Air 06/16/20 19:00 73 06/16/20 19:00 73 17 104/90 (95) 94 Room Air 06/16/20 18:00 55 25 142/83 (102) 97 Room Air 06/16/20 17:00 88 18 116/86 (96) 95 Room Air 06/16/20 16:27 36.5 06/16/20 16:00 73 10 113/71 (85) 97 Room Air 06/16/20 15:08 96 Room Air 06/16/20 15:00 72 15 109/76 (87) 95 Room Air 06/16/20 14:15 67 14 104/56 (78) 92 Room Air 06/16/20 14:00 101/48 (73) Room Air 06/16/20 13:45 58 19 87/60 (73) 93 Room Air 06/16/20 13:30 70 21 117/71 (76) 93 Room Air 06/16/20 13:15 54 10 94 Room Air 06/16/20 13:00 72 12 111/74 (86) 93 Room Air 06/16/20 13:00 64 06/16/20 12:45 68 112/93 (99) Room Air 06/16/20 11:40 96 Room Air 06/16/20 11:15 37.4 128 20 117/89 (98) 95 Room Air 06/16/20 11:10 79 25 94 Room Air 06/16/20 10:00 91 12 97/48 (64) 93 Room Air 06/16/20 09:00 58 24 117/80 (93) 93 Room Air 06/16/20 08:00 47 19 104/96 (100) 94 Room Air 06/16/20 08:00 96 Room Air 06/16/20 07:38 36.6 06/16/20 07:00 87 31 103/89 (92) 98 Room Air 06/16/20 07:00 87 06/16/20 06:00 55 20 129/89 (102) 92 Room Air 06/16/20 05:00 62 22 94/53 (67) 94 Room Air I & O 06/17/20 06:59 Intake Total 1325 ml Output Total 2150 ml Balance -825 ml Height & Weight Height: 5'3.00" Weight: 183lbs. 0.6oz. 83.308481va; 31.28 BMI Method:Stated General Appearance: No Apparent Distress, WD/WN HEENT: PERRL/EOMI Neck: Full Range of Motion, Normal Inspection Respiratory: Chest Non Tender, Lungs Clear, Normal Breath Sounds, No Accessory Muscle Use, No Respiratory Distress Cardiovascular: No Gallop, No JVD, No Murmur, Normal Peripheral Pulses, Irregularly Irregular, Tachycardia Peripheral Pulses: 1+ Dorsalis Pedis (R), 1+ Left Dors-Pedis (L); 2+ Radial Pulses (R), 2+ Radial Pulses (L) Gastrointestinal: non tender, soft Extremity: Normal Inspection, Non Tender, No Calf Tenderness, Pedal Edema (very slight, onset began when pt broke both ankles) Neurologic/Psychiatric: Alert, Oriented x3, No Motor/Sensory Deficits, Normal Mood/Affect Skin: Normal Color, Warm/Dry Lymphatic: No Adenopathy Results Lab Laboratory Tests 06/15/20 13:09 06/16/20 02:35 06/17/20 02:36 Assessment/Plan Assessment/Plan Afib with RVR -continue Diltiazem drip -If no improvement, PALAK and cardioversion -cardiac consult- potential ablation needed d/t hx of AFIB + RVR in 2018 -discharge antiarrhythmic for discharge -discharge with oral anticoag HTN -monitor closely for HTN and hypotension -Monitor I/O Hyperlipidemia -monitor lipids Diagnosis/Problems Problems/Diagonsis (1) Atrial fibrillation with RVR Status: Acute CADENCE LIU 06/17/20 0534: Allergies and Home Medications Allergies Coded Allergies: No Known Drug Allergies (Unverified , 04/23/18) Home Medications Bupropion HCl 150 Mg Tab.er.24h, 150 MG PO DAILY, (Reported) Take daily early AM for depression Cholecalciferol (Vitamin D3) 25 Mcg Capsule, 25 MCG PO DAILY, (Reported) Digoxin 125 Mcg Tablet, 125 MG PO DAILY, (Reported) Diltiazem HCl 120 Mg Cap.er.24h, 120 MG PO DAILY, (Reported) Furosemide 20 Mg Tablet, 20 MG PO DAILY PRN for swelling, (Reported) Hydralazine HCl 25 Mg Tablet, 25 MG PO DAILY, (Reported) Losartan Potassium 50 Mg Tablet, 50 MG PO DAILY, (Reported) Magnesium Oxide 400 Mg Tablet, 400 MG PO DAILY, (Reported) Omeprazole 20 Mg Capsule.dr, 20 MG PO DAILY, (Reported) Rivaroxaban 20 Mg Tablet, 20 MG PO DAILY, (Reported) Take 20 mg by mouth daily at supper Rosuvastatin Calcium 20 Mg Tablet, 20 MG PO HS, (Reported) Past Fhlzpgg-Wzmtej-Vejbfc Hx Family Medical History Abdominal aortic aneurysm Alzheimer's disease 19 MOTHER Cardiovascular disease 19 MOTHER Diabetes mellitus 19 MOTHER G8 SISTER G8 SISTER Exam Exam General Appearance: No Apparent Distress, WD/WN HEENT: PERRL/EOMI Neck: Full Range of Motion, Normal Inspection Respiratory: Chest Non Tender, Lungs Clear, Normal Breath Sounds, No Accessory Muscle Use, No Respiratory Distress Cardiovascular: No Gallop, No JVD, No Murmur, Normal Peripheral Pulses Extremity: Normal Inspection, Non Tender, No Calf Tenderness Neurologic/Psychiatric: Alert, Oriented x3, No Motor/Sensory Deficits Skin: Normal Color, Warm/Dry Lymphatic: No Adenopathy Assessment/Plan Assessment/Plan Afib with RVR -Diltiazem drip -Possible PALAK and cardioversion -cardiac consulted Acute failure -Monitor Anemia -Anticoagulation -add protonix NSTEMI s/p Cath Hyperlipidemia -monitor lipids DVT/GI PPX Supervisory-Addendum Brief Verification & Attestation Participated in pt care: history, MDM, physical Personally performed: exam, history, MDM Care discussed with: Medical Student Procedures: n/a Verification and Attestation of Medical Student E/M Service A medical student performed and documented this service in my presence. I reviewed and verified all information documented by the medical student and made modifications to such information, when appropriate. I personally performed the physical exam and medical decision making. Cadence Liu, Jun 17, 2020,05:34 JOHNNA TILLEY STUDENT Jun 17, 2020 04:14 CADENCE LIU DO Jun 17, 2020 05:34
[2020-06-17] MEDS: SENNA W/DOCUSATE (SENOKOT S) TABLET PO SCH (08:16)
[2020-06-17] MEDS: NS IV 1000 ML 1,000 ML IV SCH (08:16)
[2020-06-17] MEDS ORDERED: PANTOPRAZOLE 40 MG (PROTONIX) VIAL IV SCH (09:00)
[2020-06-17] MEDS ORDERED: HURRICAINE EXT TUBE (BENZOCAINE) ONE (11:34)
[2020-06-17] MEDS ORDERED: NS IV 1000 ML 1,000 ML ONE (11:34)
[2020-06-17] MEDS ORDERED: MIDAZOLAM 2 MG/2 ML (VERSED) VIAL ONE (11:45)
[2020-06-17] MEDS ORDERED: proPOfol 200 MG/20 ML (DIPRIVAN) VIAL IV ONE (11:45)
--- NOTE | 2020-06-17 11:55 | NUR ---
Pt taken to [facility] for PALAK and cardioversion at this time. Will await pt return.
[2020-06-17] MEDS ORDERED: NS IV 1000 ML 1,000 ML IV ONE (12:05)
--- NOTE | 2020-06-17 12:14 | NUR ---
PER ANESTHESIA: 100MG PROPOFOL AND 2MG VERSED IV GIVEN DURING PROCEDURE. SEE ANESTHESIA RECORD FOR DETAILS.
[2020-06-17] MEDS ORDERED: MIDAZOLAM 5 MG/5 ML (VERSED) VIAL IV ONE (12:15)
--- NOTE | 2020-06-17 12:23 | Progress Note - Cardiology ---
Cardiology SOAP Progress Note Subjective: Palp and gen malaise and tiredness prior to cardioversion No cp No shortness of breath at rest No n/v/d Objective: I&O/Vital Signs 06/17/20 06/17/20 06/17/20 06/17/20 01:00 01:00 01:07 02:00 Pulse 80 80 118 67 Resp 23 15 18 B/P (MAP) 99/51 (67) 129/88 (102) 130/56 (80) Pulse Ox 92 96 93 O2 Delivery Room Air Room Air Room Air 06/17/20 06/17/20 06/17/20 06/17/20 03:00 03:50 03:52 04:00 Temp 37.0 Pulse 90 87 Resp 23 17 B/P (MAP) 114/71 (85) 137/89 (105) Pulse Ox 91 96 O2 Delivery Room Air Room Air Room Air 06/17/20 06/17/20 06/17/20 06/17/20 05:00 06:00 06:37 08:00 Pulse 69 70 55 Resp 17 14 B/P (MAP) 122/60 (80) 108/70 (83) Pulse Ox 94 92 O2 Delivery Room Air Room Air Room Air 06/17/20 06/17/20 06/17/20 06/17/20 12:07 12:07 12:12 12:15 Pulse 91 120 77 Resp 18 16 16 B/P (MAP) 165/129 (141) 201/147 (165) 184/119 (140) Pulse Ox 99 99 99 99 O2 Delivery OxyMask OxyMask OxyMask OxyMask O2 Flow Rate 6.00 6.00 6.00 6.00 06/17/20 00:00 Intake Total 1000 ml Output Total 1100 ml Balance -100 ml Weight (Pounds): 183 Weight (Ounces): 0.6 Weight (Calculated Kilograms): 83.038630 Constitutional: AAO x 3, well-developed, well-nourished Respiratory: No accessory muscle use; other (good bilat air entry) Cardiovascular: No irregularly irregular (prior to cardiversion); S1 and S2, systolic murmur (soft BÁRBARA at card base) Gastrointestional: No tender; soft; No guarding, No rebound; audible bowel sounds Extremities: No clubbing, No cyanosis, No significant edema Neurologic/Psychiatric: oriented x 3, other (moves all limbs equally) Skin: No rash on exposed areas, No ulcerations on exposed areas Results/Procedures: Labs Laboratory Tests 06/17/20 02:36: White Blood Count 7.0, Red Blood Count 3.46L, Hemoglobin 11.0L, Hematocrit 34L, Mean Corpuscular Volume 98, Mean Corpuscular Hemoglobin 32, Mean Corpuscular Hemoglobin Concent 32, Red Cell Distribution Width 13.2, Platelet Count 183, Mean Platelet Volume 10.8, Immature Granulocyte % (Auto) 0, Neutrophils (%) ( Auto) 59, Lymphocytes (%) (Auto) 29, Monocytes (%) (Auto) 9, Eosinophils (%) (Auto) 2, Basophils (%) (Auto) 0, Neutrophils # (Auto) 4.1, Lymphocytes # (Auto) 2.1, Monocytes # (Auto) 0.6, Eosinophils # (Auto) 0.2, Basophils # (Auto) 0.0, Immature Granulocyte # (Auto) 0.0, Sodium Level 141, Potassium Level 4.2, Chloride Level 108H, Carbon Dioxide Level 23, Anion Gap 10, Blood Urea Nitrogen 20H, Creatinine 1.42H, Estimat Glomerular Filtration Rate 36, BUN/Creatinine Ratio 14, Glucose Level 116H, Calcium Level 9.1, Corrected Calcium 9.3, Magnesium Level 1.9, Total Bilirubin 0.4, Aspartate Amino Transf (AST/SGOT) 13, Alanine Aminotransferase (ALT/SGPT) 12, Alkaline Phosphatase 69, Total Protein 6.4, Albumin 3.7 Microbiology 06/15/20 MRSA Screen - Final, Complete MRSA not isolated Laboratory Tests 06/15/20 13:09 06/16/20 02:35 06/17/20 02:36 A/P: Assessment: PAF, treated with elec cardioversion to NSR and initiation of flecainide on 06/17/20, after card cath of 06/16/20 did not show any significant CAD Mild troponin elevation: type 2 VA due to PAF with RVR Cardiac cath of 06/16/20 showed mild coronary artery disease nonobstructive disease Echo of 06/16/20: LVEF 65-70%, mild to mod enlargement of LA, mild MAC, PASP 25- 30 mmHg Oral anticoagulation to reduce the risk of stroke: rivaroxaban adjusted to renal function Renal insufficiency of undetermined age. Est GFR 36 on 06/17/20 Hypertension, treated with beta-jay H/o hyperlipidemia Plan: Elec CV after PALAK (after informed consent obtained) Add flecainide to prevent A Fib Add bb to control bp and control heart rate if AF recurrent Continue stroke prophylaxis with rivaroxaban Monitor labs BARBARA WARD MD FACP [facility] CCD[facility] Jun 17, 2020 12:23
[2020-06-17] MEDS ORDERED: FLECAINIDE 100 MG (TAMBOCOR) TAB PO SCH ×2 (12:45→21:00)
--- NOTE | 2020-06-17 12:57 | Progress Note ---
JUANFLAQUITOKATHRYN, 06/17/20 1257: Subjective Subjective/Events-last exam Pt denies any concerns during interview. She admits to fluttering in her chest but denies any chest pain. She states that Dr. Mccurdy will be performing a PALAK with cardioversion today and discussing possible ablation afterward. Denies any nausea, vomiting, shortness of breath, or numbness/tingling in any extremity. Objective Exam Last Set of Vital Signs Vital Signs Date Time Temp Pulse Resp B/P (MAP) Pulse Ox O2 Delivery O2 Flow Rate FiO2 06/17/20 12:31 78 16 178/67 (104) 99 Room Air 06/17/20 12:15 6.00 06/17/20 12:00 35.9 Capillary Refill : Less Than 3 Seconds I&O Intake and Output 06/17/20 00:00 Intake Total 1625 ml Output Total 2150 ml Balance -525 ml Intake Oral 1625 ml Output Urine Total 2150 ml General: Alert, Oriented X3 HEENT: PERRLA, EOMI Neck: Supple, No JVD Lungs: Clear to Auscultation, Normal Air Movement Heart: Other (irregular rate and rhythm) Abdomen: Normal Bowel Sounds, No Tenderness Extremities: No Cyanosis, No Edema Skin: No Rashes Neuro: Normal Speech, Normal Tone Psych/Mental Status: Mental Status NL, Mood NL Results/Procedures Lab Laboratory Tests 06/17/20 02:36: White Blood Count 7.0, Red Blood Count 3.46L, Hemoglobin 11.0L, Hematocrit 34L, Mean Corpuscular Volume 98, Mean Corpuscular Hemoglobin 32, Mean Corpuscular Hemoglobin Concent 32, Red Cell Distribution Width 13.2, Platelet Count 183, Mean Platelet Volume 10.8, Immature Granulocyte % (Auto) 0, Neutrophils (%) (Auto) 59, Lymphocytes (%) (Auto) 29, Monocytes (%) (Auto) 9, Eosinophils (%) (Auto) 2, Basophils (%) (Auto) 0, Neutrophils # (Auto) 4.1, Lymphocytes # (Auto) 2.1, Monocytes # (Auto) 0.6, Eosinophils # (Auto) 0.2, Basophils # (Auto) 0.0, Immature Granulocyte # (Auto) 0.0, Sodium Level 141, Potassium Level 4.2, Chloride Level 108H, Carbon Dioxide Level 23, Anion Gap 10, Blood Urea Nitrogen 20H, Creatinine 1.42H, Estimat Glomerular Filtration Rate 36, BUN/Creatinine Ratio 14, Glucose Level 116H, Calcium Level 9.1, Corrected Calcium 9.3, Magnesium Level 1.9, Total Bilirubin 0.4, Aspartate Amino Transf (AST/SGOT) 13, Alanine Aminotransferase (ALT/SGPT) 12, Alkaline Phosphatase 69, Total Protein 6.4, Albumin 3.7 Microbiology 06/15/20 MRSA Screen - Final, Complete MRSA not isolated Assessment/Plan Assessment/Plan Assessment & Plan 1. Atrial fibrillation with RVR * Dr. Mccurdy consulted, appreciate advise * On cardizem drip, will cardiovert today * Tele * CHADsVASc: 4 * HASBLED: 2 * On xarelto 2. Elevated troponin, NSTEMI Type 2 likely secondary to arrhythmia * Troponin trending, stable at 0.18 * EKG revealed a fib with RVR * LHC performed yetserday (06/16) and unremarkable 3. Hypertension * Hx of HTN * Takes home medications * Will restart Clinical Quality Measures DVT/VTE Risk/Contraindication: Risk Factor Score Per Nursin RFS Level Per Nursing on Admit: 3=High BROOK CLARK MD 06/17/20 1441: Supervisory-Addendum Brief Verification & Attestation Participated in pt care: history, MDM, physical Personally performed: exam, history, MDM Care discussed with: Medical Student Procedures: n/a I personally have seen and evaluated the patient and performed the physical exam and repeated the history and directed the plan of care. I agree with the documented assessment and plan. KATHRYN ARTIS, Jun 17, 2020 12:57 BROOK CLARK MD Jun 17, 2020 14:41
[2020-06-17] MEDS ORDERED: MAGN400T8 PO (14:57)
[2020-06-17] MEDS ORDERED: DOXY25TA35 PO (14:58)
--- NOTE | 2020-06-17 14:59 | NUR ---
SPOKE WITH THE PT, WENT THRU THE EXT MED HISTORY AND CALLED [facility] IN [place] TO COMPLETE THE MED REC XARELTO 20MG WAS LAST FILLED AT [facility] ON 04-08-2020 #90/90DS ALL OTHER MEDICATIONS ARE LISTED ON THE EXT MED HISTORY (PT ALSO HAD A MEDICATION LIST WITH HER THAT MATCHED THE EXT MED HISTORY) OTC MEDS: VIT D3 UNISOM
[2020-06-17] MEDS ORDERED: RIVA15TA PO (15:34)
[2020-06-17] MEDS ORDERED: FLEC100T PO (15:34)
--- NOTE | 2020-06-17 15:41 | Discharge Summary ---
Discharge Summary Hospital Course Hospital Course Date of Admission: Jun 15, 2020 at 15:55 Admission Diagnosis : Atrial fibrillation with RVR Acute on chronic renal insufficiency Hypertension Elevated troponin Family Physician/Provider: Tobi Henning MD Date of Discharge: 06/17/20 Discharge Diagnosis: Atrial fibrillation with RVR-started on cardizem drip, had left heart cath that was unremarkable, underwent electrical cardioversion on 06/17 and started on flecainide and discontinued digoxin per Cardiology. Decreased Xarelto to 15 mg due to renal function. Of note, does not appear patient has had thyroid check in some time, recommend follow up outpatient. Acute on chronic renal insufficiency- resolved, cr near baseline at d/c. Hypertension- resumed home medications Elevated troponin- thought to be due to tachycardia, cath unremarkable Hospital Course: [ ] Labs and Pending Lab Test: Laboratory Tests 06/17/20 02:36: White Blood Count 7.0, Red Blood Count 3.46L, Hemoglobin 11.0L, Hematocrit 34L, Mean Corpuscular Volume 98, Mean Corpuscular Hemoglobin 32, Mean Corpuscular Hemoglobin Concent 32, Red Cell Distribution Width 13.2, Platelet Count 183, Mean Platelet Volume 10.8, Immature Granulocyte % (Auto) 0, Neutrophils (%) (Auto) 59, Lymphocytes (%) (Auto) 29, Monocytes (%) (Auto) 9, Eosinophils (%) (Auto) 2, Basophils (%) (Auto) 0, Neutrophils # (Auto) 4.1, Lymphocytes # (Auto) 2.1, Monocytes # (Auto) 0.6, Eosinophils # (Auto) 0.2, Basophils # (Auto) 0.0, Immature Granulocyte # (Auto) 0.0, Sodium Level 141, Potassium Level 4.2, Chloride Level 108H, Carbon Dioxide Level 23, Anion Gap 10, Blood Urea Nitrogen 20H, Creatinine 1.42H, Estimat Glomerular Filtration Rate 36, BUN/Creatinine Ratio 14, Glucose Level 116H, Calcium Level 9.1, Corrected Calcium 9.3, Magnesium Level 1.9, Total Bilirubin 0.4, Aspartate Amino Transf (AST/SGOT) 13, Alanine Aminotransferase (ALT/SGPT) 12, Alkaline Phosphatase 69, Total Protein 6.4, Albumin 3.7 Microbiology 06/15/20 MRSA Screen - Final, Complete MRSA not isolated Home Meds Active Reported Unisom Sleep Aid (Doxylamine Succinate) 25 Mg Tablet 25-50 Mg PO HS PRN Magnesium Oxide 400 Mg Tablet 400 Mg PO DAILY Vitamin D3 (Cholecalciferol (Vitamin D3)) 25 Mcg Capsule 25 Mcg PO DAILY Xarelto (Rivaroxaban) 20 Mg Tablet 20 Mg PO 1800 Rosuvastatin Calcium 20 Mg Tablet 20 Mg PO HS Bupropion Xl (Bupropion HCl) 150 Mg Tab.er.24h 150 Mg PO DAILY Digoxin 125 Mcg Tablet 125 Mg PO DAILY Furosemide 20 Mg Tablet 20 Mg PO Q48H Losartan Potassium 50 Mg Tablet 50 Mg PO HS Cartia Xt (Diltiazem HCl) 120 Mg Cap.er.24h 120 Mg PO DAILY Hydralazine HCl 25 Mg Tablet 25 Mg PO DAILY PRN Omeprazole 20 Mg Capsule. 20 Mg PO DAILY Assessment/Pt DC Instructions Follow up on Wednesday, 06/24 at 9:[address] Henning. Follow up with Cardiology as directed. Discharge Diet: Cardiac Diet Activity as Tolerated: Yes Discharge Physical Examination Allergies: Coded Allergies: No Known Drug Allergies (Unverified , 04/23/18) General Appearance: No Apparent Distress Respiratory: Lungs Clear, Normal Breath Sounds Cardiovascular: No Edema, Irregularly Irregular Gastrointestinal: Normal Bowel Sounds, Non Tender, Soft Skin: Normal Color Neurologic/Psychiatric: Alert, Normal Mood/Affect Copy Copies To 1: TOBI HENNING MD Clinical Quality Measures DVT/VTE Risk/Contraindication: Risk Factor Score Per Nursin RFS Level Per Nursing on Admit: 3=High BROOK CLARK MD Jun 17, 2020 15:40
--- NOTE | 2020-06-17 16:10 | NUR ---
CARLA HARRIS demonstrates understanding of discharge instructions and accurately returns instructions upon questioning. Copy of Post-Discharge Instructions and Medication Discharge Instructions given to patient. CARLA HARRIS is able to manage continuing needs after discharge. Patients belongings returned to patient. Skin dry and intact; no breakdown noted. Patient discharged from [facility]- on 06/17/20 at 1614. CARLA HARRIS left floor via wheelchair, accompanied by staff.
--- NOTE | 2020-06-17 22:30 | OPERATIVE REPORT ---
DATE OF SERVICE: 06/17/2020 PREOPERATIVE DIAGNOSIS: Atrial fibrillation. POSTOPERATIVE DIAGNOSIS: Sinus rhythm. PROCEDURE PERFORMED: External electrical cardioversion. DESCRIPTION OF PROCEDURE: External electrical cardioversion was carried out under short acting anesthesia provided by the nurse compensation consulting manager after the patient had provided informed consent for transesophageal echocardiography and external electrical cardioversion. Transesophageal electrocardiography was carried out immediately prior to the procedure. It did not show any intracardiac thrombus. 200 joules of synchronized biphasic shock was delivered through external patches, which restored sinus rhythm. The patient tolerated the procedure well. Job ID: [id number] DocumentID: [id number] Dictated Date: 06/17/2020 12:46:41 French Pastry Cook Date: 06/17/2020 22:29:50 Dictated By: BARBARA WARD MD, MA, FACP, FACC,
--- NOTE | 2020-06-19 13:47 | Anesthesia-General Post-Op ---
MAC Patient Condition Mental Status/LOC: Same as Preop Cardiovascular: Satisfactory Nausea/Vomiting: Absent Respiratory: Satisfactory Pain: Controlled Complications: Absent Post Op Complications Complications None Follow Up Care/Instructions Patient Instructions None needed. Anesthesiology Discharge Order Discharge Order Patient is doing well, no complaints, stable vital signs, no apparent adverse anesthesia problems. No complications reported per nursing. MICHAEL MARSH CRNA Jun 19, 2020 13:47
== END 2020-06-17 16:14 | disposition home or self-care (01) | DRG 282 ==
LOC: EDUNIT# 12:59 → ER FS 13:00 → ICU 15:55
PROVIDERS: ADMIT Internal Medicine; ATTEND Family Medicine
PROC: 4A023N7 Measurement of Cardiac Sampling and Pressure, Left Heart, Percutaneous Approach (ICD-10-PCS; principal; 2020-06-16)
PROC: B2111ZZ Fluoroscopy of Multiple Coronary Arteries using Low Osmolar Contrast (ICD-10-PCS; 2020-06-16)
PROC: B2151ZZ Fluoroscopy of Left Heart using Low Osmolar Contrast (ICD-10-PCS; 2020-06-16)
PROC: 5A2204Z Restoration of Cardiac Rhythm, Single (ICD-10-PCS; 2020-06-17)
DX: I48.0 Paroxysmal atrial fibrillation (principal); I21.A1 Myocardial infarction type 2; I25.10 Atherosclerotic heart disease of native coronary artery without angina pectoris; E78.5 Hyperlipidemia, unspecified; D64.9 Anemia, unspecified; N18.9 Chronic kidney disease, unspecified; I12.9 Hypertensive chronic kidney disease with stage 1 through stage 4 chronic kidney disease, or unspecified chronic kidney disease
CPT/HCPCS: 36221; 36415; 71045; 80048; 80053; 81000; 82553; 83735; 83880; 84484; 85025; 85610; 85730; 87081; 92960; 93005; 93306; 93312; 93320; 93325; 93458

== ENCOUNTER 2020-06-22 03:23 | Inpatient (IN) | payer MEDICARE, OTHER ==
[~2020-06-22] VITALS: Ht 160 cm; Wt 83.7 kg
[~2020-06-22 03:23] MED LIST changes: +BUPR150T7 PO; +CHOL10007 PO; +DIGO125T3 PO; +DILT120C53 PO; +DOXY25TA35 PO; +FLEC100T PO; +FURO20TA4 PO; +HYDR-3923 PO; +LOSA50TA63 PO; +MAGN400T7 PO; +MAGN400T8 PO; +RIVA15TA PO; +RIVA20TA PO; +ROSU20TA32 PO; +TR1C15; +Xarelto
[2020-06-22] MEDS ORDERED: NS IV 500 ML 500 ML IV SCH (03:45)
[2020-06-22] MEDS ORDERED: ATROPINE INJECTION 1 MG/10 ML SYR (ABBOTT) IV ONE (03:45)
--- NOTE | 2020-06-22 03:47 | ED Cardiac General ---
History of Present Illness General Stated Complaint: LOW BLOOD PRESSURE/LOW HR Source: patient Exam Limitations: no limitations History of Present Illness Date Seen by Provider: Jun 22, 2020 Time Seen by Provider: 03:38 Initial Comments 74-year-old female presents with complaint of low heart rate and low blood pressure. States onset of symptoms noted today, she was lightheaded when she stood up and short of breath when she walks. Recent past medical history, was admitted for atrial fibrillation and had an ablation as well as a heart catheterization (without a stent) and was started on & sent home w flecainide. Patient was doing well and feeling fine. Allergies and Home Medications Allergies Coded Allergies: No Known Drug Allergies (Unverified , 04/23/18) Home Medications Bupropion HCl 150 Mg Tab.er.24h, 150 MG PO DAILY, (Reported) Cholecalciferol (Vitamin D3) 25 Mcg Capsule, 25 MCG PO DAILY, (Reported) Diltiazem HCl 120 Mg Cap.er.24h, 120 MG PO DAILY, (Reported) Doxylamine Succinate 25 Mg Tablet, 25-50 MG PO HS PRN for SLEEP, (Reported) Flecainide Acetate 100 Mg Tablet, 100 MG PO BID Prescribed by: BROOK CLARK on 06/17/20 153 Furosemide 20 Mg Tablet, 20 MG PO Q48H, (Reported) Hydralazine HCl 25 Mg Tablet, 25 MG PO DAILY PRN for SBP >160, (Reported) Losartan Potassium 50 Mg Tablet, 50 MG PO HS, (Reported) Magnesium Oxide 400 Mg Tablet, 400 MG PO DAILY, (Reported) Omeprazole 20 Mg Capsule.dr, 20 MG PO DAILY, (Reported) Rivaroxaban 15 Mg Tablet, 15 MG PO DAILY Prescribed by: BROOK CLARK on 06/17/20 153 Rosuvastatin Calcium 20 Mg Tablet, 20 MG PO HS, (Reported) Patient Home Medication List Home Medication List Reviewed: Yes Review of Systems Review of Systems Constitutional: No chills, No diaphoresis; dizziness (when standing); No fever, No malaise, No weakness EENTM: No Symptoms Reported Respiratory: Denies Cough; SOA With Exertion; Denies SOA at Rest Cardiovascular: See HPI; Denies Chest Pain, Denies Edema, Denies Irregular Heart Rate; Lightheadedness; Denies Palpitations, Denies Syncope Gastrointestinal: Denies Abdominal Pain, Denies Nausea, Denies Poor Appetite, Denies Vomiting Musculoskeletal: No back pain, No joint pain Skin: No change in color, No rash Psychiatric/Neurological: Denies Headache, Denies Numbness, Denies Paresthesia Past Mrvjhfv-Ynghle-Smeokd Hx Past Med/Social Hx: Reviewed Nursing Past Med/Soc Hx Patient Social History Alcohol Beverage of Choice: Rum 2nd Hand Smoke Exposure: No Recent Foreign Travel: No Contact w/Someone Who Travel: No Recent Hopitalizations: No Immunizations Up To Date Tetanus Booster (TDap): Unknown Date of Pneumonia Vaccine: Sep 06, 2017 Date of Influenza Vaccine: May 21, 2020 Seasonal Allergies Seasonal Allergies: No Past Medical History Surgeries: Yes (Left THR) Adenoidectomy, Appendectomy, Hysterectomy, Orthopedic, Tonsillectomy Respiratory: No Cardiac: Yes (Cardioverted Sep 2017 [facility]) Atrial Fibrillation, Hypertension Neurological: No EMERGENCY MEDCL EMT History: Hysterectomy Genitourinary: Yes (UTI) Gastrointestinal: No Musculoskeletal: Yes (HX OF FALLS R/T SYNCOPE) Fractures Endocrine: No HEENT: No Cancer: No Psychosocial: No Integumentary: No Blood Disorders: No Family Medical History Abdominal aortic aneurysm Alzheimer's disease 19 MOTHER Cardiovascular disease 19 MOTHER Diabetes mellitus 19 MOTHER G8 SISTER G8 SISTER Hypertension Physical Exam Vital Signs Vital Signs - First Documented 06/22/20 03:55 Temp 36.5 Pulse 44 Resp 12 B/P (MAP) 112/94 (100) Pulse Ox 99 O2 Delivery Room Air Capillary Refill : Height, Weight, BMI Height: 5'3.00" Weight: 183lbs. 0.6oz. 83.586094mh; 31.28 BMI Method:Stated General Appearance: No Apparent Distress, WD/WN HEENT: PERRL/EOMI, Normal ENT Inspection Neck: Full Range of Motion, Non Tender, Supple Respiratory: Chest Non Tender, Lungs Clear Cardiovascular: No Edema, No JVD, Normal Peripheral Pulses, Bradycardia (40) Gastrointestinal: Non Tender, Soft Extremity: Normal Capillary Refill, Normal Inspection, Non Tender, No Calf Tenderness Neurologic/Psychiatric: Alert, Oriented x3, No Motor/Sensory Deficits, Normal Mood/Affect Skin: Normal Color, Warm/Dry Procedures/Interventions Suture Size: 4-0 Progress/Results/Core Measures Results/Orders Lab Results Laboratory Tests Test 06/22/20 03:50 Range/Units White Blood Count 9.1 4.3-11.0 10^3/uL Red Blood Count 3.37 L 4.35-5.85 10^6/uL Hemoglobin 11.0 #L 11.5-16.0 G/DL Hematocrit 33 L 35-52 % Mean Corpuscular Volume 98 80-99 FL Mean Corpuscular Hemoglobin 33 25-34 PG Mean Corpuscular Hemoglobin Concent 33 32-36 G/DL Red Cell Distribution Width 13.1 10.0-14.5 % Platelet Count 212 130-400 10^3/uL Mean Platelet Volume 10.6 H 7.4-10.4 FL Immature Granulocyte % (Auto) 0 % Neutrophils (%) (Auto) 66 42-75 % Lymphocytes (%) (Auto) 25 12-44 % Monocytes (%) (Auto) 8 0-12 % Eosinophils (%) (Auto) 1 0-10 % Basophils (%) (Auto) 0 0-10 % Neutrophils # (Auto) 6.0 1.8-7.8 X 10^3 Lymphocytes # (Auto) 2.3 1.0-4.0 X 10^3 Monocytes # (Auto) 0.7 0.0-1.0 X 10^3 Eosinophils # (Auto) 0.1 0.0-0.3 10^3/uL Basophils # (Auto) 0.0 0.0-0.1 10^3/uL Immature Granulocyte # (Auto) 0.0 0.0-0.1 10^3/uL Sodium Level 135 135-145 MMOL/L Potassium Level 4.5 3.6-5.0 MMOL/L Chloride Level 101 98-107 MMOL/L Carbon Dioxide Level 24 21-32 MMOL/L Anion Gap 10 5-14 MMOL/L Blood Urea Nitrogen 29 H 7-18 MG/DL Creatinine 1.61 H 0.60-1.30 MG/DL Estimat Glomerular Filtration Rate 31 BUN/Creatinine Ratio 18 Glucose Level 143 H 70-105 MG/DL Calcium Level 9.8 8.5-10.1 MG/DL Corrected Calcium 9.6 8.5-10.1 MG/DL Magnesium Level 2.0 1.6-2.4 MG/DL Total Bilirubin 0.2 0.1-1.0 MG/DL Aspartate Amino Transf (AST/SGOT) 24 5-34 U/L Alanine Aminotransferase (ALT/SGPT) 20 0-55 U/L Alkaline Phosphatase 85 40-136 U/L Troponin I < 0.30 <0.30 NG/ML Total Protein 7.1 6.4-8.2 GM/DL Albumin 4.3 3.2-4.5 GM/DL My Orders Orders - JEREMI CASTRO DO Ed Iv/Invasive Line Start (06/22/20 03:38) Cbc With Automated Diff (06/22/20 03:38) Comprehensive Metabolic Panel (06/22/20 03:38) Troponin I Fs (06/22/20 03:38) Ekg Tracing (06/22/20 03:38) Orthostatic Vital Signs (Adult (06/22/20 03:38) Ns Iv 500 Ml (Sodium Chloride 0.9%) (06/22/20 03:45) Atropine Inj 10 Mg Syringe (Atropine In (06/22/20 03:45) Magnesium (06/22/20 03:44) Digoxin (06/22/20 03:50) Clopidogrel Tablet (Plavix Tablet) (06/22/20 04:30) Medications Given in ED Current Medications Medications Dose Ordered Sig/Kaitlynn Route Start Time Stop Time Status Last Admin Dose Admin Clopidogrel Bisulfate 150 mg ONCE ONCE PO 06/22/20 04:30 06/22/20 04:31 DC 06/22/20 04:23 150 MG Vital Signs/I&O 06/22/20 03:55 Temp 36.5 Pulse 44 Resp 12 B/P (MAP) 112/94 (100) Pulse Ox 99 O2 Delivery Room Air Progress Progress Note : Progress Note Patient asymptomatic as long as she doesn't stand or try to walk. HR remained in mid 30's to low 40's for entire ER stay. Initially thought she was taking Diltiazem and Digoxin, but BOTH have been discontinued. Flecainide was started at hospitalization for A. fib last week. Initial ECG Impression Date: Jun 22, 2020 Initial ECG Impression Time: 03:50 Initial ECG Rate: 38 Comment Junctional Rhythm, no discernable P-waves. HR 38. No ST changes Departure Communication (Admissions) Time/Spoke to Admitting Phy: 04:13 Dr Rondon accepts for admission w plans to consult Cardio. Holding flecainide and Diltiazem (Digoxin discontinued?) Time/Spoke to Consulting Phy: 04:[address] Killian- advised admitting, holding Flecainide, starting Plavix. will see in consultation Impression Primary Impression: Bradycardia Disposition: 09 ADMITTED INPATIENT Admissions Decision to Admit Reason: Admit from ER (General) Decision to Admit/Date: Jun 22, 2020 Time/Decision to Admit Time: 03:50 Departure-Patient Inst. Referrals: SELF,STEFANY LARSON (PCP/Family) Primary Care Physician JEREMI CASTRO DO Jun 22, 2020 03:47
[2020-06-22 03:58] LABS: BASOPHILS % (AUTO) 0 % (0-10); EOSINOPHILS # (AUTO) 0.1 10^3/uL (0.0-0.3); EOSINOPHILS % (AUTO) 1 % (0-10); HEMATOCRIT 33 % (35-52); LYMPHOCYTES # (AUTO) 2.3 X 10^3 (1.0-4.0); LYMPHOCYTES % (AUTO) 25 % (12-44); MEAN CORPUSCULAR HEMOGLOBIN 33 PG (25-34); MEAN CORPUSCULAR HGB CONC 33 G/DL (32-36); MEAN CORPUSCULAR VOLUME 98 FL (80-99); MEAN PLATELET VOLUME 10.6 FL (7.4-10.4); MONOCYTES # (AUTO) 0.7 X 10^3 (0.0-1.0); MONOCYTES % (AUTO) 8 % (0-12); NEUTROPHILS % (AUTO) 66 % (42-75); PLATELET COUNT 212 10^3/uL (130-400); WHITE BLOOD COUNT 9.1 10^3/uL (4.3-11.0)
--- NOTE | 2020-06-22 04:09 | NUR ---
Dr Haas declined orthostatic vitals due to pt dizziness.
[2020-06-22 04:18] LABS: CHLORIDE 101 MMOL/L (98-107); POTASSIUM 4.5 MMOL/L (3.6-5.0); SODIUM 135 MMOL/L (135-145)
[2020-06-22 04:19] LABS: ALANINE AMINOTRANSFERASE 20 U/L (0-55); ALBUMIN 4.3 GM/DL (3.2-4.5); ALKALINE PHOSPHATASE 85 U/L (40-136); BILIRUBIN,TOTAL 0.2 MG/DL (0.1-1.0); BUN/CREATININE RATIO 18; CALCIUM 9.8 MG/DL (8.5-10.1); CARBON DIOXIDE 24 MMOL/L (21-32); CREATININE SERUM 1.61 MG/DL (0.60-1.30); GFR ESTIMATED 31; GLUCOSE 143 MG/DL (70-105); TOTAL PROTEIN 7.1 GM/DL (6.4-8.2)
[2020-06-22] MEDS ORDERED: CLOPIDOGREL 75 MG (PLAVIX) TABLET PO ONE (04:30)
[2020-06-22 05:20] VITALS: BP 158/55
[2020-06-22 05:30] VITALS: BP 158/55
[2020-06-22] MEDS ORDERED: NS IV 1000 ML 1,000 ML IV SCH (05:45)
--- NOTE | 2020-06-22 07:45 | NUR ---
0700- REPORT RECEIVED FROM ELECTRIC CLOCK MECHANIC. 0740- ASSESSMENT COMPLETED AT THIS TIME. PT RESTING IN BED WATCHING TV. A/O X 3. DENIES PAIN, SOB, CHEST PAIN, NAUSEA, OR ANY OTHER COMPLAINTS AT THIS TIME. LUNG CTA, ABDOMEN SOFT AND NONTENDER, NO EDEMA NOTED. TELEMETRY SHOWS VIDYA RHYTHM. RIGHT AC IV PATENT. PT IS NPO AT THIS TIME AND VERBALIZES UNDERSTANDING. VITAL SIGNS STABLE. WILL CONTINUE TO MONITOR.
--- NOTE | 2020-06-22 09:27 | NUR ---
RESTING IN BED WITH EYES CLOSED. AROUSES WHEN STAFF COMES INTO ROOM. CONTINUES TO DENY PAIN. NO C/O ANYTHING AT THIS TIME. REMAINS IN STABLE CONDITION.
--- NOTE | 2020-06-22 10:44 | NUR ---
PT RESTING IN BED. AWAKE AND ALERT. DENIES PAIN. HEART RATE IS IN THE 60'S AT THIS TIME. DISCUSSED WITH PT WHEN SHE TOOK LAST DOSE OF CARDIZEM. PT STATED SHE TOOK CARDIZEM YESTERDAY MORNING AROUND 0930 WITH ALL HER MORNING MEDICATIONS. PT STATES THAT SHE FEELS GOOD AT THIS TIME AND DENIES ANY PAIN OR DIZZINESS. REMAINS IN STABLE CONDITION.
--- NOTE | 2020-06-22 11:08 | History & Physical-Hospitalist ---
History of Present Illness HPI/Chief Complaint the patient is a 74-year-old white female who was discharged on the of this month after admission for atrial fibrillation with rapid ventricular response and history highly suspicious for underlying sick sinus syndrome. She underwent cardioversion diltiazem was continued and fleconide was added on discharge.she d id well until Wednesday morning when she noted dyspnea and lightheadedness on exertion with presyncope. She noted that her heart rate was in the 30s so she presented to the emergency room where her heart rate indeed was in the 30s rhythm was unclear per the emergency room physician. She reports going back to 2017 episodes of presyncope as well as syncope mostly when standing. This is resulted in falls and she has had 2 wrist fractures one this year and one last year as a result.she reports first admission for atrial fibrillation earlier this year possibly October due to rapid ventricular response. Roughly 10 days ago she was admitted again in atrial fibrillation with rapid ventricular res ponse. She underwent heart catheterization as well that did not reveal any high-grade blockages as I recall with preserved left ventricular systolic function and no evidence for pulmonary hypertension on echocardiogram. Date Seen 06/22/20 Time Seen by a Provider: 07:30 Attending Physician Vinh Talbert MD PCP Self,Tobi LARSON Referring Physician Date of Admission Jun 22, 2020 at 04:15 Home Medications & Allergies Home Medications Reviewed patient Home Medication Reconciliation performed by pharmacy medication reconciliations vehicle operator technician and/or nursing. Patients Allergies have been reviewed. Allergies Allergies Coded Allergies No Known Drug Allergies (Unverified04/23/18) Past Uwskiao-Aymvic-Clzdaw Hx Past Med/Social Hx: Reviewed Nursing Past Med/Soc Hx, Reviewed and Corrections made Patient Social History Alcohol Use: Denies Use Alcohol Beverage of Choice: Rum Recreational Drug Use: No Smoking Status: Never a Smoker 2nd Hand Smoke Exposure: No Recent Foreign Travel: No Contact w/other who traveled: No Recent Hopitalizations: No Recent Infectious Disease Expo: No Immunizations Up To Date Tetanus Booster (TDap): Unknown Date of Pneumonia Vaccine: Sep 06, 2017 Date of Influenza Vaccine: May 21, 2020 Seasonal Allergies Seasonal Allergies: No Past Medical History Surgeries: Adenoidectomy, Appendectomy, Hysterectomy, Orthopedic, Tonsillectomy Cardiac: Atrial Fibrillation, Hypertension Hysterectomy Musculoskeletal: Fractures History of Blood Disorders: No Family History Abdominal aortic aneurysm Alzheimer's disease 19 MOTHER Cardiovascular disease 19 MOTHER Diabetes mellitus 19 MOTHER G8 SISTER G8 SISTER Hypertension Review of Systems Constitutional: see HPI Physical Exam Physical Exam Vital Signs Vital Signs - First Documented 06/22/20 03:55 Temp 36.5 Pulse 44 Resp 12 B/P (MAP) 112/94 (100) Pulse Ox 99 O2 Delivery Room Air Capillary Refill : Less Than 3 Seconds Height, Weight, BMI Height: 5'3.00" Weight: 183lbs. 0.6oz. [id number]; 32.69 BMI Method:Stated General Appearance: No Apparent Distress, Obese Neck: Full Range of Motion, Normal Inspection, Non Tender Respiratory: Chest Non Tender, Lungs Clear, Normal Breath Sounds, No Accessory Muscle Use, No Respiratory Distress Cardiovascular: No Edema, No Gallop, No JVD, No Murmur, Normal Peripheral Pulses, Bradycardia Gastrointestinal: Normal Bowel Sounds, No Organomegaly, No Pulsatile Mass, Non Tender, Soft Extremity: Normal Inspection, Normal Range of Motion, Non Tender, No Calf Tenderness, No Pedal Edema Results Results/Procedures Labs Laboratory Tests 06/22/20 03:50 Patient resulted labs reviewed. Assessment/Plan Admission Diagnosis 1. Sick sinus syndrome with symptomatic bradycardia. Currently the patient appears to be in junctional rhythm with no discernible P waves rate in the 30s. Flecanide and diltiazem being held.last dose 7 p.m. last night. Considering his tory of syncope fall significant enough to lead to wrist fractures prior to the above medication suspect pacemaker placement will be necessary defer to Dr. WARD. Admission Status: Inpatient Order (span 2 midnights) Reason for Inpatient Admission: see admission summary Critical Care Critically Ill Patient Clinical Quality Measures DVT/VTE Risk/Contraindication: Risk Factor Score Per Nursin RFS Level Per Nursing on Admit: 2=Moderate VINH TALBERT MD Jun 22, 2020 11:08
--- NOTE | 2020-06-22 13:22 | NUR ---
0044- DR COHEN AT BEDSIDE TALKING WITH PT. ALL QUESTIONS AND CONCERNS ANSWERED
--- NOTE | 2020-06-22 13:23 | NUR ---
1310- DR COHEN AT BEDSIDE TALKING WITH PT. ALL QUESTIONS AND CONCERNS ANSWERED.
--- NOTE | 2020-06-22 14:52 | Consultation-Cardiology ---
HPI-Cardiology Cardiology Consultation: Date of Consultation 06/22/20 Time Seen by a Provider: 13:00 Date of Admission Attending Physician Varun Rondon MD Admitting Physician Tobi Henning MD Consulting Physician BARBARA WARD MD, MA, FACP, FACC, FSCAI, CCDS HPI: Chief Complaint: CC: Dizziness, low heart rate HPI 74 yo woman with recently (Jun 2020) diagnosed A Fib, treated recently with elec CV and oral therapy with dilt, dig and flecainide, who was experiencing dizziness and weakness last night and found her pulse to be low and came to [facility] from where she was transferred to this hosp after found to have a junctional rhythm in the mid 30s. No cp or palp or syncope. No leg swelling. No shortness of breath. No n/v/d. Feeling much better at time of my exam and tele now exhibiting NSR Review of Systems-Cardiology Review of Systems Constitutional: malaise, tiredness; No weight loss, No weight gain Eyes: No vision change Ears/Nose/Throat: No ear discharge, No nasal drainage, No recent hearing loss Respiratory: As described under HPI Cardiovascular: As described under HPI Gastrointestinal: As described under HPI Genitourinary: No dysuria, No hematuria, No urine frequency changes Musculoskeletal: back pain (chronic) Skin: No rash, No ulcerations Psychiatric/Neurological: No focal weakness, No syncope Hematologic: No bleeding abnormalities MNA-Quzjqv-Ekcthh Hx Patient Social History Alcohol Use: Denies Use Recreational Drug Use: No Smoking Status: Never a Smoker 2nd Hand Smoke Exposure: No Recent Foreign Travel: No Recent Infectious Disease Expo: No Hospitalization with Isolation: Denies Immunizations Up To Date Tetanus Booster (TDap): Unknown Date of Pneumonia Vaccine: Sep 06, 2017 Date of Influenza Vaccine: May 21, 2020 Past Medical History PMH As described under Assessment. Family Medical History Family History: Abdominal aortic aneurysm Alzheimer's disease 19 MOTHER Cardiovascular disease 19 MOTHER Diabetes mellitus 19 MOTHER G8 SISTER G8 SISTER Allergies and Home Medications Allergies Coded Allergies: No Known Drug Allergies (Unverified , 04/23/18) Home Medications Bupropion HCl 150 Mg Tab.er.24h, 150 MG PO DAILY, (Reported) Cholecalciferol (Vitamin D3) 25 Mcg Capsule, 25 MCG PO DAILY, (Reported) Diltiazem HCl 120 Mg Cap.er.24h, 120 MG PO DAILY, (Reported) Doxylamine Succinate 25 Mg Tablet, 25-50 MG PO HS PRN for SLEEP, (Reported) Flecainide Acetate 100 Mg Tablet, 100 MG PO BID Prescribed by: BROOK CLARK on 06/17/201533 Furosemide 20 Mg Tablet, 20 MG PO Q48H, (Reported) Hydralazine HCl 25 Mg Tablet, 25 MG PO DAILY PRN for SBP >160, (Reported) Losartan Potassium 50 Mg Tablet, 50 MG PO HS, (Reported) Magnesium Oxide 400 Mg Tablet, 400 MG PO DAILY, (Reported) Omeprazole 20 Mg Capsule.dr, 20 MG PO DAILY, (Reported) Rivaroxaban 15 Mg Tablet, 15 MG PO DAILY Prescribed by: BROOK CLARK on 06/17/201533 Rosuvastatin Calcium 20 Mg Tablet, 20 MG PO HS, (Reported) Patient Home Medication List Home Medication List Reviewed: Yes Physical Exam-Cardiology Physical Exam Vital Signs/I&O 06/22/20 06/22/20 06/22/20 06/22/20 03:55 04:40 05:20 05:20 Temp 36.5 36.8 Pulse 44 39 39 Resp 12 18 18 B/P (MAP) 112/94 (100) 165/55 158/55 Pulse Ox 99 98 99 99 O2 Delivery Room Air Room Air Room Air Room Air 06/22/20 06/22/20 06/22/20 06/22/20 05:30 07:00 07:55 08:00 Temp 36.8 36.8 Pulse 39 34 33 Resp 16 25 B/P (MAP) 158/55 (89) Pulse Ox 99 O2 Delivery Room Air Room Air 06/22/20 06/22/20 06/22/20 08:08 12:00 12:54 Temp 37.2 Pulse 63 Pulse Ox 99 O2 Delivery Room Air Capillary Refill : Less Than 3 Seconds Constitutional: AAO x 3, well-developed, well-nourished HEENT: EOMI, hearing is well preserved; No xanthelasmas are seen Neck: carotid pulses are 2 + bilaterally, with good upstrokes Respiratory: No accessory muscle use; other (good bilateral air entry) Cardiovascular: regular rate-rhythm, S1 and S2, systolic murmur (soft BÁRBARA at card base) Gastrointestinal: No tender; soft; No guarding, No rebound; audible bowel sounds Extremities: No clubbing, No cyanosis, No significant edema Neurologic/Psychiatric: oriented x 3, other (moves all limbs equally) Skin: No rash on exposed areas, No ulcerations on exposed areas Data Review Labs Laboratory Tests 06/22/20 03:50: White Blood Count 9.1, Red Blood Count 3.37L, Hemoglobin 11.0#L, Hematocrit 33L, Mean Corpuscular Volume 98, Mean Corpuscular Hemoglobin 33, Mean Corpuscular Hemoglobin Concent 33, Red Cell Distribution Width 13.1, Platelet Count 212, Mean Platelet Volume 10.6H, Immature Granulocyte % (Auto) 0, Neutrophils (%) (Auto) 66, Lymphocytes (%) (Auto) 25, Monocytes (%) (Auto) 8, Eosinophils (%) (Auto) 1, Basophils (%) (Auto) 0, Neutrophils # (Auto) 6.0, Lymphocytes # (Auto) 2.3, Monocytes # (Auto) 0.7, Eosinophils # (Auto) 0.1, Basophils # (Auto) 0.0, Immature Granulocyte # (Auto) 0.0, Sodium Level 135, Potassium Level 4.5, Chloride Level 101, Carbon Dioxide Level 24, Anion Gap 10, Blood Urea Nitrogen 29H, Creatinine 1.61H, Estimat Glomerular Filtration Rate 31, BUN/Creatinine Ratio 18, Glucose Level 143H, Calcium Level 9.8, Corrected Calcium 9.6, Magnesium Level 2.0, Total Bilirubin 0.2, Aspartate Amino Transf (AST/SGOT) 24, Alanine Aminotransferase (ALT/SGPT) 20, Alkaline Phosphatase 85, Troponin I < 0.30, Total Protein 7.1, Albumin 4.3 Laboratory Tests 06/22/20 03:50 A/P-Cardiology Assessment/Admission Diagnosis Symptomatic bradycardia due to digoxin and/or diltiazem toxicity, now resolved PAF, treated with elec cardioversion to NSR and initiation of flecainide on 06/17/20, after card cath of 06/16/20 did not show any significant CAD Cardiac cath of 06/16/20 showed mild coronary artery disease nonobstructive disease Echo of 06/16/20: LVEF 65-70%, mild to mod enlargement of LA, mild MAC, PASP 25- 30 mmHg Oral anticoagulation to reduce the risk of stroke: rivaroxaban adjusted to renal function CKD 3-4 Hypertension, treated with beta-jay H/o hyperlipidemia Discussion and Recomendations * Discontinue dilt and dig * Continue flecainide and rivaroxaban * Ok to d/c since is feeling well and wishes to go home * F/u within 2-3 days 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 She states she will Clinical Quality Measures DVT/VTE Risk/Contraindication: Risk Factor Score Per Nursin RFS Level Per Nursing on Admit: 2=Moderate BARBARA WARD MD FACP [facility] Jun 22, 2020 14:52
[2020-06-22] MEDS ORDERED: ROSUVASTATIN 20 MG (CRESTOR) TABLET PO SCH (21:00)
== END 2020-06-22 16:58 | disposition home or self-care (01) | DRG 309 ==
LOC: EDUNIT# 03:23 → ER FS 03:27 → ICU 04:15 → ER FS 04:40
PROVIDERS: ADMIT Internal Medicine; ATTEND Internal Medicine
DX: I49.5 Sick sinus syndrome (principal); N18.4 Chronic kidney disease, stage 4 (severe); I48.21 Permanent atrial fibrillation; T46.0X5A Adverse effect of cardiac-stimulant glycosides and drugs of similar action, initial encounter; T46.1X5A Adverse effect of calcium-channel blockers, initial encounter; I25.10 Atherosclerotic heart disease of native coronary artery without angina pectoris; I12.9 Hypertensive chronic kidney disease with stage 1 through stage 4 chronic kidney disease, or unspecified chronic kidney disease; E78.5 Hyperlipidemia, unspecified
CPT/HCPCS: 36415; 80053; 80162; 83735; 84484; 85025

== ENCOUNTER 2022-09-07 15:08 | Emergency (ER) | payer MEDICARE, OTHER ==
[~2022-09-07] VITALS: Ht 160 cm; Wt 73.9 kg
[~2022-09-07 15:08] MED LIST changes: +AMLO-250 PO; -AMLO5TAB9 PO; +BUPR150T24 PO; -BUPR150T7 PO; -CITA40TA11; -CITA40TA11 PO; +CITA40TA13; +CITA40TA13 PO; -MAGN400T8 PO; +MGX400T PO
[2022-09-07] MEDS ORDERED: ACETAMINOPHEN 325 MG TABLET PO ONE (15:15)
--- NOTE | 2022-09-07 15:53 | Diagnostic Imaging Report ---
PROCEDURE: CT head and CT cervical spine without contrast. TECHNIQUE: Multiple contiguous axial images were obtained through the brain and cervical spine without the use of intravenous contrast. Sagittal and coronal reformations through the cervical spine were then performed. Auto Exposure Controls were utilized during the CT exam to meet ALARA standards for radiation dose reduction. INDICATION: Head laceration, injury from a fall. CT HEAD: There is a left posterior scalp hematoma with skin matt. There are no skull fractures. There is no intracranial hemorrhage. Ventricles are not dilated. There are no masses or extra-axial fluid collections. IMPRESSION: 1. Left posterior parietal scalp hematoma. CT CERVICAL SPINE: Vertebral body height and alignment appear normal. Intervertebral disc spaces are well-maintained. There are no fractures seen. IMPRESSION: 1. Negative CT cervical spine. Dictated by: Dictated on workstation # [id number]
[2022-09-07 15:58] LABS: BASOPHILS % (AUTO) 0 % (0-10); EOSINOPHILS # (AUTO) 0.1 10^3/uL (0.0-0.3); EOSINOPHILS % (AUTO) 1 % (0-10); HEMATOCRIT 36 % (35-52); HEMOGLOBIN 12.2 g/dL (11.5-16.0); LYMPHOCYTES # (AUTO) 1.7 10^3/uL (1.0-4.0); LYMPHOCYTES % (AUTO) 23 % (12-44); MEAN CORPUSCULAR HEMOGLOBIN 36 pg (25-34); MEAN CORPUSCULAR HGB CONC 34 g/dL (32-36); MEAN CORPUSCULAR VOLUME 103 fL (80-99); MEAN PLATELET VOLUME 10.5 fL (9.0-12.2); MONOCYTES # (AUTO) 0.7 10^3/uL (0.0-1.0); MONOCYTES % (AUTO) 10 % (0-12); NEUTROPHILS # (AUTO) 4.9 10^3/uL (1.8-7.8); NEUTROPHILS % (AUTO) 66 % (42-75); PLATELET COUNT 199 10^3/uL (130-400); WHITE BLOOD COUNT 7.3 10^3/uL (4.3-11.0)
--- NOTE | 2022-09-07 16:18 | ED Head Injury ---
General Chief Complaint: Trauma-Non Activation Stated Complaint: FALL,HEAD LAC Nursing Triage Note: PT TO ROOM FS05 VIA [facility] WITH C/O FALLING AT [facility]. PT REPORTS SHE "BLACKED OUT" AND FELL. PT HAS LACK TO POST HEAD. PT REPORTS SHE "BLACKS OUT ALL THE TIME" DUE TO BLOOD PRESSURE. Source: patient Exam Limitations: no limitations History of Present Illness Date Seen by Provider: Sep 07, 2022 Time Seen by Provider: 15:15 Initial Comments Patient is a 77-year-old female with history of rate controlled A. fib, labile hypertension representing with recurrent syncope presents with an unwitnessed fall while standing. Patient was in the hospital parking lot when she had a syncopal episode falling backwards landing on her back and striking her head. Patient reports brief loss of consciousness. She is not currently on anticoagulation therapy. She has a hematoma with abrasion and laceration to her posterior parietal scalp and midline neck pain. She denies any other injury or pain related complaint. She denies symptoms prior to current syncopal episode. No palpitations chest pain shortness of breath, recent change in medications, missed medication or illnesses. Patient's prior syncopal episodes were also without warning. Occurred: just prior to arrival Severity: mild Method of Injury: other Associated Systoms: Other Allergies and Home Medications Allergies Coded Allergies: No Known Drug Allergies (Unverified , 04/23/18) Patient Home Medication List Home Medication List Reviewed: Yes Bupropion HCl (Bupropion Xl) 150 Mg Tab.er.24h, 150 MG PO DAILY, (Reported) Entered as Reported by: LILLIAN MARCIAL on 06/15/20 1323 Cholecalciferol (Vitamin D3) (Vitamin D3) 25 Mcg Capsule, 25 MCG PO DAILY, (Reported) Entered as Reported by: LILLIAN MARCIAL on 06/15/20 1433 Doxylamine Succinate (Unisom Sleep Aid) 25 Mg Tablet, 25-50 MG PO HS PRN for SLEEP, (Reported) Entered as Reported by: PRUDENCIO BAILEY on 06/17/20 1458 Flecainide Acetate (Flecainide Acetate) 100 Mg Tablet, 100 MG PO BID Prescribed by: BROOK CLARK on 06/17/20 1534 Furosemide (Furosemide) 20 Mg Tablet, 20 MG PO Q48H, (Reported) Entered as Reported by: LILLIAN MARCIAL on 06/15/20 1323 Hydralazine HCl (Hydralazine HCl) 25 Mg Tablet, 25 MG PO DAILY PRN for SBP >160, (Reported) Entered as Reported by: LILLIAN MARCIAL on 06/15/20 1323 Losartan Potassium (Losartan Potassium) 50 Mg Tablet, 50 MG PO HS, (Reported) Entered as Reported by: LILLIAN MARCIAL on 06/15/20 1323 Magnesium Oxide (Magnesium Oxide) 400 Mg Tablet, 400 MG PO DAILY, (Reported) Entered as Reported by: PRUDENCIO BAILEY on 06/17/20 1457 Omeprazole (Omeprazole) 20 Mg Capsule.dr, 20 MG PO DAILY, (Reported) Entered as Reported by: BRITTNEE ASHRAF on 04/26/18 1256 Rivaroxaban (Xarelto) 15 Mg Tablet, 15 MG PO DAILY Prescribed by: BROOK CLARK on 06/17/20 1534 Rosuvastatin Calcium (Rosuvastatin Calcium) 20 Mg Tablet, 20 MG PO HS, (Reported) Entered as Reported by: LILLIAN MARCIAL on 06/15/20 1323 Review of Systems Review of Systems Constitutional: see HPI Eyes: See HPI Ears, Nose, Mouth, Throat: see HPI Respiratory: see HPI Cardiovascular: see HPI Gastrointestinal: see HPI Genitourinary: see HPI Musculoskeletal: see HPI Skin: see HPI Psychiatric/Neurological: See HPI Endocrine: See HPI Hematologic/Lymphatic: See HPI Past Nnoykiz-Asvhft-Oruzfy Hx Patient Social History Tobacco Use?: No Smoking Status: Never a Smoker Smokeless Tobacco Frequency: Never a User Use of E-Cig and/or Vaping dev: No Use of E-Cig and/or Vaping Boom: Never a User Substance use?: No Alcohol Use?: Yes Alcohol Frequency: Daily Pt feels they are or have been: No Immunizations Up To Date Tetanus Booster (TDap): Unknown COVID19 Vaccine Therapy Teacher: MODERNA Seasonal Allergies Seasonal Allergies: No Past Medical History Surgeries: Yes (Left THR) Adenoidectomy, Appendectomy, Hysterectomy, Orthopedic, Tonsillectomy Respiratory: No Cardiac: Yes (Cardioverted Sep 2017 [facility]) Atrial Fibrillation, Hypertension Neurological: No PARTS PICKER History: Hysterectomy Genitourinary: Yes (UTI) Gastrointestinal: No Musculoskeletal: Yes (HX OF FALLS R/T SYNCOPE) Fractures Endocrine: No HEENT: No Cancer: No Psychosocial: No Integumentary: No Blood Disorders: No Family Medical History Abdominal aortic aneurysm Alzheimer's disease 19 MOTHER Cardiovascular disease 19 MOTHER Diabetes mellitus 19 MOTHER G8 SISTER G8 SISTER Hypertension Physical Exam Vital Signs Vital Signs - First Documented Capillary Refill : Less Than 3 Seconds Height, Weight, BMI Height: 5'3.00" Weight: 183lbs. 0.6oz. 83.666313gv; 28.00 BMI Method:Stated General Appearance: WD/WN, no apparent distress HEENT: PERRL/EOMI, normal ENT inspection, scleral icterus (R), other (370 curvilinear full-thickness laceration over posterior parietal scalp. Wound is clean, no active bleeding. No step-off is noted) Neck: supple, other (Midline neck discomfort, rigid cervical collar in place.) Cardiovascular: normal peripheral pulses, regular rate, rhythm Respiratory: chest non-tender, lungs clear Gastrointestinal: soft Psychiatric: oriented x 3 Procedures/Interventions Wound Location: Scalp Other Wound Location Apical scalp Wound Length (cm): 5 Wound's Depth, Shape: linear Wound Explored: clean Betadine Prep?: Yes Wound Debrided: minimal Staple Repair: Stapler 35W Number of Sutures: 5 Progress Patient's wound exposed, explored, vigorously cleanse. No foreign bodies detected, wound cleaned and closed with #5 matt with good wound edge approximation. . Progress/Results/Core Measures Results/Orders Lab Results Laboratory Tests Test 09/07/22 15:52 Range/Units White Blood Count 7.3 4.3-11.0 10^3/uL Red Blood Count 3.44 L 3.80-5.11 10^6/uL Hemoglobin 12.2 11.5-16.0 g/dL Hematocrit 36 35-52 % Mean Corpuscular Volume 103 H 80-99 fL Mean Corpuscular Hemoglobin 36 H 25-34 pg Mean Corpuscular Hemoglobin Concent 34 32-36 g/dL Red Cell Distribution Width 12.9 10.0-14.5 % Platelet Count 199 130-400 10^3/uL Mean Platelet Volume 10.5 9.0-12.2 fL Immature Granulocyte % (Auto) 0 % Neutrophils (%) (Auto) 66 42-75 % Lymphocytes (%) (Auto) 23 12-44 % Monocytes (%) (Auto) 10 0-12 % Eosinophils (%) (Auto) 1 0-10 % Basophils (%) (Auto) 0 0-10 % Neutrophils # (Auto) 4.9 1.8-7.8 10^3/uL Lymphocytes # (Auto) 1.7 1.0-4.0 10^3/uL Monocytes # (Auto) 0.7 0.0-1.0 10^3/uL Eosinophils # (Auto) 0.1 0.0-0.3 10^3/uL Basophils # (Auto) 0.0 0.0-0.1 10^3/uL Immature Granulocyte # (Auto) 0.0 0.0-0.1 10^3/uL Sodium Level 137 135-145 MMOL/L Potassium Level 3.2 L 3.6-5.0 MMOL/L Chloride Level 98 98-107 MMOL/L Carbon Dioxide Level 21 21-32 MMOL/L Anion Gap 18 H 5-14 MMOL/L Blood Urea Nitrogen 12 7-18 MG/DL Creatinine 1.38 H 0.60-1.30 MG/DL Estimat Glomerular Filtration Rate 39 BUN/Creatinine Ratio 9 Glucose Level 104 70-105 MG/DL Calcium Level 10.0 8.5-10.1 MG/DL Corrected Calcium 9.9 8.5-10.1 MG/DL Total Bilirubin 0.4 0.1-1.0 MG/DL Aspartate Amino Transf (AST/SGOT) 26 5-34 U/L Alanine Aminotransferase (ALT/SGPT) 14 0-55 U/L Alkaline Phosphatase 107 40-136 U/L Total Protein 7.0 6.4-8.2 GM/DL Albumin 4.1 3.2-4.5 GM/DL My Orders Orders - JOAN PANDYA DO Cbc With Automated Diff (09/07/22 15:12) Comprehensive Metabolic Panel (09/07/22 15:12) Ekg Tracing (09/07/22 15:12) Acetaminophen Tablet/Caplet (Tylenol T (09/07/22 15:15) Ct Head/Cervical Spine Wo (09/07/22 15:12) Potassium Chloride (Tablet) (K Dur Table (09/07/22 17:00) Tramadol Tablet (Ultram Tablet) (09/07/22 17:00) Medications Given in ED Current Medications Medications Dose Ordered Sig/Kaitlynn Route Start Time Stop Time Status Last Admin Dose Admin Acetaminophen 650 mg ONCE ONCE PO 09/07/22 15:15 09/07/22 15:16 DC 09/07/22 15:22 650 MG Potassium Chloride 40 meq ONCE ONCE PO 09/07/22 17:00 09/07/22 17:01 DC 09/07/22 16:51 40 MEQ Tramadol HCl 50 mg ONCE ONCE PO 09/07/22 17:00 09/07/22 17:01 DC 09/07/22 16:52 50 MG Vital Signs/I&O 09/07/22 09/07/22 15:08 15:08 Temp 36.1 36.1 Pulse 76 76 Resp 17 17 B/P (MAP) 124/69 (87) 124/69 (87) Pulse Ox 95 O2 Delivery Room Air Room Air Blood Pressure Mean: 87 Departure Communication (Admissions) CT head/cervical spine: No acute findings per radiology report. EKG: A. fib, rate controlled, moderate ST depression in inferior lateral leads no reciprocal changes. Unheralded syncope with minor head trauma without intracranial injury. CT head/cervical spine, negative for acute intracranial pathology and cervical spine injury. Wound cleansed and closed. Stable vital signs in the emergency department without current evidence of bradycardia arrhythmia. EKG shows ST depression. Troponin negative. No chest pain palpitations or shortness of breath or other anginal equivalents prior to symptom onset and while in the emergency department. Attempts were made to contact the patient's central office operator regarding medication management. [facility] office is closed due to the ' holiday. Patient was instructed to hold losartan and contact office tomorrow morning for further medication management. Typical closed head injury and wound care instructions instructions provided. Patient verbalizes understanding agreement discharge instructions prior to departure. Impression Primary Impression: Syncope and collapse Additional Impressions: Minor head injury Chronic atrial fibrillation Abnormal EKG Disposition: 01 HOME, SELF-CARE Condition: Stable Departure-Patient Inst. Decision time for Depature: 17:22 Referrals: SELF,STEFANY LARSON (PCP/Family) Primary Care Physician Patient Instructions: Fainting, Adult ED, Head Injury in Adults, Wound Care Add. Discharge Instructions: You were evaluated in the emergency department for head injury and neck pain resulting from a fainting spell. Imaging studies were obtained and do not show evidence of severe injury. Please take Tylenol for pain, keep wounds clean and dry and hold blood pressure medicatiomn for the next 24 hours or until you can get a hold of your central office operator for further management. Return to the ED 8 to 10 days for staple removal. In the meantime, if you develop new or concerning symptoms, return to the emergency department All discharge instructions reviewed with patient and/or family. Voiced understanding. JOAN PANDYA DO Sep 07, 2022 16:18
[2022-09-07 16:30] LABS: ALBUMIN 4.1 GM/DL (3.2-4.5); BILIRUBIN,TOTAL 0.4 MG/DL (0.1-1.0); CREATININE SERUM 1.38 MG/DL (0.60-1.30); POTASSIUM 3.2 MMOL/L (3.6-5.0)
[2022-09-07] MEDS ORDERED: KCL 20 MEQ TAB (K-DUR) PO ONE (17:00)
[2022-09-07] MEDS ORDERED: NS IV 1000 ML 1,000 ML IV SCH (17:45)
[2022-09-07 18:18] VITALS: BP 127/69
== END 2022-09-07 18:18 | disposition home or self-care (01) ==
LOC: EDUNIT# 15:10 → ER FS 15:11
DX: S09.90XA Unspecified injury of head, initial encounter (principal); S01.01XA Laceration without foreign body of scalp, initial encounter; I48.20 Chronic atrial fibrillation, unspecified; R94.31 Abnormal electrocardiogram [ECG] [EKG]; W18.30XA Fall on same level, unspecified, initial encounter; Y92.238 Other place in hospital as the place of occurrence of the external cause
CPT/HCPCS: 36415; 70450; 72125; 80053; 85025; 93005

== ENCOUNTER 2022-09-16 13:06 | Emergency (ER) | payer MEDICARE, OTHER ==
[2022-09-16 13:20] VITALS: BP 188/92
== END 2022-09-16 13:19 | disposition home or self-care (01) ==
LOC: EDUNIT# 13:06 → ER FS 13:07
DX: Z48.02 Encounter for removal of sutures (principal)
CPT/HCPCS: 99281

== ENCOUNTER → 2022-11-05 | Outpatient (CLI) | payer MEDICARE, OTHER | LOC: CARDFS 12:21 | PROVIDERS: ATTEND Internal Medicine Cardiovascular Disease | DX: I08.3 Combined rheumatic disorders of mitral, aortic and tricuspid valves (principal); I11.9 Hypertensive heart disease without heart failure | CPT/HCPCS: 93306 ==

== ENCOUNTER 2023-05-07 17:27 | Emergency (ER) | payer MEDICARE, OTHER ==
[~2023-05-07 17:27] MED LIST changes: -LOSA100T57 PO; +LOSA100T58 PO; -ROSU20TA32 PO; +ROSU20TA73 PO
--- NOTE | 2023-05-07 17:52 | ED Cardiac General ---
History of Present Illness General Chief Complaint: Cardiac/General Problems Stated Complaint: LOW BP History of Present Illness Date Seen by Provider: May 07, 2023 Time Seen by Provider: 17:49 Initial Comments 77-year-old female presents with concerns that her blood pressures going up and down. Patient reports that if her blood pressure gets under a systolic of 140 she is "on the floor" patient brought an recent list of her blood pressure medication for the last week with the majority of them being about 110s to 120s with 2 in the 90s patient's blood pressure in the ER was a systolic of 155. She does not have any symptoms. She came in today because she "just does not feel rough over the weekend" Allergies and Home Medications Allergies Coded Allergies: No Known Drug Allergies (Unverified , 04/23/18) Patient Home Medication List Home Medication List Reviewed: Yes Bupropion HCl (Bupropion Xl) 150 Mg Tab.er.24h, 150 MG PO DAILY, (Reported) Entered as Reported by: LILLIAN MARCIAL on 06/15/20 1323 Cholecalciferol (Vitamin D3) (Vitamin D3) 25 Mcg Capsule, 25 MCG PO DAILY, (Reported) Entered as Reported by: LILLIAN MARCIAL on 06/15/20 1433 Doxylamine Succinate (Unisom Sleep Aid) 25 Mg Tablet, 25-50 MG PO HS PRN for SLEEP, (Reported) Entered as Reported by: PRUDENCIO BAILEY on 06/17/20 1458 Flecainide Acetate (Flecainide Acetate) 100 Mg Tablet, 100 MG PO BID Prescribed by: BROOK CLARK on 06/17/20 1534 Furosemide (Furosemide) 20 Mg Tablet, 20 MG PO Q48H, (Reported) Entered as Reported by: LILLIAN MARCIAL on 06/15/20 1323 Hydralazine HCl (Hydralazine HCl) 25 Mg Tablet, 25 MG PO DAILY PRN for SBP >160, (Reported) Entered as Reported by: LILLIAN MARCIAL on 06/15/20 1323 Losartan Potassium (Losartan Potassium) 50 Mg Tablet, 50 MG PO HS, (Reported) Entered as Reported by: LILLIAN MARCIAL on 06/15/20 1323 Magnesium Oxide (Magnesium Oxide) 400 Mg Tablet, 400 MG PO DAILY, (Reported) Entered as Reported by: PRUDENCIO BAILEY on 06/17/20 1457 Omeprazole (Omeprazole) 20 Mg Capsule.dr, 20 MG PO DAILY, (Reported) Entered as Reported by: BRITTNEE ASHRAF on 04/26/18 1256 Rivaroxaban (Xarelto) 15 Mg Tablet, 15 MG PO DAILY Prescribed by: BROOK CLARK on 06/17/20 1534 Rosuvastatin Calcium (Rosuvastatin Calcium) 20 Mg Tablet, 20 MG PO HS, (Reported) Entered as Reported by: LILLIAN MARCIAL on 06/15/20 1323 Review of Systems Review of Systems Constitutional: see HPI Respiratory: No Symptoms Reported Cardiovascular: No Symptoms Reported Gastrointestinal: No Symptoms Reported Genitourinary: No Symptoms Reported Musculoskeletal: no symptoms reported Skin: no symptoms reported Endocrine: No Symptoms Reported Past Tvrrohr-[id number]-[id number] Hx Patient Social History Tobacco Use?: No Use of E-Cig and/or Vaping dev: No Substance use?: No Alcohol Use?: Yes Alcohol type: Hard Liquor Alcohol Frequency: Daily Pt feels they are or have been: No Immunizations Up To Date Tetanus Booster (TDap): Unknown First/Initial COVID19 Vaccinat: YES Seasonal Allergies Seasonal Allergies: No Past Medical History Surgery/Hospitalization HX: Hysterectomy; Tonsilectomy; Appendectomy; Watchman implant; A-fib; HTN; CKD stage III; Bilateral wrist and ankle fx Surgeries: Yes (Left THR) Adenoidectomy, Appendectomy, Hysterectomy, Orthopedic, Tonsillectomy Respiratory: No Cardiac: Yes (Cardioverted Sep 2017 [facility]) Atrial Fibrillation, Hypertension Neurological: No 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 0.6oz. [id number]; 28.00 BMI Method:Stated General Appearance: No Apparent Distress, WD/WN HEENT: PERRL/EOMI Respiratory: Lungs Clear, Normal Breath Sounds Cardiovascular: Regular Rate, Rhythm, No Edema Neurologic/Psychiatric: Alert, Oriented x3, No Motor/Sensory Deficits, Normal Mood/Affect Skin: Normal Color, Warm/Dry Progress/Results/Core Measures Results/Orders Lab Results Laboratory Tests Test 05/07/23 17:42 Range/Units White Blood Count 8.7 4.3-11.0 10^3/uL Red Blood Count 4.34 3.80-5.11 10^6/uL Hemoglobin 14.8 11.5-16.0 g/dL Hematocrit 43 35-52 % Mean Corpuscular Volume 100 H 80-99 fL Mean Corpuscular Hemoglobin 34 25-34 pg Mean Corpuscular Hemoglobin Concent 34 32-36 g/dL Red Cell Distribution Width 11.9 10.0-14.5 % Platelet Count 210 130-400 10^3/uL Mean Platelet Volume 10.8 9.0-12.2 fL Immature Granulocyte % (Auto) 0 % Neutrophils (%) (Auto) 62 42-75 % Lymphocytes (%) (Auto) 27 12-44 % Monocytes (%) (Auto) 7 0-12 % Eosinophils (%) (Auto) 3 0-10 % Basophils (%) (Auto) 1 0-10 % Neutrophils # (Auto) 5.4 1.8-7.8 10^3/uL Lymphocytes # (Auto) 2.3 1.0-4.0 10^3/uL Monocytes # (Auto) 0.6 0.0-1.0 10^3/uL Eosinophils # (Auto) 0.3 0.0-0.3 10^3/uL Basophils # (Auto) 0.1 0.0-0.1 10^3/uL Immature Granulocyte # (Auto) 0.0 0.0-0.1 10^3/uL Sodium Level 137 135-145 MMOL/L Potassium Level 3.9 3.6-5.0 MMOL/L Chloride Level 97 L 98-107 MMOL/L Carbon Dioxide Level 26 21-32 MMOL/L Anion Gap 14 5-14 MMOL/L Blood Urea Nitrogen 22 H 7-18 MG/DL Creatinine 1.98 H 0.60-1.30 MG/DL Estimat Glomerular Filtration Rate 25 BUN/Creatinine Ratio 11 Glucose Level 93 70-105 MG/DL Calcium Level 10.9 H 8.5-10.1 MG/DL Corrected Calcium 8.5-10.1 MG/DL Magnesium Level 2.2 1.6-2.4 MG/DL Total Bilirubin 1.2 H 0.1-1.0 MG/DL Aspartate Amino Transf (AST/SGOT) 25 5-34 U/L Alanine Aminotransferase (ALT/SGPT) 19 0-55 U/L Alkaline Phosphatase 94 40-136 U/L Total Protein 7.9 6.4-8.2 GM/DL Albumin 4.6 H 3.2-4.5 GM/DL My Orders Orders - JIM RAMIREZ DO Cbc With Automated Diff (05/07/23 17:43) Comprehensive Metabolic Panel (05/07/23 17:43) Magnesium (05/07/23 17:43) Vital Signs/I&O 05/07/23 05/07/23 17:35 18:18 Temp 36.5 36.5 Pulse 106 91 Resp 18 18 B/P (MAP) 155/88 (110) 162/97 Pulse Ox 96 96 O2 Delivery Room Air Room Air Progress Progress Note : Progress Note Patient's diagnostic studies were ordered reviewed and interpreted by me. Patient's labs showed no significant acute findings. She does have slight elevation of her creatinine which appears to be near her baseline. I did discuss case with Dr. Mccurdy who recommended she stop her blood pressure medication and follow-up with him next week. She was asymptomatic throughout her stay and her blood pressures were in the 140s to 160s systolic. She was stable upon discharge Departure Impression Primary Impression: Labile blood pressure Disposition: 01 HOME, SELF-CARE Condition: Stable Departure-Patient Inst. Referrals: BRITTNEE LOWE APRN (PCP) Primary Care Physician [facility]/RHIANNA (Family) Primary Care Physician Add. Discharge Instructions: Please hold your carvedilol to the weekend. Please call Dr. Mccurdy's office and follow-up with them next week All discharge instructions reviewed with patient and/or family. Voiced understanding. JIM RAMIREZ DO May 07, 2023 17:52
[2023-05-07 17:54] LABS: BASOPHILS # (AUTO) 0.1 10^3/uL (0.0-0.1); BASOPHILS % (AUTO) 1 % (0-10); EOSINOPHILS # (AUTO) 0.3 10^3/uL (0.0-0.3); EOSINOPHILS % (AUTO) 3 % (0-10); HEMATOCRIT 43 % (35-52); HEMOGLOBIN 14.8 g/dL (11.5-16.0); LYMPHOCYTES # (AUTO) 2.3 10^3/uL (1.0-4.0); LYMPHOCYTES % (AUTO) 27 % (12-44); MEAN CORPUSCULAR HEMOGLOBIN 34 pg (25-34); MEAN CORPUSCULAR HGB CONC 34 g/dL (32-36); MEAN CORPUSCULAR VOLUME 100 fL (80-99); MEAN PLATELET VOLUME 10.8 fL (9.0-12.2); MONOCYTES # (AUTO) 0.6 10^3/uL (0.0-1.0); MONOCYTES % (AUTO) 7 % (0-12); NEUTROPHILS # (AUTO) 5.4 10^3/uL (1.8-7.8); NEUTROPHILS % (AUTO) 62 % (42-75); PLATELET COUNT 210 10^3/uL (130-400); WHITE BLOOD COUNT 8.7 10^3/uL (4.3-11.0)
[2023-05-07 18:09] LABS: ALANINE AMINOTRANSFERASE 19 U/L (0-55); ALBUMIN 4.6 GM/DL (3.2-4.5); ALKALINE PHOSPHATASE 94 U/L (40-136); BILIRUBIN,TOTAL 1.2 MG/DL (0.1-1.0); BUN/CREATININE RATIO 11; CALCIUM 10.9 MG/DL (8.5-10.1); CARBON DIOXIDE 26 MMOL/L (21-32); CHLORIDE 97 MMOL/L (98-107); CREATININE SERUM 1.98 MG/DL (0.60-1.30); GFR ESTIMATED 25; GLUCOSE 93 MG/DL (70-105); MAGNESIUM 2.2 MG/DL (1.6-2.4); POTASSIUM 3.9 MMOL/L (3.6-5.0); SODIUM 137 MMOL/L (135-145); TOTAL PROTEIN 7.9 GM/DL (6.4-8.2)
[2023-05-07 18:18] VITALS: BP 162/97
== END 2023-05-07 18:18 | disposition home or self-care (01) ==
LOC: EDUNIT# 17:27 → ER FS 17:28
DX: R09.89 Other specified symptoms and signs involving the circulatory and respiratory systems (principal); I12.9 Hypertensive chronic kidney disease with stage 1 through stage 4 chronic kidney disease, or unspecified chronic kidney disease; N18.30 Chronic kidney disease, stage 3 unspecified
CPT/HCPCS: 36415; 80053; 83735; 85025

== ENCOUNTER 2023-06-24 14:01 | Inpatient (IN) | payer MEDICARE, OTHER ==
[~2023-06-24] VITALS: Ht 160 cm; Wt 74.0 kg
[2023-06-24 14:20] VITALS: BP 133/96
--- NOTE | 2023-06-24 14:49 | ED Neurological Problem ---
General Chief Complaint: Neuro-Stroke Like Symptoms Stated Complaint: PASSED OUT | LOW BLOOD PRESSURE Source: patient, family Exam Limitations: no limitations History of Present Illness Date Seen by Provider: Jun 24, 2023 Time Seen by Provider: 14:03 Initial Comments 77-year-old female coming in with her daughter after she got up this morning, felt lightheaded, passed out, hit her head. This was around 8 AM. She is concerned that she has labile blood pressure at times and it could be low, although she did not take her blood pressure. She has a history of A-fib and is on carvedilol. She has a Watchman device and does not take blood thinners. She states her heart rate is typically low. She denies any vomiting, diarrhea, chest pain, shortness of breath, abdominal pain, focal weakness, or any other concerns. States she has been unsteady on her feet, has been unable to walk, and when someone does stand her up, she feels like she is falling over. Allergies and Home Medications Allergies Coded Allergies: No Known Drug Allergies (Unverified , 04/23/18) Patient Home Medication List Home Medication List Reviewed: Yes Bupropion HCl (Bupropion Xl) 150 Mg Tab.er.24h, 150 MG PO DAILY, (Reported) Entered as Reported by: LILLIAN MARCIAL on 06/15/20 1323 Cholecalciferol (Vitamin D3) (Vitamin D3) 25 Mcg Capsule, 25 MCG PO DAILY, (Reported) Entered as Reported by: LILLIAN MARCIAL on 06/15/20 1433 Doxylamine Succinate (Unisom Sleep Aid) 25 Mg Tablet, 25-50 MG PO HS PRN for SLEEP, (Reported) Entered as Reported by: PRUDENCIO BAILEY on 06/17/20 1458 Flecainide Acetate (Flecainide Acetate) 100 Mg Tablet, 100 MG PO BID Prescribed by: BROOK CLARK on 06/17/20 1534 Furosemide (Furosemide) 20 Mg Tablet, 20 MG PO Q48H, (Reported) Entered as Reported by: LILLIAN MARCIAL on 06/15/20 1323 Hydralazine HCl (Hydralazine HCl) 25 Mg Tablet, 25 MG PO DAILY PRN for SBP >160, (Reported) Entered as Reported by: LILLIAN MARCIAL on 06/15/20 1323 Losartan Potassium (Losartan Potassium) 50 Mg Tablet, 50 MG PO HS, (Reported) Entered as Reported by: LILLIAN MARCIAL on 06/15/20 1323 Magnesium Oxide (Magnesium Oxide) 400 Mg Tablet, 400 MG PO DAILY, (Reported) Entered as Reported by: PRUDENCIO BAILEY on 06/17/20 1457 Omeprazole (Omeprazole) 20 Mg Capsule.dr, 20 MG PO DAILY, (Reported) Entered as Reported by: BRITTNEE ASHRAF on 04/26/18 1256 Rivaroxaban (Xarelto) 15 Mg Tablet, 15 MG PO DAILY Prescribed by: BROOK CLARK on 06/17/20 1534 Rosuvastatin Calcium (Rosuvastatin Calcium) 20 Mg Tablet, 20 MG PO HS, (Reported) Entered as Reported by: LILLIAN MARCIAL on 06/15/20 1323 Review of Systems Review of Systems Constitutional: no symptoms reported Eyes: No Symptoms Reported Ears, Nose, Mouth, Throat: no symptoms reported Respiratory: no symptoms reported Cardiovascular: see HPI Gastrointestinal: no symptoms reported Genitourinary: no symptoms reported Musculoskeletal: no symptoms reported Skin: no symptoms reported Psychiatric/Neurological: See HPI Past Hdirswb-Lbupkf-Hkdhpe Hx Immunizations Up To Date Tetanus Booster (TDap): Unknown First/Initial COVID19 Vaccinat: YES Seasonal Allergies Seasonal Allergies: No Past Medical History Surgery/Hospitalization HX: Hysterectomy; Tonsilectomy; Appendectomy; Watchman implant; A-fib; HTN; CKD stage III; Bilateral wrist and ankle fx Surgeries: Yes (Left THR) Adenoidectomy, Appendectomy, Hysterectomy, Orthopedic, Tonsillectomy Respiratory: No Cardiac: Yes (Cardioverted Sep 2017 [facility]) Atrial Fibrillation, Hypertension Neurological: No 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 0.6oz. 83.882006lm; 28.00 BMI Method:Stated General Appearance: WD/WN, no apparent distress HEENT: PERRL/EOMI, normal ENT inspection, pharynx normal Neck: non-tender, full range of motion, supple, normal inspection Respiratory: chest non-tender, lungs clear, normal breath sounds, no respiratory distress, no accessory muscle use Cardiovascular: tachycardia, systolic murmur, irregularly irregular Gastrointestinal: normal bowel sounds, non tender, soft; No distended, No guarding, No rebound Back: normal inspection, no CVA tenderness, no vertebral tenderness Extremities: normal range of motion, no pedal edema, no calf tenderness, normal capillary refill, other (left patella tenderness) Neurologic/Psychiatric: no motor/sensory deficits, alert, normal mood/affect, oriented x 3, other (Waiting on mfmjyw-il-czkl, normal dojl-qi-xntj, falling over when standing up) Crainal Nerves: normal hearing, normal speech, PERRL Motor/Sensory: no motor deficit, no sensory deficit, no pronator drift Skin: normal color, warm/dry Stroke Onset of Symptoms Date of Onset of Symptoms: Jun 23, 2023 Time of Symptom Onset: 21:00 Onset of Symptoms: Yes NIH Stroke Scale Assessment Select: Initial Level of Consciousness: 0=Alert (0), Level of Consciousness- Questions: 0=Answers both month/age (0), LOC Commands: 0=Performs both tasks (0), Gaze: Normal (0), Visual Boone: 0=No visual loss (0), Facial Movement (Facial Paresis): 0=Normal symmetrical mnt (0), Motor Function-Arms Right: 0=No drift (0), Motor Function-Arms Left: 0=No drift (0), Motor Function-Legs Right: 0=No drift (0), Motor Function-Legs Left: 0=No drift (0), Limb Ataxia: 2=Present in two limbs (2), Sensory: 0=Normal:no loss (0), Best Language: 0=No aphasia (0), Dysarthria: 0=Normal (0), Extinction & Inattention: 0=No abnormality (0), Total: 2 Stroke Thrombolytic Exclusion Age 18 or Over: Yes TPA Contraindication: Yes (more than 12 hours since symptoms started) Progress/Results/Core Measures Results/Orders Lab Results Laboratory Tests Test 06/24/23 14:20 06/24/23 15:22 06/24/23 15:30 Range/Units White Blood Count 15.2 H 4.3-11.0 10^3/uL Red Blood Count 3.94 3.80-5.11 10^6/uL Hemoglobin 13.2 11.5-16.0 g/dL Hematocrit 38 35-52 % Mean Corpuscular Volume 97 80-99 fL Mean Corpuscular Hemoglobin 34 25-34 pg Mean Corpuscular Hemoglobin Concent 35 32-36 g/dL Red Cell Distribution Width 12.3 10.0-14.5 % Platelet Count 234 130-400 10^3/uL Mean Platelet Volume 11.3 9.0-12.2 fL Immature Granulocyte % (Auto) 0 % Neutrophils (%) (Auto) 82 H 42-75 % Lymphocytes (%) (Auto) 12 12-44 % Monocytes (%) (Auto) 6 0-12 % Eosinophils (%) (Auto) 0 0-10 % Basophils (%) (Auto) 0 0-10 % Neutrophils # (Auto) 12.4 H 1.8-7.8 X 10^3 Lymphocytes # (Auto) 1.8 1.0-4.0 X 10^3 Monocytes # (Auto) 0.8 0.0-1.0 X 10^3 Eosinophils # (Auto) 0.0 0.0-0.3 10^3/uL Basophils # (Auto) 0.0 0.0-0.1 10^3/uL Immature Granulocyte # (Auto) 0.0 0.0-0.1 10^3/uL Neutrophils % (Manual) 83 % Lymphocytes % (Manual) 14 % Monocytes % (Manual) 3 % Elliptocytes SLIGHT Prothrombin Time 13.1 12.2-14.7 SEC INR Comment 1.0 0.8-1.4 Activated Partial Thromboplast Time 25 24-35 SEC D-Dimer 3.71 H 0.00-0.49 UG/ML Sodium Level 133 L 135-145 MMOL/L Potassium Level 3.8 3.6-5.0 MMOL/L Chloride Level 96 L 98-107 MMOL/L Carbon Dioxide Level 22 21-32 MMOL/L Anion Gap 15 H 5-14 MMOL/L Blood Urea Nitrogen 30 H 7-18 MG/DL Creatinine 1.78 H 0.60-1.30 MG/DL Estimat Glomerular Filtration Rate 29 BUN/Creatinine Ratio 17 Glucose Level 119 H 70-105 MG/DL Calcium Level 12.2 H 8.5-10.1 MG/DL Corrected Calcium 12.0 H 8.5-10.1 MG/DL Total Bilirubin 1.6 H 0.1-1.0 MG/DL Aspartate Amino Transf (AST/SGOT) 28 5-34 U/L Alanine Aminotransferase (ALT/SGPT) 21 0-55 U/L Alkaline Phosphatase 61 40-136 U/L Troponin I 0.073 H <0.028 NG/ML Total Protein 7.6 6.4-8.2 GM/DL Albumin 4.2 3.2-4.5 GM/DL Glucometer 100 70-110 MG/DL Urine Color YELLOW Urine Clarity CLEAR Urine pH 5.5 5-9 Urine Specific Neville 1.015 L 1.016-1.022 Urine Protein TRACE H NEGATIVE Urine Glucose (UA) NEGATIVE NEGATIVE Urine Ketones 1+ H NEGATIVE Urine Nitrite NEGATIVE NEGATIVE Urine Bilirubin 1+ H NEGATIVE Urine Urobilinogen 0.2 < = 1.0 MG/DL Urine Leukocyte Esterase TRACE H NEGATIVE Urine RBC (Auto) NEGATIVE NEGATIVE Urine RBC NONE /HPF Urine WBC 2-5 /HPF Urine Squamous Epithelial Cells 5-10 /HPF Urine Crystals NONE /LPF Urine Bacteria FEW H /HPF Urine Casts PRESENT /LPF Urine Hyaline Casts 5-10 H /LPF Urine Mucus NEGATIVE /LPF Urine Culture Indicated YES My Orders Orders - EDU SOLORIO MD Cbc And Automated Diff (06/24/23 14:43) Protime With Inr (06/24/23 14:43) Partial Thromboplastin Time (06/24/23 14:43) Comprehensive Metabolic Panel (06/24/23 14:43) Fibrin Degradation Products (06/24/23 14:43) Troponin I Oneil (06/24/23 14:43) Ua Culture If Indicated (06/24/23 14:43) Chest 1 View, Ap/Pa Only (06/24/23 14:43) Ekg Tracing (06/24/23 14:43) Nothing By Mouth (06/24/23 Lunch) Accucheck Stat ONCE (06/24/23 14:43) Ed Iv/Invasive Line Start (06/24/23 14:43) Vital Signs Stroke Patient Q15M (06/24/23 14:43) Ct Head Wo-R/O Stroke (06/24/23 14:43) O2 (06/24/23 14:43) Monitor-Rhythm Ecg Trace Only (06/24/23 14:43) Dysphagia Screening Tool Q10MX1 (06/24/23 14:43) Ct Angio Head/Neck (06/24/23 14:43) Knee, Left, 3 Views (06/24/23 14:49) Manual Differential (06/24/23 14:20) Iohexol Injection (Omnipaque 350 Mg/Ml 1 (06/24/23 15:15) Received Contrast (Hold Metformin- Contr (06/24/23 15:15) Ns (Ivpb) 100 Ml (Sodium Chloride 0.9% 1 (06/24/23 15:15) Urine Culture (06/24/23 15:30) Ns (Ivpb) 100 Ml (S... W/Diltiazem Iv Fo (06/24/23 15:51) Aspirin Chewable Tablet (Aspirin Chewabl (06/24/23 15:51) Ns Iv 1000 Ml (Ns Iv 1000 Ml) (06/24/23 15:51) Diltiazem Injection (Diltiazem Injection (06/24/23 16:00) Ceftriaxone Iv/Im (Ceftriaxone Iv/Im) (06/24/23 16:00) Doxycycline Hyclate Tablet (Doxycycline (06/24/23 15:54) Ed Admission (Communication) (06/24/23 16:20) Medications Given in ED Current Medications Medications Dose Ordered Sig/Kaitlynn Route Start Time Stop Time Status Last Admin Dose Admin Diltiazem HCl 10 mg ONCE ONCE IVP 06/24/23 16:00 06/24/23 16:01 DC 06/24/23 16:14 10 MG Vital Signs/I&O 06/24/23 06/24/23 06/24/23 06/24/23 14:20 14:20 14:45 16:14 Temp 36.0 36.0 Pulse 115 115 115 114 Resp 18 18 18 B/P (MAP) 133/96 133/96 133/96 (108) 140/84 Pulse Ox 96 96 96 O2 Delivery Room Air Progress Progress Note : Progress Note 77-year-old female with above history coming in after a ground-level fall hi tting her head this morning. ABCs were intact, she was tachycardic with A-fib with RVR on arrival. Blood pressure was appropriate. Physical exam with some intermittent ataxic findings with past-pointing on wfvorc-gq-nubz, later on would be better. She does have normal goaq-oy-jcbl. CT/CTA head and neck were obtained and negative for acute findings such as large vessel occlusion or hemorrhagic stroke. Chest x-ray ordered and interpreted by me showing no obvious pneumonia. There were some groundglass opacities on the upper lung boone of the CT of the neck. Because of this, given ceftriaxone and doxycycline. I contacted the stroke neurologist at , Dr. Douglass. Stated this would be atypical for stroke, and the patient has multiple metabolic derangements that could be causing her symptoms. She does have hypercalcemia with a corrected calcium of 12. She recommended an MRI, and if there is a stroke, she would recommend an echo to check to see if the watchman is leaking. She would not recommend any type of clot Buster, and she would not be a candidate for any type of intervention at this time. Other labs significant for some mild bacteria in the urine with no obvious infection, creatinine 1.7 which is near her previous, slightly elevated white blood cell count, slightly elevated troponin which is likely a type II NSTEMI in the setting of her A-fib with RVR. She was given a diltiazem bolus followed by drip. She was also given normal saline for her hypercalcemia. I contacted Dr. Mccurdy, he recommends adding 1 mg/kg of Lovenox. I then contacted the [facility] resident on- call, she will admit the patient for Dr. King under inpatient status to the intensive care unit. I then contacted the ICU physician for signout Initial ECG Impression Date: Jun 24, 2023 Initial ECG Impression Time: 14:54 Initial ECG Rate: 114 Initial ECG Rhythm: A Fib/Flutter Comment Narrow QRS, normal axis, normal ST depression inferiorly and laterally, no STEMI Diagnostic Imaging Diagonstic Imaging: CT (CT head, CTA head and neck) Comments NAME: CARLA HARRIS REC#: [id number] PT STATUS: REG ER : 1945 PHYSICIAN: EDU SOLORIO MD ADMIT DATE: 06/24/23/ER Draft Date of Exam:06/24/23 CT HEAD WO-R/O STROKE PROCEDURE: CT head wo r/o stroke. TECHNIQUE: Multiple contiguous axial images were obtained through the brain without the use of intravenous contrast. Auto Exposure Controls were utilized during the CT exam to meet ALARA standards for radiation dose reduction. INDICATION: Abnormal gait in patient with atrial fibrillation. COMPARISON: 09/07/2022. CT HEAD: CT images of the head were obtained. FINDINGS: Ventricles and sulci are within normal limits for size. There is no intracranial hemorrhage identified. There is no abnormal mass effect or shift of midline structures. IMPRESSION: Unremarkable CT of the head. Dictated on workstation # [id number] Dict: 06/24/23 1502 Trans: 06/24/23 1505 [id number] Interpreted by: RIRI PANTOJA MD Electronically signed by: [place], [place] NAME: CARLA HARRIS [facility] REC#: [id number] PT STATUS: REG ER : 1945 PHYSICIAN: EDU SOLORIO MD ADMIT DATE: 06/24/23/ER Draft Date of Exam:06/24/23 CT ANGIO HEAD/NECK Clinical indications: Patient with abnormal gait in a patient with atrial fibrillation. Exams: 1: Head CT with and without IV contrast. Auto Exposure Controls were utilized during the CT exam to meet ALARA standards for radiation dose reduction. 2: CT angiogram of the head and neck performed with 100 cc of Omnipaque 350 IV contrast. Sagittal and coronal MIP reformations were created for better visualization of vascular anatomy. CT angiogram was post-processed using RAPID LVO detection to include quantitative measurements of cerebral blood flow and automated results notification to the stroke and/or neurointerventional team. Comparison: Head CT without contrast dated 06/24/2023.. Findings: HEAD CT: There is no evidence of acute intracranial process. There is no abnormal IV contrast enhancement. There is stable appearance of the brain parenchyma. There is mild chronic small vessel ischemic disease. There is no hydrocephalus. The remainder of this exam shows no significant interval change compared to the prior study of comparison. CT ANGIOGRAM: There is dense contrast bolus seen within the left subclavian vein, innominate vein and superior vena cava which causes streak artifact slightly obscuring portions of aortic arch and proximal great vessels. Three-vessel aortic arch is seen. The brachiocephalic artery and bilateral subclavian artery are patent. The right common carotid artery and right ECA are patent. There is a short segment area of roughly 70% stenosis involving the cervical right ICA bulb. The remainder of the cervical right ICA is patent. The left common carotid artery, left ECA and cervical left ICA are patent. The petrous, cavernous, and supraclinoid ICA are patent. The bilateral ACAs and distal branches are patent. The bilateral MCAs and distal branches are patent. The bilateral cervical vertebral arteries are patent. Dominant left cervical vertebral artery is seen. The bilateral PICAs are patent. The intradural vertebral arteries, basilar artery, bilateral superior cerebellar arteries, and bilateral energy infrastructure engineer and distal branches are patent. The dural venous sinuses are patent. The neck soft tissue structures show no significant abnormality. There is groundglass opacification involving the upper lung boone. Nonspecific multiple lymph nodes in the upper mediastinal region are seen. IMPRESSION: 1: Stable CT scan of the brain with no interval evidence of acute intracranial process. 2: There is short segment area of severe stenosis involving the cervical right ICA bulb. Otherwise, the remainder of the [place] of Puri and neck vascular structures are patent. 3: There is groundglass opacification involving the upper lung boone, partially visualized multiple upper mediastinal region. These findings may be related to infection or inflammatory process. Results of this report were discussed with JAIR Cabrera via the telephone on 06/24/2023 at 1535 hours. Dictated on workstation # [id number] Dict: 06/24/23 1521 Trans: 06/24/23 1550 [facility] [id number] Interpreted by: YUSRA FRANK MD Electronically signed by: [facility] [place] [place] NAME: CARLA HARRIS [facility] REC#: [id number] PT STATUS: REG ER : 1945 PHYSICIAN: EDU SOLORIO MD ADMIT DATE: 06/24/23/ER Draft Date of Exam:06/24/23 CHEST 1 VIEW, AP/PA ONLY INDICATION: Cerebrovascular accident with fall and syncope. TECHNIQUE: AP view of the chest is obtained with comparison made to study of 06/15/2020. FINDINGS: Heart size and pulmonary vascularity are within normal limits. Bronchial valve devices are present. There is no pneumothorax. No midline shift is seen. There is no significant pleural fluid. IMPRESSION: No evidence of acute abnormality. Dictated on workstation # [id number] Dict: 06/24/23 1538 Trans: 06/24/23 1541 [facility] [id number] Interpreted by: RIRI PANTOJA MD Electronically signed by: [facility], [facility]. [place], [place] NAME: CARLA HARRIS [facility] REC#: [id number] PT STATUS: REG ER : 1945 PHYSICIAN: EDU SOLORIO MD ADMIT DATE: 06/24/23/ER Draft Date of Exam:06/24/23 KNEE, LEFT, 3 VIEWS EXAMINATION: Left knee radiographs, 3 views. COMPARISON: None. HISTORY: 77-year-old female, left knee pain after fall. FINDINGS: There is no identified acute fracture. There is no left knee joint effusion. The joint spaces are well preserved. IMPRESSION: Unremarkable radiographs of the left knee. Dictated on workstation # [id number] Dict: 06/24/23 1537 Trans: 06/24/23 1551 [id number] Interpreted by: JAILENE GOINS MD Electronically signed by: Departure Impression Primary Impression: Atrial fibrillation with RVR Additional Impressions: Hypercalcemia NSTEMI (non-ST elevated myocardial infarction) Stroke-like symptoms Disposition: ADMITTED INPATIENT Condition: Stable Admissions Decision to Admit Reason: Admit from ER (General) Decision to Admit/Date: Jun 24, 2023 Time/Decision to Admit Time: 16:00 Departure-Patient Inst. Referrals: BRITTNEE LOWE APRN (PCP) Primary Care Physician [facility][1[facility] (Family) Primary Care Physician EDU SOLORIO MD Jun 24, 2023 14:49
[2023-06-24 14:57] LABS: ALBUMIN 4.2 GM/DL (3.2-4.5); POTASSIUM 3.8 MMOL/L (3.6-5.0)
[2023-06-24 14:59] LABS: CALCIUM 12.2 MG/DL (8.5-10.1)
[2023-06-24 15:00] LABS: BASOPHILS % (AUTO) 0 % (0-10); EOSINOPHILS % (AUTO) 0 % (0-10); HEMATOCRIT 38 % (35-52); HEMOGLOBIN 13.2 g/dL (11.5-16.0); LYMPHOCYTES # (AUTO) 1.8 X 10^3 (1.0-4.0); LYMPHOCYTES % (AUTO) 12 % (12-44); MEAN CORPUSCULAR HEMOGLOBIN 34 pg (25-34); MEAN CORPUSCULAR HGB CONC 35 g/dL (32-36); MEAN CORPUSCULAR VOLUME 97 fL (80-99); MEAN PLATELET VOLUME 11.3 fL (9.0-12.2); MONOCYTES # (AUTO) 0.8 X 10^3 (0.0-1.0); MONOCYTES % (AUTO) 6 % (0-12); NEUTROPHILS # (AUTO) 12.4 X 10^3 (1.8-7.8); NEUTROPHILS % (AUTO) 82 % (42-75); PLATELET COUNT 234 10^3/uL (130-400); TOTAL PROTEIN 7.6 GM/DL (6.4-8.2); WHITE BLOOD COUNT 15.2 10^3/uL (4.3-11.0)
[2023-06-24 15:02] LABS: BILIRUBIN,TOTAL 1.6 MG/DL (0.1-1.0)
[2023-06-24 15:03] LABS: CREATININE SERUM 1.78 MG/DL (0.60-1.30)
--- NOTE | 2023-06-24 15:05 | Diagnostic Imaging Report ---
PROCEDURE: CT head wo r/o stroke. TECHNIQUE: Multiple contiguous axial images were obtained through the brain without the use of intravenous contrast. Auto Exposure Controls were utilized during the CT exam to meet ALARA standards for radiation dose reduction. INDICATION: Abnormal gait in patient with atrial fibrillation. COMPARISON: 09/07/2022. CT HEAD: CT images of the head were obtained. FINDINGS: Ventricles and sulci are within normal limits for size. There is no intracranial hemorrhage identified. There is no abnormal mass effect or shift of midline structures. IMPRESSION: Unremarkable CT of the head. Dictated by: Dictated on workstation # [id number]
[2023-06-24] MEDS ORDERED: HOLD METFORMIN - RECEIVED CONTRAST 20 ML VIAL IV SCH (15:15)
[2023-06-24] MEDS ORDERED: IOHEXOL 350 MG/ML 100 ML (OMNIPAQUE 350) VIAL IV ONE (15:15)
[2023-06-24] MEDS ORDERED: NS 100 ML (IVPB) BAG IV ONE (15:15)
[2023-06-24 15:28] LABS: PROTHROMBIN TIME PATIENT 13.1 SEC (12.2-14.7)
[2023-06-24 15:38] LABS: ELLIPT/OVALOCYTES SLIGHT; LYMPHOCYTES % (MANUAL) 14 %; MONOCYTES % (MANUAL) 3 %; NEUTROPHILS % (MANUAL) 83 %
--- NOTE | 2023-06-24 15:42 | Diagnostic Imaging Report ---
INDICATION: Cerebrovascular accident with fall and syncope. TECHNIQUE: AP view of the chest is obtained with comparison made to study of 06/15/2020. FINDINGS: Heart size and pulmonary vascularity are within normal limits. Bronchial valve devices are present. There is no pneumothorax. No midline shift is seen. There is no significant pleural fluid. IMPRESSION: No evidence of acute abnormality. Dictated by: Dictated on workstation # [id number]
[2023-06-24 15:48] LABS: BACTERIA,URINE FEW /HPF; BILIRUBIN,URINE 1+ (NEGATIVE); CLARITY,URINE CLEAR; COLOR,URINE YELLOW; GLUCOSE, URINE (UA) NEGATIVE (NEGATIVE); KETONES,URINE 1+ (NEGATIVE); LEUKOCYTE ESTERASE ,URINE TRACE (NEGATIVE); NITRITE,URINE NEGATIVE (NEGATIVE); PH,URINE 5.5 (5-9); PROTEIN,URINE TRACE (NEGATIVE)
[2023-06-24] MEDS ORDERED: dilTIAZem IV FOR DRIP 125 MG in NS (IVPB) 100 ML 100 ML IV STA (15:51)
[2023-06-24] MEDS ORDERED: NS IV 1000 ML 1,000 ML IV STA (15:51)
[2023-06-24] MEDS ORDERED: ASPIRIN 81 MG CHEWABLE TABLET PO STA (15:51)
--- NOTE | 2023-06-24 15:51 | Diagnostic Imaging Report ---
Clinical indications: Patient with abnormal gait in a patient with atrial fibrillation. Exams: 1: Head CT with and without IV contrast. Auto Exposure Controls were utilized during the CT exam to meet ALARA standards for radiation dose reduction. 2: CT angiogram of the head and neck performed with 100 cc of Omnipaque 350 IV contrast. Sagittal and coronal MIP reformations were created for better visualization of vascular anatomy. CT angiogram was post-processed using RAPID LVO detection to include quantitative measurements of cerebral blood flow and automated results notification to the stroke and/or neurointerventional team. Comparison: Head CT without contrast dated 06/24/2023.. Findings: HEAD CT: There is no evidence of acute intracranial process. There is no abnormal IV contrast enhancement. There is stable appearance of the brain parenchyma. There is mild chronic small vessel ischemic disease. There is no hydrocephalus. The remainder of this exam shows no significant interval change compared to the prior study of comparison. CT ANGIOGRAM: There is dense contrast bolus seen within the left subclavian vein, innominate vein and superior vena cava which causes streak artifact slightly obscuring portions of aortic arch and proximal great vessels. Three-vessel aortic arch is seen. The brachiocephalic artery and bilateral subclavian artery are patent. The right common carotid artery and right ECA are patent. There is a short segment area of roughly 70% stenosis involving the cervical right ICA bulb. The remainder of the cervical right ICA is patent. The left common carotid artery, left ECA and cervical left ICA are patent. The petrous, cavernous, and supraclinoid ICA are patent. The bilateral ACAs and distal branches are patent. The bilateral MCAs and distal branches are patent. The bilateral cervical vertebral arteries are patent. Dominant left cervical vertebral artery is seen. The bilateral PICAs are patent. The intradural vertebral arteries, basilar artery, bilateral superior cerebellar arteries, and bilateral perfect binder feeder offbearer and distal branches are patent. The dural venous sinuses are patent. The neck soft tissue structures show no significant abnormality. There is groundglass opacification involving the upper lung power. Nonspecific multiple lymph nodes in the upper mediastinal region are seen. IMPRESSION: 1: Stable CT scan of the brain with no interval evidence of acute intracranial process. 2: There is short segment area of severe stenosis involving the cervical right ICA bulb. Otherwise, the remainder of the [place] of Puri and neck vascular structures are patent. 3: There is groundglass opacification involving the upper lung power, partially visualized multiple upper mediastinal region. These findings may be related to infection or inflammatory process. Results of this report were discussed with JAIR Cabrera via the telephone on 06/24/2023 at 1535 hours. Dictated by: Dictated on workstation # [id number]
--- NOTE | 2023-06-24 15:51 | Diagnostic Imaging Report ---
EXAMINATION: Left knee radiographs, 3 views. COMPARISON: None. HISTORY: 77-year-old female, left knee pain after fall. FINDINGS: There is no identified acute fracture. There is no left knee joint effusion. The joint spaces are well preserved. IMPRESSION: Unremarkable radiographs of the left knee. Dictated by: Dictated on workstation # [id number]
[2023-06-24 15:57] LABS: FIBRIN DEGRADATION PRODUCTS 3.71 UG/ML (0.00-0.49)
[2023-06-24] MEDS ORDERED: dilTIAZem INJ 25 MG/5 ML VIAL IVP ONE (16:00)
[2023-06-24] MEDS ORDERED: cefTRIAXone IV/IM 1,000 MG in NS (IVPB) 50 ML 50 ML IV ONE (16:00)
[2023-06-24] MEDS ORDERED: cefTRIAXone 1,000 MG VIAL IV/IM ONE (16:02)
--- NOTE | 2023-06-24 16:29 | History & Physical-Hospitalist ---
NIYAH MONZON MD,RESIDENT 06/24/23 1629: History of Present Illness HPI/Chief Complaint Pt is a 77-year-old female with a medical history significant for Afib s/p watchman, T2DM, HTN, who presents to ED after passing out and hitting her head around 8am this morning. When she woke and felt lightheaded, when she was trying to get out of bed she states her legs felt like "jello" and she lost her footing leading to a fall. She says she tried to catch herself but fell anyway. She then "blacked out" once she hit the floor, she also hit her head on the way down. She reports having acute vision changing over the last week, despite new prescription. She is concerned that she has labile blood pressure at times and it could be low, although she did not take her blood pressure. She states her heart rate is typically low. She denies any vomiting, diarrhea, chest pain, shortness of breath, abdominal pain, focal weakness, or any other concerns. States she has been unsteady on her feet, has been unable to walk, and when someone does stand her up, she feels like she is falling over. She also reports having increased memory loss, forgetfulness, and cognitive decline in the last couple of months. Pt's daughter at bedside. Will admit for further management. Source: patient, family Date Seen 06/24/23 Time Seen by a Provider: 18:00 Attending Physician Christine Lion Aprn PCP Admitting Physician: Attending Physician: Referring Physician Date of Admission Home Medications & Allergies Home Medications Reviewed patient Home Medication Reconciliation performed by pharmacy medication reconciliations museum exhibit technician and/or nursing. Patients Allergies have been reviewed. Allergies Allergies Coded Allergies No Known Drug Allergies (Unverified04/23/18) Past Hkktwxw-Rrodvl-Hyidhu Hx Patient Social History Tobacco Use?: No Use of E-Cig and/or Vaping dev: No Substance use?: No Alcohol Use?: No Pt feels they are or have been: No Immunizations Up To Date Date of Influenza Vaccine: May 21, 2020 First/Initial COVID19 Vaccinat: 3 SHOTS Tetanus Booster (TDap): Less Than 5 Years Date of Pneumonia Vaccine: Sep 06, 2017 Seasonal Allergies Seasonal Allergies: No Current Status Advance Directives: No Communicates: Verbally Primary Language: Uzbek Preferred Spoken Language: Uzbek Past Medical History Surgeries: Adenoidectomy, Appendectomy, Hysterectomy, Orthopedic, Tonsillectomy Atrial Fibrillation, Hypertension 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: Hysterectomy Fractures Blood Disorders: No Family Medical History Abdominal aortic aneurysm Alzheimer's disease 19 MOTHER Cardiovascular disease 19 MOTHER Diabetes mellitus 19 MOTHER G8 SISTER G8 SISTER Hypertension Review of Systems Constitutional: no symptoms reported EENTM: vision loss Respiratory: no symptoms reported Cardiovascular: palpitations Gastrointestinal: no symptoms reported Genitourinary: no symptoms reported Musculoskeletal: no symptoms reported Psychiatric/Neurological: Weakness, Other (Memory loss) Physical Exam Physical Exam Vital Signs Vital Signs - First Documented Capillary Refill : Less Than 3 Seconds Height, Weight, BMI Height: 5'3.00" Weight: 183lbs. 0.6oz. 83.407097lv; 28.00 BMI Method:Stated General Appearance: No Apparent Distress Eyes: Bilateral Eye Normal Inspection, Bilateral Eye PERRL, Bilateral Eye EOMI HEENT: Normal ENT Inspection Neck: Full Range of Motion, Normal Inspection Respiratory: Chest Non Tender, Lungs Clear, Normal Breath Sounds, No Accessory Muscle Use, No Respiratory Distress Cardiovascular: Irregularly Irregular Gastrointestinal: Normal Bowel Sounds, Non Tender, Soft Back: No Vertebral Tenderness Extremity: Normal Range of Motion, Non Tender Neurologic/Psychiatric: Alert, Oriented x3, No Motor/Sensory Deficits, Normal Mood/Affect, press feeder broomcorn II-XII Norm as Tested Skin: Warm/Dry Results Results/Procedures Labs Laboratory Tests 06/24/23 14:20 Patient resulted labs reviewed. Assessment/Plan Admission Diagnosis Stroke-like symptoms Admission Status: Inpatient Order (span 2 midnights) Reason for Inpatient Admission: Stroke-like symptoms Diagnosis/Problems Diagnosis/Problems (1) Stroke-like symptoms Assessment & Plan: PLAN: CT head negative for acute processes CTA negative for acute processes [facility] consulted, Dr. Douglass who recommended MRI brain Q1hr neuro checks (2) Atrial fibrillation with RVR Assessment & Plan: Troponin 0.073 EKG: Afib RVR Watchman PLAN: Consult cardiology - 1mg/kg lovenox Diltiazem gtt EKG Troponin trend Echo (3) Fall Assessment & Plan: PLAN: PT/OT (4) Minor head trauma Assessment & Plan: See stroke-like symptoms (5) UTI (urinary tract infection) Assessment & Plan: UA trace LE, few bacteria PLAN: Ceftriaxone 1g q24h UCx pending (6) Type 2 diabetes mellitus Assessment & Plan: PLAN: ACHS checks Slide Scale A (7) HTN (hypertension) Assessment & Plan: PLAN: Resume FILLER IN meds once stabilized (8) Hypercalcemia Status: Acute Clinical Quality Measures Stroke: Date of last known well: Jun 23, 2023 Time of last known well: 21:00 PENELOPE MARROQUIN DO 06/25/23 1720: History of Present Illness HPI/Chief Complaint CC: Syncope HPI: This is a 77yoWF clinic patient of [facility] who has a h/o AF s/p Watchman 2020 at [facility] who presented to the ER after a syncopal episode so she was admitted to ICU for close monitoring with Tely and CVA w/u and Cardiology consultation. Family at bedside. Source: patient, family Exam Limitations: no limitations Past Grlkcig-Jqsfqb-Cwhsld Hx Patient Social History Marrital Status: single Employed/Student: retired Smoking Status: Former Smoker Past Medical History Atrial Fibrillation, High Cholesterol, Hypertension Family Medical History Abdominal aortic aneurysm Alzheimer's disease 19 MOTHER Cardiovascular disease 19 MOTHER Diabetes mellitus 19 MOTHER G8 SISTER G8 SISTER Review of Systems Constitutional: see HPI, dizziness Physical Exam Physical Exam General Appearance: No Apparent Distress Eyes: Right Eye Normal Inspection, Right Eye PERRL HEENT: PERRL/EOMI, TMs Normal, Normal ENT Inspection, Pharynx Normal, Moist Mucous Membranes Neck: Full Range of Motion, Normal Inspection, Non Tender Respiratory: Chest Non Tender, Lungs Clear, Normal Breath Sounds, No Accessory Muscle Use, No Respiratory Distress Cardiovascular: Regular Rate, Rhythm, No Edema, No Gallop, No JVD, No Murmur, Normal Peripheral Pulses Gastrointestinal: Normal Bowel Sounds, No Organomegaly, No Pulsatile Mass, Non Tender, Soft Back: Normal Inspection, No CVA Tenderness, No Vertebral Tenderness Extremity: Normal Capillary Refill, Normal Inspection, Normal Range of Motion, Non Tender, No Calf Tenderness, No Pedal Edema Neurologic/Psychiatric: Alert, Oriented x3, No Motor/Sensory Deficits, Normal Mood/Affect Skin: Normal Color, Warm/Dry Lymphatic: No Adenopathy Assessment/Plan Admission Diagnosis Assessment: Syncope h/o AF s/p Watchman 2020 [facility] Elevated troponin HTN HLP Plan: Cardiology consult Admission Status: Inpatient Order (span 2 midnights) Reason for Inpatient Admission: CVA with syncope INYAH MONZON MD,RESIDENT Jun 24, 2023 16:29 PENELOPE MARROQUIN DO Jun 25, 2023 17:20
[2023-06-24] MEDS ORDERED: ENOXAPARIN 150 MG/ML SYRINGE SQ SCH (17:30)
[2023-06-24] MEDS ORDERED: BISACODYL 10 MG SUPPOSITORY PR PRN (17:30)
[2023-06-24] MEDS ORDERED: LACTULOSE SYRUP 10GM/15ML 30ML UDC PO PRN (17:30)
[2023-06-24] MEDS ORDERED: NALOXONE 0.4 MG/ML 1 ML VIAL IV PRN (17:30)
[2023-06-24] MEDS ORDERED: dilTIAZem IV FOR DRIP 125 MG in NS (IVPB) 100 ML 100 ML IV SCH (17:30)
[2023-06-24] MEDS ORDERED: diphenhydrAMINE INJ 50 MG/ML VIAL IVP PRN (17:30)
[2023-06-24] MEDS ORDERED: MELATONIN 3 MG TABLET PO PRN (17:30)
[2023-06-24] MEDS ORDERED: diphenhydrAMINE 25 MG TABLET PO PRN (17:30)
[2023-06-24] MEDS ORDERED: ACETAMINOPHEN 500 MG TABLET PO PRN (17:30)
[2023-06-24] MEDS ORDERED: CALCIUM CARBONATE 500 MG CHEW TABLET PO PRN (17:30)
[2023-06-24] MEDS ORDERED: ACETAMINOPHEN 325 MG TABLET PO PRN (17:30)
[2023-06-24] MEDS ORDERED: ONDANSETRON INJECTION 4 MG/2 ML (SDV) IV PRN (17:30)
[2023-06-24] MEDS ORDERED: ONDANSETRON 4 MG ORAL DISSOLVE TABLET PO PRN (17:30)
[2023-06-24] MEDS ORDERED: NS IV 500 ML 500 ML IV PRN (17:30)
[2023-06-24] MEDS ORDERED: ANTACID SUSPENSION 30 ML UDC PO PRN (17:30)
[2023-06-24] MEDS ORDERED: MILK OF MAGNESIA 400 MG/5 ML 30 ML UDC PO PRN (17:30)
--- NOTE | 2023-06-24 17:54 | Tele-ICU Progress Note ---
Subjective Date Seen by a Provider: Jun 24, 2023 Time Seen by a Provider: 17:53 Subjective/Events-last exam (Tele-ICU Physician , consultation as per request of PCP Service provided via interactive audio and video telecommunications E-CARE system to a patient admitted to ICU bed in [facility]. Available chart/ vitals / labs / Images reviewed H&P is from ER notes Patient's information available about PMH, Shx, Fhx allergy reviewed inEMR. ROS as per chart and RN report Now in ICU, hemodynamically stable Video assessment done using teleICU camera, rest of exam as per RN Discussed with RN. Hospital course: 77 y/o female with syncope CT head negative neurology following suggests MRI (+)UTI A/P Syncope/ suspected CVA - CTH / CTA negative for acute processes [facility] consulted --> MRI brain followed by an echo to check watchman device Q1hr neuro checks A fib RVR -cardizem gtt - AC with lovenox s/p fall - monitor possible UTI - ceftriaxone started in ER , cx pending CKD - monitor Lines : , (Central Line Necessity Reviewed) Kellogg: OG: Nutrition: Analgesia: Anxiety/ delirium VTE Prophylaxis: olga full dose Stress Ulcer Prophylaxis: na Plans in collaboration with bedside consultants and IM MDs. Discussed with RN to reach out if any questions or concerns A total of _10 minutes of critical care time was devoted to this patient today, required to treat and/or prevent further deterioration of critical care condition ( as above ) . I am remotely monitoring this patient from another state. I am unable to do the bedside exam, and history/physical and pertinent information is taken from other notes in the computer and bedside staff. . Sepsis Event Evaluation Height, Weight, BMI Height: 5'3.00" Weight: 183lbs. 0.6oz. 83.989929in; 28.00 BMI Method:Stated Exam Exam Patient acknowledged, consented, and participated in this virtual visit which was conducted using real time audio/video Vital Signs Date Time Temp Pulse Resp B/P (MAP) Pulse Ox O2 Delivery O2 Flow Rate FiO2 06/24/23 17:30 78 12 165/104 (124) 95 Room Air 06/24/23 17:15 92 16 148/105 (119) 100 Room Air 06/24/23 17:08 99 06/24/23 17:00 36.0 79 16 165/83 98 Room Air 06/24/23 17:00 94 16 186/130 (148) 100 Room Air 06/24/23 16:21 76 140/84 06/24/23 16:14 114 140/84 06/24/23 14:45 36.0 115 18 133/96 (108) 96 06/24/23 14:20 115 18 133/96 96 06/24/23 14:20 36.0 115 18 133/96 96 Room Air Height & Weight Height: 5'3.00" Weight: 183lbs. 0.6oz. 83.974258ui; 28.00 BMI Method:Stated General Appearance: Other Capillary Refill: Less Than 3 Seconds Gastrointestinal: normal bowel sounds, non tender, soft; No distended, No guarding, No rebound Results Lab Laboratory Tests 06/24/23 14:20 Assessment/Plan Assessment/Plan 1 KODY MCKEON MD Jun 24, 2023 17:53
[2023-06-24] MEDS ORDERED: CARV6.252 PO (18:15)
[2023-06-24] MEDS ORDERED: OXYB-52 PO (18:15)
[2023-06-24] MEDS ORDERED: CALC300T4 PO (18:15)
[2023-06-24 18:22] VITALS: BP 167/96
[2023-06-24] MEDS: dilTIAZem DRIP 125 MG/125 ML DRIP IV SCH (18:22)
[2023-06-24] MEDS ORDERED: FLU HIGH DOSE (65+ YOA) 240 MCG/0.7 ML 2023-24 (FLUZONE) IM ONE (18:30)
[2023-06-24] MEDS ORDERED: ENOXAPARIN 80 MG/0.8 ML SYRINGE SC SCH (18:30)
[2023-06-24] MEDS ORDERED: hydrALAZINE 10 MG TABLET PO PRN (19:00)
[2023-06-24] MEDS: inSUlin ASPART 1 UNIT/0.01 ML (PER UNIT) SC SCH (21:25)
[2023-06-24] MEDS: DOCUSATE SODIUM 100 MG CAPSULE PO SCH (21:25)
[2023-06-24] MEDS: SENNOSIDES 8.6 MG TABLET PO SCH (21:25)
[2023-06-24] MEDS: carvediloL 6.25 MG TABLET PO SCH (21:25)
[2023-06-25 04:48] LABS: BASOPHILS % (AUTO) 0 % (0-10); EOSINOPHILS # (AUTO) 0.4 10^3/uL (0.0-0.3); EOSINOPHILS % (AUTO) 4 % (0-10); HEMATOCRIT 32 % (35-52); HEMOGLOBIN 11.5 g/dL (11.5-16.0); LYMPHOCYTES # (AUTO) 2.1 10^3/uL (1.0-4.0); LYMPHOCYTES % (AUTO) 20 % (12-44); MEAN CORPUSCULAR HEMOGLOBIN 34 pg (25-34); MEAN CORPUSCULAR HGB CONC 36 g/dL (32-36); MEAN CORPUSCULAR VOLUME 96 fL (80-99); MEAN PLATELET VOLUME 11.3 fL (9.0-12.2); MONOCYTES # (AUTO) 0.7 10^3/uL (0.0-1.0); MONOCYTES % (AUTO) 7 % (0-12); NEUTROPHILS % (AUTO) 68 % (42-75); PLATELET COUNT 165 10^3/uL (130-400); WHITE BLOOD COUNT 10.3 10^3/uL (4.3-11.0)
[2023-06-25 05:03] LABS: ALBUMIN 3.6 GM/DL (3.2-4.5); POTASSIUM 3.4 MMOL/L (3.6-5.0)
[2023-06-25 05:05] LABS: CALCIUM 10.8 MG/DL (8.5-10.1)
[2023-06-25 05:06] LABS: TOTAL PROTEIN 6.3 GM/DL (6.4-8.2)
[2023-06-25 05:08] LABS: BILIRUBIN,TOTAL 1.5 MG/DL (0.1-1.0)
[2023-06-25 05:09] LABS: PHOSPHORUS 2.7 MG/DL (2.3-4.7)
[2023-06-25 05:10] LABS: CREATININE SERUM 1.35 MG/DL (0.60-1.30)
[2023-06-25 05:13] LABS: MAGNESIUM 1.2 MG/DL (1.6-2.4)
[2023-06-25] MEDS: inSUlin ASPART 1 UNIT/0.01 ML (PER UNIT) SC SCH ×3 (05:24→16:53)
[2023-06-25] MEDS ORDERED: POTASSIUM CL 10MEQ/50ML IVPB 50 ML IV SCH ×2 (05:30→06:00)
[2023-06-25] MEDS ORDERED: MAGNESIUM 1 GM/100 ML IVPB 100 ML IV SCH ×3 (05:30→08:30)
[2023-06-25] MEDS ORDERED: POTASSIUM CHLORIDE 20 MEQ TABLET PO SCH (06:00)
[2023-06-25] MEDS: carvediloL 6.25 MG TABLET PO SCH (08:37)
--- NOTE | 2023-06-25 08:57 | Progress Note - Hospitalist ---
JOAN LINDSAY 06/25/23 0857: Subjective HPI/CC On Admission Date Seen by Provider: Jun 25, 2023 Time Seen by Provider: 08:51 Pt is a 77-year-old female with a medical history significant for Afib s/p watchman, T2DM, HTN, who presents to ED after passing out and hitting her head around 8am this morning. When she woke and felt lightheaded, when she was trying to get out of bed she states her legs felt like "jello" and she lost her footing leading to a fall. She says she tried to catch herself but fell anyway. She then "blacked out" once she hit the floor, she also hit her head on the way down. She reports having acute vision changing over the last week, despite new prescription. She is concerned that she has labile blood pressure at times and it could be low, although she did not take her blood pressure. She states her heart rate is typically low. She denies any vomiting, diarrhea, chest pain, shortness of breath, abdominal pain, focal weakness, or any other concerns. States she has been unsteady on her feet, has been unable to walk, and when someone does stand her up, she feels like she is falling over. She also reports having increased memory loss, forgetfulness, and cognitive decline in the last couple of months. Pt's daughter at bedside. Will admit for further management. Subjective/Events-last exam 06/25/2023: CC: Syncope, AFib with RVR HPI: Rosa, 77F, notes that she is feeling much better. She notes that she thinks that she is back at her baseline. Yesterday, Rosa endorsed some expressive aphasia and she says that this has resolved. She also says that she hasn't been walking, but when she stands she has not had a return of dizziness. Rosa has a history of AFib and watchman; she notes that the watchman has not been checked due to not following up. She also notes a history of "spells" of hypotension where she feels similar. Overall, Rosa currently has no complaints and says that all previous symptoms have resolved. She is unsure if symptoms will return with walking, however, since she has not attempted to ambulate. No other concerns. Review of Systems General: No Chills, No Night Sweats HEENT: No Head Aches, No Visual Changes Pulmonary: No Dyspnea, No Cough Cardiovascular: No: Chest Pain, Edema Gastrointestinal: No: Nausea, Vomiting, Diarrhea Genitourinary: No Dysuria, No Incontinence Musculoskeletal: No: shoulder pain, back pain Neurological: Weakness; No: Change in speech (resolved from 06/24), Confusion Objective Exam Vital Signs Vital Signs Date Time Temp Pulse Resp B/P (MAP) Pulse Ox O2 Delivery O2 Flow Rate FiO2 06/25/23 08:23 97 Room Air 06/25/23 08:00 73 18 140/75 (114) 06/24/23 17:00 36.0 Capillary Refill : Less Than 3 Seconds General Appearance: No Apparent Distress, WD/WN HEENT: Normal ENT Inspection, Moist Mucous Membranes Neck: Normal Inspection, Non Tender Respiratory: Chest Non Tender, Lungs Clear, Normal Breath Sounds, No Accessory Muscle Use, No Respiratory Distress Cardiovascular: No Edema, No JVD, Normal Peripheral Pulses, Irregularly Irregular Gastrointestinal: Normal Bowel Sounds, No Pulsatile Mass, Soft Rectal: Deferred Back: Normal Inspection Extremity: Normal Capillary Refill, Normal Inspection, No Pedal Edema Neurologic/Psychiatric: Alert, Oriented x3, No Motor/Sensory Deficits, Normal Mood/Affect, statistician mathematical II-XII Norm as Tested; No Abnormal Cerebellar Tests, No Aphasia Reflexes: 2+ Ankle (R), 2+ Ankle (L) Skin: Normal Color, Warm/Dry Lymphatic: No Adenopathy Results/Procedures Lab Laboratory Tests 06/24/23 14:20 06/25/23 04:21 Patient resulted labs reviewed. Assessment/Plan Assessment and Plan Assess & Plan/Chief Complaint 06/25/2023: A/P -TIA * MRI * Neuro checks * initiate statin -AFib with RVR * Cardiology consult * ECHO * Cardizem, Carvedilol -Dizziness * Orthostatic vitals * PT to ambulate -UTI * Rocephin -CKD * monitor BUN and Cr Clinical Quality Measures Stroke: Date of last known well: Jun 23, 2023 Time of last known well: 21:00 VIKY MARROQUIN DO 06/25/237: Subjective Subjective/Events-last exam Cardiology appreciated Feels better MRI negative May need transferred to [facility] where Watchman was performed in case if is dysfunctional Objective Exam General Appearance: No Apparent Distress, WD/WN, Chronically ill Respiratory: Lungs Clear Cardiovascular: Irregularly Irregular Assessment/Plan Assessment and Plan Assess & Plan/Chief Complaint May need transfer Monitor in ICU Kapil Low Supervisory-Addendum Brief Verification & Attestation Participated in pt care: history, MDM, physical Personally performed: exam, history, MDM, supervision of care Care discussed with: Medical Student Procedures: n/a Results interpretation: Verified all documentation Verification and Attestation of Medical Student E/M Service A medical student performed and documented this service in my presence. I review ed and verified all information documented by the medical student and made modifications to such information, when appropriate. I personally performed the physical exam and medical decision making. Viky Marroquin Jun 25, 2023,18:06 JOAN LINDSAY Jun 25, 2023 08:57 VIKY MARROQUIN DO Jun 25, 2023 18:07
[2023-06-25] MEDS ORDERED: PANTOPRAZOLE 20 MG TABLET PO SCH (09:00)
[2023-06-25] MEDS ORDERED: OMEPRAZOLE 20 MG CAPSULE (NON-FORMULARY) PO SCH (09:00)
--- NOTE | 2023-06-25 09:23 | Physical Therapy Evaluation ---
PT Evaluation-General Medical Diagnosis Admission Date Jun 24, 2023 at 16:58 Medical Diagnosis: A-fib with RVR/NSTEMI Onset Date: Jun 24, 2023 Therapy Diagnosis Therapy Diagnosis: debility Height/Weight Height (Feet): 5 Height (Inches): 3.00 Weight (Pounds): 183 Weight (Ounces): 0.6 Precautions Precautions/Isolations: Fall Prevention, Standard Precautions Weight Bear Status Right Lower Extremity: Right Full Weight Bearing Left Lower Extremity: Left Full Weight Bearing Referral Physician: Gael Reason for Referral: Evaluation/Treatment Medical History Pertinent Medical History: Atrial Fib, HTN Current History ER secondary to syncope and hit head (stroke like symptoms) Reviewed History: Yes Social History Home: Apartment Current Living Status: Alone Entry Into Home: Elevator, Level Entry Prior Prior Level of Function SCALE: Activities may be completed with or without assistive devices. 9-Gnsnxtmont-jqkkapt completes the activity by him/herself with no assistance from a helper. 5-Set-up or Clean-up Assistance-helper sets up or cleans up; patient completes activity. [place] assists only prior to or following the activity. 4-Supervision or Touching Assistance-helper provides verbal cues and/or touching /steadying and/or contact guard assistance as patient completes activity. Assistance may be provided throughout the activity or intermittently. 3-Partial/Moderate Assistance-helper does LESS THAN HALF the effort. [place] lifts, holds or supports trunk or limbs, but provides less than half the effort. 2-Substantial/Maximal Assistance-helper does MORE THAN HALF the effort. [place] lifts or holds trunk or limbs and provides more than half the effort. 6-Zwvbwcfnu-eaxycp does ALL the effort. Patient does none of the effort to complete the activity. Or, the assistance of 2 or more helpers is required for the patient to complete the activity. If activity was not attempted, code reason: 7-Patient Refused. 9-Not Applicable-not attempted and the patient did not perform the activity before the current illness, exacerbation or injury. 10-Not Attempted due to Environmental Limitations-(lack of equipment, weather restraints, etc.). 88-Not Attempted due to Medical Conditions or Safety Concerns. Bed Mobility: 6 Transfers (B,C,W/C): 6 Gait: 6 Indoor Mobility (Ambulation): Independent Prior Devices Use: Walker (upright ) PT Evaluation-Current Subjective Patient agrees to therapy. Objective Patient Orientation: Normal For Age Attachments: IV ROM/Strength ROM Lower Extremities bilateral LE WFL Strength Lower Extremities 4/5 grossly bilateral LE all planes Integumentary/Posture Bowel Incontinence: No Bladder Incontinence: No Posture WFL Neuromuscular (Tone, Coordination, Reflexes) grossly intact with all Sensory Vision: Wears Glasses Hearing: Functional Transfers Lying to Sitting/Side of Bed(Q: 6 Sit to Stand (QC): 6 Chair/Ios-bs-Cwczo Xfer(QC): 6 Gait Mode of Locomotion: Walk Anticipated Mode of Locomotion: Walk Walk 10 feet (QC): 6 Walk 50 ft with 2 Turns(QC): 6 Walk 150 ft (QC): 6 Distance: 275' Gait Assistive Device: FWW Comments/Gait Description steady, reciprocal pattern Balance Sitting Static: Normal Sitting Dynamic: Normal Standing Static: Normal Standing Dynamic: Normal Assessment/Needs Patient is currently at independent PLOF with all gross motor skills and does not require skilled PT intervention at this time. Patient and family instructed to ambulate PRN in hallway if not attached to IV. Notify RN prior. Rehab Potential: Fair PT Plan Treatment/Plan Treatment Plan: Discontinue PT Treatment Duration: Jun 25, 2023 Frequency: 1 time per week Estimated Hrs Per Day: .25 hour per day Time Time In: 855 Time Out: 913 DATE: Jun 25, 2023 Total Billed Treatment Time: 18 Total Billed Treatment 1 visit [facility] 18 min FATMATA MARIN PT Jun 25, 2023 09:23
[2023-06-25] MEDS ORDERED: hydrOXYzine 10 MG TABLET PO ONE (09:30)
--- NOTE | 2023-06-25 09:31 | Occupational Therapy Eval ---
OT Evaluation-General/PLF Medical Diagnosis Admission Date Jun 24, 2023 at 16:58 Medical Diagnosis: A-fib with RVR/NSTEMI Onset Date: Jun 24, 2023 Therapy Diagnosis Therapy Diagnosis: WEAKNESS Height/Weight Height (Feet): 5 Height (Inches): 3.00 Weight (Pounds): 183 Weight (Ounces): 0.6 Precautions Precautions/Isolations: Fall Prevention, Standard Precautions Referral Physician: Gael Referral Reason: Self Care, Evaluation/Treatment Medical History Pertinent Medical History: Atrial Fib, HTN Reviewed History: Yes Social History Home: Apartment Current Living Status: Alone Entry Into Home: Elevator, Level Entry ADL-Prior Level of Function SCALE: Activities may be completed with or without assistive devices. 7-Bxuzsuatqq-oqyhwpf completes the activity by him/herself with no assistance from a helper. 5-Set-up or Clean-up Assistance-helper sets up or cleans up; patient completes activity. Jeff assists only prior to or following the activity. 4-Supervision or Touching Assistance-helper provides verbal cues and/or touching/steadying and/or contact guard assistance as patient completes activity. Assistance may be provided throughout the activity or intermittently. 3-Partial/Moderate Assistance-helper does LESS THAN HALF the effort. Jeff lifts, holds or supports trunk or limbs, but provides less than half the effort. 2-Substantial/Maximal Assistance-helper does MORE THAN HALF the effort. Jeff lifts or holds trunk or limbs and provides more than half the effort. 7-Icufrogub-kuohvu does ALL the effort. Patient does none of the effort to complete the activity. Or, the assistance of 2 or more helpers is required for the patient to complete the activity. If activity was not attempted, code reason: 7-Patient Refused. 9-Not Applicable-not attempted and the patient did not perform the activity before the current illness, exacerbation or injury. 10-Not Attempted due to Environmental Limitations-(lack of equipment, weather restraints, etc.). 88-Not Attempted due to Medical Conditions or Safety Concerns. Self Care: Independent Functional Cognition: Independent DME/Equipment: Bath Chair, Grab Bars, Shower Drive Self: No (BUT CAN, HAVEN'T IN A YEAR) OT Current Status Subjective ABLE TO PARTICIPATE Pain Numeric Pain Scale: 4 Location Body Site: Knee Mental Status/Objective Patient Orientation: Person, Place, Time, Situation Attachments: SCD's, Telemetry Current Upper Extremity ROM BUE ROM WFL Upper Extremity Coordination WFLS Upper Extremity Strength -4/5 ADL-Treatment Eating (QC): 88 (MRI) Oral Hygiene (QC): 5 Shower/Bathe Self (QC): 7 Upper Body Dressing (QC): 4 Lower Body Dressing (QC): 5 (WEARING OWN PANTS, DONS SOCK EOB) On/Off Footwear (QC): 5 Toileting Hygiene (QC): 7 Education OT Patient Education: Modified ADL techniques, Progress toward Goal/Update tx plan, Purpose of tx/functional activities, Reviewed precautions, Rehab process, Safety issues, Transfer techniques, Use of adapted equipment Teaching Recipient: Patient, Family (DAUGHTER) Teaching Methods: Discussion Response to Teaching: Verbalize Understanding, Return Demonstration OT Alf Goals Alf Goals 1=Demonstrate adherence to instructed precautions during ADL tasks. 2=Patient will verbalize/demonstrate understanding of assistive devices/modifications for ADL. 3=Patient will improve strength/tolerance for activity to enable patient to perform ADL's. OT Education/Plan Problem List/Assessment Assessment: No Skilled OT Needs ID'd Discharge Recommendations Plan/Recommendations: Discontinue OT Treatment Plan/Plan of Care Patient would benefit from OT for education, treatment and training to promote independence in ADL's, mobility, safety and/or upper extremity function for ADL's. Plan of Care: OTHER (EVAL ONLY) Treatment Duration: Jun 25, 2023 Frequency: 1 time per week Estimated Hrs Per Day: .25 hour per day Agreement: Yes Rehab Potential: Good Time Start Time: 08:55 Stop Time: 09:11 DATE: Jun 25, 2023 Total Time Billed (hr/min): 16 Billed Treatment Time EVM 16 MIN AMY DE LEON OT Jun 25, 2023 09:31
[2023-06-25] MEDS: MAGNESIUM 1 GM/100 ML IVPB 100 ML IV SCH ×5 (09:36→15:12)
[2023-06-25] MEDS: POTASSIUM CL 10MEQ/50ML IVPB 50 ML IV SCH ×4 (09:36→12:54)
[2023-06-25] MEDS: SENNOSIDES 8.6 MG TABLET PO SCH (10:16)
[2023-06-25] MEDS: DOCUSATE SODIUM 100 MG CAPSULE PO SCH (10:16)
--- NOTE | 2023-06-25 10:38 | Tele-ICU Progress Note ---
Subjective Date Seen by a Provider: Jun 25, 2023 Time Seen by a Provider: 10:38 Subjective/Events-last exam (Tele-ICU Physician , Progress Note ) Service provided via interactive audio and video telecommunications E-CARE system to a patient admitted to ICU bed in [facility]. Patient is seen today due to persistent need of ICU care Available chart/ vitals / labs / Images reviewed Video assessment done using teleICU camera, rest of exam as per RN Discussed with RN Events overnight : Afebrile hemodynamically stable Pressors- no Hospital course: (06/24) 77F admitted for syncope. CTH: NEG. CTA head/neck: right ICA stenosis. Sepsis UTI/ROD (but not severe/shock), afib RVR-cardizem started. 06/25 - cardizem gtt stopped A/P Syncope/ suspected CVA - CTH / CTA negative for acute processes [facility] Neurology consulted --> MRI brain followed by an echo to check watchman device A fib RVR -cardizem gtt OFF - AC with lovenox s/p fall - monitor possible UTI - ceftriaxone started , cx pending CKD - monitor Lines : , (Central Line Necessity Reviewed) Kellogg: OG: Nutrition: Analgesia: Anxiety/ delirium VTE Prophylaxis: olga 70 Stress Ulcer Prophylaxis: Plans in collaboration with bedside consultants and IM MDs. Discussed with RN to reach out if any questions or concerns Case and care daily discussed on multidisciplinary rounds ( RN, PharmD, Supervisor Coil Winding , Respiratory Therapy, fitness worker ) A total of 7 minutes of critical care time was devoted to this patient today, required to treat and/or prevent further deterioration of critical care condition ( as above ) . I am remotely monitoring this patient from another state. I am unable to do the bedside exam, and history/physical and pertinent information is taken from other notes in the computer and bedside staff. Sepsis Event Evaluation Height, Weight, BMI Height: 5'3.00" Weight: 183lbs. 0.6oz. 83.676299kh; 28.90 BMI Method:Stated Exam Exam Patient acknowledged, consented, and participated in this virtual visit which was conducted using real time audio/video Vital Signs Date Time Temp Pulse Resp B/P (MAP) Pulse Ox O2 Delivery O2 Flow Rate FiO2 06/25/23 10:00 82 28 137/68 (88) 95 Room Air 06/25/23 09:00 84 13 145/80 (101) 96 Room Air 06/25/23 08:23 97 Room Air 06/25/23 08:00 73 18 140/75 (114) 96 Room Air 06/25/23 07:00 80 06/25/23 07:00 78 20 128/62 (91) 92 Room Air 06/25/23 06:00 69 14 126/70 (88) 93 Room Air 06/25/23 05:00 70 22 145/70 (95) 95 Room Air 06/25/23 04:00 65 15 135/70 (91) 95 Room Air 06/25/23 04:00 94 Room Air 06/25/23 03:00 65 21 124/77 (93) 95 Room Air 06/25/23 02:00 68 21 119/85 (96) 94 Room Air 06/25/23 01:00 80 06/25/23 01:00 72 18 146/75 (98) 93 Room Air 06/25/23 00:00 74 25 128/66 (86) 91 Room Air 06/24/23 23:59 92 Room Air 06/24/23 23:00 72 18 142/68 (92) 90 Room Air 06/24/23 22:00 67 29 149/89 (109) 92 Room Air 06/24/23 21:00 76 16 154/87 (109) 94 Room Air 06/24/23 20:00 94 Room Air 06/24/23 20:00 77 17 117/83 (94) 95 Room Air 06/24/23 19:00 84 23 136/74 (94) 98 Room Air 06/24/23 19:00 82 06/24/23 18:22 80 167/96 06/24/23 18:00 80 19 152/116 (128) 98 Room Air 06/24/23 17:45 92 18 161/131 (141) 97 Room Air 06/24/23 17:30 78 12 165/104 (124) 95 Room Air 06/24/23 17:30 98 Room Air 06/24/23 17:15 92 16 148/105 (119) 100 Room Air 06/24/23 17:08 99 06/24/23 17:00 36.0 79 16 165/83 98 Room Air 06/24/23 17:00 94 16 186/130 (148) 100 Room Air 06/24/23 16:21 76 140/84 06/24/23 16:14 114 140/84 06/24/23 14:45 36.0 115 18 133/96 (108) 96 06/24/23 14:20 115 18 133/96 96 06/24/23 14:20 36.0 115 18 133/96 96 Room Air I & O 06/25/23 07:00 Intake Total 1170 ml Output Total 0 ml Balance 1170 ml Height & Weight Height: 5'3.00" Weight: 183lbs. 0.6oz. 83.939678sx; 28.90 BMI Method:Stated General Appearance: No Apparent Distress, WD/WN HEENT: Normal ENT Inspection, Moist Mucous Membranes Neck: Normal Inspection, Non Tender Respiratory: Chest Non Tender, Lungs Clear, Normal Breath Sounds, No Accessory Muscle Use, No Respiratory Distress Cardiovascular: No Edema, No JVD, Normal Peripheral Pulses, Irregularly Irregular Capillary Refill: Less Than 3 Seconds Gastrointestinal: normal bowel sounds, non tender, soft Extremity: Normal Capillary Refill, Normal Inspection, No Pedal Edema Neurologic/Psychiatric: Alert, Oriented x3, No Motor/Sensory Deficits, Normal 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
[2023-06-25] MEDS ORDERED: ALPRAZolam 0.25 MG TABLET PO ONE (10:45)
--- NOTE | 2023-06-25 10:45 | Diagnostic Imaging Report ---
INDICATION: Respiratory distress, suspicion for aspiration. FINDINGS: The lungs are clear. No failure, effusion or pneumothorax. IMPRESSION: Normal frontal chest Dictated by: Dictated on workstation # [id number]
--- NOTE | 2023-06-25 11:39 | Diagnostic Imaging Report ---
Clinical indications: Patient fell yesterday. Patient has abnormal gait. Exam: MRI of the brain performed without IV contrast. Sequences include axial DWI, ADC map, axial T1, axial T2, axial FLAIR, axial gradient echo, and sagittal T1. Comparison: CT angiogram of head/neck dated 06/24/2023.. Findings: There is no evidence of acute cerebral infarct, intracranial hemorrhage, or gross mass effect. The brain parenchymal volume appears appropriate for patient's age. There are multiple focal patchy confluent areas of high T2 signal white matter changes involving both cerebral hemispheres, likely representing chronic small vessel ischemic disease. There is normal march-white matter distinction. There is no significant midline shift or herniation. Visualized [place] vascular structures are unremarkable. The pituitary gland, sella, and suprasellar regions are unremarkable as visualized. There is no evidence of hydrocephalus. The basal cisterns are unremarkable. The skull, extracranial soft tissue, and orbits are unremarkable. The paranasal sinuses are unremarkable. There is small amount of fluid within both mastoid air cells with left side more than the right. IMPRESSION: 1: There is no evidence of acute intracranial process. 2: Age related brain parenchymal changes including chronic small vessel ischemic disease. 3: There is a small amount of fluid involving both mastoid air cells. Dictated by: Dictated on workstation # [id number]
--- NOTE | 2023-06-25 14:08 | Consultation-Cardiology ---
HPI-Cardiology Cardiology Consultation Date of Consultation 06/25/23 Date of Admission Time Seen by Provider: 10:38 HPI 77-year-old female with a history of neurocardiogenic syncope, atrial fibrillation status post Watchman device approximate 2 to 3 years ago, GERD, depression, hyperlipidemia who presents after experiencing a syncopal episode with the persistence of difficulty following commands, difficulty with word finding, confusion. Patient states that she has had a longstanding history of syncopal events. She has been evaluated with a tilt table testing and noted to have neurocardiogenic syncope. She states that her blood pressure can drop up to 50 points with positional changes. She comments that every syncopal episode she has had generally occurs after a positional change. Recently, she stated that she was sleeping. She awoke for the morning and got out of bed. She then found herself down on the ground. Her daughter was there with her. She noted that the patient remained somewhat confused, reported vision changes, dysarthria and had difficulty following commands such as performing qzcd-ns-eljh test and opening car doors in that setting they brought her in for evaluation. She had a head CT which is negative. Knee x-ray shows no acute changes. Chest x-ray shows nothing acute as well. EKG demonstrates atrial fibrillation with rapid ventricular response and nonspecific ST-T wave changes. In addition, she was found to have a urinalysis that was marginally positive with the presence of leukocyte esterase and few bacteria, however she had 2-5 white blood cells. Also found to have elevated troponin that is gone from 0.07-0.14. When she ini tially presented her heart rates were in the 110s in atrial fibrillation. Otherwise, she denies any chest discomfort, PND, orthopnea, acute onset pain radiating to her neck jaw or back there is some concern that this may represent that a TIA versus CVA. Had an MRI is currently pending. Interestingly, upon further questioning, patient states that she does not take aspirin 81 mg for her Watchman device. Of course, she is not on full anticoagulation. Neurology was consulted and felt that this was not necessarily consistent with stroke. They recommended echocardiography to assess for a potential leak around the Watchman device. Home Medications & Allergies Allergies: Coded Allergies: No Known Drug Allergies (Unverified , 04/23/18) KGY-Fkttzb-Wwuqjr Hx Patient Social History 2nd Hand Smoke Exposure: No Recent Hopitalizations: No Alcohol Use?: Yes Immunizations Up To Date Tetanus Booster (TDap): Unknown Date of Pneumonia Vaccine: Sep 06, 2017 Date of Influenza Vaccine: May 21, 2020 Family Medical History Significant Family History: Hypertension Family History: Abdominal aortic aneurysm Alzheimer's disease 19 MOTHER Cardiovascular disease 19 MOTHER Diabetes mellitus 19 MOTHER G8 SISTER G8 SISTER Review of Systems-General Review of Systems Constitutional: no symptoms reported EENTM: vision loss Respiratory: no symptoms reported Cardiovascular: palpitations Gastrointestinal: no symptoms reported Genitourinary: no symptoms reported Musculoskeletal: no symptoms reported Skin: no symptoms reported Psychiatric/Neurological: Weakness, Other (Memory loss) All Other Systems Reviewed Negative Unless Noted: Yes (All systems were reviewed and are negative except for what is been described in HPI.) ECG Impression ECG Comment Demonstrates atrial fibrillation with rapid ventricular response at [address]-T wave changes Physical Exam Physical Exam Vital Signs Vital Signs - First Documented Capillary Refill : Less Than 3 Seconds Height, Weight, BMI Height: 5'3.00" Weight: 183lbs. 0.6oz. 83.812749do; 28.90 BMI Method:Stated General Appearance: No Apparent Distress, WD/WN Eyes: Bilateral Eye Normal Inspection, Bilateral Eye PERRL, Bilateral Eye EOMI HEENT: Normal ENT Inspection, Moist Mucous Membranes Neck: Normal Inspection, Non Tender Respiratory: Chest Non Tender, Lungs Clear, Normal Breath Sounds, No Accessory Muscle Use, No Respiratory Distress Cardiovascular: No Edema, No JVD, Normal Peripheral Pulses, Irregularly Irregular Gastrointestinal: Normal Bowel Sounds, No Pulsatile Mass, Soft Rectal: Deferred Back: Normal Inspection Extremity: Normal Capillary Refill, Normal Inspection, No Pedal Edema Neurologic/Psychiatric: Alert, Oriented x3, No Motor/Sensory Deficits, Normal 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 no wheezing rales or rhonchi. CV: nl s1/s2; no murmurs gallops or rubs. Irregularly irregular, not tachycardic Abd: Soft nontender nondistended, no hepatosplenomegaly, positive bowel sounds. Ext: 2+ radial and DP pulses; no c-c, wwp, no edema A/P-Cardiology Assessment/Plan 77-year-old female with a history of neurocardiogenic syncope, atrial fibrillation status post Watchman device approximate 2 to 3 years ago, GERD, depression, hyperlipidemia who presents after experiencing a syncopal episode with the persistence of difficulty following commands, difficulty with word finding, confusion. ## Dysarthria, vision changes, difficulty following commands: Unclear etiology could simply represent confusion. Patient has a UA that is not terribly impressive but does demonstrate 2-5 white blood cells, trace leukocyte esterase and may represent infection. Continue with anti-infectives as you are doing. Other etiologies to consider include CVA/TIA, MRI is currently pending. ##Watchman device: Patient should at least be on aspirin 81 mg p.o. daily indefinitely. Not taking. We will start this now. Given the concern for CVA/TIA, would want to evaluate the Watchman device. This should be ideally done via PALAK versus CT. We believe this should be evaluated in the site that implants the watchman's and as such recommend transfer to [place] for full evaluation of the device and determine whether or not she needs to be placed on full anticoagulation. For now, continue Lovenox 1 mg/kg twice daily. ##NSTEMI: Troponin elevated at 0.14, continue to trend. Could represent demand ischemia in the setting of atrial fibrillation with rapid ventricular response. Continue Lovenox 1 mg/kg twice daily for now. ##Syncope: Patient has a history of neurocardiogenic syncope. She has had tilt table testing in the past. She currently takes her carvedilol 6.25 mg p.o. twice daily if her systolic blood pressures are greater than 160. She states that she has not taken in much recently. I will decrease her Coreg to 3.125 mg p.o. daily and can continue the same administration parameters. She states that she has been tried on [place] in the past and took it for approximately 1 year and did not notice any difference with respect to the frequency of syncopal episodes. ##Atrial fibrillation: Continue Lovenox 1 mg/kg twice daily as discussed above. Keep K greater than 4 and magnesium greater than 2. PALAK as discussed above. ##disposition: Consider transfer to an outside facility for better evaluation of Watchman device and determination of as to whether or not patient would require full anticoagulation again. At least start aspirin 81 mg p.o. daily. Continue to trend troponins. Lovenox 1 mg/kg twice daily for now Clinical Quality Measures Stroke: Date of last known well: Jun 23, 2023 Time of last known well: 21:00 JOSE CRUZ LAINEZ MD Jun 25, 2023 14:08
[2023-06-25] MEDS ORDERED: cefTRIAXone IV/IM 1,000 MG in NS (IVPB) 50 ML 50 ML IV SCH (16:00)
[2023-06-25] MEDS: dilTIAZem DRIP 125 MG/125 ML DRIP IV SCH (16:53)
--- NOTE | 2023-06-25 18:23 | Physician Query-Final Dx ---
ELOINA REDMAN 06/25/23 1823: Final Diagnosis Give Final Diagnosis Please give Final Diagnosis The medical record reflects the following clinical scenario: The patient, in the setting of History/Risk factors, UTI, admitted with neurologic changes and at. Fib with RVR Clinical Findings Admission VS/LABS: HR 115, RR 18, BP 133/96, SpO2 96% sat on room air, T 36.0, WBC 15.2 troponin I 0.073 Treatment NS 1 L, ceftriaxone IV, doxycycline p.o., diltiazem Gtt, ICU monit oring, Question: Do you agree with the impression of Sepsis per Dr. Favian Jacinto? Yes; will document Sepsis, present on admission in the Progress Notes No; will continue current documentation in the Progress Notes Other; will document explanation of clinical findings Clinically undetermined; no explanation for clinical findings Please clarify and document your clinical opinion in the Progress Notes and Discharge Summary including the definitive and/or presumptive diagnosis, (suspected or probable), related to the above clinical findings. Please include clinical findings supporting your diagnosis. In responding to this query, please exercise your independent professional judgment. The purpose of this communication is to more accurately reflect the c omplexity of your patients condition. The fact that a question is asked does not imply that any particular answer is desired or expected. Thank you for timely response to this clarification. Eloina Redman, MSN, RN Clinical Seconds Inspector [phone] [email or web address] PENELOPE MARROQUIN DO 06/25/23 1840: Final Diagnosis Give Final Diagnosis No; will continue current documentation in the Progress Notes ELOINA REDMAN Jun 25, 2023 18:23 PENELOPE MARROQUIN DO Jun 25, 2023 18:40
--- NOTE | 2023-06-25 18:24 | Physician Query-Final Dx ---
ELOINA REDMAN 06/25/23 1824: Final Diagnosis Give Final Diagnosis Please give Final Diagnosis The medical record reflects the following clinical scenario: The patient, in the setting of History/Risk factors, At. Fib with RVR, Hx of HTN, DM type 2, Passed out and hit head prior to admission Clinical Findings "EKG demonstrates atrial fibrillation with rapid ventricular response and nonspecific ST-T wave changes." Troponin I 0.073 then 0.138, Treatment Cardiology consult, Lovenox, Trend Troponin, Carvedilol, Aspirin, Question: Do you agree with the impression of NSTEMI per Dr. Brenda Flannery? Yes; will document NSTEMI, present on admission in the Progress Notes No; will continue current documentation in the Progress Notes Other; will document explanation of clinical findings Clinically undetermined; no explanation for clinical findings Please clarify and document your clinical opinion in the Progress Notes and Discharge Summary including the definitive and/or presumptive diagnosis, (suspected or probable), related to the above clinical findings. Please include clinical findings supporting your diagnosis. In responding to this query, please exercise your independent professional judgment. The purpose of this communication is to more accurately reflect the complexity of your patients condition. The fact that a question is asked does not imply that any particular answer is desired or expected. Thank you for timely response to this clarification. Eloina Redman, MSN, RN Clinical Developer Advisor [phone] [email or web address] PENELOPE MARROQUIN DO 06/25/23 1840: Final Diagnosis Give Final Diagnosis Yes; will document NSTEMI, present on admission in the Progress Notes ELOINA REDMAN Jun 25, 2023 18:24 PENELOPE MARROQUIN DO Jun 25, 2023 18:40
[2023-06-25] MEDS ORDERED: carvediloL 3.125 MG TABLET PO SCH (21:00)
[2023-06-26] MEDS ORDERED: ASPIRIN enteric coated 81MG TABLET PO SCH (09:00)
--- NOTE | 2023-06-26 11:44 | Discharge Summary ---
NIYAH MONZON MD,RESIDENT 06/26/23 1142: Discharge Summary Hospital Course Problems/Dx: (1) Stroke-like symptoms Assessment & Plan: PLAN: CT head negative for acute processes CTA negative for acute processes Neurology consulted, Dr. Douglass who recommended MRI brain Q1hr neuro checks (2) Atrial fibrillation with RVR Assessment & Plan: Troponin 0.073 EKG: Afib RVR Watchman PLAN: Consult cardiology - 1mg/kg lovenox Diltiazem gtt EKG Troponin trend Echo (3) Fall Assessment & Plan: PLAN: PT/OT (4) Minor head trauma Assessment & Plan: See stroke-like symptoms (5) UTI (urinary tract infection) Assessment & Plan: UA trace LE, few bacteria PLAN: Ceftriaxone 1g q24h UCx (6) Type 2 diabetes mellitus Assessment & Plan: PLAN: ACHS checks Slide Scale A (7) HTN (hypertension) (8) Hypercalcemia Status: Acute Hospital Course Date of Admission: Jun 24, 2023 at 16:58 Admission Diagnosis : Family Physician/Provider: [place] Date of Discharge: 06/26/23 Discharge Diagnosis: AFib w/ RVR; syncope Hospital Course: 77-year-old female with a history of neurocardiogenic syncope, atrial fibrillation status post Watchman device, GERD, depression, hyperlipidemia who presents after experiencing a syncopal episode with the persistence of difficulty following commands, difficulty with word finding, confusion. She had a head CT which is negative. Knee x-ray shows no acute changes. Chest x- ray shows nothing acute as well. EKG demonstrates atrial fibrillation with rapid ventricular response and nonspecific ST-T wave changes. In addition, she was found to have a urinalysis that was marginally positive with the presence of leukocyte esterase and few bacteria, however she had 2-5 white blood cells. Also found to have elevated troponin that is gone from 0.07-0.14. Cardiology was consulted. When she initially presented her heart rates were in the 110s in atrial fibrillation. Head MRI did not demonstrate any acute processes, small fluid in mastoid air cells and some small vessel ischemia. Neurology was consulted and they recommended echocardiography to assess for a potential leak around the Watchman device. Cardiology recommended a PALAK to investigate Watchman device leakage and advised for Pt to be transferred to [facility] for this procedure. Pt transferred to [facility] 06/25. Labs and Pending Lab Test: Laboratory Tests 06/25/23 12:45: Parathyroid Hormone Related Protein [Pending] 06/25/23 16:45: Glucometer 134H Microbiology 06/24/23 MRSA Screen - Final, Complete MRSA not isolated 06/24/23 Urine Culture - Final, Complete Mixed Bacterial Carlie Home Meds Active Tums (Calcium Carbonate) 300 Mg Calcium (750 Mg) Tab.chew 300 Mg PO PRN PRN 30 Days Carvedilol 6.25 Mg Tablet 6.25 Mg PO BID 30 Days Oxybutynin Chloride ER (Oxybutynin Chloride) 5 Mg Tab.er.24 5 Mg PO DAILY 30 Days Flecainide Acetate 100 Mg Tablet 100 Mg PO BID Xarelto (Rivaroxaban) 15 Mg Tablet 15 Mg PO DAILY Reported Unisom Sleep Aid (Doxylamine Succinate) 25 Mg Tablet 25-50 Mg PO HS PRN Magnesium Oxide 400 Mg Tablet 400 Mg PO DAILY Vitamin D3 (Cholecalciferol (Vitamin D3)) 25 Mcg Capsule 25 Mcg PO DAILY Rosuvastatin Calcium 20 Mg Tablet 20 Mg PO HS Bupropion Xl (Bupropion HCl) 150 Mg Tab.er.24h 150 Mg PO DAILY Furosemide 20 Mg Tablet 20 Mg PO Q48H Losartan Potassium 50 Mg Tablet 50 Mg PO HS Hydralazine HCl 25 Mg Tablet 25 Mg PO DAILY PRN Omeprazole 20 Mg Capsule.dr 20 Mg PO DAILY Assessment/Pt Instructions [facility] with [facility] Discharge Instructions Discharge Diet: No Restrictions Activity as Tolerated: Yes Discharge Physical Examination Vital Signs Vital Signs Date Time Temp Pulse Resp B/P (MAP) Pulse Ox O2 Delivery O2 Flow Rate FiO2 06/25/23 18:55 06/25/23 18:53 Room Air 06/25/23 16:00 69 14 99 06/24/23 17:00 36.0 General Appearance: No Apparent Distress Respiratory: Lungs Clear, Normal Breath Sounds, No Accessory Muscle Use, No Respiratory Distress Cardiovascular: Irregularly Irregular Gastrointestinal: Non Tender, Soft Extremity: Non Tender, No Pedal Edema Skin: Warm/Dry Neurologic/Psychiatric: Alert, Oriented x3, Normal Mood/Affect Allergies: Coded Allergies: No Known Drug Allergies (Unverified , 04/23/18) Discharge Summary Date of Admission Jun 24, 2023 at 16:58 Date of Discharge Jun 25, 2023 at 18:55 Admission Diagnosis Assessment: Syncope h/o AF s/p Watchman [address] [facility] Elevated troponin HTN HLP Plan: Cardiology consult Discharge Diagnosis (1) Stroke-like symptoms Assessment & Plan: PLAN: CT head negative for acute processes CTA negative for acute processes [facility] Neurology consulted, Dr. 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 Discharge Planning: <30 minutes discharge planning Discharge Instructions Discharge Diet: No Restrictions Discharge Physical Examination General Appearance: No Apparent Distress Respiratory: Lungs Clear Allergies: Coded Allergies: No Known Drug Allergies (Unverified , 04/23/18) NIYAH MONZON MD,RESIDENT Jun 26, 2023 11:42 PENELOPE MARROQUIN DO Jun 27, 2023 06:14
== END 2023-06-25 18:55 | disposition short-term general hospital (02) | DRG 281 ==
LOC: EDUNIT# 14:01 → ER 14:03 → ICU 16:58
PROVIDERS: ADMIT Internal Medicine; ATTEND Internal Medicine
DX: I48.91 Unspecified atrial fibrillation (principal); I21.A1 Myocardial infarction type 2; G45.9 Transient cerebral ischemic attack, unspecified; N39.0 Urinary tract infection, site not specified; R29.702 NIHSS score 2; I12.9 Hypertensive chronic kidney disease with stage 1 through stage 4 chronic kidney disease, or unspecified chronic kidney disease; E11.22 Type 2 diabetes mellitus with diabetic chronic kidney disease; N18.9 Chronic kidney disease, unspecified; Z66 Do not resuscitate; Z91.81 History of falling; E83.52 Hypercalcemia; S09.90XA Unspecified injury of head, initial encounter; W19.XXXA Unspecified fall, initial encounter; Z79.899 Other long term (current) drug therapy; Z79.01 Long term (current) use of anticoagulants
CPT/HCPCS: 36415; 70450; 70496; 70498; 70551; 71045; 73562; 80053; 81000; 82947; 83519; 83735; 84100; 84484; 85007; 85025; 85027; 85379; 85610; 85730; 87081; 87088; 93005; 93041; 93306